=== PATIENT | male | born 1965 | race Caucasian/White ===

== ENCOUNTER 2023-03-28 13:16 | Observation (INO) | payer OTHER, SELFPAY ==
[2023-03-28] VITALS (22 sets, daily range): BP systolic 121–160; BP diastolic 88–122; PULSE 86–127; RESP 17–35; TEMP 36.4–36.9; O2SAT 90–97; BMI 49.9; BMI 48.9
--- NOTE | 2023-03-28 13:32 | ECG_ITS ---
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
--- NOTE | 2023-03-28 13:35 | ED.GENADUL1 ---
HPI - General Adult General Chief complaint: Chest Pain Stated complaint: CHEST PAIN Time Seen by Provider: 03/28/23 13:23 Source: patient and family Mode of arrival: walk-in Limitations: no limitations History of Present Illness HPI narrative: Patient is a pleasant 57-year-old male with no other major medical history who presents to the emergency department with his for the evaluation of shortness of breath, peripheral edema, mild right chest discomfort. Patient states for the last week he has noticed swelling in his lower extremities, today after getting out of the shower, his reported that he complained that his scrotum was swollen. He states he has been more winded over the last week with exertion. He has had minimal runny nose and nonproductive cough. He states he has occasional discomfort in the right anterior chest that he describes as mucus . He has no devora chest pain. He has never smoked. He states he occasionally has lower extremity edema as he works nights and is on his feet all night. He took a home COVID test that was negative. Related Data Home Medications Medication Instructions Recorded Confirmed No Known Home Medications 03/28/23 03/28/23 Allergies Allergy/AdvReac Type Severity Reaction Status Date / Time No Known Drug Allergies Allergy Verified 03/28/23 13:32 Review of Systems ROS Constitutional Denies: fever or chills Ears, nose, mouth, and throat Reports: nasal congestion; Denies: throat pain Cardiovascular Reports: chest pain Respiratory Reports: shortness of breath and cough Gastrointestinal Denies: nausea, vomiting or diarrhea Genitourinary Denies: painful urination Musculoskeletal Denies: back pain Integumentary/Breast Denies: rash Neurological Denies: headache Hematologic/Lymphatic Denies: easy bruising PFSH PFS Social History Smoking status: Never smoker Exam Narrative Exam Narrative: Gen.: Awake, alert, in no distress Head: Normocephalic, atraumatic ENT: Moist mucous membranes Respiratory: No respiratory distress, Diminished lung sounds Cardio: Regular rate and rhythm, Tachycardia Gastrointestinal: Abdomen is soft, nondistended and nontender to palpation Extremities: Moves extremities equally, 3+ pitting pedal edema bilaterally Psych: Normal mood and affect Neuro: No focal neuro deficit Skin: Warm, dry, intact Constitutional Vital Signs, click to edit/add: Last Vital Signs Temp 98.5 F 03/28/23 13:23 Pulse 108 H 03/28/23 14:31 Resp 20 03/28/23 14:31 BP 121/95 H 03/28/23 14:31 Pulse Ox 90 L 03/28/23 14:31 O2 Del Method Room Air 03/28/23 13:53 Course Vital Signs Vital signs: Vital Signs Temperature 98.5 F 03/28/23 13:23 Pulse Rate 126 H 03/28/23 13:23 Respiratory Rate 28 H 03/28/23 13:23 Blood Pressure 151/120 H 03/28/23 13:23 Pulse Oximetry 96 03/28/23 13:23 Oxygen Delivery Method Room Air 03/28/23 13:23 Temperature 98.5 F 03/28/23 13:23 Pulse Rate 108 H 03/28/23 14:31 Respiratory Rate 20 03/28/23 14:31 Blood Pressure 121/95 H 03/28/23 14:31 Pulse Oximetry 90 L 03/28/23 14:31 Oxygen Delivery Method Room Air 03/28/23 13:53 Medical Decision Making MDM Narrative Medical decision making narrative: Patient was placed on oxygen by nasal cannula as while he was in the ER, he was noted to have mild hypoxia while sleeping. He had no complaints of pain in the ER, no complaints of nausea. He was given labetalol for initial hypertension and tachycardia with PVCs. Blood pressure and heart rate improved with this medication. BNP and D-dimer are elevated. CT angio of the chest shows interstitial edema and pleural effusion. Patient treated with 60 mg of IV Lasix. We will admit for diuresis to hospitalist service. Patient is stable at time of admission. Medical Records Medical records reviewed: Yes I reviewed the patient's medical records Lab Data Lab results reviewed: Yes I reviewed the patient's lab results Labs: Lab Results 03/28/23 03/28/23 03/28/23 Range/Units 13:55 14:00 14:28 WBC 10.8 (4.0-11.0) 10^3/uL RBC 5.23 (4.70-6.10) 10^6/uL Hgb 15.2 (14.0-18.0) g/dL Hct 48.3 (42.0-54.0) % MCV 92.4 (80.0-94.0) fL MCH 29.1 (25.9-34.0) pg MCHC 31.5 (29.9-35.2) g/dL RDW 14.4 (11.0-15.0) % Plt Count 236 (150-450) 10^3/uL MPV 10.4 (9.5-13.5) fL Neut % (Auto) 77.7 H (43.0-75.0) % Lymph % (Auto) 11.8 L (20.5-60.0) % [place] % (Auto) 9.1 (1.7-12.0) % Eos % (Auto) 0.6 L (0.9-7.0) % Baso % (Auto) 0.5 (0.2-2.0) % Neut # (Auto) 8.4 H (1.4-6.5) 10^3/uL Lymph # (Auto) 1.3 (1.2-3.8) 10^3/uL [place] # (Auto) 1.0 H (0.3-0.8) 10^3/uL Eos # (Auto) 0.1 (0.0-0.7) 10^3/uL Baso # (Auto) 0.1 (0.0-0.1) 10^3/uL Abs Immat Gran (auto) 0.03 (0.00-0.03) 10^3/uL Imm/Tot Granulo (auto) 0.3 (0.0-0.5) % PT 11.0 (9.0-11.6) sec INR 1.04 APTT 26.4 (22.3-36.2) sec D-Dimer 0.92 H* (<=0.59) mg/L FEU VBG pH 7.408 (7.330-7.430) VBG pCO2 42.9 (40.0-52.0) mmHg Sodium 138 (136-145) mmol/L Potassium 3.8 (3.5-5.1) mmol/L Chloride 103 (98-107) mmol/L Carbon Dioxide 25.3 (21.0-32.0) mmol/L Anion Gap 13.5 BUN 19.0 H (7.0-18.0) mg/dL Creatinine 1.07 (0.70-1.30) mg/dL Est GFR ( Amer) >60 (>=60) Est GFR (Non-Af Amer) >60 (>=60) BUN/Creatinine Ratio 17.8 Glucose 138 H (74-106) mg/dL Calcium 8.9 (8.5-10.1) mg/dL Total Bilirubin 0.9 (0.2-1.0) mg/dL AST 37 (15-37) U/L ALT 64 H (16-63) U/L Alkaline Phosphatase 98 (46-116) U/L Troponin I High Sens 49.2 (4.0-76.1) pg/mL NT-Pro-B Natriuret Pep 3478.0 H* (<=900.0) pg/mL Total Protein 6.5 (6.4-8.2) g/dL Albumin 3.4 (3.4-5.0) g/dL Globulin 3.1 g/dL Albumin/Globulin Ratio 1.1 Procalcitonin <0.05 (0.00-0.50) ng/mL Adenovirus (PCR) Not detected (NOT DETECTE) C. pneumoniae DNA (PCR) Not detected (NOT DETECTE) Coronavirus Type OC43 Not detected (NOT DETECTE) Coronavirus Type HKU1 Not detected (NOT DETECTE) Coronavirus Type 229E Not detected (NOT DETECTE) Coronavirus Type NL63 Not detected (NOT DETECTE) Human Metapneumovir PCR Not detected (NOT DETECTE) M. pneumoniae (PCR) Not detected (NOT DETECTE) Parainfluenza PCR Not detected (NOT DETECTE) Parainfluenza 2 (PCR) Not detected (NOT DETECTE) Parainfluenza 3 (PCR) Not detected (NOT DETECTE) Parainfluenza 4 (PCR) Not detected (NOT DETECTE) RSV (RT-PCR) Not detected (NOT DETECTE) Entero/Rhino (PCR) Not detected (NOT DETECTE) SARS-CoV-2 (PCR) Not detected (NOT DETECTE) Bordetella pertussis (PCR) Not detected (NOT DETECTE) B parapertussis DNA PCR Not detected (NOT DETECTE) Influenza Type A (PCR) Not detected (NOT DETECTE) Influenza Type B (PCR) Not detected (NOT DETECTE) Imaging Data CT scan - chest: Radiologist's impression: ITS Impressions Chest CTA 03/28/23 15:13 IMPRESSION: No evidence for acute pulmonary embolism. Findings suggesting interstitial edema and small right effusion. Question CHF and/or fluid overload. Electronically authenticated by: MANE TABARES Date: 03/28/2023 16:26 ECG Data Attestation: I personally reviewed and interpreted this ECG as follows: (Sinus tachycardia at a rate of 106 with occasional PVCs, right bundle branch block with no acute ST elevation. EKG reviewed by attending physician) Discharge Plan Discharge Chief Complaint: Chest Pain Patient Disposition: Admitted as Observation Time of Disposition Decision: 16:53
[2023-03-28] MEDS: LABETALOL HCL 20 MG/4 ML SYRINGE IVP (13:47)
[2023-03-28 14:07] LABS: Adenovirus NOT DETECTED (NOT DETECTE); Bordetella parapertussis NOT DETECTED (NOT DETECTE); Coronavirus 229E NOT DETECTED (NOT DETECTE); Coronavirus HKU1 NOT DETECTED (NOT DETECTE); Coronavirus NL63 NOT DETECTED (NOT DETECTE); Coronavirus OC43 NOT DETECTED (NOT DETECTE); Human Metapneumovirus NOT DETECTED (NOT DETECTE); Human Rhinovirus/Enterovirus NOT DETECTED (NOT DETECTE); Influenza A NOT DETECTED (NOT DETECTE); Influenza B NOT DETECTED (NOT DETECTE); Mycoplasma pneumoniae NOT DETECTED (NOT DETECTE); Parainfluenza Virus 1 NOT DETECTED (NOT DETECTE); Parainfluenza Virus 2 NOT DETECTED (NOT DETECTE); Parainfluenza Virus 3 NOT DETECTED (NOT DETECTE); Parainfluenza Virus 4 NOT DETECTED (NOT DETECTE); Respiratory Syncytial Virus NOT DETECTED (NOT DETECTE); SARS-CoV-2 NOT DETECTED (NOT DETECTE)
[2023-03-28 14:10] LABS: Basophils Absolute Auto 0.1 10^3/uL (0.0-0.1); Basophils Percent Auto 0.5 % (0.2-2.0); Eosinophils Absolute Auto 0.1 10^3/uL (0.0-0.7); Eosinophils Percent Auto 0.6 % (0.9-7.0); Hematocrit 48.3 % (42.0-54.0); Hemoglobin 15.2 g/dL (14.0-18.0); Immature Granulocytes Abs Auto 0.03 10^3/uL (0.00-0.03); Immature Granulocytes Pct Auto 0.3 % (0.0-0.5); Lymphocytes Absolute Auto 1.3 10^3/uL (1.2-3.8); Lymphocytes Percent Auto 11.8 % (20.5-60.0); Mean Corpuscular HGB Conc 31.5 g/dL (29.9-35.2); Mean Corpuscular Hemoglobin 29.1 pg (25.9-34.0); Mean Corpuscular Volume 92.4 fL (80.0-94.0); Mean Platelet Volume 10.4 fL (9.5-13.5); Monocytes Percent Auto 9.1 % (1.7-12.0); Neutrophils Absolute Auto 8.4 10^3/uL (1.4-6.5); Neutrophils Percent Auto 77.7 % (43.0-75.0); Platelet Count 236 10^3/uL (150-450); Red Blood Count 5.23 10^6/uL (4.70-6.10); Red Cell Distribution Width 14.4 % (11.0-15.0); White Blood Count 10.8 10^3/uL (4.0-11.0)
[2023-03-28 14:30] LABS: Alanine Aminotransferase 64 U/L (16-63); Albumin Globulin Ratio 1.1; Albumin Level 3.4 g/dL (3.4-5.0); Alkaline Phosphatase 98 U/L (46-116); Anion Gap 13.5; Aspartate Amino Transferase 37 U/L (15-37); BUN Creatinine Ratio 17.8; Bilirubin Total 0.9 mg/dL (0.2-1.0); Calcium 8.9 mg/dL (8.5-10.1); Carbon Dioxide 25.3 mmol/L (21.0-32.0); Chloride 103 mmol/L (98-107); Estimated GFR (African America >60 (>=60); Estimated GFR (Non-African Ame >60 (>=60); Globulin 3.1 g/dL; Glucose 138 mg/dL (74-106); Potassium 3.8 mmol/L (3.5-5.1); Sodium 138 mmol/L (136-145); Total Protein 6.5 g/dL (6.4-8.2)
[2023-03-28 14:35] LABS: Troponin I High Sensitivity 49.2 pg/mL (4.0-76.1)
[2023-03-28 14:38] LABS: PCO2 VBG 42.9 mmHg (40.0-52.0); pH VBG 7.408 (7.330-7.430)
[2023-03-28 14:40] LABS: PROCALCITONIN <0.05 ng/mL (0.00-0.50)
[2023-03-28 15:01] LABS: INR 1.04; Partial Thromboplastin Time 26.4 sec (22.3-36.2)
[2023-03-28 15:13] LABS: D Dimer 0.92 mg/L FEU (<=0.59)
--- NOTE | 2023-03-28 15:13 | CT_ITS ---
[address] [address] Patient Name: FLAKO COLIN MRN: [id number] date: 1965 Sex: M Assigned Patient Location: ER Current Patient Location: Accession/Order Number: [id number] Exam Date: 03/28/2023 15:20 Report Date: 03/28/2023 16:26 At the request of: MARCE RONQUILLO Procedure: CT angio chest EXAM: CT angio chest TECHNIQUE: CT angiogram with contrast performed of the chest including multi planar reformatted images and maximum intensity projection images. Dose reduction techniques were achieved by using automated exposure control and/or adjustment of mA and/or kV according to patient size and/or use of iterative reconstruction technique. HISTORY: Shortness of breath, elevated d dimer COMPARISON: None. FINDINGS: Neck and Axilla: No lower neck or axillary lymphadenopathy. Mediastinum and [place]: No hilar or mediastinal lymphadenopathy. The esophagus is grossly unremarkable without dilatation or gross mass lesion. Heart and Major Vessels: The heart appears unremarkable for size without pericardial effusion. The aorta and central pulmonary arteries are unremarkable for size.No pulmonary arterial filling defect to suggest acute embolism. Lung [place]: Mild bilateral dependent atelectasis. Bilateral interstitial thickening suspicious for edema. Pleural Spaces: Small right-sided pleural effusion. Trace left-sided pleural fluid. Upper Abdomen: No acute abnormality identified. Chest Wall: No acute abnormality. CT/CT angio chest IMPRESSION: No evidence for acute pulmonary embolism. Findings suggesting interstitial edema and small right effusion. Question CHF and/or fluid overload. Electronically authenticated by: MANE TABARES Date: 03/28/2023 16:26
[2023-03-28] MEDS: FUROSEMIDE 40 MG/4 ML VIAL 60 MG IVP (17:20)
[2023-03-28 19:31] LABS: Troponin I High Sensitivity 49.1 pg/mL (4.0-76.1)
[2023-03-28] MEDS: ENOXAPARIN SODIUM 40 MG/0.4 ML SYRINGE SUBQ (20:33)
[2023-03-29] VITALS (18 sets, daily range): BP systolic 136–149; BP diastolic 77–88; PULSE 62–154; RESP 18–20; TEMP 36.4–36.6; O2SAT 90–96
[2023-03-29] MEDS: FUROSEMIDE 40 MG/4 ML VIAL IVP ×2 (05:01→17:33)
[2023-03-29 06:46] LABS: Alanine Aminotransferase 55 U/L (16-63); Albumin Globulin Ratio 1.1; Albumin Level 3.3 g/dL (3.4-5.0); Alkaline Phosphatase 85 U/L (46-116); Anion Gap 14.4; Aspartate Amino Transferase 31 U/L (15-37); BUN Creatinine Ratio 16.2; Bilirubin Total 1.2 mg/dL (0.2-1.0); Calcium 8.8 mg/dL (8.5-10.1); Carbon Dioxide 28.4 mmol/L (21.0-32.0); Chloride 105 mmol/L (98-107); Chol HDL Ratio 3.4; Cholesterol 124 mg/dL (<=200); Estimated GFR (African America >60 (>=60); Estimated GFR (Non-African Ame >60 (>=60); Globulin 3.1 g/dL; Glucose 105 mg/dL (74-106); HDL Cholesterol 36 mg/dL (40-60); Potassium 3.8 mmol/L (3.5-5.1); Sodium 144 mmol/L (136-145); Total Protein 6.4 g/dL (6.4-8.2); Triglycerides 65 mg/dL (<=150)
--- NOTE | 2023-03-29 06:55 | CA_ITS ---
Patient Name: FLAKO COLIN MR#: [id number] : 1965 Exam Date: 03/29/2023 Ordering Doctor: DR Chase Connors . ECHOCARDIOGRAM REPORT PROCEDURE: CA ECHO DOPPLER COMPLETE INDICATIONS: CHF, Chest pain COMPARISON: None. DESCRIPTION: COMPLETE ECHOCARDIOGRAM Real-time transthoracic echocardiography with 2D, M-mode, spectral and color flow Doppler performed. QUALITY: Technical quality was good. LEFT VENTRICLE: Severe dilatation. Mild concentric left ventricular hypertrophy. LV EF: Global left ventricular systolic function is moderate; visually estimated ejection fraction is 30 to 35%. Diffuse hypokinesis. DIASTOLIC: Not adequately assessed due to heart rhythm. ATRIAL SEPTUM: Inadequately seen. LEFT ATRIUM: Severe dilatation. RIGHT ATRIUM: Moderate dilatation. RIGHT VENTRICLE: Moderate dilatation. Decreased right ventricular systolic function. TRICUSPID VALVE: Normal mobility and thickness. Mild regurgitation. Moderate pulmonary hypertension. RVSP 52mmHg MITRAL VALVE: Normal mobility and thickness. No evidence of mitral valve stenosis. There is no mitral annular calcification. Moderate mitral regurgitation. AORTIC VALVE: Normal trileaflet appearance. No visible sclerosis. Normal leaflet mobility. No evidence of aortic valve stenosis. AORTIC ROOT: Normal diameter and appearance. PULMONIC VALVE: Normal thickness and mobility. No stenosis. No regurgitation. PERICARDIUM: Trivial pericardial effusion. IVC: Severe dilatation. No collapse. CONCLUSION: 1. Global left ventricular systolic function is moderately decreased; visually estimated ejection fraction is 30 to 35% 2. The left ventricle is dilated 3. Mildly increased left right ventricle is moderately dilated with reduced systolic function 4. Biatrial enlargement 5. Mild tricuspid regurgitation 6. Moderately elevated right ventricular systolic pressure; RVSP 52 mmHg 7. Moderate mitral regurgitation 8. Trivial pericardial effusion Adult Echocardiography Procedure Report Left Ventricle LVEDD (3.7 - 5.6 cm): 7.16 cm LVESD (2.2 - 4.0 cm): 6.37 cm LVIVS thickness (0.6 - 1.2 cm): 1.29 cm LVPW thickness (0.5 - 1.0 cm): 1.28 cm e': 0.11 m/s E - e': 8.78 LVOT Max Gradient: 2.25 mm[Hg], 2.34 mm[Hg], 1.76 mm[Hg] LVOT Area (cm2): 0.73 m/s Peak Velocity (LVOT): 0.75 m/s, 0.77 m/s, 0.66 m/s Mean Velocity (LVOT): 0.58 m/s LVOT Diameter 2.56 cm Left Ventricular Ejection Fraction: 37.61 % Left Atrium LA Volume Index (2D A2C): 62.58 ml/m2 Left Atrium Systolic Dimension: 5.30 cm Mitral Valve Mitral Valve E-Wave Peak Velocity: 0.93 m/s Right Ventricle RV Internal Diastolic Dimension: 4.57 cm Aorta AO Root Diam: 3.56 cm Ascending Ao Diam: 3.40 cm Aortic Valve AoV Area (Peak Krish): 3.00 cm2, 3.10 cm2, 2.89 cm2, 3.03 cm2 AoV Area (VTI): 3.27 cm2, 3.04 cm2, 3.27 cm2, 3.54 cm2 Peak Velocity(Antegrade Flow): 1.24 m/s, 1.36 m/s, 1.13 m/s Peak Gradient(Antegrade Flow): 6.20 mm[Hg], 7.41 mm[Hg], 5.09 mm[Hg] Mean Velocity(Antegrade Flow): 0.86 m/s, 0.95 m/s, 0.89 m/s Mean Gradient(Antegrade Flow): 3.43 mm[Hg], 4.19 mm[Hg], 3.36 mm[Hg] Velocity Time Integral: 20.15 cm, 21.26 cm, 16.04 cm Tricuspid Valve Peak Velocity (Regurgitant Flow): 2.30 m/s, 1.80 m/s, 3.04 m/s Pulmonic Valve Mean Gradient: 3.02 mm[Hg], 2.93 mm[Hg] Mean Velocity: 0.84 m/s, 0.84 m/s Peak Velocity: 1.05 m/s Peak Gradient: 4.71 mm[Hg], 4.12 mm[Hg] Right Atrium Right Atrium Systolic Pressure: 109.42 ml, 109.42 ml Dictated by: Erasto Rodriguez M.D. on 03/29/2023 at 12:00 Approved by: Erasto Rodriguez M.D. on 03/29/2023 at 12:04
[2023-03-29 07:10] LABS: Bilirubin Urine NEGATIVE (NEGATIVE); Blood Urine NEGATIVE (NEGATIVE); Clarity Urine CLEAR (CLEAR); Color Urine LT. YELLOW (YELLOW); Glucose Urine UA NEGATIVE (NEGATIVE); Ketones Urine NEGATIVE (NEGATIVE); Leukocyte Esterase Urine NEGATIVE (NEGATIVE); Nitrite Urine NEGATIVE (NEGATIVE); Protein Urine NEGATIVE (NEG/TRACE); Urobilinogen Urine 0.2 EU/dL (0.2-1.0); pH Urine 5.5 (5.0-9.0)
[2023-03-29 07:16] LABS: Urine Microscopic Indicated NO
--- NOTE | 2023-03-29 08:57 | ECG_ITS ---
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
--- NOTE | 2023-03-29 09:17 | PC.NURSE ---
0840 nurse noted pt HR to go up in to the 150's. Assessed pt denied having any SOB, dyspnea or chest pain. ICU called saying it looks like he went into afib. Updated , placing orders. Nurse had pt bear down and pt HR did go down to 110-120's. ICu called and said it looked like he went back to just a sinus tach.
[2023-03-29 10:04] LABS: Troponin I High Sensitivity 48.1 pg/mL (4.0-76.1)
[2023-03-29] MEDS: CARVEDILOL 3.125 MG TABLET PO ×2 (10:13→20:30)
[2023-03-29] MEDS: LISINOPRIL 20 MG TABLET PO (10:13)
--- NOTE | 2023-03-29 11:52 | CM.NOTE ---
Rounds made with Dr. Connors. Dr. Connors explained fluid overload and the need to stay an additional day (at least) to get off the fluid and control his blood pressure. Mr. Jewell would prefer to leave but he verbalizes understanding when Dr. Connors explains the importance of continuing treatment.
--- NOTE | 2023-03-29 12:01 | P.HP_ITS ---
H&P: HPI History of Present Illness Chief complaint: CHEST PAIN Narrative: 57 y/o male with no significant past medical history presents to ER with SOB and edema. Reports symptoms for 1 week but family reports several weeks and getting worse. C/o SOB with exertion and need frequent breaks. Not able to sleep l aying flat due to SOB and started sleeping in chair. Severe swelling in both feet and progressed up to legs and scrotum. Mild discomfort in chest. Patient has continued to work but just moves slower and needs frequent breaks due to fatigue and SOB. To ER and BP elevated. Labs showed elevated BNP and CT chest with fluid overload. Started IV lasix and admitted. Edema slightly better this am. Patient reports he feels okay other than mild SOB. Review of Systems ROS Constitutional Reports: fatigue; Denies: fever or chills Cardiovascular Reports: chest pain, edema, swelling of feet/ankles, shortness of breath with exertion and shortness of breath when lying down; Denies: palpitations or lightheadedness Respiratory Reports: shortness of breath and cough; Denies: wheezing Gastrointestinal Denies: abdominal pain, nausea, vomiting or diarrhea Genitourinary Denies: painful urination [facility] Medical History (Updated 03/29/23 @ 12:07 by Chase Connors MD) Tachycardia ?R00.0 - Tachycardia, unspecified (ICD-10) CHF (congestive heart failure) ?I50.9 - Heart failure, unspecified (ICD-10) Social History Smoking status: Never smoker Meds Home Medications and Allergies Home Medications Medication Instructions Recorded Confirmed Type No Known Home Medications 03/28/23 03/28/23 History Allergies Allergy/AdvReac Type Severity Reaction Status Date / Time No Known Drug Allergies Allergy Verified 03/28/23 13:32 Exam Constitutional Vital Signs, click to edit/add: Last Vital Signs Temp 97.5 F L 03/29/23 04:54 Pulse 117 H 03/29/23 08:58 Resp 18 03/29/23 04:54 BP 136/77 03/29/23 04:54 Pulse Ox 90 L 03/29/23 04:54 O2 Del Method Room Air 03/29/23 04:54 Documenting provider has reviewed patient's vital signs: yes Common normals: no apparent distress, oriented x3 and alert [facility] Common normals: normocephalic Eye Common normals: PERRL and EOMs intact bilaterally Respiratory Auscultation: crackles Cardio Common normals: regular rate, regular rhythm, no gallops, no murmurs and no rub GI Common normals: Normal to inspection, nondistended, normoactive bowel sounds present and non-tender Extremity General: edema (2+ bipedal pitting edema) Results Labs Labs: Short CBC 03/28/23 Range/Units 13:55 WBC 10.8 (4.0-11.0) 10^3/uL Hgb 15.2 (14.0-18.0) g/dL Hct 48.3 (42.0-54.0) % Plt Count 236 (150-450) 10^3/uL BMP 03/28/23 03/29/23 13:55 04:43 Sodium 138 144 Potassium 3.8 3.8 Chloride 103 105 Carbon Dioxide 25.3 28.4 BUN 19.0 H 17.0 Creatinine 1.07 1.05 Glucose 138 H 105 Calcium 8.9 8.8 Liver Function 03/28/23 03/29/23 Range/Units 13:55 04:43 Total Bilirubin 0.9 1.2 H (0.2-1.0) mg/dL AST 37 31 (15-37) U/L ALT 64 H 55 (16-63) U/L Alkaline Phosphatase 98 85 (46-116) U/L Albumin 3.4 3.3 L (3.4-5.0) g/dL Urine 03/29/23 Range/Units 06:39 Urine Color Lt. yellow (YELLOW) Urine Clarity Clear (CLEAR) Urine pH 5.5 (5.0-9.0) Ur Specific [place] 1.010 (1.005-1.025) Urine Protein Negative (NEG/TRACE) mg/dL Urine Glucose (UA) Negative (NEGATIVE) mg/dL ABG ABG results: 03/28/23 14:28 VBG pH 7.408 VBG pCO2 42.9 ECG Attestation: ?I have reviewed the pertinent ECG results. Assessment and Plan Assessment and Plan (1) Acute HFrEF (heart failure with reduced ejection fraction): (2) Sinus tachycardia: (3) Anxiety about health: (4) Benign essential hypertension: (5) Peripheral edema: (6) Morbid obesity: Plan Presented with new onset CHF and fluid overload. Echo not read but calculated EF 35%. Discussed case with cardiology who states patient needs heart cath. Discussed acuity of case and does he need transfer for cath vs outpatient. Cardiology stated either would be acceptable. CE negative and vitals stable. Developed sinus tachycardia but likely related to anxiety. Will add coreg, lisinopril, and aldactone. Continue IV lasix. Discussed with patient and nurse about disposition. He will discuss with family but thinks he may want to be discharged with outpatient cardiology follow up and heart cath.
[2023-03-29] MEDS: SPIRONOLACTONE 25 MG TABLET PO (12:31)
[2023-03-29] MEDS: ENOXAPARIN SODIUM 40 MG/0.4 ML SYRINGE SUBQ (20:30)
[2023-03-30] VITALS (15 sets, daily range): BP systolic 119–148; BP diastolic 74–85; PULSE 15–115; RESP 16–18; TEMP 36.6–36.8; O2SAT 92
[2023-03-30] MEDS: FUROSEMIDE 40 MG/4 ML VIAL IVP ×3 (04:54→21:15)
[2023-03-30 06:02] LABS: Alanine Aminotransferase 48 U/L (16-63); Albumin Level 3.1 g/dL (3.4-5.0); Alkaline Phosphatase 84 U/L (46-116); Anion Gap 12.7; Aspartate Amino Transferase 24 U/L (15-37); BUN Creatinine Ratio 16.1; Bilirubin Total 1.4 mg/dL (0.2-1.0); Carbon Dioxide 29.1 mmol/L (21.0-32.0); Chloride 107 mmol/L (98-107); Estimated GFR (African America >60 (>=60); Estimated GFR (Non-African Ame >60 (>=60); Globulin 3.2 g/dL; Glucose 101 mg/dL (74-106); Potassium 3.8 mmol/L (3.5-5.1); Sodium 145 mmol/L (136-145); Total Protein 6.3 g/dL (6.4-8.2)
[2023-03-30] MEDS: CARVEDILOL 3.125 MG TABLET PO (09:51)
[2023-03-30] MEDS: LISINOPRIL 20 MG TABLET PO (09:52)
[2023-03-30] MEDS: SPIRONOLACTONE 25 MG TABLET PO (09:52)
--- NOTE | 2023-03-30 11:38 | CM.NOTE ---
Rounds made with Dr. Connors, pt awaiting for bed at [facility] for transfer. Pt will need heart cath, cardiology will consult with pt today.
[2023-03-30] MEDS: POTASSIUM CHLORIDE 10 MEQ ER TABLET 20 MEQ PO (11:59)
--- NOTE | 2023-03-30 16:25 | P.CN_ITS ---
<Statement entered by DORA CENTENOJUSTIN - 04/06/23 16:41> This documentation has been reviewed and approved. Consult Note: HPI Data of Consult Patient: new to practice Consult date: 03/30/23 Requesting Physician: Chase Connors MD Primary Care Provider: VERONIKA PIERSON DO Consult Narrative Reason for consult: Acute systolic heart failure, newly reduced EF 30-35% Narrative: 57-year-old male with no other major medical history who presents to the emergency department with his for the evaluation of shortness of breath with exertion, + orthopnea, peripheral edema, mild right chest discomfort. Patient states for the last week he has noticed swelling in his lower extremities, today after getting out of the shower, his reported that he complained that his scrotum was swollen. He states he has been more winded over the last week with exertion. He has had minimal runny nose and nonproductive cough. He states he has occasional discomfort in the right anterior chest that he describes as mucus . Reports recent URI, sinus congestion- denied Covid states test was negative. Currently admits SOB with exertion, mild orthopnea, continued but improved leg swelling. Admits that he was having intermittent mid sternal to Rt lower chest discomfort, that occurred at rest and with exertion, and states Coughing up mucus relieved it. Echo completed yesterday showed newly reduced EF. No PMH or surgical history Pt is adopted- unknown [facility] Social never a smoker cc:: CC: Chase Connors MD Review of Systems ROS Constitutional Reports: change in weight; Denies: fever or chills Cardiovascular Reports: chest pain, edema, swelling of feet/ankles, shortness of breath with exertion and shortness of breath when lying down Respiratory Reports: shortness of breath and cough [facility] Medical History (Updated 03/30/23 @ 16:47 by ALISHA KHAN) Tachycardia ?R00.0 - Tachycardia, unspecified (ICD-10) CHF (congestive heart failure) ?I50.9 - Heart failure, unspecified (ICD-10) Social History Smoking status: Never smoker Meds Home Medications and Allergies Home Medications Medication Instructions Recorded Confirmed Type No Known Home Medications 03/28/23 03/28/23 History Allergies Allergy/AdvReac Type Severity Reaction Status Date / Time No Known Drug Allergies Allergy Verified 03/28/23 13:32 Exam Constitutional Vital Signs, click to edit/add: Last Vital Signs Temp 98 F 03/30/23 14:00 Pulse 15 L 03/30/23 14:00 Resp 18 03/30/23 14:00 BP 148/85 H 03/30/23 14:00 Pulse Ox 92 L 03/30/23 05:00 O2 Del Method Room Air 03/30/23 14:00 Common normals: no apparent distress, oriented x3 and alert; negative for average body habitus (obese) General appearance: cooperative, comfortable and well kempt Nutritional appearance: obese HENMI Common normals: normocephalic Respiratory Common normals: normal respiratory effort, no retractions and no use of accessory muscles Auscultation: diminished lung sounds (diminished b/l posterior bases) bilateral; no crackles, no rales, no rhonchi and no wheezes Cardio Common normals: no JVD (unable to assess r/t body habitus), regular rhythm, S1 normal heart sound, S2 normal heart sound and peripheral pulses 2+ throughout Rhythm: regular rhythm Peripheral pulses: radial pulses present, posterior tibial pulses present and dorsalis pedis pulses present Extremity Common normals: full ROM and normal capillary refill General: edema (BLE 3+ pitting) Neuro Common normals: oriented x3 and CN's II-XII intact bilaterally Psych Common normals: thought process normal, cooperative and affect normal Judgement: judgment good Results Labs Labs: [facility] 03/30/23 04:32 Sodium 145 Potassium 3.8 Chloride 107 Carbon Dioxide 29.1 BUN 15.0 Creatinine 0.93 Glucose 101 Calcium 9.0 Liver Function 03/30/23 Range/Units 04:32 Total Bilirubin 1.4 H (0.2-1.0) mg/dL AST 24 (15-37) U/L ALT 48 (16-63) U/L Alkaline Phosphatase 84 (46-116) U/L Albumin 3.1 L (3.4-5.0) g/dL ABG ABG results: 03/28/23 14:28 VBG pH 7.408 VBG pCO2 42.9 ECG ECG interpretation date: 03/29/23 Prior ECG tracings: available for review Interpretation: Interpretive Statements SINUS TACHYCARDIA WITH FREQUENT VENTRICULAR PREMATURE COMPLEXES RIGHT BUNDLE BRANCH BLOCK [120+ ms QRS DURATION, UPRIGHT V1, 40+ ms S IN I/aVL/V4/V5/V6] LEFT ANTERIOR FASCICULAR BLOCK [QRS AXIS <= -45, QR IN I, RS IN II] WARNING: DATA QUALITY MAY AFFECT INTERPRETATION INTERPRETATION BASED ON A DEFAULT AGE OF 40 YEARS Electronically Signed On 03-29-2023 22:28:02 EST by JUNIOR HERNANDEZ Imaging echocardiogram: Attestation: I have reviewed the pertinent imaging results. Radiologist's impression: 03/29/23 [place] [address] Cardiology Report Signed Patient: FLAKO COLIN MR#: [id number] : 1965 Acct:[id number] Age/Sex: 57 / M ADM Date: 03/28/23 Loc: MS 214-[address]: Chase Connors M.D. Ordering Physician: Chase Connors M.D. Date of Service: 03/29/23 Procedure(s): CA echo doppler complete Accession Number(s): [id number] cc: VERONIKA PIERSON D.O.; Chase Connors M.D.~ Patient Name: FLAKO COLIN MR#: [id number] : 1965 Exam Date: 03/29/2023 Ordering Doctor: DR Chase Connors . ECHOCARDIOGRAM REPORT PROCEDURE: CA ECHO DOPPLER COMPLETE INDICATIONS: CHF, Chest pain COMPARISON: None. DESCRIPTION: COMPLETE ECHOCARDIOGRAM Real-time transthoracic echocardiography with 2D, M-mode, spectral and color flow Doppler performed. QUALITY: Technical quality was good. LEFT VENTRICLE: Severe dilatation. Mild concentric left ventricular hypertrophy. LV EF: Global left ventricular systolic function is moderate; visually estimated ejection fraction is 30 to 35%. Diffuse hypokinesis. DIASTOLIC: Not adequately assessed due to heart rhythm. ATRIAL SEPTUM: Inadequately seen. LEFT ATRIUM: Severe dilatation. RIGHT ATRIUM: Moderate dilatation. RIGHT VENTRICLE: Moderate dilatation. Decreased right ventricular systolic function. TRICUSPID VALVE: Normal mobility and thickness. Mild regurgitation. Moderate pulmonary hypertension. RVSP 52mmHg MITRAL VALVE: Normal mobility and thickness. No evidence of mitral valve stenosis. There is no mitral annular calcification. Moderate mitral regurgitation. AORTIC VALVE: Normal trileaflet appearance. No visible sclerosis. Normal leaflet mobility. No evidence of aortic valve stenosis. AORTIC ROOT: Normal diameter and appearance. PULMONIC VALVE: Normal thickness and mobility. No stenosis. No regurgitation. PERICARDIUM: Trivial pericardial effusion. IVC: Severe dilatation. No collapse. CONCLUSION: 1. Global left ventricular systolic function is moderately decreased; visually estimated ejection fraction is 30 to 35% 2. The left ventricle is dilated 3. Mildly increased left right ventricle is moderately dilated with reduced systolic function 4. Biatrial enlargement 5. Mild tricuspid regurgitation 6. Moderately elevated right ventricular systolic pressure; RVSP 52 mmHg 7. Moderate mitral regurgitation 8. Trivial pericardial effusion CT scan - chest: Attestation: I have reviewed the pertinent imaging results. Radiologist's impression: Heart and Major Vessels: The heart appears unremarkable for size without pericardial effusion. The aorta and central pulmonary arteries are unremarkable for size.No pulmonary arterial filling defect to suggest acute embolism. Lung [place]: Mild bilateral dependent atelectasis. Bilateral interstitial thickening suspicious for edema. Pleural Spaces: Small right-sided pleural effusion. Trace left-sided pleural fluid. Upper Abdomen: No acute abnormality identified. Chest Wall: No acute abnormality. CT/CT angio chest IMPRESSION: No evidence for acute pulmonary embolism. Findings suggesting interstitial edema and small right effusion. Question CHF and/or fluid overload. Electronically authenticated by: MANE TABARES Date: 03/28/2023 16:26 Assessment and Plan Assessment and Plan (1) Acute HFrEF (heart failure with reduced ejection fraction): Assessment and Plan: Newly reduced LVSF- EF 30-35% [facility] III -GDMT optimization- continue Coreg- increase to 6.25 mg bid, lisinopril, lasix and aldactone- after cardiac cath may transition Lisnopril to entresto and add SGLT2i- Non are formulary at [facility] - Plan for transfer to [facility] for Cardiology consult, aggressive diuresis, monitoring of renal function and electrolytes, plan for cardiac cath after further optimization and more euvolemic - Increase lasix to 40 mg IV TID, Further optimization of GDMT at [facility], Accurate I&O, daily weights, fluid restriction 1500 ml/day and low sodium diet. -Provider had extended 45 min D/W pt and family regarding Acute systolic heart failure diagnosis, reduced EF, need for cardiac cath for ischemic evaluation, aggressive diuresis, possiblity of needing lifevest for prophylaxis. I&O does not appear accurate but noted as net negative- (-2475 mL) (2) Sinus tachycardia: Assessment and Plan: Continue beta robby- currently stable (3) Anxiety about health: (4) Peripheral edema: Assessment and Plan: continue diuresis (5) Morbid obesity: Assessment and Plan: recommend lifestyle modifiacations- heart healthy diet, regular exercise after DC- most likely will need Cardiac rehab (6) Benign hypertensive heart disease with heart failure: Assessment and Plan: CUrrently HTN stable and will adjust GDMT dependent upon B/P tolerance Continue all medications (7) BAKER (dyspnea on exertion): Assessment and Plan: BAKER is improving with diuresis per pt Plan as above Alisha [facility] CArdiology
[2023-03-30] MEDS: CARVEDILOL 6.25 MG TABLET PO (21:16)
[2023-03-30] MEDS: ENOXAPARIN SODIUM 40 MG/0.4 ML SYRINGE SUBQ (21:16)
--- NOTE | 2023-03-30 21:32 | P.PN_ITS ---
Progress Note: Subjective Subjective Interval history: Patient feels better this am and less edema. Mild SOB with exertion but improved. No chest pain or palpitations. No cough. Waiting for a bed at [facility] for transfer. Exam Constitutional Vital Signs, click to edit/add: Last Vital Signs Temp 97.9 F 03/30/23 21:24 Pulse 51 L 03/30/23 21:24 Resp 16 03/30/23 21:24 BP 119/74 03/30/23 21:24 Pulse Ox 92 L 03/30/23 21:24 O2 Del Method Room Air 03/30/23 21:24 Documenting provider has reviewed patient's vital signs: yes Common normals: no apparent distress, oriented x3 and alert HENMT Common normals: normocephalic Eye Common normals: PERRL and EOMs intact bilaterally Respiratory Common normals: normal respiratory effort and clear to auscultation bilaterally Cardio Common normals: regular rate, regular rhythm, no gallops, no murmurs and no rub GI Common normals: Normal to inspection, nondistended, normoactive bowel sounds present and non-tender Extremity General: edema (1+ bipedal pitting edema) Progress Note: Objective Labs Labs: BMP 03/30/23 04:32 Sodium 145 Potassium 3.8 Chloride 107 Carbon Dioxide 29.1 BUN 15.0 Creatinine 0.93 Glucose 101 Calcium 9.0 Liver Function 03/30/23 Range/Units 04:32 Total Bilirubin 1.4 H (0.2-1.0) mg/dL AST 24 (15-37) U/L ALT 48 (16-63) U/L Alkaline Phosphatase 84 (46-116) U/L Albumin 3.1 L (3.4-5.0) g/dL Progress Note: A&P Assessment and Plan (1) Acute HFrEF (heart failure with reduced ejection fraction): (2) Sinus tachycardia: (3) Anxiety about health: (4) Peripheral edema: (5) Morbid obesity: (6) Benign hypertensive heart disease with heart failure: (7) BAKER (dyspnea on exertion): Plan Patient diuresing well and weight down about 7 kg since admission. Continue IV lasix. Evaluated by cardiology and felt it would be in patient's best interest to be transferred for heart cath as opposed to going home and having outpatient cath. No bed available. Continue medication and will transfer to [facility] once bed available.
[2023-03-31] VITALS (16 sets, daily range): BP systolic 118–163; BP diastolic 70–91; PULSE 86–113; RESP 18; TEMP 36.3–36.8; O2SAT 92–93
[2023-03-31] MEDS: FUROSEMIDE 40 MG/4 ML VIAL IVP ×2 (05:17→13:56)
[2023-03-31 06:06] LABS: Alanine Aminotransferase 41 U/L (16-63); Albumin Globulin Ratio 0.9; Albumin Level 3.1 g/dL (3.4-5.0); Alkaline Phosphatase 84 U/L (46-116); Anion Gap 9.7; Aspartate Amino Transferase 21 U/L (15-37); Bilirubin Total 1.6 mg/dL (0.2-1.0); Carbon Dioxide 30.7 mmol/L (21.0-32.0); Chloride 106 mmol/L (98-107); Estimated GFR (African America >60 (>=60); Estimated GFR (Non-African Ame >60 (>=60); Globulin 3.3 g/dL; Glucose 90 mg/dL (74-106); Potassium 3.4 mmol/L (3.5-5.1); Sodium 143 mmol/L (136-145); Total Protein 6.4 g/dL (6.4-8.2)
--- NOTE | 2023-03-31 08:27 | PM.DS1 ---
DS: Providers Provider Date of admission: 03/28/23 18:09 Primary care physician: VERONIKA PIERSON DO Consults: 03/30/23 Consult to Cardiology Routine Reason for consultation: low EF DS: Diagnosis Discharge Diagnosis (1) Acute HFrEF (heart failure with reduced ejection fraction): (2) Sinus tachycardia: (3) Anxiety about health: (4) Peripheral edema: (5) Morbid obesity: (6) Benign hypertensive heart disease with heart failure: (7) BAKER (dyspnea on exertion): DS: Summary Time Spent with Patient Time attestation: Total time spent providing and/or coordinating discharge services: Exam Constitutional Vital Signs, click to edit/add: Last Vital Signs Temp 98.2 F 03/31/23 05:20 Pulse 97 H 03/31/23 07:56 Resp 18 03/31/23 05:20 BP 163/70 H 03/31/23 05:20 Pulse Ox 92 L 03/31/23 05:20 O2 Del Method Room Air 03/31/23 05:20 DS: Data Data Completed and Pending Labs on day of discharge: Labs from last 24 hours 03/31/23 05:03 Sodium 143 Potassium 3.4 L Chloride 106 Carbon Dioxide 30.7 Anion Gap 9.7 BUN 16.0 Creatinine 1.00 Est GFR ( Amer) >60 Est GFR (Non-Af Amer) >60 BUN/Creatinine Ratio 16.0 Glucose 90 Calcium 9.0 Total Bilirubin 1.6 H AST 21 ALT 41 Alkaline Phosphatase 84 Total Protein 6.4 Albumin 3.1 L Globulin 3.3 Albumin/Globulin Ratio 0.9 Preliminary micro results at discharge 03/28/23 14:00 - Preliminary Blood NO GROWTH AT 36-48 HOURS. FINAL TO FOLLOW. 03/28/23 13:55 Blood Culture Result 1 - Preliminary Blood NO GROWTH AT 36-48 HOURS. FINAL TO FOLLOW. Discharge Plan Discharge Condition: Good Discharge Medications: No Action No Known Home Medications Follow Up Appointments: Apr.05 @ 9:15am with Dr. 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
[2023-03-31] MEDS: SPIRONOLACTONE 25 MG TABLET PO (09:48)
[2023-03-31] MEDS: CARVEDILOL 6.25 MG TABLET PO (09:48)
[2023-03-31] MEDS: LISINOPRIL 20 MG TABLET PO (09:48)
[2023-03-31] MEDS: POTASSIUM CHLORIDE 10 MEQ ER TABLET 20 MEQ PO (09:48)
--- NOTE | 2023-03-31 17:59 | P.PN_ITS ---
Progress Note: Subjective Subjective Interval history: patient reports edema has improved on both lower extremities, no chest pain no shortness of breath. Waiting for a bed at [facility] for transfer. Exam Narrative Exam Narrative: General: Patient is alert, and oriented to person, place and time with normal affect, proper hygiene Skin: no visible rashes, or ulcers Head: atraumatic, acephalic Eyes: PERRLA, no nystagmus present, conjunctiva clear, no scleral icterus Heart: Normal rate and rhythm, no murmurs/rubs/gallops Lungs: no audible wheezes, crackles and normal breath sounds all lung juarez Musculoskeletal: +1 swelling bilateral lower extremities Neuro: CN II-X grossly intact Constitutional Vital Signs, click to edit/add: Last Vital Signs Temp 98.2 F 03/31/23 05:20 Pulse 99 H 03/31/23 17:57 Resp 18 03/31/23 13:59 BP 118/84 03/31/23 13:59 Pulse Ox 93 L 03/31/23 13:59 O2 Del Method Room Air 03/31/23 13:59 Progress Note: Objective Labs Labs: [facility] 03/31/23 05:03 Sodium 143 Potassium 3.4 L Chloride 106 Carbon Dioxide 30.7 BUN 16.0 Creatinine 1.00 Glucose 90 Calcium 9.0 Liver Function 03/31/23 Range/Units 05:03 Total Bilirubin 1.6 H (0.2-1.0) mg/dL AST 21 (15-37) U/L ALT 41 (16-63) U/L Alkaline Phosphatase 84 (46-116) U/L Albumin 3.1 L (3.4-5.0) g/dL Progress Note: A&P Assessment and Plan (1) Acute HFrEF (heart failure with reduced ejection fraction): Assessment and Plan: new onset with EF 30%, continue Coreg, spironolactone, Lasix, lisinopril, awaiting transfer for cardiac catheterization and higher level of care (2) Peripheral edema: Assessment and Plan: continue Lasix 40 mg 3 times a day (3) Morbid obesity: Assessment and Plan: encourage weight loss once discharged from the hospital, cardiac diet (4) Benign hypertensive heart disease with heart failure: Assessment and Plan: continue antihypertensives (5) BAKER (dyspnea on exertion): Assessment and Plan: symptoms have improved with diuresis Plan patient is a full code Continue Lovenox for deep vein thrombosis prophylaxis Patient as inpatient status in awaiting bed placement/transfer to [facility]
--- NOTE | 2023-04-01 09:25 | PM.DS1 ---
DS: Providers Provider Date of admission: 03/28/23 18:09 Primary care physician: VERONIKA PIERSON DO Admitting clinician: Chase Connors Consults: 03/30/23 Consult to Cardiology Routine Reason for consultation: low EF Discharging clinician: Radha Méndez DS: Diagnosis Discharge Diagnosis (1) Acute HFrEF (heart failure with reduced ejection fraction): (2) Peripheral edema: (3) Morbid obesity: (4) Benign hypertensive heart disease with heart failure: (5) BAKER (dyspnea on exertion): DS: Summary Hospital Course Hospital Course: please see progress note dated 03/31/23, patient transferred to [facility] Status at Discharge Functional status at discharge: independent ambulation Time Spent with Patient Time attestation: Total time spent providing and/or coordinating discharge services: Time spent: greater than 30 minutes Exam Narrative Exam Narrative: see progress note dated 03/31/23 Constitutional Vital Signs, click to edit/add: Last Vital Signs Temp 97.4 F L 03/31/23 19:24 Pulse 107 H 03/31/23 19:24 Resp 18 03/31/23 19:24 BP 129/91 03/31/23 19:24 Pulse Ox 93 L 03/31/23 19:24 O2 Del Method Room Air 03/31/23 19:24 DS: Data Data Completed and Pending Labs on day of discharge: Preliminary micro results at discharge 03/28/23 14:00 - Preliminary Blood NO GROWTH AT 36-48 HOURS. FINAL TO FOLLOW. 03/28/23 13:55 Blood Culture Result 1 - Preliminary Blood NO GROWTH AT 36-48 HOURS. FINAL TO FOLLOW. Discharge Plan Discharge Disposition: [facility] Acute [facility] Condition: Good Discharge Date/Time: 03/31/23 19:27 Discharge location: [facility]
== END 2023-03-31 19:27 | disposition short-term general hospital (02) ==
LOC: ER 18:06 → MS 18:10
PROVIDERS: Physician Assistant; Admitting Provider Family Medicine; Emergency Provider Emergency Medicine; PCP Family Medicine; Visit Provider Family Medicine
DX: I11.0 Hypertensive heart disease with heart failure (principal); I50.31 Acute diastolic (congestive) heart failure; E66.01 Morbid (severe) obesity due to excess calories; R60.9 Edema, unspecified; R06.09 Other forms of dyspnea; R00.0 Tachycardia, unspecified; F41.9 Anxiety disorder, unspecified; Z68.41 Body mass index [BMI] 40.0-44.9, adult; Z20.822 Contact with and (suspected) exposure to COVID-19
CPT/HCPCS: 0202U; 36415; 71275; 80053; 80061; 81003; 82800; 83880; 84145; 84484; 85025; 85378; 85610; 85730; 87040; 93005; 93306; 96372; 96374; 96375; 96376; 99285; G0378; J1290; J1650; J1940; Q9967

== ENCOUNTER 2023-04-10 07:56 | Outpatient (OUT) | payer OTHER, SELFPAY ==
--- OUTSIDE RECORDS SUMMARY | 2023-04-10 08:00 | XMS_ITS | CCD ---
Author Name Unknown Address [address] [place] [address] Organization [facility] Care Team Providers Care Automotive Service Director Name Role Phone EVETTE LEE Referring Unavailable BARBARAHINA Attending Unavailable MERZA, NOORALDIN Admitting Unavailable ZENKATRINA Nagel Referring Unavailable BARBARA, SARMED Referring Unavailable MERZA, NOORALDIN Referring Unavailable MERZA, NOORALDIN Referring Unavailable SHAIKH KELLEY Attending Unavailable Problems Problem Classification Problem Date Documented Da te Episodic/Chronic Congestive heart failure; nonhypertensive (2 sources) Heart failure, unspecified; Translations: [Heart failure, unspecified] Onset: 03-31-2023 Chronic Essential hypertension (2 sources) Essential (primary) hypertension; Translations: [Essential (primary) hypertension] Onset: 03-31-2023 Chronic Results Test Name Value Interpretation Reference Range Facility 36on 04-04-2023 36 Discharge date: 04/03/23 Call date: 04/04/23 Spoke with: patient and spouse HF Follow-up date: 04/06/23 Med reconciliation completed: yes Questions/Concerns: Home meds reviewed with pt. Per pt, he is not taking the OTC supplements listed on the AVS at this time, but he is taking all new medications as prescribed. Pt is monitoring daily weights, BP and HR as well as sodium and fluid intake. Pt and his spoke VERY highly of their hospital experience and the staff who cared for them. [facility] Documentationon 04-04-2023 Documentation [id number] Cory Colin 1965 M Date Provider Department Center 04/04/2023 CEE [facility] V[facility] LAB [facility] HeartVAS No family history on file Reason for Visit and Comments: HF inpatient satisfaction survey sent. [Other] [facility] Telephoneon 04-04-2023 Telephone [phone] Cory Colin 1965 M Date Provider Department Center 04/04/2023 [id number] [facility] VASC LAB OR HeartVAS No family history on file Reason for Visit and Comments: HF post discharge call [Other] Normal [facility] BASIC METABOLIC PANELon 03-07 Anion gap [Moles/Vol] 13 mmol/L Normal 7-20 [facility] Comment on above: Performed By: #### L [id number] ####[facility] ([facility] [place] [address] Calcium [Mass/Vol] 9.3 mg/dL Normal 8.6-10.3 [facility] Comment on above: Performed By: #### L [id number] ####[facility] ([facility])[address] [place] [address] Chloride [Moles/Vol] 102 mmol/L Normal 98-107 [facility] Comment on above: Performed By: #### L [id number] ####[facility] ([facility] [place] [address] CO2 [Moles/Vol] 30 mmol/L Normal 21-31 [facility] Comment on above: Performed By: #### L [id number] ####[facility] ([facility] [place] [address] Creatinine [Mass/Vol] 1.37 mg/dL High 0.70-1.30 [facility] Comment on above: Performed By: #### L [id number] ####[facility] ([facility])[address] [place] [address] GLOMERULAR FILTRATION RATE ML/MIN/1.73 SQ M.PREDICTED 60.9 mL/min/1.73m*2 Normal >60.0 [facility] Comment on above: Result Comment: The [facility]???s estimated glomerular filtration rate (eGFR) will no longer include consideration of race in its calculation. The National Kidney Foundation???s eGFR Task Force developed new recommendations for the estimation of the glomerular filtration rate in the [place] They recommend immediate implementation of the new equation refit without the race variable in all laboratories because the calculation does not include race. In addition to not including race in the calculation and reporting, it included diversity in its development, and has acceptable performance characteristics and potential consequences that do not disproportionately affect any one group of individuals. Performed By: #### L [id number] ####[facility] ([facility])[address] [place] [address] Glucose [Mass/Vol] 104 mg/dL High 70-100 [facility] Comment on above: Performed By: #### L [id number] ####[facility] ([facility])[address] [place] [address] Potassium [Moles/Vol] 4.5 mmol/L Normal 3.5-5.1 [facility] Comment on above: Performed By: #### L [id number] ####[facility] ([facility])[address] [place] [address] Sodium [Moles/Vol] 140 mmol/L Normal 136-145 [facility] Comment on above: Performed By: #### L [id number] ####[facility] ([facility])[address] [place] [address] Urea nitrogen [Mass/Vol] 28 mg/dL High 7-25 [facility] Comment on above: Performed By: #### L [id number] ####[facility] ([facility])[address] [place] [address] UREA NITROGEN/CREATININE (MASS RATIO) IN SER/PLAS 20.4 Normal [facility] Comment on above: Performed By: #### L [id number] ####[facility] ([facility])[address] [place] [address] DSon 04-03-2023 DS -- Attestation signed by Hina Gonzalez MD at 04/04/2023 2:53 PM I discussed the patient on the same date of service as the Non-Physician Provider. Hospital Medicine Discharge Summary Final Discharge Diagnosis: Decompensated heart failure (CMS/[facility]) Decompensated CHF /fluid overload Hypertension JAZZ Bilateral lower extremity edema Shortness of breath Admission Diagnosis: Decompensated heart failure (CMS/HCC) [I50.9] Hospital course: Cory Colin is an 57 y.o. male who came from [facility] with minimal to no medical history x 10 years as he states he has not seen a provider nor had any medical treatment in over 10 years and denies taking any prescription medications, [id number] medications or herbals at this time. Patient states he does not even take yfgn-yar-togykmi Tylenol or ibuprofen and stopped taking both of those years ago. Patient reports he has been experiencing shortness of breath and swelling for weeks to months with significant amount of edema progressing up bilateral lower extremities into groin and lower abdomen. Patient states upon arrival to [facility] he was over [address] [facility] he received treatment with IV Lasix, carvedilol, and Aldactone. Patient is now down to 305 pounds and still significantly edematous. Echo completed at [facility] shows EF of 30-35%. Patient diagnosed the hospital with decompensated CHF and has been transferred to [facility] for need of heart cath. Patient with likely chronic undiagnosed hypertension, obesity and obstructive sleep apnea prior to hospitalization. Decompensated CHF /fluid overload, resolved Patient was treated with IV lasix, he had Right heart cath completed which showed nearly normal pressures, he was transitioned to oral lasix on discharge Left heart cath negative for significant blockages, EF noted to be about 15%, cardiology started GDMT and will follow up with him in 1 week JAZZ, likely 2/2 diuretics and heart cath Creatinine mildly elevated, BMP ordered to be drawn Sunday, but in discharge to follow up with his PCP regarding results, he will see him tomorrow per patient Hypertension, controlled Bilateral lower extremity edema, improved Shortness of breath, resolved Dear Dr. Allie MD, Cory is advised to follow up with you within 1-2 weeks. Follow-up with: Cardiology Scheduled appointments: Future Appointments Date Time Provider Department Center 04/06/2023 10:15 AM Levi Reddy MD [facility] 04/11/2023 11:00 AM Gay Garcia NP [facility] Your medication list START taking these medications Instructions Last Dose Given Next Dose Due aspirin 81 mg EC tablet Start taking on: April 04, 2023 Take 1 tablet (81 mg) by mouth in the morning for 30 doses. Do not start before April 04, 2023. atorvastatin 80 mg tablet Commonly known as: Lipitor Take 1 tablet (80 mg) by mouth at bedtime. dapagliflozin propanediol 10 mg Commonly known as: Farxiga Start taking on: April 04, 2023 Take 1 tablet (10 mg) by mouth in the morning for 30 doses. Do not start before April 04, 2023. furosemide 40 mg tablet Commonly known as: Lasix Start taking on: April 04, 2023 Take 1 tablet (40 mg) by mouth in the morning for 30 doses. Do not start before April 04, 2023. metoprolol succinate XL 50 mg 24 hr tablet Commonly known as: Toprol-XL Start taking on: April 04, 2023 Take 1 tablet (50 mg) by mouth in the morning. Do not crush or chew. Do not start before April 04, 2023. sacubitril-valsartan 24-26 mg tablet Commonly known as: Entresto Take 1 tablet by mouth in the morning and at bedtime. spironolactone 25 mg tablet Commonly known as: Aldactone Start taking on: April 04, 2023 Take 1 tablet (25 mg) by mouth in the morning for 30 doses. Do not start before April 04, 2023. CONTINUE taking these medications Instructions Last Dose Given Next Dose Due APPLE CIDER VINEGAR ORAL GARLIC ORAL JUDI ROOT EXTRACT ORAL GINSENG ORAL Green Tea capsule Generic drug: green tea leaf extract Where to Get Your Medications These medications were sent to [facility] - [place], [place] - [address] [place] [address] [place] [address], [facility] [address] aspirin 81 mg EC tablet atorvastatin 80 mg tablet dapagliflozin propanediol 10 mg furosemide 40 mg tablet metoprolol succinate XL 50 mg 24 hr tablet sacubitril-valsartan 24-26 mg tablet spironolactone 25 mg tablet Cory has No Known Allergies. Disposition: Home or Self Care () Discharge Condition: Stable Code Status: Full Code Diagnostic Results Hematology: Results from last 7 days Lab Units 04/02/23 1042 04/01/23 0453 04/01/23 0058 W (more content not included)... Normal [facility] MAGNESIUMon 04-03-2023 Magnesium [Mass/Vol] 2.3 mg/dL Normal 1.9-2.7 [facility] Comment on above: Performed By: #### L [id number] #### [facility] ([facility]) [address] [place] [address] BASIC METABOLIC PANELon 03-06 Anion gap [Moles/Vol] 11 mmol/L Normal 7-20 [facility] Comment on above: Performed By: #### L [id number] ####[facility] ([facility])[address] [place] [address] Calcium [Mass/Vol] 9.3 mg/dL Normal 8.6-10.3 [facility] Comment on above: Performed By: #### L [id number] ####[facility] ([facility])[address] [place] [address] Chloride [Moles/Vol] 103 mmol/L Normal 98-107 [facility] Comment on above: Performed By: #### L [id number] ####[facility] ([facility])[address] [place] [address] CO2 [Moles/Vol] 31 mmol/L Normal 21-31 [facility] Comment on above: Performed By: #### L [id number] ####[facility] ([facility])[address] [place] [address] Creatinine [Mass/Vol] 0.95 mg/dL Normal 0.70-1.30 [facility] Comment on above: Performed By: #### L [id number] ####[facility] ([facility])[address] [place] [address] GLOMERULAR FILTRATION RATE ML/MIN/1.73 SQ M.PREDICTED 94.5 mL/min/1.73m*2 Normal >60.0 [facility] Comment on above: Result Comment: The [facility]???s estimated glomerular filtration rate (eGFR) will no longer include consideration of race in its calculation. The National Kidney Foundation???s eGFR Task Force developed new recommendations for the estimation of the glomerular filtration rate in the [place] They recommend immediate implementation of the new equation refit without the race variable in all laboratories because the calculation does not include race. In addition to not including race in the calculation and reporting, it included diversity in its development, and has acceptable performance characteristics and potential consequences that do not disproportionately affect any one group of individuals. Performed By: #### L [id number] ####[facility] ([facility])[address] [place] [address] Glucose [Mass/Vol] 100 mg/dL Normal 70-100 [facility] Comment on above: Performed By: #### L [id number] ####[facility] ([facility])[address] [place] [address] Potassium [Moles/Vol] 4.2 mmol/L Normal 3.5-5.1 [facility] Comment on above: Performed By: #### L [id number] ####[facility] ([facility])[address] [place] [address] Sodium [Moles/Vol] 141 mmol/L Normal 136-145 [facility] Comment on above: Performed By: #### L [id number] ####[facility] ([facility])[address] [place] [address] Urea nitrogen [Mass/Vol] 18 mg/dL Normal 7-25 [facility] Comment on above: Performed By: #### L [id number] ####[facility] ([facility])[address] [place] [address] UREA NITROGEN/CREATININE (MASS RATIO) IN SER/PLAS 18.9 Normal [facility] Comment on above: Performed By: #### L [id number] ####[facility] ([facility])[address] [place] [address] CBCon 04-02-2023 Erythrocyte distribution width (RBC) [Ratio] 15.1 % High 11.5-15.0 [facility] Comment on above: Performed By: #### L [id number] #### [facility] ([facility]) [address] [place] [address] ERYTHROCYTE MEAN CORPUSCULAR HEMOGLOBIN CONCENTRATION (G/DL) BY AUTOMATED 32.5 g/dL Normal 32.0-35.0 [facility] Comment on above: Performed By: #### L [id number] #### [facility] ([facility]) [address] [place] [address] Hematocrit (Bld) [Volume fraction] 54.7 % Normal 39.0-55.0 [facility] Comment on above: Performed By: #### L [id number] #### [facility] ([facility]) [address] [place] [address] Hemoglobin (Bld) [Mass/Vol] 17.8 g/dL High 13.0-17.0 [facility] Comment on above: Performed By: #### L [id number] #### [facility] ([facility]) [address] [place] [address] MCH (RBC) [Entitic mass] 29.3 pg Normal 27.0-33.0 [facility] Comment on above: Performed By: #### L [id number] #### [facility] ([facility] [address] [place] [address] MCV (RBC) [Entitic vol] 90.1 fL Normal 82.0-98.0 [facility] Comment on above: Performed By: #### L [id number] #### [facility] ([facility]) [address] [place] [address] PLATELETS (10*3/UL) IN BLOOD AUTOMATED COUNT 245 10*3/uL Normal 150-400 [facility] Comment on above: Performed By: #### L [id number] #### [facility] ([facility]) [address] [place] [address] RBC (Bld) [#/Vol] 6.07 10*6/uL High 4.20-5.70 [facility] Comment on above: Performed By: #### L [id number] #### [facility] ([facility]) [address] [place] [address] WBC (Bld) [#/Vol] 9.12 10*3/uL Normal 4.00-10.60 [facility] Comment on above: Performed By: #### L [id number] #### [facility] ([facility]) [address] [place] [address] CONSULTon 04-02-2023 CONSULT Clinical Nutrition Assessment: Name: Cory Colin Room: [address] [place] [address] Date: 1965 Date of Visit: 04/02/23 Admission Dx: Decompensated heart failure (CMS/[facility]) [I50.9] Reason for assessment: consult for HF diet ed Information obtained from: patient, family, and medical record PMHx: HTN Current Medications: aspirin, 81 mg, oral, Daily atorvastatin, 80 mg, oral, Nightly carvedilol, 3.125 mg, oral, BID with meals dapagliflozin propanediol, 10 mg, oral, Daily furosemide, 40 mg, intravenous, q12h heparin (porcine), 5,000 Units, subcutaneous, BID sacubitril-valsartan, 1 tablet, oral, BID spironolactone, 25 mg, oral, Daily Oxygen Therapy, Labs: 0 Lab Value Date/Time BUN 20 04/01/2023452 CREATININE 0.89 04/01/2023 0453 NA 140 04/01/2023 0453 K 3.5 04/01/2023 0453 PHOS 4.2 04/01/2023 0453 MG 2.0 04/01/2023 0453 HGBA1C 6.2 (H) 04/01/2023 0453 HGB 15.8 04/01/2023 0453 WBC 9.21 04/01/2023 0453 CHOL 148 04/01/2023 0058 HDL 30 04/01/2023 0058 I/O: Intake/Output Summary (Last 24 hours) at 04/02/2023 1046 Last data filed at 04/02/2023 0644 Gross per 24 hour Intake 2.5 ml Output 4025 ml Net -4022.5 ml Allergies: No Known Allergies Nutrition Problems: Swallowing Assessment: Pt denies swallowing difficulty Mouth: Pt denies chewing difficulty 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 Pt reported steady wt between 300-310 for past 7-8 years and noted that he had gained ~20 lb after turning 52 y.o. Wt Readings from Last 10 Encounters: 04/02/23 135 kg (297 lb 2.9 oz) IBW: 75.5 kg (166 lb) UBW: 136.4-140.9 kg (300-310 lb); reported by pt Nutrition Assessment: Visiting pt for initial assessment d/t consult for CHF diet ed. 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 Limited medical hx available per chart review as pt has not visited physician in 10+years d/t feeling that he didn't have a reason to but reported that he has visited a chiropractor with whom he has a good relationship with in that same time period. That same chiropractor is who pt obtains herbal supplements from as well (judi root, ginseng, garlic, and green tea pills that pt reported that he uses to treat inflammation). Reported usual intake/foods as follows: Lunch/dinner: pot roast, chicken with gravy, steak, fish + rice + steamed veggies with butter Snacks: nuts, poptarts, oatmeal Beverages: energy drinks (1-2/d that he keeps in work locker), ~1 L soda/day, orange juice, cranberry juice, water Pt reported that he enjoys cooking meals with his ; was very interested in learning how to better prepare meals with/for pt. He reported that he adds salt to meals while he is cooking but not at the table and uses other spices (peppers) to flavor foods. Dietary Orders (From admission, onward) Start Ordered 04/02/23 0001 Diet NPO Diet effective midnight Comments: Sips with medications Question: Reason for NPO: Answer: Operation/Procedure 04/01/23 0139 Meal Intakes: Pt NPO for cardiac cath at time of RD assessment; endorsed hunger and good po intake last night Nutrition Risk: Low Nutrition Needs: Needs based on: ideal body weight (75.5 kg) Calorie needs: 1353-9603 kcals/day based on Equation: 25-30 kcal/kg Protein needs: 76-91 g/day based on 1.0-1.2 g/kg Nutrition Diagnosis: Food and nutrition knowledge deficit Related to: lack of prior exposure to diet ed/misinformation As evidenced by: pt and pt's family statements Malnutrition Assessment: Hand Grasp/Motor Function/Sensation Assessment: Grasp, Dorsiflexion, Plantar flexion R Hand Grasp: Strong L Hand Grasp: Strong (Sr. Manager strength not assessed by RD) Patient at risk for malnutrition according to hospital criteria, but does not meet the clinical characteristics per the Academy of Nutrition and Dietetics, and the [place] Society of Enteral and Parenteral Nutrition to support the diagnosis of malnutrition. Nutrition Education: Diet literature: Heart Healthy Nutrition Therapy (explained CHF-sodium relationship, reading nutrition labels, saturated fat vs unsaturated fat; recommended adequate intake of fruits/vegetables at each meal and for snacks a (more content not included)... [facility]. The patient was examined and there are no changes to the H&P. 57-year-old man who is admitted due to newly discovered systolic heart failure will undergo cardiac catheterization to rule out ischemic etiology. I explained the procedure in detail along with risks and benefits. He understands and agrees to proceed. Normal [facility] MAGNESIUMon 04-02-2023 Magnesium [Mass/Vol] 2.3 mg/dL Normal 1.9-2.7 [facility] Comment on above: Performed By: #### L [id number] #### [facility] ([facility]) [address] [place] [address] 30on 04-01-2023 30 The patient is Moderately Stable - Low risk of patient condition declining or worsening The patient's goals for the shift include comfort The clinical goals for the shift include stable vital signs Problem: Heart Failure diagnosis knowledge deficit Goal: Patient will verbalize understanding of how heart failure affects the body Outcome: Progressing Goal: Patient will verbalize understanding of how other conditions affect the heart Outcome: Progressing Problem: Fluid retention/overload Goal: Patient will be able to identify signs and symptoms of fluid retention Outcome: Progressing Problem: Heart failure medication adherence Goal: Consistently take heart failure medication as prescribed Outcome: Progressing Problem: Heart failure maintenance Goal: Patient will not experience any symptoms of shortness of breath or body swelling over the next 3 months Outcome: Progressing Normal [facility] 30 Problem: Heart Failu re diagnosis knowledge deficit Goal: Patient will verbalize understanding of how heart failure affects the body Outcome: Progressing Goal: Patient will verbalize understanding of how other conditions affect the heart Outcome: Progressing Problem: Fluid retention/overload Goal: Patient will be able to identify signs and symptoms of fluid retention Outcome: Progressing Problem: Heart failure medication adherence Goal: Consistently take heart failure medication as prescribed Outcome: Progressing Problem: Heart failure maintenance Goal: Patient will not experience any symptoms of shortness of breath or body swelling over the next 3 months Outcome: Progressing The patient is Moderately Stable - Low risk of patient condition declining or worsening The patient's goals for the shift include Comfort The clinical goals for the shift include Stable vital signs Normal [facility] APTTon 04-01-2023 ACTIVATED PARTIAL THROMBOPLASTIN TIME IN PPP BY COAGULATION ASSAY 29.8 Seconds Normal 25.0-35.0 [facility] Comment on above: Result Comment: Clin ical significance of the APTT is questionable in the presence of heparin. Performed By: #### L [id number] ####[facility] ([facility])[address] [place] [address] B-TYPE NATRIURETIC PEPTIDEon 04-01-2023 Natriuretic peptide B (Bld) [Mass/Vol] 273 pg/mL High 0-100 [facility] Comment on above: Performed By: #### L [id number] #### [facility] ([facility]) [address] [place] [address] CBC WITH AUTO DIFFERENTIALon 04-01-2023 Basophils (Bld) [#/Vol] 0.05 10*3/uL Normal 0.00-0.20 [facility] Comment on above: Performed By: #### L [id number] #### [facility] ([facility]) [address] [place] [address] Basophils/100 WBC (Bld) 0.5 % Normal 0.0-1.0 [facility] Comment on above: Performed By: #### L [id number] #### [facility] ([facility]) [address] [place] [address] Eosinophils (Bld) [#/Vol] 0.19 10*3/uL Normal 0.00-0.50 [facility] Comment on above: Performed By: #### L [id number] #### [facility] ([facility]) [address] [place] [address] Eosinophils/100 WBC (Bld) 2.1 % Normal 0.0-6.0 [facility] Comment on above: Performed By: #### L [id number] #### [facility] ([facility]) [address] [place] [address] Erythrocyte distribution width (RBC) [Ratio] 14.5 % Normal 11.5-15.0 [facility] Comment on above: Performed By: #### L [id number] #### [facility] ([facility]) [address] [place] [address] ERYTHROCYTE MEAN CORPUSCULAR HEMOGLOBIN CONCENTRATION (G/DL) BY AUTOMATED 33.1 g/dL Normal 32.0-35.0 [facility] Comment on above: Performed By: #### L [id number] #### [facility] ([facility]) [address] [place] [address] Hematocrit (Bld) [Volume fraction] 47.8 % Normal 39.0-55.0 [facility] Comment on above: Performed By: #### L [id number] #### [facility] ([facility]) [address] [place] [address] Hemoglobin (Bld) [Mass/Vol] 15.8 g/dL Normal 13.0-17.0 [facility] Comment on above: Performed By: #### L [id number] #### [facility] ([facility]) [address] [place] [address] Immature granulocytes (Bld) [#/Vol] 0.03 10*3/uL Normal 0.00-0.20 [facility] Comment on above: Performed By: #### L [id number] #### [facility] ([facility]) [address] [address] Immature granulocytes/100 WBC (Bld) 0.3 % Normal 0.0-1.0 [facility] Comment on above: Performed By: #### L [id number] #### [facility] ([facility] [address] [address] Lymphocytes (Bld) [#/Vol] 1.69 10*3/uL Normal 1.20-4.00 [facility] Comment on above: Performed By: #### L [id number] #### [facility] ([facility]) [address] [place] [address] Lymphocytes/100 WBC (Bld) 18.3 % Low 20.0-45.0 [facility] Comment on above: Performed By: #### L [id number] #### [facility] ([facility]) [address] [place] [address] MCH (RBC) [Entitic mass] 29.6 pg Normal 27.0-33.0 [facility] Comment on above: Performed By: #### L [id number] #### [facility] ([facility]) [address] [address] MCV (RBC) [Entitic vol] 89.5 fL Normal 82.0-98.0 [facility] Comment on above: Performed By: #### L [id number] #### [facility] ([facility]) [address] [place] [address] Monocytes (Bld) [#/Vol] 1.05 10*3/uL High 0.10-1.00 [facility] Comment on above: Performed By: #### L [id number] #### [facility] ([facility]) [address] [place] [address] Monocytes/100 WBC (Bld) 11.4 % Normal 5.0-12.0 [facility] Comment on above: Performed By: #### L [id number] #### [facility] ([facility]) [address] [address] Neutrophils (Bld) [#/Vol] 6.20 10*3/uL Normal 1.60-7.60 [facility] Comment on above: Performed By: #### L [id number] #### [facility] ([facility]) [address] [place] [address] Neutrophils/100 WBC (Bld) 67.4 % Normal 40.0-72.0 [facility] Comment on above: Performed By: #### L [id number] #### [facility] ([facility]) [address] [place] [address] NRBC (PER 100 WBCS) BY AUTOMATED COUNT 0.0 % Normal 0 [facility] Comment on above: Performed By: #### L [id number] #### [facility] ([facility]) [address] [place] [address] PLATELETS (10*3/UL) IN BLOOD AUTOMATED COUNT 231 10*3/uL Normal 150-400 [facility] Comment on above: Performed By: #### L [id number] #### [facility] ([facility] [address] [place] [address] RBC (Bld) [#/Vol] 5.34 10*6/uL Normal 4.20-5.70 [facility] Comment on above: Performed By: #### L [id number] #### [facility] ([facility]) [address] [place] [address] WBC (Bld) [#/Vol] 9.21 10*3/uL Normal 4.00-10.60 [facility] Comment on above: Performed By: #### L [id number] #### [facility] ([facility]) [address] [place] [address] Basophils (Bld) [#/Vol] 0.05 10*3/uL Normal 0.00-0.20 [facility] Comment on above: Performed By: #### L [id number] #### [facility] ([facility]) [address] [place] [address] Basophils/100 WBC (Bld) 0.5 % Normal 0.0-1.0 [facility] Comment on above: Performed By: #### L [id number] #### [facility] ([facility]) [address] [place] [address] Eosinophils (Bld) [#/Vol] 0.17 10*3/uL Normal 0.00-0.50 [facility] Comment on above: Performed By: #### L [id number] #### [facility] ([facility]) [address] [place] [address] Eosinophils/100 WBC (Bld) 1.6 % Normal 0.0-6.0 [facility] Comment on above: Performed By: #### L [id number] #### [facility] ([facility]) [address] [place] [address] Erythrocyte distribution width (RBC) [Ratio] 14.5 % Normal 11.5-15.0 [facility] Comment on above: Performed By: #### L [id number] #### [facility] ([facility]) [address] [place] [address] ERYTHROCYTE MEAN CORPUSCULAR HEMOGLOBIN CONCENTRATION (G/DL) BY AUTOMATED 32.7 g/dL Normal 32.0-35.0 [facility] Comment on above: Performed By: #### L [id number] #### [facility] ([facility]) [address] [place] [address] Hematocrit (Bld) [Volume fraction] 51.3 % Normal 39.0-55.0 [facility] Comment on above: Performed By: #### L [id number] #### [facility] ([facility]) [address] [place] [address] Hemoglobin (Bld) [Mass/Vol] 16.8 g/dL Normal 13.0-17.0 [facility] Comment on above: Performed By: #### L [id number] #### [facility] ([facility]) [address] [place] [address] Immature granulocytes (Bld) [#/Vol] 0.04 10*3/uL Normal 0.00-0.20 [facility] Comment on above: Performed By: #### L [id number] #### [facility] ([facility]) [address] [place] [address] Immature granulocytes/100 WBC (Bld) 0.4 % Normal 0.0-1.0 [facility] Comment on above: Performed By: #### L [id number] #### [facility] ([facility]) [address] [place] [address] Lymphocytes (Bld) [#/Vol] 1.86 10*3/uL Normal 1.20-4.00 [facility] Comment on above: Performed By: #### L [id number] #### [facility] ([facility]) [address] [place] [address] Lymphocytes/100 WBC (Bld) 17.6 % Low 20.0-45.0 [facility] Comment on above: Performed By: #### L [id number] #### [facility] ([facility]) [address] [place] [address] MCH (RBC) [Entitic mass] 29.1 pg Normal 27.0-33.0 [facility] Comment on above: Performed By: #### L [id number] #### [facility] ([facility]) [address] [place] [address] MCV (RBC) [Entitic vol] 88.9 fL Normal 82.0-98.0 [facility] Comment on above: Performed By: #### L [id number] #### [facility] ([facility]) [address] [place] [address] Monocytes (Bld) [#/Vol] 1.18 10*3/uL High 0.10-1.00 [facility] Comment on above: Performed By: #### L [id number] #### [facility] ([facility]) [address] [place] [address] Monocytes/100 WBC (Bld) 11.2 % Normal 5.0-12.0 [facility] Comment on above: Performed By: #### L [id number] #### [facility] ([facility]) [address] [place] [address] Neutrophils (Bld) [#/Vol] 7.27 10*3/uL Normal 1.60-7.60 [facility] Comment on above: Performed By: #### L [id number] #### [facility] ([facility]) [address] [place] [address] Neutrophils/100 WBC (Bld) 68.7 % Normal 40.0-72.0 [facility] Comment on above: Performed By: #### L [id number] #### [facility] ([facility]) [address] [place] [address] NRBC (PER 100 WBCS) BY AUTOMATED COUNT 0.0 % Normal 0 [facility] Comment on above: Performed By: #### L [id number] #### [facility] ([facility]) [address] [place] [address] PLATELETS (10*3/UL) IN BLOOD AUTOMATED COUNT 266 10*3/uL Normal 150-400 [facility] Comment on above: Performed By: #### L [id number] #### [facility] ([facility]) [address] [place] [address] RBC (Bld) [#/Vol] 5.77 10*6/uL High 4.20-5.70 [facility] Comment on above: Performed By: #### L [id number] #### [facility] ([facility]) [address] [place] [address] WBC (Bld) [#/Vol] 10.57 10*3/uL Normal 4.00-10.60 [facility] Comment on above: Performed By: #### L [id number] #### [facility] ([facility]) [address] [place] [address] COMPREHENSIVE METABOLIC PANE Edilberto 04-01-2023 Albumin [Mass/Vol] 3.7 g/dL Normal 3.5-5.7 [facility] Comment on above: Performed By: #### L [id number] #### [facility] ([facility]) [address] [place] [address] ALP [Catalytic activity/Vol] 79 U/L Normal 34-104 [facility] Comment on above: Performed By: #### L [id number] #### [facility] ([facility]) [address] [place] [address] ALT [Catalytic activity/Vol] 26 U/L Normal 7-52 [facility] Comment on above: Performed By: #### L [id number] #### [facility] ([facility]) [address] [place] [address] Anion gap [Moles/Vol] 10 mmol/L Normal 7-20 [facility] Comment on above: Performed By: #### L [id number] #### [facility] ([facility]) [address] [place] [address] AST [Catalytic activity/Vol] 23 U/L Normal 13-39 [facility] Comment on above: Performed By: #### L [id number] #### [facility] ([facility]) [address] [place] [address] Bilirubin [Mass/Vol] 1.5 mg/dL High 0.3-1.0 [facility] Comment on above: Performed By: #### L [id number] #### [facility] ([facility]) [address] [place] [address] Calcium [Mass/Vol] 8.9 mg/dL Normal 8.6-10.3 [facility] Comment on above: Performed By: #### L [id number] #### [facility] ([facility]) [address] [place] [address] Chloride [Moles/Vol] 104 mmol/L Normal 98-107 [facility] Comment on above: Performed By: #### L [id number] #### [facility] ([facility]) [address] [place] [address] CO2 [Moles/Vol] 30 mmol/L Normal 21-31 [facility] Comment on above: Performed By: #### L [id number] #### [facility] ([facility]) [address] [place] [address] Creatinine [Mass/Vol] 0.89 mg/dL Normal 0.70-1.30 [facility] Comment on above: Performed By: #### L [id number] #### [facility] ([facility]) [address] [place] [address] GLOMERULAR FILTRATION RATE ML/MIN/1.73 SQ M.PREDICTED 101.2 mL/min/1.73m*2 Normal >60.0 [facility] Comment on above: Result Comment: The [facility]???s estimated glomerular filtration rate (eGFR) will no longer include consideration of race in its calculation. The National Kidney Foundation???s eGFR Task Force developed new recommendations for the estimation of the glomerular filtration rate in the [place] They recommend immediate implementation of the new equation refit without the race variable in all laboratories because the calculation does not include race. In addition to not including race in the calculation and reporting, it included diversity in its development, and has acceptable performance characteristics and potential consequences that do not disproportionately affect any one group of individuals. Performed By: #### L [id number] #### [facility] ([facility]) [address] [place] [address] Glucose [Mass/Vol] 92 mg/dL Normal 70-100 [facility] Comment on above: Performed By: #### L [id number] #### [facility] ([facility]) [address] [place] [address] Potassium [Moles/Vol] 3.5 mmol/L Normal 3.5-5.1 [facility] Comment on above: Performed By: #### L [id number] #### [facility] ([facility]) [address] [place] [address] Protein [Mass/Vol] 6.0 g/dL Normal 6.0-8.3 [facility] Comment on above: Performed By: #### L [id number] #### [facility] ([facility]) [address] [place] [address] Sodium [Moles/Vol] 140 mmol/L Normal 136-145 [facility] Comment on above: Performed By: #### L [id number] #### [facility] ([facility]) [address] [place] [address] Urea nitrogen [Mass/Vol] 20 mg/dL Normal 7-25 [facility] Comment on above: Performed By: #### L [id number] #### [facility] ([facility]) [address] [place] [address] UREA NITROGEN/CREATININE (MASS RATIO) IN SER/PLAS 22.5 Normal [facility] Comment on above: Performed By: #### L [id number] #### [facility] ([facility]) [address] [place] [address] Albumin [Mass/Vol] 4.3 g/dL Normal 3.5-5.7 [facility] Comment on above: Performed By: #### L [id number] #### [facility] ([facility]) [address] [place] [address] ALP [Catalytic activity/Vol] 84 U/L Normal 34-104 [facility] Comment on above: Performed By: #### L [id number] #### [facility] ([facility]) [address] [place] [address] ALT [Catalytic activity/Vol] 28 U/L Normal 7-52 [facility] Comment on above: Performed By: #### L [id number] #### [facility] ([facility]) [address] [place] [address] Anion gap [Moles/Vol] 10 mmol/L Normal 7-20 [facility] Comment on above: Performed By: #### L [id number] #### [facility] ([facility]) [address] [place] [address] AST [Catalytic activity/Vol] 24 U/L Normal 13-39 [facility] Comment on above: Performed By: #### L [id number] #### [facility] ([facility]) [address] [place] [address] Bilirubin [Mass/Vol] 1.6 mg/dL High 0.3-1.0 [facility] Comment on above: Performed By: #### L [id number] #### [facility] ([facility]) [address] [place] [address] Calcium [Mass/Vol] 9.4 mg/dL Normal 8.6-10.3 [facility] Comment on above: Performed By: #### L [id number] #### [facility] ([facility] [address] [place] [address] Chloride [Moles/Vol] 104 mmol/L Normal 98-107 [facility] Comment on above: Performed By: #### L [id number] #### [facility] ([facility]) [address] [place] [address] CO2 [Moles/Vol] 28 mmol/L Normal 21-31 [facility] Comment on above: Performed By: #### L [id number] #### [facility] ([facility]) [address] [place] [address] Creatinine [Mass/Vol] 1.01 mg/dL Normal 0.70-1.30 [facility] Comment on above: Performed By: #### L [id number] #### [facility] ([facility]) [address] [place] [address] GLOMERULAR FILTRATION RATE ML/MIN/1.73 SQ M.PREDICTED 87.8 mL/min/1.73m*2 Normal >60.0 [facility] Comment on above: Result Comment: The [facility]???s estimated glomerular filtration rate (eGFR) will no longer include consideration of race in its calculation. The National Kidney Foundation???s eGFR Task Force developed new recommendations for the estimation of the glomerular filtration rate in the [place] They recommend immediate implementation of the new equation refit without the race variable in all laboratories because the calculation does not include race. In addition to not including race in the calculation and reporting, it included diversity in its development, and has acceptable performance characteristics and potential consequences that do not disproportionately affect any one group of individuals. Performed By: #### L [id number] #### [facility] ([facility]) [address] [place] [address] Glucose [Mass/Vol] 108 mg/dL High 70-100 [facility] Comment on above: Performed By: #### L [id number] #### [facility] ([facility]) [address] [place] [address] Potassium [Moles/Vol] 3.8 mmol/L Normal 3.5-5.1 [facility] Comment on above: Performed By: #### L [id number] #### [facility] ([facility]) [address] [facility] [place] [address] Protein [Mass/Vol] 6.6 g/dL Normal 6.0-8.3 [facility] Comment on above: Performed By: #### L [id number] #### [facility] ([facility]) [address] [facility] [place] [address] Sodium [Moles/Vol] 138 mmol/L Normal 136-145 [facility] Comment on above: Performed By: #### L [id number] #### [facility] ([facility]) [address] [facility] [place] [address] Urea nitrogen [Mass/Vol] 20 mg/dL Normal 7-25 [facility] Comment on above: Performed By: #### L [id number] #### [facility] ([facility]) [address] [place] [address] UREA NITROGEN/CREATININE (MASS RATIO) IN SER/PLAS 19.8 Normal [facility] Comment on above: Performed By: #### L [id number] #### [facility] ([facility] [address] [place] [address] CONSULTon 04-01-2023 CONSULT -- Attestation signed by Levi Reddy MD at 04/01/2023 3:45 PM I personally saw and examined the patient on the same date of service as resident/fellow Ana Smith. I discussed the findings and therapeutic plan with the resident/fellow Ana Smith. I agree with the documentation, except for any edits/updates below. Teaching Physician's Revisions: 57-year-old man who is admitted due to newly discovered systolic heart failure. He responded to diuresis. This is stage C heart failure with NYHA class II-III. He needs cardiac catheterization to rule out ischemic etiology. I explained the procedure in detail along with risks and benefits. He understands and agrees to proceed. Meanwhile continue guideline directed medical therapy for heart failure with reduced ejection fraction. I will add Entresto. Cardiology Consult Note Reason for Consult: Decompensated HF HPI: Cory Colin is a 57 y.o. male patient who is presenting as a direct admission from [facility]/ER where he presented for SOB and swelling for weeks to months. Patient reports that he has been experiencing worsening shortness of breath episodes associated with bilateral leg swelling for weeks to months with significant amount of edema progressing up bilateral lower extremities into groin and lower abdomen. Patient states upon arrival to [facility] he was over [address] [facility] he received treatment with IV Lasix, carvedilol, and Aldactone. Patient is now down to 305 pounds and still significantly edematous. Echo completed at [facility] shows EF of 30-35%. Patient was admitted for the management of acute decompensated heart failure and has been transferred to [facility] for heart cath. To note, patient does not have a primary care physician, and he is not on any medications, mainly OTC meds. Patient was seen and examined today. Denies chest pain, exertional dyspnea, orthopnea/PND, lower extremity edema, palpitations, lightheadedness/dizzin ess, syncope. Cardiology ROS: GENERAL: Denies fever, chills, night sweats, weight loss. CARDIOVASCULAR: Refer to HPI RESPIRATORY: Denies SOB, coughing, wheezing GI: Denies abdominal pain, nausea/vomiting. PSYCH: Denies anxiety. Past Medical History He has no past medical history on file. Surgical History He has no past surgical history on file. Social History He reports that he has never smoked. He has never used smokeless tobacco. He reports current alcohol use of about 2.0 standard drinks of alcohol per week. He reports that he does not use drugs. Family History No family history on file. Allergies Patient has no known allergies. Medications Medications Prior to Admission Medication Sig Dispense Refill Last Dose APPLE CIDER VINEGAR ORAL Take 1 teaspoon by mouth in the morning. GARLIC ORAL Take 2 tablets by mouth in the morning. JUDI ROOT EXTRACT ORAL Take 1 tablet by mouth in the morning. GINSENG ORAL Take 2 tablets by mouth in the morning. green tea leaf extract (Green Tea) capsule Take 1 capsule by mouth in the morning. Last Recorded Vitals Patient Vitals for the past 24 hrs: BP Temp Temp src Pulse Resp SpO2 Height Weight 04/01/23 0948 -- -- -- -- -- 94 % -- -- 04/01/23 0736 119/87 36.2 ???C (97.2 ???F) -- 58 16 97 % -- -- 04/01/23 0615 -- -- -- -- -- 96 % -- (!) 141 kg (310 lb 3 oz) 04/01/23 0610 -- -- -- -- -- (!) 89 % -- -- 04/01/23 0418 125/70 36.3 ???C (97.3 ???F) -- 91 -- 97 % -- -- 03/31/232131 -- -- -- -- -- -- -- (!) 138 kg (305 lb) 03/31/232128 -- -- -- -- -- -- 1.778 m (5' 10 ) -- 03/31/23 2103 117/88 36.5 ???C (97.7 ???F) Oral 58 16 94 % -- -- Physical Examination: GENERAL: AOx3, in no acute distress. HEAD: Atraumatic, normocephalic. EYES: NERISSA, EOMI. NECK: No JVD present. CARDIAC: RRR. No murmur, rubs, or gallops. RESPIRATORY: CTAB, no increased effort of breathing. ABDOMEN: Soft, nontender, nondistended. EXTREMITIES: No lower extremity edema, peripheral pulses are 2+ bilaterally. NEURO: No focal deficits Relevant Lab Results Encounter Date: 03/31/23 ECG 12 lead Result Value Ventricular Rate 97 Atrial Rate 97 FL Interval 166 QRS DURATION 144 QT Interval 400 QTC CALCULATION(BAZETT) 508 P Rosebush 42 R-Rosebush -76 T Wave Rosebush 60 Impression Sinus rhythm with frequent and consecutive Premature ventricular complexes and Fusion complexes Left axis deviation Right bundle branch block Abnormal ECG When compared with ECG of 01-APR-2023 00:38, (unconfirmed) Fusion complexes are now Present Lab Results Component Value Date TROPONINI 0.03 04/01/2023 No echocardiogram results found for the past 12 months No nuclear medicine results found for the past 12 months Relevant Imaging Results Electr (more content not included)... Normal [facility] HEMOGLOBIN A1Con 04-01-2023 Glucose [Mass/Vol] 131 mg/dL Normal [facility] Comment on above: Performed By: #### L [id number] #### [facility] (BEAKER) [address] [place] [address] HbA1c (Bld) [Mass fraction] 6.2 % High 4.0-6.0 [facility] Comment on above: Performed By: #### L [id number] #### [facility] ([facility]) [address] [place] [address] HPon 04-01-2023 HP -- Attestation signed by Levi Reddy MD at 04/01/2023 3:45 PM I personally saw and examined the patient on the same date of service as resident/fellow Ana Smith. I discussed the findings and therapeutic plan with the resident/fellow Ana Smith. I agree with the documentation, except for any edits/updates below. Teaching Physician's Revisions: 57-year-old man who is admitted due to newly discovered systolic heart failure. He responded to diuresis. This is stage C heart failure with NYHA class II-III. He needs cardiac catheterization to rule out ischemic etiology. I explained the procedure in detail along with risks and benefits. He understands and agrees to proceed. Meanwhile continue guideline directed medical therapy for heart failure with reduced ejection fraction. I will add Entresto. Cardiology Consult Note Reason for Consult: Decompensated HF HPI: Cory Colin is a 57 y.o. male patient who is presenting as a direct admission from [facility]/ER where he presented for SOB and swelling for weeks to months. Patient reports that he has been experiencing worsening shortness of breath episodes associated with bilateral leg swelling for weeks to months with significant amount of edema progressing up bilateral lower extremities into groin and lower abdomen. Patient states upon arrival to [facility] he was over [address] [facility] he received treatment with IV Lasix, carvedilol, and Aldactone. Patient is now down to 305 pounds and still significantly edematous. Echo completed at [facility] shows EF of 30-35%. Patient was admitted for the management of acute decompensated heart failure and has been transferred to [facility] for heart cath. To note, patient does not have a primary care physician, and he is not on any medications, mainly OTC meds. Patient was seen and examined today. Denies chest pain, exertional dyspnea, orthopnea/PND, lower extremity edema, palpitations, lightheadedness/dizzin ess, syncope. Cardiology ROS: GENERAL: Denies fever, chills, night sweats, weight loss. CARDIOVASCULAR: Refer to HPI RESPIRATORY: Denies SOB, coughing, wheezing GI: Denies abdominal pain, nausea/vomiting. PSYCH: Denies anxiety. Past Medical History He has no past medical history on file. Surgical History He has no past surgical history on file. Social History He reports that he has never smoked. He has never used smokeless tobacco. He reports current alcohol use of about 2.0 standard drinks of alcohol per week. He reports that he does not use drugs. Family History No family history on file. Allergies Patient has no known allergies. Medications Medications Prior to Admission Medication Sig Dispense Refill Last Dose APPLE CIDER VINEGAR ORAL Take 1 teaspoon by mouth in the morning. GARLIC ORAL Take 2 tablets by mouth in the morning. JUDI ROOT EXTRACT ORAL Take 1 tablet by mouth in the morning. GINSENG ORAL Take 2 tablets by mouth in the morning. green tea leaf extract (Green Tea) capsule Take 1 capsule by mouth in the morning. Last Recorded Vitals Patient Vitals for the past 24 hrs: BP Temp Temp src Pulse Resp SpO2 Height Weight 04/01/23 0948 -- -- -- -- -- 94 % -- -- 04/01/23 0736 119/87 36.2 ???C (97.2 ???F) -- 58 16 97 % -- -- 04/01/23 0615 -- -- -- -- -- 96 % -- (!) 141 kg (310 lb 3 oz) 04/01/23 0610 -- -- -- -- -- (!) 89 % -- -- 04/01/23 0418 125/70 36.3 ???C (97.3 ???F) -- 91 -- 97 % -- -- 03/31/232 -- -- -- -- -- -- -- (!) 138 kg (305 lb) 03/31/239 -- -- -- -- -- -- 1.778 m (5' 10 ) -- 03/31/23 2103 117/88 36.5 ???C (97.7 ???F) Oral 58 16 94 % -- -- Physical Examination: GENERAL: AOx3, in no acute distress. HEAD: Atraumatic, normocephalic. EYES: NERISSA, EOMI. NECK: No JVD present. CARDIAC: RRR. No murmur, rubs, or gallops. RESPIRATORY: CTAB, no increased effort of breathing. ABDOMEN: Soft, nontender, nondistended. EXTREMITIES: No lower extremity edema, peripheral pulses are 2+ bilaterally. NEURO: No focal deficits Relevant Lab Results Encounter Date: 03/31/23 ECG 12 lead Result Value Ventricular Rate 97 Atrial Rate 97 FL Interval 166 QRS DURATION 144 QT Interval 400 QTC CALCULATION(BAZETT) 508 P Rosebush 42 R-Rosebush -76 T Wave Rosebush 60 Impression Sinus rhythm with frequent and consecutive Premature ventricular complexes and Fusion complexes Left axis deviation Right bundle branch block Abnormal ECG When compared with ECG of 01-APR-2023 00:38, (unconfirmed) Fusion complexes are now Present Lab Results Component Value Date TROPONINI 0.03 04/01/2023 No echocardiogram results found for the past 12 months No nuclear medicine results found for the past 12 months Relevant Imaging Results Electr (more content not included)... Normal [facility] LACTIC ACID WITH 4 HOUR REFL EXon 04-01-2023 LACTATE (MMOL/L) IN SER/PLAS 0.8 mmol/L Normal 0.5-2.2 [facility] Comment on above: Performed By: #### L [id number] ####[facility] ([facility] [place] [address] LIPID PANELon 04-01-2023 CHOL/HDL 4.9 mg/dL Normal [facility] Comment on above: Performed By: #### L [id number] #### [facility] ([facility]) [address] [place] [address] Cholesterol [Mass/Vol] 148 mg/dL Normal 120-200 [facility] Comment on above: Performed By: #### L [id number] #### [facility] ([facility]) [address] [place] [address] Magnesium [Mass/Vol] 102 mg/dL Normal 40-149 [facility] Comment on above: Result Comment: TRIG LYCERIDE REFERENCE RANGE: 20 YEARS AND OLDER CARDIOVASCULAR RISK LESS THAN 150 mg/dL LOW RISK 150 TO 199 mg/dL BORDERLINE RISK 200 mg/dL AND GREATER HIGH RISK Performed By: #### L [id number] #### [facility] ([facility]) [address] [place] [address] Magnesium [Mass/Vol] 98 mg/dL Normal 0-160 [facility] Comment on above: Performed By: #### L [id number] #### [facility] ([facility]) [address] [place] [address] Magnesium [Mass/Vol] 30 mg/dL Normal 23-92 [facility] Comment on above: Performed By: #### L [id number] #### [facility] ([facility]) [address] [place] [address] NON HDL CHOL. (LDL+VLDL) 118 Normal [facility] Comment on above: Performed By: #### L [id number] #### [facility] ([facility]) [address] [place] [address] TOTAL VLDL-C 20 mg/dL Normal 0-40 [facility] Comment on above: Performed By: #### L [id number] #### [facility] ([facility]) [address] [place] [address] MAGNESIUMon 04-01-2023 Magnesium [Mass/Vol] 2.0 mg/dL Normal 1.9-2.7 [facility] Comment on above: Performed By: #### L [id number] ####[facility] ([facility])[address] [place] [address] Magnesium [Mass/Vol] 2.1 mg/dL Normal 1.9-2.7 [facility] Comment on above: Performed By: #### L [id number] #### [facility] ([facility]) [address] [place] [address] PHOSPHORUSon 04-01-2023 Magnesium [Mass/Vol] 4.2 mg/dL Normal 2.5-5.0 [facility] Comment on above: Performed By: #### L [id number] ####[facility] ([facility])[address] [place] [address] Magnesium [Mass/Vol] 4.4 mg/dL Normal 2.5-5.0 [facility] Comment on above: Performed By: #### L [id number] ####[facility] ([facility])[address] [place] [address] PROTIME-INRon 04-01-2023 INR IN PPP BY COAGULATION ASSAY 1.04 Normal 0.90-1.10 [facility] Comment on above: Result Comment: ACCC P RECOMMENDED INR FOR WARFARIN THERAPY CONDITION INR PROPHYLAXIS OF VENOUS THROMBOSIS 2-3 (HIGH-RISK SURGERY) TREATMENT OF VENOUS THROMBOSIS 2-3 TREATMENT OF PULMONARY EMBOLISM 2-3 PREVENTION OF SYSTEMIC EMBOLISM: 2-3 ACUTE MYOCARDIAL INFARCTION TISSUE HEART VALVES VALVULAR HEART DISEASE ATRIAL FIBRILLATION RECURRENT SYSTEMIC EMBOLISM MECHANICAL HEART VALVE 2.5-3.5 FROM: ORAL ANTICOAGULANTS. MECHANISM OF ACTION, CLINICAL EFFECTIVENESS, AND OPTIMAL THERAPEUTIC RANGE. CHEST 1995;108:231S-246S. Performed By: #### L [id number] #### [facility] ([facility]) [address] [place] [address] PROTHROMBIN TIME (PT) IN PPP BY COAGULATION ASSAY 13.6 Seconds Normal 12.3-14.8 [facility] Comment on above: Performed By: #### L [id number] #### [facility] ([facility]) [address] [place] [address] T4, FREEon 04-01-2023 THYROXINE (T4) FREE (NG/DL) IN SER/PLAS 1.03 ng/dL Normal 0.71-1.85 [facility] Comment on above: Performed By: #### L [id number] #### [facility] ([facility]) [address] [place] [address] TROPONIN Ion 04-01-2023 Troponin I.cardiac [Mass/Vol] 0.03 ng/mL Normal 0.00-0.04 [facility] Comment on above: Performed By: #### L [id number] #### [facility] ([facility]) [address] [place] [address] Troponin I.cardiac [Mass/Vol] 0.04 ng/mL Normal 0.00-0.04 [facility] Comment on above: Performed By: #### L [id number] ####[facility] ([facility])[address] [place] [address] TSHon 01-28-2024 THYROTROPIN (MIU/L) IN SER/PLAS BY DETECTION LIMIT <= 0.05 MIU/L 4.86 mIU/L Normal 0.34-5.60 [facility] Comment on above: Performed By: #### L [id number] ####[facility] ([facility])[address] [place] [address] TSH3 REFLEX TO FT4on 024 THYROTROPIN (MIU/L) IN SER/PLAS BY DETECTION LIMIT <= 0.05 MIU/L 4.16 mIU/L Normal 0.34-5.60 [facility] Comment on above: Performed By: #### L [id number] #### [facility] ([facility]) [address] [place] [address] URINALYSISon 04-01-2023 BILIRUBIN, TOTAL PRESENCE IN URINE Negative Normal Negative [facility] Comment on above: Performed By: #### L [id number] ####[facility] ([facility])[address] [place] [address] Clarity (U) Clear Normal Clear [facility] Comment on above: Performed By: #### L [id number] ####[facility] ([facility])[address] [place] [address] Color (U) Yellow Normal Yellow [facility] Comment on above: Performed By: #### L [id number] ####[facility] ([facility])[address] [place] [address] Glucose (U) [Mass/Vol] Negative Normal Negative [facility] Comment on above: Performed By: #### L [id number] ####[facility] ([facility])[address] [place] [address] HEMOGLOBIN PRESENCE IN URINE Negative Normal Negative [facility] Comment on above: Performed By: #### L [id number] ####[facility] ([facility])[address] [place] [address] Ketones Ql (U) Negative Normal Negative [facility] Comment on above: Performed By: #### L [id number] ####[facility] ([facility])[address] [place] [address] LEUKOCYTE ESTERASE PRESENCE IN URINE BY TEST STRIP Trace Abnormal Negative [facility] Comment on above: Performed By: #### L [id number] ####[facility] ([facility])[address] [place] [address] NITRITE PRESENCE IN URINE Negative Normal Negative [facility] Comment on above: Performed By: #### L [id number] ####[facility] ([facility])[address] [place] [address] pH (U) 6.0 [pH] Normal 5.0-8.0 [facility] Comment on above: Performed By: #### L [id number] ####[facility] ([facility])[address] [place] [address] Protein (U) [Mass/Vol] Negative Normal Negative [facility] Comment on above: Performed By: #### L [id number] ####[facility] ([facility])[address] [place] [address] Specific gravity (U) [Rel density] 1.018 Normal 1.015-1.020 [facility] Comment on above: Performed By: #### L [id number] ####[facility] ([facility])[address] [place] [address] UROBILINOGEN (EU/DL) IN URINE 4.0 EU/dL Abnormal Negative [facility] Comment on above: Performed By: #### L [id number] ####[facility] ([facility])[address] [place] [address] URINALYSIS MICROSCOPICon CASTS IN URINE Normal [facility] Comment on above: Performed By: #### L [id number] #### [facility] ([facility]) [address] [place] [address] CRYSTALS IN URINE Normal [facility] Comment on above: Performed By: #### L [id number] #### [facility] ([facility]) [address] [place] [address] MUCUS (#/HPF) IN URINE SEDIMENT Occasional Normal None Seen, Occasional, Few [facility] Comment on above: Performed By: #### L [id number] #### [facility] ([facility]) [address] [place] [address] RBC (#/HPF) IN URINE SEDIMENT 0-2 Abnormal None Seen [facility] Comment on above: Performed By: #### L [id number] #### [facility] ([facility]) [address] [place] [address] SQUAMOUS EPITHELIAL CELLS (#/HPF) IN URINE SEDIMENT Occasional Normal None Seen, Occasional [facility] Comment on above: Performed By: #### L [id number] #### [facility] ([facility]) [address] [place] [address] WBC (LEUKOCYTE) (#/HPF) IN URINE SEDIMENT 3-5 Abnormal None Seen [facility] Comment on above: Performed By: #### L [id number] #### [facility] ([facility]) [address] [place] [address] Encounters Encounter Date Encounter Type Care Provider Facility Start: 04-05-2023 End: 04-05-2023 ambulatory SHAIKH ALLIE Not Available Start: 04-02-2023 Evaluation and manag ement of inpatient HINA FERGUSONUR [facility] Start: 04-01-2023 Evaluation and manag ement of inpatient ADOLPHANUM THAYERMOUNIKA [facility] Start: 04-01-2023 Evaluation and manag ement of inpatient KATRINADINA DODDRobe [facility] Start: 03-31-2023 End: 04-03-2023 Evaluation and management of inpatient EVETTE LEE [facility] Payers Date Payer Category Payer Private Health Insurance [id number] 1965 Unknown [id number] Clinical Notes 04-01-2023 to 04-03-2023 Note Date & Type Note Facility 04-03-2023 Note 04/03/23 1540 Admission Assessment Questions Verify insurance with patient Yes ([facility] [facility] [employer] through employer [employer] (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 Yes ( I was filling up with fluid ) Who is your current PCP? Hasn't seen MD in 37 years other than few ER visits & required yearly physicals for health insurance; Has New PCP Appointment scheduled on Apr 05 @ 9:15am with Dr. Kelley in [place] Can I schedule a follow up appointment for you at the time of discharge? Yes (go to [facility]) Do you understand why you are taking your current medications? No (Not Applicable; was not on any prescribes medicine prior to hospitalizations; was only taking Supplements) Are you taking your medications as prescribed? No (Not Applicable; was not on any prescribes medicine prior to hospitalizations; was only taking Supplements) Did patient provide teach back? No Would you like use our pharmacy iMeds to fill your new medications at the time of Discharge? Yes Does the patient have a director of casework assigned to them through their insurance? No Living Arrangement (Current/Prior to Hospitalization) Private residence;Home self care (lives with Edel & 29 year old Son in 1 story Home) Does the patient have history of HHC or SNF? No Assistive Device Cane;Crutches Patient's goal for discharge Home, no needs Was patient reminded that goal for discharge is 11am? Yes Does the patient have transportation at discharge? Yes () Type of Residence/Post Acute Needs Private residence Is PT/OT appropriate? No Is PT/OT ordered? No Is SW consult appropriate? No Is SW consult ordered? No Do you understand the benefits of MyChart? Yes Were you able to send link and activate MyChart? MyChart already active Screen completed. Medically ready for discharge today: Home, no needs. Follow-up with [facility] in [place]. will pick-up; Agreeable to iMeds. [facility] 04-03-2023 Note Attempted to meet wi th the patient. He is in with Malini BUSTAMANTE RN at this time. [facility] 04-03-2023 Note Spiritual Care Note Patient name: Cory Colin Age: 57 y.o. Room: [address] [place] [address]- 04/03/23 1429 Clinical Encounter Type Visited With Patient;Spouse (Spouse by phone) Type of Visit Advance Directives Last Visit Date 04/03/23 Patient Spiritual Care Encounters Spiritual Care Assessment Hopeful (Pt completed HCPOA naming as agent & son as alternate. Pt shared a bit of his personal hx.) Pastoral Intervention Advance directives;Emotional support;Spiritual support (Sealing Machine Operator assisted pt with completing HPCOA. Copies made, original & copies returned to pt, copy placed in pt chart.) Response Appreciative [facility] 04-03-2023 Note UTP Cardiovascular M edicine Subjective F/U: acute systolic heart failure Patient seen and examined at bedside. No acute events overnight. He states he feels well. Denies c/o CP, dyspnea, orthopnea, PND, LE edema, dizziness/LH, palpitations, syncope. Objective Patient Vitals for the past 24 hrs: BP Temp Temp src Pulse Resp SpO2 Weight 04/03/23 0830 108/77 36.4 ???C (97.5 ???F) Oral 93 17 96 % -- 04/03/23 0729 -- -- -- -- -- 95 % -- 04/03/23 0400 104/66 37 ???C (98.6 ???F) Oral 96 20 99 % -- 04/03/23 0335 -- -- -- -- -- -- 133 kg (292 lb 8.8 oz) 04/03/23 0003 82/55 -- -- 94 19 94 % -- 04/03/23 0000 89/52 36.8 ???C (98.3 ???F) Oral 91 23 92 % -- 04/02/23 2306 111/78 -- -- 98 22 92 % -- 04/02/23 2200 90/61 -- -- 103 20 93 % -- 04/02/23 2036 100/77 -- -- 99 19 92 % -- 04/02/23 1900 107/56 36.8 ???C (98.3 ???F) Oral 96 23 95 % -- 04/02/23 1630 (!) 133/92 36.5 ???C (97.7 ???F) Oral 104 18 95 % -- 04/02/23 1603 122/80 -- -- 100 16 95 % -- 04/02/23 1531 -- -- -- -- -- 90 % -- 04/02/23 1530 120/64 -- -- 90 16 90 % -- 04/02/23 1440 (!) 130/109 37.2 ???C (99 ???F) Oral 102 22 90 % -- Physical Exam Constitutional: Appearance: Normal appearance. He is normal weight. HENT: Head: Normocephalic and atraumatic. Right Ear: External ear normal. Left Ear: External ear normal. Eyes: Extraocular Movements: Extraocular movements intact. Pupils: Pupils are equal, round, and reactive to light. Neck: Vascular: No carotid bruit. Cardiovascular: Rate and Rhythm: Normal rate and regular rhythm. Pulses: Normal pulses. Heart sounds: Normal heart sounds. Comments: Right radial and right internal jugular cath sites soft, no hematoma, no ecchymosis; right internal jugular site tender with palpation Pulmonary: Effort: Pulmonary effort is normal. Breath sounds: Normal breath sounds. Abdominal: General: Bowel sounds are normal. Palpations: Abdomen is soft. Musculoskeletal: General: Normal range of motion. Cervical back: Neck supple. Right lower leg: No edema. Left lower leg: No edema. Skin: General: Skin is warm and dry. Neurological: General: No focal deficit present. Mental Status: He is alert and oriented to person, place, and time. Psychiatric: Mood and Affect: Mood normal. Behavior: Behavior normal. Thought Content: Thought content normal. Judgment: Judgment normal. Lab Results Component Value Date NA 140 04/03/2023 K 4.5 04/03/2023 CL 102 04/03/2023 ANIONGAP 13 04/03/2023 BUN 28 (H) 04/03/2023 CREATININE 1.37 (H) 04/03/2023 CALCIUM 9.3 04/03/2023 MG 2.3 04/03/2023 PHOS 4.2 04/01/2023 Lab Results Component Value Date BILITOT 1.5 (H) 04/01/2023 ALKPHOS 79 04/01/2023 AST 23 04/01/2023 ALT 26 04/01/2023 PROT 6.0 04/01/2023 ALBUMIN 3.7 04/01/2023 Lab Results Component Value Date WBC 9.12 04/02/2023 RBC 6.07 (H) 04/02/2023 HGB 17.8 (H) 04/02/2023 HCT 54.7 04/02/2023 MCV 90.1 04/02/2023 MCH 29.3 04/02/2023 MCHC 32.5 04/02/2023 RDW 15.1 (H) 04/02/2023 NEUTOPHILPCT 67.4 04/01/2023 LYMPHOPCT 18.3 (L) 04/01/2023 MONOPCT 11.4 04/01/2023 EOSPCT 2.1 04/01/2023 BASOPCT 0.5 04/01/2023 NEUTROABS 6.20 04/01/2023 LYMPHSABS 1.69 04/01/2023 MONOSABS 1.05 (H) 04/01/2023 EOSABS 0.19 04/01/2023 BASOSABS 0.05 04/01/2023 PLT 245 04/02/2023 NRBC 0.0 04/01/2023 Cardiac cath conclusion 04/02/2023 PROCEDURE PHYSICIAN: Stephon Morrell MD Clinical Presentation: 57 y.o. Male with history of morbid obesity admitted with acute CHF. Final Impression: 1) RHC is near normal. Wedge pressure is 18 mmhg. Cardiac output is preserved. 2) Coronary angiogram shows normal coronary arteries. Plan: 1) optimal med therapy for HFrEF. He has been started on 4 drug GDMT for HFrEF. 2) repeat echo in 1-3 months to assess for improvement 3) outpatient follow-up with [place] cardiology ECHO 04/02/2023 Left Ventricle: The left ventricle is severely enlarged. Global left ventricular systolic function is severely reduced. EF range is estimated at 15 % -20 %. Left ventricular wall thickness is increased. The changes are consistent with eccentric hypertrophy. Right Ventricle: The right ventricle is normal in size. Right ventricular systolic function appears reduced. Unable to assess right sided pressures due to lack of measurable tricuspid regurgitation. Left Atrium: The left atrium appears enlarged. Mitral Valve: Mild to moderate mitral regurgitation. Overall Conclusions: Due to suboptimal imaging, Lumason contrast was administered for better delineation of the left ventricular apex Assessment/Plan Principal Problem: Decompensated heart failure (CMS/HCC) Active Problems: Hypertension Bilateral lower extremity edema Dyspnea on exertion Obesity Knowledge deficit about therapeutic diet Anxiety about knowledge deficit #Acute systolic heart failure #BLE edema - resolved -NYHA I -LHC done yesterday, normal cors - NICM -GDMT: (more content not included)... [facility] 04-03-2023 Note Attempted to meet wi th the patient. He is currently in with pastoral care. Will attempt to try again later. [facility] 04-02-2023 Note Patient: Cory Herrera rt Procedure Information Date/Time: 04/02/23 1330 Procedures: Coronary angiography Right heart cath Location: [facility] ACCOUNTING SYSTEMS MANAGER [address] / [facility] (Cath) Providers: Stephon Morrell MD Clinical information reviewed: Tobacco Allergies Meds Med Hx Surg Hx Fam Hx Soc Hx Physical Exam Airway Mallampati: III Cardiovascular Rhythm: regular Rate: normal Dental Pulmonary - normal exam Abdominal - normal exam Anesthesia Plan ASA 3 other intravenous induction Anesthetic plan and risks discussed with patient. Use of blood products discussed with patient who consented to blood products. Plan discussed with attending. Additional Equipment Requests [facility] 04-02-2023 Note Hospital Medicine Daily Progress Note - 04/02/2023 5:47 PM; Room: [address] [place] [address] Admission: 03/31/2023 9:13 PM; Length of stay: 2 days THE HOSPITALIST TEAM PREFERS TO USE [employer] CHAT FOR COMMUNICATION 7AM-7PM. IF I DO NOT RESPOND WITHIN 15 MINUTES, PLEASE PAGE ME/CALL THROUGH THE LATHING SUPERVISOR. FROM 7PM-7AM, PLEASE PAGE [phone](COVR) Code Status: Full Code Barriers to Discharge: heart cath today Expected Discharge Date: tomorrow Discharge Destination: home Overview Patient is seen for evaluation and management of heart failure. Subjective Patient assessed at bedside, denies any chest pain or shortness of breath. No nausea, vomiting or abdominal pain Physical Exam Visit Vitals BP (!) 133/92 Pulse 104 Temp 36.5 ???C (97.7 ???F) (Oral) Resp 18 Intake/Output Summary (Last 24 hours) at 04/02/2023 1747 Last data filed at 04/02/2023 1603 Gross per 24 hour Intake 2.5 ml Output 3200 ml Net -3197.5 ml Physical Exam Vitals reviewed. Constitutional: General: He is awake. He is not in acute distress. Appearance: Normal appearance. He is not ill-appearing. Cardiovascular: Rate and Rhythm: Normal rate and regular rhythm. Heart sounds: Normal heart sounds. Pulmonary: Effort: Pulmonary effort is normal. No tachypnea, accessory muscle usage or respiratory distress. Breath sounds: Normal breath sounds. Abdominal: General: Bowel sounds are normal. There is no distension. Palpations: Abdomen is soft. Tenderness: There is no abdominal tenderness. Skin: General: Skin is warm and dry. Neurological: Mental Status: He is alert and oriented to person, place, and time. Mental status is at baseline. Psychiatric: Attention and Perception: Attention normal. Mood and Affect: Mood normal. Speech: Speech normal. Behavior: Behavior is cooperative. Estimated body mass index is 42.64 kg/m??? as calculated from the following: Height as of this encounter: 1.778 m (5' 10 ). Weight as of this encounter: 135 kg (297 lb 2.9 oz). Active Inpatient Problems Principal Problem: Decompensated heart failure (CMS/HCC) Active Problems: Hypertension Bilateral lower extremity edema Dyspnea on exertion Obesity Knowledge deficit about therapeutic diet Anxiety about knowledge deficit Assessment and Plan Decompensated CHF /fluid overload Hypertension Bilateral lower extremity edema Shortness of breath -Echocardiogram completed, ejection fraction 15-20% currently - Consult cardiology, L&R heart cath today R heart cath near normal, will switch lasix to oral starting tomorrow L heart cath without significant blockage, will start GDMT as tolerated Patient will need repeat echo in 3 months -Consult dietitian for cardiac diet education Daily bmp and cbc to evaluate kidney function, electrolytes, hgb and wbc Keep K >4 and mag > 2 Strict intake and output Standing weight daily Regular cardiac diet Nutrition Screen VTE Prophylaxis: Heparin subcutaneous Scheduled Meds aspirin, 81 mg, oral, Daily atorvastatin, 80 mg, oral, Nightly carvedilol, 3.125 mg, oral, BID with meals dapagliflozin propanediol, 10 mg, oral, Daily furosemide, 40 mg, intravenous, q12h heparin (porcine), 5,000 Units, subcutaneous, BID sacubitril-valsartan, 1 tablet, oral, BID spironolactone, 25 mg, oral, Daily Oxygen Therapy, Pertinent Investigations Hematology: Results from last 7 days Lab Units 04/02/23 1042 04/01/23 0453 04/01/23 0058 WBC AUTO 10*3/uL 9.12 9.21 10.57 HEMOGLOBIN g/dL 17.8* 15.8 16.8 HEMATOCRIT % 54.7 47.8 51.3 MCV fL 90.1 89.5 88.9 PLATELETS AUTO 10*3/uL 245 231 266 INR -- -- 1.04 Chemistry: Results from last 7 days Lab Units 04/02/23 1042 04/01/23 0453 04/01/23 0058 SODIUM mmol/L 141 140 138 POTASSIUM mmol/L 4.2 3.5 3.8 CHLORIDE mmol/L 103 104 104 CO2 mmol/L 31 30 28 BUN mg/dL 18 20 20 CREATININE mg/dL 0.95 0.89 1.01 GLUCOSE mg/dL 100 92 108* MAGNESIUM mg/dL 2.3 2.0 2.1 CALCIUM mg/dL 9.3 8.9 9.4 PHOSPHORUS mg/dL -- 4.2 4.4 Results from last 7 days Lab Units 04/01/23 0453 04/01/23 0058 AST U/L 23 24 ALT U/L 26 28 ALK PHOS U/L 79 84 BILIRUBIN TOTAL mg/dL 1.5* 1.6* Historical Values: (Includes values prior to this admission) Lab Results Component Value Date TSH 4.16 04/01/2023 FREET4 1.03 04/01/2023 HDL 30 04/01/2023 LDL 118 04/01/2023 No results found for: [id number] , IRON , TIBC , C3 , C4 , HARINDER , CANCA , ASO , PSA , CEA , CA125 , CA199 , AFP , CA153 Imaging Cardiac catheterization PROCEDURE PHYSICIAN: Stephon Morrell MD Clinical Presentation: 57 y.o. Male with history of morbid obesity admitted with acute CHF. Final Impression: 1) RHC is near normal. Wedge pressure is 18 mmhg. Cardiac output is preserved. 2) Coronary angiogram shows normal coronary arteries. Plan: 1) optimal med therapy for HFrEF. He has been started on 4 drug GDMT for HFrEF. 2) repeat echo in 1-3 months to assess (more content not included)... [facility] 04-02-2023 Note Pt admitted to [facility] for decompensated HF. Pt has echo scheduled; no previous echo on file. I will wait for current echo results to determine pt's eligibility to participate in cardiac rehab (CR) therapy with HF diagnosis and follow up with pt, if appropriate. KELLY Walton director of guidance in [employer] Outpatient Coordinator Cardiopulmonary Rehab [facility] 04-02-2023 Note Patient was transfer red to 5th floor, room 5148. Telemetry box was removed and script writer called [facility] to inform them that the patient had been transferred to said unit and taken off the monitor, #[id number]. [facility] 04-01-2023 Note Patients HR was sust aining in the 140's. Hospitalist called. Orders to give Lopressor IV once. Patient's Heart rate improved to the 130 s. Hospitalist called again. Patient has new orders to go to stepdown unit. Patient and notified. Sealing Machine Operator will give report to [facility] and transport patient to [facility]. Point of care will continue until then. [facility] 04-01-2023 Note Hospital Medicine Daily Progress Note - 04/01/2023 2:49 PM; Room: [address] [place] [address] Admission: 03/31/2023 9:13 PM; Length of stay: 1 days THE HOSPITALIST TEAM PREFERS TO USE [employer] CHAT FOR COMMUNICATION 7AM-7PM. IF I DO NOT RESPOND WITHIN 15 MINUTES, PLEASE PAGE ME/CALL THROUGH THE LATHING SUPERVISOR. FROM 7PM-7AM, PLEASE PAGE [phone](COVR) Code Status: Full Code Barriers to Discharge: heart cath tomorrow Expected Discharge Date: 2-3 days Discharge Destination: home Overview Patient is seen for evaluation and management of decompensated heart failure. Subjective Patient assessed at bedside, denies any chest pain, shortness of breath, nausea or vomiting. Currently wearing 2 L nc Spoke with patient's on the phone, answered all questions, talked about heart cath, EF, and plan of care. Physical Exam Visit Vitals BP 119/87 Pulse 58 Temp 36.2 ???C (97.2 ???F) Resp 16 Intake/Output Summary (Last 24 hours) at 04/01/2023 1449 Last data filed at 04/01/2023 1051 Gross per 24 hour Intake 360 ml Output 1250 ml Net -890 ml Physical Exam Vitals reviewed. Constitutional: General: He is awake. He is not in acute distress. Appearance: He is not ill-appearing. Cardiovascular: Rate and Rhythm: Regular rhythm. Pulses: Radial pulses are 2+ on the right side and 2+ on the left side. Heart sounds: Normal heart sounds. Pulmonary: Effort: Pulmonary effort is normal. No tachypnea or respiratory distress. Breath sounds: Normal breath sounds. Abdominal: General: Bowel sounds are normal. There is no distension. Palpations: Abdomen is soft. Tenderness: There is no abdominal tenderness. Musculoskeletal: Right lower le+ Edema present. Left lower le+ Edema present. Skin: General: Skin is warm and dry. Neurological: Mental Status: He is alert and oriented to person, place, and time. Mental status is at baseline. Psychiatric: Attention and Perception: Attention normal. Mood and Affect: Affect normal. Mood is anxious. Speech: Speech normal. Behavior: Behavior normal. Behavior is cooperative. Estimated body mass index is 44.51 kg/m??? as calculated from the following: Height as of this encounter: 1.778 m (5' 10 ). Weight as of this encounter: 141 kg (310 lb 3 oz). Active Inpatient Problems Principal Problem: Decompensated heart failure (CMS/HCC) Active Problems: Hypertension Bilateral lower extremity edema Dyspnea on exertion Obesity Knowledge deficit about therapeutic diet Anxiety about knowledge deficit Assessment and Plan Decompensated CHF /fluid overload Hypertension Bilateral lower extremity edema Shortness of breath -Echocardiogram completed at [facility], ejection fraction 30-35% Continue 40mg IV lasix BID - Consult cardiology, pending L&R heart cath, planned tentatively for tomorrow, GDMT; lipitor, coreg, farxiga, aldactone, asa -Consult dietitian for cardiac diet education Daily bmp and cbc to evaluate kidney function, electrolytes, hgb and wbc Keep K >4 and mag > 2 Strict intake and output Standing weight daily Cardiac diet, NPO at midnight Nutrition Screen VTE Prophylaxis: Heparin subcutaneous Scheduled Meds aspirin, 81 mg, oral, Daily atorvastatin, 80 mg, oral, Nightly carvedilol, 3.125 mg, oral, BID with meals dapagliflozin propanediol, 10 mg, oral, Daily furosemide, 40 mg, intravenous, q12h heparin (porcine), 5,000 Units, subcutaneous, BID spironolactone, 25 mg, oral, Daily Oxygen Therapy, Pertinent Investigations Hematology: Results from last 7 days Lab Units 04/01/23 0453 04/01/23 0058 WBC AUTO 10*3/uL 9.21 10.57 HEMOGLOBIN g/dL 15.8 16.8 HEMATOCRIT % 47.8 51.3 MCV fL 89.5 88.9 PLATELETS AUTO 10*3/uL 231 266 INR -- 1.04 Chemistry: Results from last 7 days Lab Units 04/01/23 0453 04/01/23 0058 SODIUM mmol/L 140 138 POTASSIUM mmol/L 3.5 3.8 CHLORIDE mmol/L 104 104 CO2 mmol/L 30 28 BUN mg/dL 20 20 CREATININE mg/dL 0.89 1.01 GLUCOSE mg/dL 92 108* MAGNESIUM mg/dL 2.0 2.1 CALCIUM mg/dL 8.9 9.4 PHOSPHORUS mg/dL 4.2 4.4 Results from last 7 days Lab Units 04/01/23 0453 04/01/23 0058 AST U/L 23 24 ALT U/L 26 28 ALK PHOS U/L 79 84 BILIRUBIN TOTAL mg/dL 1.5* 1.6* Historical Values: (Includes values prior to this admission) Lab Results Component Value Date TSH 4.16 04/01/2023 FREET4 1.03 04/01/2023 HDL 30 04/01/2023 LDL 118 04/01/2023 No results found for: [id number] , IRON , TIBC , C3 , C4 , HARINDER , CANCA , ASO , PSA , CEA , CA125 , CA199 , AFP , CA153 Imaging Electrocardiogram, 12-lead Sinus tachycardia with frequent Premature ventricular complexes Left axis deviation Right bundle branch block Abnormal ECG No previous ECGs available ECG 12 lead Sinus rhythm with frequent and consecutive Premature ventricular complexes and Fusion complexes Left axis deviation Right bundle branch block Abnormal ECG When co (more content not included)... [facility] 04-01-2023 Note Sealing Machine Operator received a ca ll from [facility] that patient had a 4 beat of VTACH. Pt. Was assessed, was asymptomatic, Dr. Tran was paged. Also results of 2nd EKG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
[2023-04-10 10:44] LABS: Anion Gap 12.4; BUN Creatinine Ratio 26.9; Calcium 9.4 mg/dL (8.5-10.1); Carbon Dioxide 30.1 mmol/L (21.0-32.0); Chloride 100 mmol/L (98-107); Estimated GFR (African America 47 (>=60); Estimated GFR (Non-African Ame 39 (>=60); Glucose 86 mg/dL (74-106); Potassium 4.5 mmol/L (3.5-5.1); Sodium 138 mmol/L (136-145)
== END 2023-04-10 07:57 | disposition home or self-care (01) ==
LOC: LAB 07:57
PROVIDERS: PCP Internal Medicine
DX: I11.0 Hypertensive heart disease with heart failure (principal); I50.9 Heart failure, unspecified
CPT/HCPCS: 36415; 80048

== ENCOUNTER 2023-04-17 06:48 | Outpatient (OUT) | payer OTHER, SELFPAY ==
--- OUTSIDE RECORDS SUMMARY | 2023-04-17 06:51 | XMS_ITS | CCD ---
Author Name Unknown Address [address] [place] [address] [address] [place] [address] Organization [facility] Care Team Providers Care Distance Learning Coordinator Name Role Phone SHAIKH KELLEY Attending Unavailable EVETTE LEE Referring Unavailable HINA GONZALEZ Attending Unavailable MERMOUNIKA NOANGEL Admitting Unavailable HINA GONZALEZ Referring Unavailable MERZA NOORALDIN Referring Unavailable MERZA NOORALDIN Referring Unavailable KATRINA HELMS Referring Unavailable YA GARCIA Attending Unavailable Shaikh Kelley MD Primary Care Provider [phone] Medications Current Medications Medication Drug Class(es) Dates Sig (Normalized) Sig (Original) aspirin 81 mg delayed release oral tablet (1 source) Platelet Aggregation Inhibitor, Nonsteroidal Anti-inflammatory Drug Start: 04-04-2023 End: 05-04-2023 take 1 tablet by mouth in the morning aspirin 81 MG EC tablet Take 81 mg by mouth in the morning. 0 04/04/2023 05/04/2023 Active atorvastatin 80 mg oral tablet (1 source) HMG-CoA Reductase Inhibitor Start: 04-03-2023 End: 05-03-2023 take 1 tablet by mouth at bedtime atorvastatin (Lipitor) 80 MG tablet Take 80 mg by mouth at bedtime 0 04/03/2023 05/03/2023 Active dapagliflozin 10 mg oral tablet (1 source) Sodium-Glucose Cotransporter 2 Inhibitor Start: 04-04-2023 End: 05-04-2023 take 10 mg by mouth in the morning dapagliflozin (Farxiga) 10 MG Take 10 mg by mouth in the morning. 0 04/04/2023 05/04/2023 Active furosemide 40 mg oral tablet (1 source) Loop Diuretic Start: 04-04-2023 End: 05-04-2023 take 1 tablet by mouth in the morning furosemide (Lasix) 40 MG tablet Take 40 mg by mouth in the morning. 0 04/04/2023 05/04/2023 Active 24 hr metoprolol succinate 50 mg extended release oral tablet (1 source) beta-Adrenergic Adarsh Start: 04-03-2023 take 1 tablet by mouth every twenty-four hours in the morning metoprolol succinate XL (Toprol-XL) 50 MG 24 hr tablet Take 50 mg by mouth in the morning. 0 04/03/2023 Active sacubitril 24 mg / valsartan 26 mg oral tablet (1 source) Angiotensin 2 Receptor Adarsh Start: 04-03-2023 End: 05-03-2023 take 1 tablet by mouth in the morning sacubitril-valsarta n (Entresto) 24-26 MG tablet Take 1 tablet by mouth in the morning and 1 tablet in the evening. 0 04/03/2023 05/03/2023 Active spironolactone 25 mg oral tablet (1 source) Aldosterone Antagonist Start: 04-04-2023 End: 05-04-2023 take 1 tablet by mouth in the morning spironolactone (Aldactone) 25 MG tablet Take 25 mg by mouth in the morning. 0 04/04/2023 05/04/2023 Active Problems Problem Classification Problem Date Documented Da te Episodic/Chronic Acute and unspecified renal failure (2 sources) Acute injury of kidney; Translations: [Acute kidney failure, unspecified] Onset: 04-11-2023 04-11-2023 Episodic Administrative/social admission (1 source) Patient encounter status; Translations: [Persons encountering health services in other specified circumstances] Onset: 04-05-2023 04-05-2023 Episodic Congestive heart failure; nonhypertensive (5 sources) Chronic systolic (congestive) heart failure; Translations: [Heart failure, unspecified] Onset: 03-31-2023 Chronic Essential hypertension (3 sources) Essential (primary) hypertension; Translations: [Hypertensive disorder] Onset: 03-31-2023 Chronic Other nutritional; endocrine; and metabolic disorders (1 source) Obesity; Translations: [Obesity, unspecified] Onset: 04-01-2023 04-05-2023 Chronic Alesha-; endo-; and myocarditis; cardiomyopathy (except that caused by tuberculosis or sexually transmitted disease) (1 source) Cardiomyopathy; Translations: [Other cardiomyopathies] Onset: 04-05-2023 04-05-2023 Chronic Results Test Name Value Interpretation Reference Range Facility 37on 04-11-2023 37 *Your kidney functio n is elevated. Please hold these medications until instructed to resume: -dapagliflozin (Farxiga) -sacubitril-valsartan (Entresto) -Spironolactone -Lasix *Have lab work done in 1 week, around 04/17/2023. [facility] 36on 04-04-2023 36 Discharge date: 04/03/23 Call [...] who cared for them. [facility] Documentationon 04-04-2023 Documentation [id number] Cory Jewell 1965 M Date Provider Department Center 04/04/2023 CEE [facility]A [facility] No family history on file Reason for Visit and Comments: HF inpatient satisfaction survey sent. [Other] [facility] Telephoneon 04-04-2023 Telephone [phone] Cory Jewell 1965 [facility] Provider Department Center 04/04/2023 [facility]EE [facility] No family history on file Reason for Visit and Comments: HF post discharge call [Other] [facility] BASIC METABOLIC PANELon 03-07 Anion gap [Moles/Vol] 13 mmol/L Normal 7-20 [facility] Comment on above: Performed By: #### L [id number] ####[facility] ([facility]AKER)[address] [place] [address] Calcium [Mass/Vol] 9.3 mg/dL Normal 8.6-10.3 [facility] Comment on above: Performed By: #### L [id number] ####[facility] ([facility] [place] [address] Chloride [Moles/Vol] 102 mmol/L Normal 98-107 [facility] Comment on above: Performed By: #### L [id number] ####[facility] ([facility])[address] [place] [address] CO2 [Moles/Vol] 30 mmol/L Normal 21-31 [facility] Comment on above: Performed By: #### L [id number] ####[facility] ([facility] [place] [address] Creatinine [Mass/Vol] 1.37 mg/dL High 0.70-1.30 [facility] Comment on above: Performed By: #### L [id number] ####[facility] ([facility] [place] [address] GLOMERULAR FILTRATION RATE ML/MIN/1.73 SQ M.PREDICTED 60.9 mL/min/1.73m*2 Normal >60.0 [facility] Comment on above: Result Comment: The [facility]???s estimated glomerular filtration rate (eGFR) will no [...] of individuals. Performed By: #### L [id number] ####[facility] ([facility] [place] [address] Glucose [Mass/Vol] 104 mg/dL High 70-100 [facility] Comment on above: Performed By: #### L [id number] ####[facility] ([facility] [place] [address] Potassium [Moles/Vol] 4.5 mmol/L Normal 3.5-5.1 [facility] Comment on above: Performed By: #### L [id number] ####[facility] ([facility])[address] [place] [address] Sodium [Moles/Vol] 140 mmol/L Normal 136-145 [facility] Comment on above: Performed By: #### L [id number] ####[facility] ([facility])[address] [place] [address] Urea nitrogen [Mass/Vol] 28 mg/dL High 7-25 [facility] Comment on above: Performed By: #### L [id number] ####[facility] ([facility])[address] [place] [address] UREA NITROGEN/CREATININE (MASS RATIO) IN SER/PLAS 20.4 Normal [facility] Comment on above: Performed By: #### L [id number] ####[facility] (BENEMO)[address] [place] [address] DSon 04-03-2023 DS -- Attestation signed by Hina Gonzalez MD at 04/04/2023 2:53 PM I discussed the patient on the same date of service as the Non-Physician Provider. Hospital Medicine Discharge Summary Final Discharge Diagnosis: Decompensated heart failure (CMS/HCC) Decompensated CHF /fluid overload Hypertension JAZZ Bilateral lower extremity edema Shortness of breath Admission Diagnosis: Decompensated heart failure (CMS/HCC) [I50.9] Hospital course: Cory Jewell is an 57 y.o. male who came from [facility] with minimal to no medical history x 10 years as he states he has not seen a provider nor had any medical treatment in over 10 years and denies taking any prescription medications, levg-ckb-opgvqiv medications or herbals at this time. Patient states he does not even take vikt-wzh-nlztsgo Tylenol or ibuprofen and stopped taking both of those years ago. Patient reports he has been experiencing shortness of breath and swelling for weeks to months with significant amount of edema progressing up bilateral lower extremities into groin and lower abdomen. Patient states upon arrival to [place] [facility] he was over 340 pounds. While at [facility] he received treatment with IV Lasix, carvedilol, and Aldactone. Patient is now down to 305 pounds and still significantly edematous. Echo completed at [facility] shows EF of 30-35%. Patient diagnosed the hospital with decompensated CHF and has been transferred to [facility] for need of heart cath. Patient with [...] 04/06/2023 10:15 AM Levi Reddy MD [facility] More 04/11/2023 11:00 AM Ya Garcia NP [facility] More Your medication list START taking these medications [...] Medications These medications were sent to [facility] [address] [place] [address] [address] [facility] [place] [address], [facility] [address] aspirin 81 mg EC tablet atorvastatin 80 [...] 0058 W (more content not included)... Normal [facility] MAGNESIUMon 04-03-2023 Magnesium [Mass/Vol] 2.3 mg/dL Normal 1.9-2.7 [facility] Comment on above: Performed By: #### L [id number] #### [facility] ([facility] [address] [place] [address] BASIC METABOLIC PANELon 03-06 Anion gap [Moles/Vol] 11 mmol/L Normal 7-20 [facility] Comment on above: Performed By: #### L [id number] ####[facility] ([facility] [place] [address] Calcium [Mass/Vol] 9.3 mg/dL Normal 8.6-10.3 [facility] Comment on above: Performed By: #### L [id number] ####[facility] ([facility] [place] [address] Chloride [Moles/Vol] 103 mmol/L Normal 98-107 [facility] Comment on above: Performed By: #### L [id number] ####[facility] ([facility] [place] [address] CO2 [Moles/Vol] 31 mmol/L Normal 21-31 [facility] Comment on above: Performed By: #### L [id number] ####[facility] ([facility])[address] [place] [address] Creatinine [Mass/Vol] 0.95 mg/dL Normal 0.70-1.30 [facility] Comment on above: Performed By: #### L [id number] ####[facility] ([facility] [place] [address] GLOMERULAR FILTRATION RATE ML/MIN/1.73 SQ M.PREDICTED 94.5 mL/min/1.73m*2 Normal >60.0 [facility] Comment on above: Result Comment: [facility]???s estimated glomerular filtration rate (eGFR) will no [...] of individuals. Performed By: #### L [id number] ####[facility] ([facility])[address] [facility] [address] Glucose [Mass/Vol] 100 mg/dL Normal 70-100 [facility] Comment on above: Performed By: #### L [id number] ####[facility] ([facility])[address] [facility] [address] Potassium [Moles/Vol] 4.2 mmol/L Normal 3.5-5.1 [facility] Comment on above: Performed By: #### L [id number] ####[facility] ([facility])[address] [place] [address] Sodium [Moles/Vol] 141 mmol/L Normal 136-145 [facility] Comment on above: Performed By: #### L [id number] ####[facility] ([facility])[address] [place] [address] Urea nitrogen [Mass/Vol] 18 mg/dL Normal 7-25 [facility] Comment on above: Performed By: #### L [id number] ####[facility] ([facility])[address] [place] [address] UREA NITROGEN/CREATININE (MASS RATIO) IN SER/PLAS 18.9 Normal [facility] Comment on above: Performed By: #### L [id number] ####[facility] ([facility])[address] [place] [address] CBCon 04-02-2023 Erythrocyte distribution width (RBC) [Ratio] 15.1 % High 11.5-15.0 [facility] Comment on above: Performed By: #### L [id number] #### [facility] ([facility]AKER) [address] [place] [address] ERYTHROCYTE MEAN CORPUSCULAR HEMOGLOBIN CONCENTRATION (G/DL) BY AUTOMATED 32.5 g/dL Normal 32.0-35.0 [facility] Comment on above: Performed By: #### L [id number] #### [facility] ([facility]) [address] [place] [address] Hematocrit (Bld) [Volume fraction] 54.7 % Normal 39.0-55.0 [facility] Comment on above: Performed By: #### L [id number] #### [facility] ([facility]) [address] [address] Hemoglobin (Bld) [Mass/Vol] 17.8 g/dL High 13.0-17.0 [facility] Comment on above: Performed By: #### L [id number] #### [facility] ([facility]) [address] [place] [address] MCH (RBC) [Entitic mass] 29.3 pg Normal 27.0-33.0 [facility] Comment on above: Performed By: #### L [id number] #### [facility] ([facility]) [address] [address] MCV (RBC) [Entitic vol] 90.1 fL Normal 82.0-98.0 [facility] Comment on above: Performed By: #### L [id number] #### [facility] ([facility]) [address] [address] PLATELETS (10*3/UL) IN BLOOD AUTOMATED COUNT 245 10*3/uL Normal 150-400 [facility] Comment on above: Performed By: #### L [id number] #### [facility] ([facility]) [address] [address] RBC (Bld) [#/Vol] 6.07 10*6/uL High 4.20-5.70 [facility] Comment on above: Performed By: #### L [id number] #### [facility] ([facility]) [address] [place] [address] WBC (Bld) [#/Vol] 9.12 10*3/uL Normal 4.00-10.60 [facility] Comment on above: Performed By: #### L [id number] #### [facility] (BRY) [address] [place] [address] CONSULTon 04-02-2023 CONSULT Clinical Nutrition Assessment: Name: Cory Jewell Room: [address] [place] [address] Date: 1965 Date of Visit: 04/02/23 Admission Dx: Decompensated heart failure (CMS/HCC) [I50.9] Reason for assessment: consult for HF [...] Labs: 0 Lab Value Date/Time BUN 20 04/01/2023 0453 CREATININE 0.89 04/01/2023 0453 NA 140 04/01/2023 [...] denies chewing difficulty 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 Limited medical hx available per chart review [...] ideal body weight (75.5 kg) Calorie needs: 6408-8486 kcals/day based on Equation: 25-30 kcal/kg Protein needs: 76-91 g/day based on 1.0-1.2 g/kg Nutrition Diagnosis: Food and nutrition knowledge deficit Related to: lack of prior exposure to diet ed/misinformation As evidenced by: pt and pt's family statements Malnutrition Assessment: Hand Grasp/Motor Function/Sensation Assessment: Grasp, Dorsiflexion, Plantar flexion R Hand Grasp: Strong L Hand Grasp: Strong (Feed Mixer Helper strength not assessed by RD) Patient at risk for malnutrition according to hospital criteria, but does not meet the clinical characteristics per the Academy of Nutrition and Dietetics, and the [place] Society of Enteral and Parenteral Nutrition to support the diagnosis of malnutrition. Nutrition Education: Diet literature: Heart Healthy Nutrition Therapy (explained CHF-sodium relationship, reading nutrition labels, saturated fat vs unsaturated fat; recommended adequate intake of fruits/vegetables at each meal and for snacks a (more content not included)... Normal [facility] HPon 04-02-2023 HP H&P reviewed. The patient was examined and there are no changes to the H&P. 57-year-old man who is admitted due to newly discovered systolic heart failure will undergo cardiac catheterization to rule out ischemic etiology. I explained the procedure in detail along with risks and benefits. He understands and agrees to proceed. Normal [facility] MAGNESIUMon 04-02-2023 Magnesium [Mass/Vol] 2.3 mg/dL Normal 1.9-2.7 [facility] Comment on above: Performed By: #### L [id number] #### [facility] ([facility]ER) [address] [place] [address] 30on 04-01-2023 30 The patient is Moderately [...] the next 3 months Outcome: Progressing Normal [facility] 30 Problem: Heart Failu re diagnosis knowledge [...] the shift include Stable vital signs Normal [facility] APTTon 04-01-2023 ACTIVATED PARTIAL THROMBOPLASTIN TIME IN PPP BY COAGULATION ASSAY 29.8 Seconds Normal 25.0-35.0 [facility] Comment on above: Result Comment: Clin ical significance of the APTT is questionable in the presence of heparin. Performed By: #### L [id number] ####[facility] ([facility])[address] [place] [address] B-TYPE NATRIURETIC PEPTIDEon 04-01-2023 Natriuretic peptide B (Bld) [Mass/Vol] 273 pg/mL High 0-100 [facility] Comment on above: Performed By: #### L [id number] #### [facility] ([facility]) [address] [place] [address] CBC WITH AUTO DIFFERENTIALon 04-01-2023 Basophils (Bld) [#/Vol] 0.05 10*3/uL Normal 0.00-0.20 [facility] Comment on above: Performed By: #### L [id number] #### [facility] (BEAKER) [address] [place] [address] Basophils/100 WBC (Bld) 0.5 % Normal 0.0-1.0 [facility] Comment on above: Performed By: #### L [id number] #### [facility] (BE[facility]ER) [address] [place] [address] Eosinophils (Bld) [#/Vol] 0.19 10*3/uL Normal 0.00-0.50 [facility] Comment on above: Performed By: #### L [id number] #### [facility] ([facility]) [address] [place] [address] Eosinophils/100 WBC (Bld) 2.1 % Normal 0.0-6.0 [facility] Comment on above: Performed By: #### L [id number] #### [facility] ([facility]) [address] [place] [address] Erythrocyte distribution width (RBC) [Ratio] 14.5 % Normal 11.5-15.0 [facility] Comment on above: Performed By: #### L [id number] #### [facility] ([facility]ER) [address] [place] [address] ERYTHROCYTE MEAN CORPUSCULAR HEMOGLOBIN CONCENTRATION (G/DL) BY AUTOMATED 33.1 g/dL Normal 32.0-35.0 [facility] Comment on above: Performed By: #### L [id number] #### [facility] ([facility]ER) [address] [place] [address] Hematocrit (Bld) [Volume fraction] 47.8 % Normal 39.0-55.0 [facility] Comment on above: Performed By: #### L [id number] #### [facility] (BE[facility]ER) [address] [place] [address] Hemoglobin (Bld) [Mass/Vol] 15.8 g/dL Normal 13.0-17.0 [facility] Comment on above: Performed By: #### L [id number] #### [facility] ([facility]) [address] [place] [address] Immature granulocytes (Bld) [#/Vol] 0.03 10*3/uL Normal 0.00-0.20 [facility] Comment on above: Performed By: #### L [id number] #### [facility] ([facility]) [address] [address] Immature granulocytes/100 WBC (Bld) 0.3 % Normal 0.0-1.0 [facility] Comment on above: Performed By: #### L [id number] #### [facility] ([facility]) [address] [address] Lymphocytes (Bld) [#/Vol] 1.69 10*3/uL Normal 1.20-4.00 [facility] Comment on above: Performed By: #### L [id number] #### [facility] ([facility]) [address] [place] [address] Lymphocytes/100 WBC (Bld) 18.3 % Low 20.0-45.0 [facility] Comment on above: Performed By: #### L [id number] #### [facility] ([facility]) [address] [place] [address] MCH (RBC) [Entitic mass] 29.6 pg Normal 27.0-33.0 [facility] Comment on above: Performed By: #### L [id number] #### [facility] ([facility]) [address] [place] [address] MCV (RBC) [Entitic vol] 89.5 fL Normal 82.0-98.0 [facility] Comment on above: Performed By: #### L [id number] #### [facility] (BEAKER) [address] [place] [address] Monocytes (Bld) [#/Vol] 1.05 10*3/uL High 0.10-1.00 [facility] Comment on above: Performed By: #### L [id number] #### [facility] ([facility]) [address] [place] [address] Monocytes/100 WBC (Bld) 11.4 % Normal 5.0-12.0 [facility] Comment on above: Performed By: #### L [id number] #### [facility] ([facility]) [address] [place] [address] Neutrophils (Bld) [#/Vol] 6.20 10*3/uL Normal 1.60-7.60 [facility] Comment on above: Performed By: #### L [id number] #### [facility] ([facility]) [address] [place] [address] Neutrophils/100 WBC (Bld) 67.4 % Normal 40.0-72.0 [facility] Comment on above: Performed By: #### L [id number] #### [facility] ([facility]) [address] [place] [address] NRBC (PER 100 WBCS) BY AUTOMATED COUNT 0.0 % Normal 0 [facility] Comment on above: Performed By: #### L [id number] #### [facility] ([facility]) [address] [place] [address] PLATELETS (10*3/UL) IN BLOOD AUTOMATED COUNT 231 10*3/uL Normal 150-400 [facility] Comment on above: Performed By: #### L [id number] #### [facility] ([facility]) [address] [place] [address] RBC (Bld) [#/Vol] 5.34 10*6/uL Normal 4.20-5.70 [facility] Comment on above: Performed By: #### L [id number] #### [facility] ([facility]) [address] [place] [address] WBC (Bld) [#/Vol] 9.21 10*3/uL Normal 4.00-10.60 [facility] Comment on above: Performed By: #### L [id number] #### [facility] (BEAKER) [address] [place] [address] Basophils (Bld) [#/Vol] 0.05 10*3/uL Normal 0.00-0.20 [facility] Comment on above: Performed By: #### L [id number] #### [facility] (BE[facility]ER) [address] [place] [address] Basophils/100 WBC (Bld) 0.5 % Normal 0.0-1.0 [facility] Comment on above: Performed By: #### L [id number] #### [facility] (BE[facility]ER) [address] [place] [address] Eosinophils (Bld) [#/Vol] 0.17 10*3/uL Normal 0.00-0.50 [facility] Comment on above: Performed By: #### L [id number] #### [facility] ([facility]) [address] [place] [address] Eosinophils/100 WBC (Bld) 1.6 % Normal 0.0-6.0 [facility] Comment on above: Performed By: #### L [id number] #### [facility] ([facility] [facility]) [address] [place] [address] Erythrocyte distribution width (RBC) [Ratio] 14.5 % Normal 11.5-15.0 [facility] Comment on above: Performed By: #### L [id number] #### [facility] ([facility]) [address] [address] ERYTHROCYTE MEAN CORPUSCULAR HEMOGLOBIN CONCENTRATION (G/DL) BY AUTOMATED 32.7 g/dL Normal 32.0-35.0 [facility] Comment on above: Performed By: #### L [id number] #### [facility] ([facility] [address] [place] [address] Hematocrit (Bld) [Volume fraction] 51.3 % Normal 39.0-55.0 [facility] Comment on above: Performed By: #### L [id number] #### [facility] ([facility]) [address] [place] [address] Hemoglobin (Bld) [Mass/Vol] 16.8 g/dL Normal 13.0-17.0 [facility] Comment on above: Performed By: #### L [id number] #### [facility] ([facility]) [address] [place] [address] Immature granulocytes (Bld) [#/Vol] 0.04 10*3/uL Normal 0.00-0.20 [facility] Comment on above: Performed By: #### L [id number] #### [facility] ([facility]) [address] [address] Immature granulocytes/100 WBC (Bld) 0.4 % Normal 0.0-1.0 [facility] Comment on above: Performed By: #### L [id number] #### [facility] ([facility]) [address] [place] [address] Lymphocytes (Bld) [#/Vol] 1.86 10*3/uL Normal 1.20-4.00 [facility] Comment on above: Performed By: #### L [id number] #### [facility] ([facility]) [address] [place] [address] Lymphocytes/100 WBC (Bld) 17.6 % Low 20.0-45.0 [facility] Comment on above: Performed By: #### L [id number] #### [facility] ([facility] [address] [place] [address] MCH (RBC) [Entitic mass] 29.1 pg Normal 27.0-33.0 [facility] Comment on above: Performed By: #### L [id number] #### [facility] ([facility]) [address] [place] [address] MCV (RBC) [Entitic vol] 88.9 fL Normal 82.0-98.0 [facility] Comment on above: Performed By: #### L [id number] #### [facility] [address] [place] [address] Monocytes (Bld) [#/Vol] 1.18 10*3/uL High 0.10-1.00 [facility] Comment on above: Performed By: #### L [id number] #### [facility] ([facility]) [address] [place] [address] Monocytes/100 WBC (Bld) 11.2 % Normal 5.0-12.0 [facility] Comment on above: Performed By: #### L [id number] #### [facility] ([facility]) [address] [place] [address] Neutrophils (Bld) [#/Vol] 7.27 10*3/uL Normal 1.60-7.60 [facility] Comment on above: Performed By: #### L [id number] #### [facility]) [address] [place] [address] Neutrophils/100 WBC (Bld) 68.7 % Normal 40.0-72.0 [facility] Comment on above: Performed By: #### L [id number] #### [facility] ([facility]) [address] [place] [address] NRBC (PER 100 WBCS) BY AUTOMATED COUNT 0.0 % Normal 0 [facility] Comment on above: Performed By: #### L [id number] #### [facility] ([facility]) [address] [place] [address] PLATELETS (10*3/UL) IN BLOOD AUTOMATED COUNT 266 10*3/uL Normal 150-400 [facility] Comment on above: Performed By: #### L [id number] #### [facility] ([facility]) [address] [place] [address] RBC (Bld) [#/Vol] 5.77 10*6/uL High 4.20-5.70 [facility] Comment on above: Performed By: #### L [id number] #### [facility] ([facility]) [address] [place] [address] WBC (Bld) [#/Vol] 10.57 10*3/uL Normal 4.00-10.60 [facility] Comment on above: Performed By: #### L [id number] #### [facility] ([facility]) [address] [place] [address] COMPREHENSIVE METABOLIC PANE Edilberto 04-01-2023 Albumin [Mass/Vol] 3.7 g/dL Normal 3.5-5.7 [facility] Comment on above: Performed By: #### L [id number] #### [facility] ([facility]) [address] [place] [address] ALP [Catalytic activity/Vol] 79 U/L Normal 34-104 [facility] Comment on above: Performed By: #### L [id number] #### [facility] ([facility]) [address] [place] [address] ALT [Catalytic activity/Vol] 26 U/L Normal 7-52 [facility] Comment on above: Performed By: #### L [id number] #### [facility] ([facility]) [address] [place] [address] Anion gap [Moles/Vol] 10 mmol/L Normal 7-20 [facility] Comment on above: Performed By: #### L [id number] #### [facility] ([facility]) [address] [place] [address] AST [Catalytic activity/Vol] 23 U/L Normal 13-39 [facility] Comment on above: Performed By: #### L [id number] #### [facility] ([facility]) [address] [place] [address] Bilirubin [Mass/Vol] 1.5 mg/dL High 0.3-1.0 [facility] Comment on above: Performed By: #### L [id number] #### [facility] ([facility]) [address] [place] [address] Calcium [Mass/Vol] 8.9 mg/dL Normal 8.6-10.3 [facility] Comment on above: Performed By: #### L [id number] #### [facility] ([facility]) [address] [place] [address] Chloride [Moles/Vol] 104 mmol/L Normal 98-107 [facility] Comment on above: Performed By: #### L [id number] #### [facility] ([facility]) [address] [place] [address] CO2 [Moles/Vol] 30 mmol/L Normal 21-31 [facility] Comment on above: Performed By: #### L [id number] #### [facility] ([facility]) [address] [place] [address] Creatinine [Mass/Vol] 0.89 mg/dL Normal 0.70-1.30 [facility] Comment on above: Performed By: #### L [id number] #### [facility] ([facility]) [address] [place] [address] GLOMERULAR FILTRATION RATE ML/MIN/1.73 SQ M.PREDICTED 101.2 mL/min/1.73m*2 Normal >60.0 [facility] Comment on above: Result Comment: [facility]???s estimated glomerular filtration rate (eGFR) will no [...] group of individuals. Performed By: #### L [id number] #### [facility] ([facility]) [address] [place] [address] Glucose [Mass/Vol] 92 mg/dL Normal 70-100 [facility] Comment on above: Performed By: #### L [id number] #### [facility] ([facility]) [address] [place] [address] Potassium [Moles/Vol] 3.5 mmol/L Normal 3.5-5.1 [facility] Comment on above: Performed By: #### L [id number] #### [facility] ([facility]) [address] [place] [address] Protein [Mass/Vol] 6.0 g/dL Normal 6.0-8.3 [facility] Comment on above: Performed By: #### L [id number] #### [facility] ([facility]) [address] [place] [address] Sodium [Moles/Vol] 140 mmol/L Normal 136-145 [facility] Comment on above: Performed By: #### L [id number] #### [facility] ([facility]) [address] [place] [address] Urea nitrogen [Mass/Vol] 20 mg/dL Normal 7-25 [facility] Comment on above: Performed By: #### L [id number] #### [facility] ([facility]) [address] [place] [address] UREA NITROGEN/CREATININE (MASS RATIO) IN SER/PLAS 22.5 Normal [facility] Comment on above: Performed By: #### L [id number] #### [facility] ([facility]) [address] [place] [address] Albumin [Mass/Vol] 4.3 g/dL Normal 3.5-5.7 [facility] Comment on above: Performed By: #### L [id number] #### [facility] ([facility]) [address] [place] [address] ALP [Catalytic activity/Vol] 84 U/L Normal 34-104 [facility] Comment on above: Performed By: #### L [id number] #### [facility] ([facility]) [address] [place] [address] ALT [Catalytic activity/Vol] 28 U/L Normal 7-52 [facility] Comment on above: Performed By: #### L [id number] #### [facility] ([facility]) [address] [place] [address] Anion gap [Moles/Vol] 10 mmol/L Normal 7-20 [facility] Comment on above: Performed By: #### L [id number] #### [facility] ([facility]) [address] [place] [address] AST [Catalytic activity/Vol] 24 U/L Normal 13-39 [facility] Comment on above: Performed By: #### L [id number] #### [facility] ([facility]) [address] [place] [address] Bilirubin [Mass/Vol] 1.6 mg/dL High 0.3-1.0 [facility] Comment on above: Performed By: #### L [id number] #### [facility] ([facility]) [address] [place] [address] Calcium [Mass/Vol] 9.4 mg/dL Normal 8.6-10.3 [facility] Comment on above: Performed By: #### L [id number] #### [facility] ([facility]) [address] [place] [address] Chloride [Moles/Vol] 104 mmol/L Normal 98-107 [facility] Comment on above: Performed By: #### L [id number] #### [facility] ([facility]) [address] [place] [address] CO2 [Moles/Vol] 28 mmol/L Normal 21-31 [facility] Comment on above: Performed By: #### L [id number] #### [facility] ([facility]) [address] [place] [address] Creatinine [Mass/Vol] 1.01 mg/dL Normal 0.70-1.30 [facility] Comment on above: Performed By: #### L [id number] #### [facility] ([facility]) [address] [place] [address] GLOMERULAR FILTRATION RATE ML/MIN/1.73 SQ M.PREDICTED 87.8 mL/min/1.73m*2 Normal >60.0 [facility] Comment on above: Result Comment: [facility]???s estimated glomerular filtration rate (eGFR) will no [...] group of individuals. Performed By: #### L [id number] #### [facility] ([facility]) [address] [place] [address] Glucose [Mass/Vol] 108 mg/dL High 70-100 [facility] Comment on above: Performed By: #### L [id number] #### [facility] ([facility]) [address] [place] [address] Potassium [Moles/Vol] 3.8 mmol/L Normal 3.5-5.1 [facility] Comment on above: Performed By: #### L [id number] #### [facility] ([facility]) [address] [place] [address] Protein [Mass/Vol] 6.6 g/dL Normal 6.0-8.3 [facility] Comment on above: Performed By: #### L [id number] #### [facility] ([facility]) [address] [place] [address] Sodium [Moles/Vol] 138 mmol/L Normal 136-145 [facility] Comment on above: Performed By: #### L [id number] #### [facility] ([facility]) [address] [place] [address] Urea nitrogen [Mass/Vol] 20 mg/dL Normal 7-25 [facility] Comment on above: Performed By: #### L [id number] #### [facility] ([facility]) [address] [place] [address] UREA NITROGEN/CREATININE (MASS RATIO) IN SER/PLAS 19.8 Normal [facility] Comment on above: Performed By: #### L [id number] #### [facility] ([facility]) [address] [place] [address] CONSULTon 04-01-2023 CONSULT -- Attestation signed by [...] Reason for Consult: Decompensated HF HPI: Cory Jewell is a 57 y.o. male patient who is presenting as a direct admission from [facility]/ER where he presented for SOB and swelling for weeks to months. Patient reports that he has been experiencing worsening shortness of breath episodes associated with bilateral leg swelling for weeks to months with significant amount of edema progressing up bilateral lower extremities into groin and lower abdomen. Patient states upon arrival to [place] [facility] he was over 340 pounds. While at [facility] he received treatment with IV Lasix, carvedilol, and Aldactone. Patient is now down to 305 pounds and still significantly edematous. Echo completed at [facility] shows EF of 30-35%. Patient was admitted for the management of acute decompensated heart failure and has been transferred to [facility] for heart cath. To note, patient does [...] 1.778 m (5' 10 ) -- 03/31/23 210 117/88 36.5 ???C (97.7 ???F) Oral 58 [...] Value Ventricular Rate 97 Atrial Rate 97 NV Interval 166 QRS DURATION 144 QT Interval 400 QTC CALCULATION(BAZETT) 508 P Groton 42 R-Groton -76 T Wave [place] 60 Impression Sinus rhythm with frequent and [...] Results Electr (more content not included)... Normal [facility] HEMOGLOBIN A1Con 04-01-2023 Glucose [Mass/Vol] 131 mg/dL Normal [facility] Comment on above: Performed By: #### L [id number] #### [facility] ([facility]) [address] [place] [address] HbA1c (Bld) [Mass fraction] 6.2 % High 4.0-6.0 [facility] Comment on above: Performed By: #### L [id number] #### [facility] [address] [place] [address] HPon 04-01-2023 HP -- Attestation signed by [...] Reason for Consult: Decompensated HF HPI: Cory Jewell is a 57 y.o. male patient who is presenting as a direct admission from [facility]/ER where he presented for SOB and swelling for weeks to months. Patient reports that he has been experiencing worsening shortness of breath episodes associated with bilateral leg swelling for weeks to months with significant amount of edema progressing up bilateral lower extremities into groin and lower abdomen. Patient states upon arrival to [place] [facility] he was over 340 pounds. While at [facility] he received treatment with IV Lasix, carvedilol, and Aldactone. Patient is now down to 305 pounds and still significantly edematous. Echo completed at [facility] shows EF of 30-35%. Patient was admitted for the management of acute decompensated heart failure and has been transferred to [facility] for heart cath. To note, patient does [...] Value Ventricular Rate 97 Atrial Rate 97 NV Interval 166 QRS DURATION 144 QT Interval 400 QTC CALCULATION(BAZETT) 508 P Groton 42 R-Groton -76 T Wave [place] 60 Impression Sinus rhythm with frequent and [...] Results Electr (more content not included)... Normal [facility] LACTIC ACID WITH 4 HOUR REFL EXon 04-01-2023 LACTATE (MMOL/L) IN SER/PLAS 0.8 mmol/L Normal 0.5-2.2 [facility] Comment on above: Performed By: #### L [id number] ####[facility] ([facility])[address] [place] [address] LIPID PANELon 04-01-2023 CHOL/HDL 4.9 mg/dL Normal [facility] Comment on above: Performed By: #### L [id number] ####[facility] ([facility])[address] [place] [address] Cholesterol [Mass/Vol] 148 mg/dL Normal 120-200 [facility] Comment on above: Performed By: #### L [id number] ####[facility] ([facility])[address] [place] [address] Magnesium [Mass/Vol] 102 mg/dL Normal 40-149 [facility] Comment on above: Result Comment: TRIG LYCERIDE REFERENCE RANGE: 20 YEARS AND OLDER CARDIOVASCULAR RISK LESS THAN 150 mg/dL LOW RISK 150 TO 199 mg/dL BORDERLINE RISK 200 mg/dL AND GREATER HIGH RISK Performed By: #### L [id number] ####[facility] ([facility])[address] [place] [address] Magnesium [Mass/Vol] 98 mg/dL Normal 0-160 [facility] Comment on above: Performed By: #### L [id number] ####[facility] ([facility] [place] [address] Magnesium [Mass/Vol] 30 mg/dL Normal 23-92 [facility] Comment on above: Performed By: #### L [id number] ####[facility] ([facility])[address] [place] [address] NON HDL CHOL. (LDL+VLDL) 118 Normal [facility] Comment on above: Performed By: #### L [id number] ####[facility] [place] [address] TOTAL VLDL-C 20 mg/dL Normal 0-40 [facility] Comment on above: Performed By: #### L [id number] ####[facility] ([facility])[address] [place] [address] MAGNESIUMon 04-01-2023 Magnesium [Mass/Vol] 2.0 mg/dL Normal 1.9-2.7 [facility] Comment on above: Performed By: #### L [id number] ####[facility])[address] [facility] [place] [address] Magnesium [Mass/Vol] 2.1 mg/dL Normal 1.9-2.7 [facility] Comment on above: Performed By: #### L [id number] #### [facility] ([facility]) [address] [place] [address] PHOSPHORUSon 04-01-2023 Magnesium [Mass/Vol] 4.2 mg/dL Normal 2.5-5.0 [facility] Comment on above: Performed By: #### L [id number] ####[facility] ([facility])[address] [place] [address] Magnesium [Mass/Vol] 4.4 mg/dL Normal 2.5-5.0 [facility] Comment on above: Performed By: #### L [id number] ####[facility] ([facility])[address] [place] [address] PROTIME-INRon 04-01-2023 INR IN PPP BY COAGULATION ASSAY 1.04 Normal 0.90-1.10 [facility] Comment on above: Result Comment: ACCC P [...] RANGE. CHEST 1995;[id number]. Performed By: #### L [id number] #### [facility] ([facility]) [address] [place] [address] PROTHROMBIN TIME (PT) IN PPP BY COAGULATION ASSAY 13.6 Seconds Normal 12.3-14.8 [facility] Comment on above: Performed By: #### L [id number] #### [facility] ([facility]) [address] [place] [address] T4, FREEon 04-01-2023 THYROXINE (T4) FREE (NG/DL) IN SER/PLAS 1.03 ng/dL Normal 0.71-1.85 [facility] Comment on above: Performed By: #### L [id number] #### [facility] ([facility]) [address] [place] [address] TROPONIN Ion 04-01-2023 Troponin I.cardiac [Mass/Vol] 0.03 ng/mL Normal 0.00-0.04 [facility] Comment on above: Performed By: #### L [id number] #### [facility] ([facility]) [address] [place] [address] Troponin I.cardiac [Mass/Vol] 0.04 ng/mL Normal 0.00-0.04 [facility] Comment on above: Performed By: #### L [id number] ####[facility] ([facility])[address] [place] [address] TSHon 04-01-2023 THYROTROPIN (MIU/L) IN SER/PLAS BY DETECTION LIMIT <= 0.05 MIU/L 4.86 mIU/L Normal 0.34-5.60 [facility] Comment on above: Performed By: #### L [id number] #### [facility] ([facility]) [address] [place] [address] TSH3 REFLEX TO FT4on 024 THYROTROPIN (MIU/L) IN SER/PLAS BY DETECTION LIMIT <= 0.05 MIU/L 4.16 mIU/L Normal 0.34-5.60 [facility] Comment on above: Performed By: #### L [id number] #### [facility] [address] [place] [address] URINALYSISon 04-01-2023 BILIRUBIN, TOTAL PRESENCE IN URINE Negative Normal Negative [facility] Comment on above: Performed By: #### L [id number] ####[facility] ([facility])[address] [place] [address] Clarity (U) Clear Normal Clear [facility] Comment on above: Performed By: #### L [id number] ####[facility] ([facility])[address] [place] [address] Color (U) Yellow Normal Yellow [facility] Comment on above: Performed By: #### L [id number] ####[facility] ([facility])[address] [place] [address] Glucose (U) [Mass/Vol] Negative Normal Negative [facility] Comment on above: Performed By: #### L [id number] ####[facility] ([facility])[address] [place] [address] HEMOGLOBIN PRESENCE IN URINE Negative Normal Negative [facility] Comment on above: Performed By: #### L [id number] ####[facility] ([facility])[address] [place] [address] Ketones Ql (U) Negative Normal Negative [facility] Comment on above: Performed By: #### L [id number] ####[facility] ([facility])[address] [place] [address] LEUKOCYTE ESTERASE PRESENCE IN URINE BY TEST STRIP Trace Abnormal Negative [facility] Comment on above: Performed By: #### L [id number] ####[facility] ([facility])[address] [place] [address] NITRITE PRESENCE IN URINE Negative Normal Negative [facility] Comment on above: Performed By: #### L [id number] ####[facility] ([facility])[address] [place] [address] pH (U) 6.0 [pH] Normal 5.0-8.0 [facility] Comment on above: Performed By: #### L [id number] ####[facility] ([facility])[address] [place] [address] Protein (U) [Mass/Vol] Negative Normal Negative [facility] Comment on above: Performed By: #### L [id number] ####[facility] ([facility])[address] [place] [address] Specific gravity (U) [Rel density] 1.018 Normal 1.015-1.020 [facility] Comment on above: Performed By: #### L [id number] ####[facility] ([facility])[address] [place] [address] UROBILINOGEN (EU/DL) IN URINE 4.0 EU/dL Abnormal Negative [facility] Comment on above: Performed By: #### L [id number] ####[facility] ([facility])[address] [place] [address] URINALYSIS MICROSCOPICon CASTS IN URINE Normal [facility] Comment on above: Performed By: #### L [id number] #### [facility] ([facility]) [address] [place] [address] CRYSTALS IN URINE Normal [facility] Comment on above: Performed By: #### L [id number] #### [facility] ([facility]) [address] [place] [address] MUCUS (#/HPF) IN URINE SEDIMENT Occasional Normal None Seen, Occasional, Few [facility] Comment on above: Performed By: #### L [id number] #### [facility] ([facility]) [address] [place] [address] RBC (#/HPF) IN URINE SEDIMENT 0-2 Abnormal None Seen [facility] Comment on above: Performed By: #### L [id number] #### [facility]) [address] [place], [place] [address] SQUAMOUS EPITHELIAL CELLS (#/HPF) IN URINE SEDIMENT Occasional Normal None Seen, Occasional [facility] Comment on above: Performed By: #### L [id number] #### [facility] ([facility]) [address] [place] [address] WBC (LEUKOCYTE) (#/HPF) IN URINE SEDIMENT 3-5 Abnormal None Seen [facility] Comment on above: Performed By: #### L [id number] #### [facility] ([facility]) [address] [place] [address] Encounters Encounter Date Encounter Type Care Provider Facility Start: 04-11-2023 End: 04-11-2023 ambulatory YA GARCIA [facility] Comment on above: JAZZ (acute kidney in jury) (CMS/FORMERLY [facility]) (Primary Dx) Start: 04-05-2023 End: 04-05-2023 ambulatory SHAIKH ALLIE Not Available Start: 04-02-2023 Evaluation and manag ement of inpatient HINA GONZALEZ [facility] Start: 04-01-2023 Evaluation and manag ement of inpatient CORINNA JEOVANYMOUNIKA [facility] Start: 04-01-2023 Evaluation and manag ement of inpatient KATRINA DODDRobe [facility] Start: 03-31-2023 End: 04-03-2023 Evaluation and management of inpatient EVETTE LEE [facility] Plan of Treatment Date Care Activity Detail Author Start: 05-07-2023 End: 05-07-2023 Patient encounter procedure 05/07/2023 6:00 PM EST Office Visit [facility] [address] [place] [id number] Shaikh Kelley MD [address] [place] [address] [facility] Start: 04-11-2023 End: 04-11-2024 Basic metabolic 1998 panel - Serum or Plasma Basic metabolic panel Lab Routine JAZZ (acute kidney injury) (CMS/HCC) Expected: 04/11/2023 (Approximate), Expires: 04/11/2024 [facility] Work Phone: Comment on above: Expected: 04/11/2023 (Approximate), Expires: 04/11/2024 Start: 11-03-2022 Influenza vaccination Influenz a Vaccine (#1) [facility] Start: 1965 Screening for malign ant neoplasm of colon [facility] Payers Date Payer Category Payer Unknown [employer] [id number] 2023-Present [phone] [address] [address] [place] [address] [id number] 2022 Unknown [id number] 1965 Unknown [id number] Social History Date Type Detail Facility Start: 04-05-2023 Tobacco smoking stat [facility] Never smoked tobacco [facility] History of tobacco use Passive smoker [facility] Start: 04-05-2023 Tobacco use and exposure Smokeless t obacco non-user [facility] Start: 04-05-2023 Alcohol intake Lifetime non-d cheryl (finding) [facility] Start: 04-05-2023 History of Social function [facility] Start: 04-05-2023 Tobacco use panel [facility] Start: 1965 Sex Assigned At Not on file [place] [facility] Clinical Notes 04-01-2023 to 04-11-2023 Shaikh Allie MD - 04/11/2023 9:13 AM ESTSfabian Kelley MD - 04/11/2023 9:11 AM EST Note Date & Type Note Facility 04-11-2023 Note Patient here for [facility] for CHF. He had orientation at cardiac rehab today and plans on starting next week. C/o tingling sensation on LLE, going up the leg. Wants to know if he has a potassium deficiency . Denies cramping. Had BMP yesterday and K was 4.5. He denies chest pain, SOB, palpitations, LE edema, and lightheadedness/syncope. Never been tested for JATINDER. Review of Systems Neurological: Tingling in LLE All other systems reviewed and are negative. [facility] 04-11-2023 History of Present illness Narrative Associated Problem(s): JAZZ (acute kidney injury) (CMS/HCC) Worsening renal function with Cr trending upward from normal baseline to 1.3 --> 1.8 Asked patient to stop Aldactone and Lasix for now. Recheck BMP in one week. Follow up after BMP. Problem List Items Addressed This Visit JAZZ (acute kidney injury) ([facility]) - Primary Worsening renal function with Cr trending upward from normal baseline to 1.3 --> 1.8 Asked patient to stop Aldactone and Lasix for now. Recheck BMP in one week. Follow up after BMP. 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 Yes ( I was filling up with fluid ) Who is your current PCP? Hasn't seen MD in 37 years other than few ER visits & required yearly physicals for health insurance; Has New PCP Appointment scheduled on Apr 05 @ 9:15am with Dr. Kelley in [place] Can I schedule a follow up appointment for you at the time of discharge? Yes (go to [facility]) Do you understand why [...] Discharge? Yes Does the patient have a rn field case manager assigned to them through their insurance? No [...] discharge today: Home, no needs. Follow-up with [facility] in [place]. will pick-up; Agreeable to iMeds. [facility] 04-03-2023 Note Attempted to meet wi th the patient. He is in with Malini BUSTAMANTE RN at this time. [facility] 04-03-2023 Note Spiritual Care Note Patient name: oCry Jewell Age: 57 y.o. Room: [address] [place] [address] 04/03/23 1429 Clinical Encounter Type Visited With Patient;Spouse (Spouse by phone) Type of Visit Advance Directives Last Visit Date 04/03/23 Patient Spiritual Care Encounters Spiritual Care Assessment Hopeful (Pt completed HCPOA naming as agent & son as alternate. Pt shared a bit of his personal hx.) Pastoral Intervention Advance directives;Emotional support;Spiritual support (Water Pollution Specialist assisted pt with completing HPCOA. Copies made, original & copies returned to pt, copy placed in pt chart.) Response Appreciative [facility] 04-03-2023 Note [facility] ed[facility] Subjective [...] assess for improvement 3) outpatient follow-up with [facility] ECHO 04/02/2023 Left Ventricle: The left [...] - NICM -GDMT: (more content not included)... [facility] 04-03-2023 Note Attempted to meet wi th the patient. He is currently in with pastoral care. Will attempt to try again later. [facility] 04-02-2023 Note Patient: Cory Herrera rt Procedure Information Date/Time: 04/02/23 1330 Procedures: Coronary angiography Right heart cath Location: [facility] DIRECTOR ASSET 2 BIPLANE / [facility] (Cath) Providers: Stephon Morrell MD [...] Plan discussed with attending. Additional Equipment Requests [facility] 04-02-2023 Note Hospital Medicine Daily Progress Note - 04/02/2023 5:47 PM; Room: [address] [place] [address] Admission: 03/31/2023 9:13 PM; Length of stay: 2 days THE HOSPITALIST TEAM PREFERS TO USE [employer] CHAT FOR COMMUNICATION 7AM-7PM. IF I DO NOT RESPOND WITHIN 15 MINUTES, PLEASE PAGE ME/CALL THROUGH THE GRAVITY MANAGER. FROM 7PM-7AM, PLEASE PAGE [phone](COVR) Code Status: Full Code Barriers to Discharge: [...] LDL 118 04/01/2023 No results found for: [id number] , IRON , TIBC , C3 , [...] months to assess (more content not included)... [facility] 04-02-2023 Note Pt admitted to [facility] for decompensated HF. Pt has echo scheduled; no previous echo on file. I will wait for current echo results to determine pt's eligibility to participate in cardiac rehab (CR) therapy with HF diagnosis and follow up with pt, if appropriate. JOSE WaltonN quality control coordinator Outpatient Coordinator Cardiopulmonary Rehab [facility] 04-02-2023 Note Patient was transfer red to 5th floor, room 5148. Telemetry box was removed and commercial loan underwriter called [facility] to inform them that the patient had been transferred to said unit and taken off the monitor, #105. [facility] 04-01-2023 Note Patients HR was sust aining in the 140's. Hospitalist called. Orders to give Lopressor IV once. Patient's Heart rate improved to the 130 s. Hospitalist called again. Patient has new orders to go to stepdown unit. Patient and notified. Water Pollution Specialist will give report to [place] cr and transport patient to [facility]. Point of care will continue until then. [facility] 04-01-2023 Note Hospital Medicine Daily Progress Note - 04/01/2023 2:49 PM; Room: [address] [place] [address] Admission: 03/31/2023 9:13 PM; Length of stay: 1 days THE HOSPITALIST TEAM PREFERS TO USE [employer] CHAT FOR COMMUNICATION 7AM-7PM. IF I DO NOT RESPOND WITHIN 15 MINUTES, PLEASE PAGE ME/CALL THROUGH THE GRAVITY MANAGER. FROM 7PM-7AM, PLEASE PAGE [phone](COVR) Code Status: Full Code Barriers to Discharge: [...] edema Shortness of breath -Echocardiogram completed at [facility], ejection fraction 30-35% Continue 40mg [...] LDL 118 04/01/2023 No results found for: [id number] , IRON , TIBC , C3 , [...] ECG When co (more content not included)... [facility] 04-01-2023 Note Water Pollution Specialist received a ca ll from [facility] that patient had a 4 beat of VTACH. Pt. Was assessed, was asymptomatic, Dr. Tran was paged. Also results of 2nd EKG was discussed along with patient's Magnesium and phosphorous. Patient also began to desat to 89%-90%. Water Pollution Specialist put patient on 2 liters nasal cannula. Patient is satting at 96% now. Will continue point of care. [facility] 04-01-2023 Note Water Pollution Specialist was taking monae mccarthy's vitals when patient started having 33 pvc's per 10 minutes sustaining per [facility]; Hospitalist was called, stat labs, EKG, chest xray were ordered. Patient is asymptomatic at this time. Will continue point of care. [facility] 04-01-2023 Note Hospital Medicine History and Physical 04/01/2023 12:08 AM THE HOSPITALIST TEAM PREFERS TO USE [employer] CHAT FOR COMMUNICATION 7AM-7PM. IF I DO NOT RESPOND WITHIN 15 MINUTES, PLEASE PAGE ME/CALL THROUGH THE GRAVITY MANAGER. FROM 7PM-7AM, PLEASE PAGE [phone](COVR) Chief Complaint Direct admission from [facility]/ER where he presented for SOB and swelling for weeks to months. History of Present Illness Cory Jewell is an 57 y.o. male who came from [facility] with minimal to no medical history x 10 years as he states he has not seen a provider nor had any medical treatment in over 10 years and denies taking any prescription medications, jurx-csf-gpatabg medications or herbals at this time. Patient states he does not even take lqnx-htw-chchzsp Tylenol or ibuprofen and stopped taking both of those years ago. Patient reports he has been experiencing shortness of breath and swelling for weeks to months with significant amount of edema progressing up bilateral lower extremities into groin and lower abdomen. Patient states upon arrival to [place] ER he was over 340 pounds. While at [facility] he received treatment with IV Lasix, carvedilol, and Aldactone. Patient is now down to 305 pounds and still significantly edematous. Echo completed at [facility] shows EF of 30-35%. Patient diagnosed the hospital with decompensated CHF and has been transferred to [facility] for need of heart cath. Patient with [...] P, BN P, T4, free, TSH, [employer] LEGAL DOCUMENT SPECIALIST. Patient exhibits mild shortness of breath with [...] Date Noted Decompen (more content not included)... [facility] Evaluation note Diagnosis JAZZ (acute kidney injury) (CMS/[facility]ER[facility])- Primary documented in this encounter [facility] Summary Purpose Family History No Family History Records FoundNo Family History Records Found Advance Directives No Advanced Directives Records FoundNo Advanced Directives Records Found Additional Source Comments (unrecognized sect ion and content) No Status Records FoundNo Status Records Found INFORMATION SOURCE (unrecogn ized section and content) DATE CREATED AUTHOR 04/06/2023 [facility] dical Specialists EPIC DATE CREATED AUTHOR AUTHOR'S ORGANIZ ATION 04/12/2023 [facility] Care Teams (unrecognized sec tion and content) Distance Learning Coordinator Relationship Specialty Start Date End Date Shaikh Kelley MD [address] [facility] [place] [address] PCP - General Internal Medicine 04/05/23 FOR RECORDS PERTAINING TO PATIENTS WHO ARE [...] BE BASED ON THE PRIMARY CLINICAL RECORDS. [employer] provides no warranty or guarantee of the accuracy or completeness of information in this document.
[2023-04-17 07:48] LABS: Anion Gap 13.3; Calcium 9.8 mg/dL (8.5-10.1); Chloride 103 mmol/L (98-107); Estimated GFR (African America >60 (>=60); Estimated GFR (Non-African Ame >60 (>=60); Glucose 98 mg/dL (74-106); Potassium 4.3 mmol/L (3.5-5.1); Sodium 140 mmol/L (136-145)
== END 2023-04-17 06:49 | disposition home or self-care (01) ==
PROVIDERS: PCP Internal Medicine; Visit Provider Nurse Practitioner Family
DX: I50.22 Chronic systolic (congestive) heart failure (principal)
CPT/HCPCS: 36415; 80048

== ENCOUNTER 2023-05-04 14:18 | Outpatient (OUT) | payer OTHER, SELFPAY ==
[2023-05-04 14:48] LABS: Anion Gap 10.4; BUN Creatinine Ratio 18.7; Carbon Dioxide 31.2 mmol/L (21.0-32.0); Chloride 105 mmol/L (98-107); Estimated GFR (African America >60 (>=60); Estimated GFR (Non-African Ame >60 (>=60); Glucose 99 mg/dL (74-106); Potassium 3.6 mmol/L (3.5-5.1); Sodium 143 mmol/L (136-145)
== END 2023-05-04 14:19 | disposition home or self-care (01) ==
LOC: LAB 14:18
PROVIDERS: PCP Internal Medicine; Visit Provider Nurse Practitioner Family
DX: I50.22 Chronic systolic (congestive) heart failure (principal)
CPT/HCPCS: 36415; 80048

== ENCOUNTER 2023-06-13 15:42 | Outpatient (OUT) | payer OTHER, SELFPAY ==
[2023-06-13 16:33] LABS: Anion Gap 11.9; Calcium 9.2 mg/dL (8.5-10.1); Carbon Dioxide 27.9 mmol/L (21.0-32.0); Chloride 108 mmol/L (98-107); Estimated GFR (African America >60 (>=60); Estimated GFR (Non-African Ame >60 (>=60); Glucose 99 mg/dL (74-106); Potassium 3.8 mmol/L (3.5-5.1); Sodium 144 mmol/L (136-145)
--- OUTSIDE RECORDS SUMMARY | 2023-06-13 18:22 | XMS_ITS | CCD ---
Author Organization [facility] Care Team Providers Care Train Driver Name Role Phone Shaikh Kelley MD Primary Care Provider [phone] SHAIKH KELLEY Attending Unavailable SHAIKH KELLEY Attending Unavailable CORINNA WALKER Referring Unavailable MERCORINNA RIBERA Referring Unavailable HINA GONZALEZ Referring Unavailable EVETTE LEE Referring Unavailable HINA GONZALEZ Attending Unavailable MERZA NOORALDIN Admitting Unavailable YA GARCIA Attending Unavailable YA GARCIA Attending Unavailable KATRINA HELMS Referring Unavailable Medications Current Medications Medication Drug Class(es) Dates Sig (Normalized) Sig (Original) aspirin 81 mg delayed release oral tablet (2 sources) Platelet Aggregation Inhibitor, Nonsteroidal Anti-inflammatory Drug Start: 04-04-2023 End: 05-04-2023 take 1 tablet by mouth in the morning aspirin 81 MG EC tablet Take 81 mg by mouth in the morning. 0 04/04/2023 05/04/2023 Active atorvastatin 80 mg oral tablet (2 sources) HMG-CoA Reductase Inhibitor Start: 04-03-2023 End: 05-03-2023 take 1 tablet by mouth at bedtime atorvastatin (Lipitor) 80 MG tablet Take 80 mg by mouth at bedtime 0 04/03/2023 05/03/2023 Active dapagliflozin 10 mg oral tablet (2 sources) Sodium-Glucose Cotransporter 2 Inhibitor Start: 04-04-2023 End: 05-04-2023 take 10 mg by mouth in the morning dapagliflozin (Farxiga) 10 MG Take 10 mg by mouth in the morning. 0 04/04/2023 05/04/2023 Active furosemide 40 mg oral tablet (2 sources) Loop Diuretic Start: 04-04-2023 End: 05-04-2023 take 1 tablet by mouth in the morning furosemide (Lasix) 40 MG tablet Take 40 mg by mouth in the morning. 0 04/04/2023 05/04/2023 Active 24 hr metoprolol succinate 50 mg extended release oral tablet (2 sources) beta-Adrenergic Adarsh Start: 04-03-2023 take 1 tablet by mouth every twenty-four hours in the morning metoprolol succinate XL (Toprol-XL) 50 MG 24 hr tablet Take 50 mg by mouth in the morning. 0 04/03/2023 Active sacubitril 24 mg / valsartan 26 mg oral tablet (2 sources) Angiotensin 2 Receptor Adarsh Start: 04-03-2023 End: 05-03-2023 take 1 tablet by mouth in the morning sacubitril-valsarta n (Entresto) 24-26 MG tablet Take 1 tablet by mouth in the morning and 1 tablet in the evening. 0 04/03/2023 05/03/2023 Active spironolactone 25 mg oral tablet (2 sources) Aldosterone Antagonist Start: 04-04-2023 End: 05-04-2023 take 1 tablet by mouth in the morning spironolactone (Aldactone) 25 MG tablet Take 25 mg by mouth in the morning. 0 04/04/2023 05/04/2023 Active Problems Problem Classification Problem Date Documented Da te Episodic/Chronic Acute and unspecified renal failure (3 sources) Acute injury of kidney; Translations: [Acute kidney failure, unspecified] Onset: 04-11-2023 04-11-2023 Episodic Administrative/social admission (2 sources) Patient encounter status; Translations: [Persons encountering health services in other specified circumstances] Onset: 04-05-2023 04-05-2023 Episodic Congestive heart failure; nonhypertensive (6 sources) Heart failure with reduced ejection fraction; Translations: [Unspecified systolic (congestive) heart failure] Onset: 03-31-2023 04-05-2023 Chronic Essential hypertension (4 sources) Hypertensive disorder; Translations: [Essential (primary) hypertension] Onset: 03-31-2023 04-05-2023 Chronic Other nutritional; endocrine; and metabolic disorders (2 sources) Obesity; Translations: [Obesity, unspecified] Onset: 04-01-2023 04-05-2023 Chronic Alesha-; endo-; and myocarditis; cardiomyopathy (except that caused by tuberculosis or sexually transmitted disease) (2 sources) Cardiomyopathy; Translations: [Other cardiomyopathies] Onset: 04-05-2023 04-05-2023 Chronic Results Test Name Value Interpretation Reference Range Facility Office Visiton 05-10-2023 Follow-up visit [id number] Cory Colin 1965 M Date Provider Department Center 05/10/2023 YA OLIVRE Clarence More Family History Adopted: Yes Level of Service:26097 [place] OFFICE/OUTPATIENT ESTABLISHED HIGH [facility] 40 MIN Reason for Visit and Comments: Congestive Heart Failure [127] Hypertension [716834] [facility] 36on 04-30-2023 36 Pt informed [facility] 36on 04-18-2023 36 Please let him know his labs yesterday showed his kidney function has returned to normal. Would like for him to resume Farxiga 10mg daily and Entresto 24/26mg BID. Continue lasix as needed for leg swelling, weight gain, shortness of breath. Continue to hold spironolactone. Would like for him to have a follow-up BMP in 2 weeks after resuming these medications. I sent refills and ordered the BMP. Thanks! [facility] Telephoneon 04-18-2023 Telephone [phone] Cory Colin 1965 Provider Department Center 04/18/2023 YA OLIVER El Welch. Family History Adopted: Yes [facility] ALL BASIC METABOLIC PANELon 04-17-2023 Anion gap [Moles/Vol] 13.3 mmol/L [facility] Calcium [Mass/Vol] 9.8 mg/dL 8.5 - 10. 1 mg/dL [facility] Chloride [Moles/Vol] 103 mmol/L 98 - 10 7 mmol/L [facility] CO2 [Moles/Vol] 28.0 mmol/L 21.0 - 32.0 mmol/L [facility] Creatinine [Mass/Vol] 1.15 mg/dL 0.70 - 1.30 mg/[facility] GFR/1.73 sq M.predicted CKD-EPI (S/P/Bld) [Vol rate/Area] >60 60 - PINF [facility] Glucose [Mass/Vol] 98 mg/dL 74 - 106 mg/dL NO [facility] Interpretation and review of laboratory results Abnormal [facility] Potassium [Moles/Vol] 4.3 mmol/L 3.5 - 5.1 mmol/L [facility] Sodium [Moles/Vol] 140 mmol/L 136 - 145 mmol/L [facility] TBH EGFR-NON AF KAZAKH >60 60 - PINF [facility] Urea nitrogen [Mass/Vol] 31.0 mg/dL High 7.0 - 18.0 mg/dL [facility] Urea nitrogen/Creatinine [Mass ratio] 27.0 mg/mg [facility] 37on 04-11-2023 37 *Your kidney functio n is elevated. Please hold these medications until instructed to resume: -dapagliflozin (Farxiga) -sacubitril-valsartan (Entresto) -Spironolactone -Lasix *Have lab work done in 1 week, around 04/17/2023. [facility] Office Visiton 04-11-2023 Follow-up visit [id number] Cory Colin 1965 Date Provider Department Center 04/11/2023 [id number] GARCIA CARD Clarence Hos Family History Adopted: Yes Level of Service:07742 MA OFFICE/OUTPATIENT ESTABLISHED MOD MDM 30 MIN Reason for Visit and Comments: Hospital Follow-up [832] Congestive Heart Failure [127] Hypertension [576929] [facility] 36on 04-04-2023 36 Discharge date: 04/03/23 Call [...] and the staff who cared for them. [facility] Documentationon 04-04-2023 Documentation [id number] Cory Colin 1965 Provider Department Center 04/04/2023 [id number], MANDY C VASC LAB [facility] Heart[facility] No family history on file Reason for Visit and Comments: HF inpatient satisfaction survey sent. [Other] Normal [facility] Telephoneon 04-04-2023 Telephone [phone] Cory Colin 1965 M Date Provider Department Center 04/04/2023 CEE SEQUEIRA HVC VASC LAB [facility] No family history on file Reason for Visit and Comments: HF post discharge call [Other] Normal [facility] BASIC METABOLIC PANELon 03-07 Anion gap [Moles/Vol] 13 mmol/L Normal 7-20 [facility] Comment on above: Performed By: #### L [id number] ####[facility] (AKER)[address] [place] [address] Calcium [Mass/Vol] 9.3 mg/dL Normal 8.6-10.3 [facility] Comment on above: Performed By: #### L [id number] ####[facility] (BEAKER)[address] [place] [address] Chloride [Moles/Vol] 102 mmol/L Normal 98-107 [facility] Comment on above: Performed By: #### L [id number] ####[facility] ([facility]AKER)[address] [place] [address] CO2 [Moles/Vol] 30 mmol/L Normal 21-31 [facility] Comment on above: Performed By: #### L [id number] ####[facility] ([facility]AKER)[address] [place] [address] Creatinine [Mass/Vol] 1.37 mg/dL High 0.70-1.30 [facility] Comment on above: Performed By: #### L [id number] ####[facility] (AKER)[address] [place] [address] GLOMERULAR FILTRATION RATE ML/MIN/1.73 SQ M.PREDICTED 60.9 mL/min/1.73m*2 Normal >60.0 [facility] Comment on above: Result Comment: The [facility]???s estimated glomerular filtration rate (eGFR) will [...] of individuals. Performed By: #### L [id number] ####[facility] ([facility])[address] [place] [address] Glucose [Mass/Vol] 104 mg/dL High 70-100 [facility] Comment on above: Performed By: #### L [id number] ####[facility] ([facility])[address] [place] [address] Potassium [Moles/Vol] 4.5 mmol/L Normal 3.5-5.1 [facility] Comment on above: Performed By: #### L [id number] ####[facility] ([facility])[address] [place] [address] Sodium [Moles/Vol] 140 mmol/L Normal 136-145 [facility] Comment on above: Performed By: #### L [id number] ####[facility] (BEAKER)[address] [place] [address] Urea nitrogen [Mass/Vol] 28 mg/dL High 7-25 [facility] Comment on above: Performed By: #### L [id number] ####[facility] (BEAKER)[address] [place] [address] UREA NITROGEN/CREATININE (MASS RATIO) IN SER/PLAS 20.4 Normal [facility] Comment on above: Performed By: #### L [id number] ####[facility] (BEAKER)[address] [place] [address] DSon 04-03-2023 DS -- Attestation signed by [...] an 57 y.o. male who came from [facility] with minimal to no medical history x 10 years as he states he has not seen a provider nor had any medical treatment in over 10 years and denies taking any prescription medications, etsz-hpn-lezazqi medications or herbals at this time. Patient states he does not even take orxu-cgq-cuoavui Tylenol or ibuprofen and stopped taking both of those years ago. Patient reports he has been experiencing shortness of breath and swelling for weeks to months with significant amount of edema progressing up bilateral lower extremities into groin and lower abdomen. Patient states upon arrival to [place] [facility] he was over 340 pounds. While at [facility] he received treatment with IV Lasix, carvedilol, and Aldactone. Patient is now down to 305 pounds and still significantly edematous. Echo completed at [facility] shows EF of 30-35%. Patient diagnosed the hospital with decompensated CHF and has been transferred to [facility] for need of heart cath. [...] 10:15 AM Levi Reddy MD [facility] 04/11/2023 11:00 AM Ya Garcia NP [facility] Your medication list START taking these medications [...] Medications These medications were sent to [facility] - [place], [place] - [address], [facility] [address] aspirin 81 mg EC tablet atorvastatin 80 [...] 0058 W (more content not included)... Normal [facility] MAGNESIUMon 04-03-2023 Magnesium [Mass/Vol] 2.3 mg/dL Normal 1.9-2.7 [facility] Comment on above: Performed By: #### L [id number] ####[facility] (BEAKER)[address] [place] [address] BASIC METABOLIC PANELon 03-06 Anion gap [Moles/Vol] 11 mmol/L Normal 7-20 [facility] Comment on above: Performed By: #### L [id number] ####[facility] ([facility])[address] [place] [address] Calcium [Mass/Vol] 9.3 mg/dL Normal 8.6-10.3 [facility] Comment on above: Performed By: #### L [id number] ####[facility] (BEAKER)[address] [place] [address] Chloride [Moles/Vol] 103 mmol/L Normal 98-107 [facility] Comment on above: Performed By: #### L [id number] ####[facility] (BEAKER)[address] [place] [address] CO2 [Moles/Vol] 31 mmol/L Normal 21-31 [facility] Comment on above: Performed By: #### L [id number] ####[facility] ([facility])[address] [place] [address] Creatinine [Mass/Vol] 0.95 mg/dL Normal 0.70-1.30 [facility] Comment on above: Performed By: #### L [id number] ####[facility] ([facility])[address] [place] [address] GLOMERULAR FILTRATION RATE ML/MIN/1.73 SQ M.PREDICTED 94.5 mL/min/1.73m*2 Normal >60.0 [facility] Comment on above: Result Comment: The [facility]???s estimated glomerular filtration rate (eGFR) will [...] of individuals. Performed By: #### L [id number] ####[facility] ([facility])[address] [place] [address] Glucose [Mass/Vol] 100 mg/dL Normal 70-100 [facility] Comment on above: Performed By: #### L [id number] ####[facility] ([facility])[address] [place] [address] Potassium [Moles/Vol] 4.2 mmol/L Normal 3.5-5.1 [facility] Comment on above: Performed By: #### L [id number] ####[facility] ([facility])[address] [place] [address] Sodium [Moles/Vol] 141 mmol/L Normal 136-145 [facility] Comment on above: Performed By: #### L [id number] ####[facility] ([facility])[address] [place] [address] Urea nitrogen [Mass/Vol] 18 mg/dL Normal 7-25 [facility] Comment on above: Performed By: #### L [id number] ####[facility] ([facility])[address] [place] [address] UREA NITROGEN/CREATININE (MASS RATIO) IN SER/PLAS 18.9 Normal [facility] Comment on above: Performed By: #### L [id number] ####[facility] ([facility])[address] [place] [address] CBCon 04-02-2023 Erythrocyte distribution width (RBC) [Ratio] 15.1 % High 11.5-15.0 [facility] Comment on above: Performed By: #### L [id number] ####[facility] ([facility])[address] [place] [address] ERYTHROCYTE MEAN CORPUSCULAR HEMOGLOBIN CONCENTRATION (G/DL) BY AUTOMATED 32.5 g/dL Normal 32.0-35.0 [facility] Comment on above: Performed By: #### L [id number] ####[facility] ([facility])[address] [place] [address] Hematocrit (Bld) [Volume fraction] 54.7 % Normal 39.0-55.0 [facility] Comment on above: Performed By: #### L [id number] ####[facility] (BEAKER)[address] [place] [address] Hemoglobin (Bld) [Mass/Vol] 17.8 g/dL High 13.0-17.0 [facility] Comment on above: Performed By: #### L [id number] ####[facility] (BEAKER)[address] [place] [address] MCH (RBC) [Entitic mass] 29.3 pg Normal 27.0-33.0 [facility] Comment on above: Performed By: #### L [id number] ####[facility] (BEAKER)[address] [place] [address] MCV (RBC) [Entitic vol] 90.1 fL Normal 82.0-98.0 [facility] Comment on above: Performed By: #### L [id number] ####[facility] ([facility])[address] [place] [address] PLATELETS (10*3/UL) IN BLOOD AUTOMATED COUNT 245 10*3/uL Normal 150-400 [facility] Comment on above: Performed By: #### L [id number] ####[facility] ([facility])[address] [facility] [address] RBC (Bld) [#/Vol] 6.07 10*6/uL High 4.20-5.70 [facility] Comment on above: Performed By: #### L [id number] ####[facility] ([facility])[address] [place] [address] WBC (Bld) [#/Vol] 9.12 10*3/uL Normal 4.00-10.60 [facility] Comment on above: Performed By: #### L [id number] ####[facility] ([facility])[address] [place] [address] CONSULTon 04-02-2023 CONSULT Clinical Nutrition Assessment: Name: Cory Colin Room: [address] [place] [address] Date: 1965 Date of Visit: 04/02/23 Admission Dx: Decompensated heart failure (CMS/[facility]) [I50.9] Reason for assessment: consult for [...] 0453 NA 140 04/01/2023 0453 K 3.5 04/01/2023452 PHOS 4.2 04/01/2023452 MG 2.0 04/01/2023452 HGBA1C 6.2 (H) 04/01/2023452 HGB 15.8 04/01/2023452 WBC 9.21 04/01/2023452 CHOL 148 04/01/202357 HDL 30 04/01/2023 0058 I/O: Intake/Output Summary (Last 24 hours) at 04/02/2023 1046 Last data filed at 04/02/2023 0644 Gross per 24 hour Intake 2.5 ml Output 4025 ml Net -4022.5 ml Allergies: No Known Allergies Nutrition Problems: Swallowing Assessment: Pt denies swallowing difficulty Mouth: Pt denies chewing difficulty 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 Limited medical hx available per chart review [...] ideal body weight (75.5 kg) Calorie needs: 5642-0202 kcals/day based on Equation: 25-30 kcal/kg Protein needs: 76-91 g/day based on 1.0-1.2 g/kg Nutrition Diagnosis: Food and nutrition knowledge deficit Related to: lack of prior exposure to diet ed/misinformation As evidenced by: pt and pt's family statements Malnutrition Assessment: Hand Grasp/Motor Function/Sensation Assessment: Grasp, Dorsiflexion, Plantar flexion R Hand Grasp: Strong L Hand Grasp: Strong (Size Changer strength not assessed by RD) Patient at risk for malnutrition according to hospital criteria, but does not meet the clinical characteristics per the Academy of Nutrition and Dietetics, and the [place] [employer] of Enteral and Parenteral Nutrition to support the diagnosis of malnutrition. Nutrition Education: Diet literature: Heart Healthy Nutrition Therapy (explained CHF-sodium relationship, reading nutrition labels, saturated fat vs unsaturated fat; recommended adequate intake of fruits/vegetables at each meal and for snacks a (more content not included)... Normal [facility] HPon 04-02-2023 HP H&P reviewed. The patient was examined and there are no changes to the H&P. 57-year-old man who is admitted due to newly discovered systolic heart failure will undergo cardiac catheterization to rule out ischemic etiology. I explained the procedure in detail along with risks and benefits. He understands and agrees to proceed. [facility] MAGNESIUMon 04-02-2023 Magnesium [Mass/Vol] 2.3 mg/dL Normal 1.9-2.7 [facility] Comment on above: Performed By: #### L [id number] #### [facility] (BEAKER) [address] [place] [address] 30on 04-01-2023 30 The patient is Moderately [...] the next 3 months Outcome: Progressing Normal [facility] 30 Problem: Heart Failu re diagnosis [...] for the shift include Stable vital signs [facility] APTTon 04-01-2023 ACTIVATED PARTIAL THROMBOPLASTIN TIME IN PPP BY COAGULATION ASSAY 29.8 Seconds Normal 25.0-35.0 [facility] Comment on above: Result Comment: Clin ical significance of the APTT is questionable in the presence of heparin. Performed By: #### L [id number] #### [facility] ([facility]) [address] [place] [address] B-TYPE NATRIURETIC PEPTIDEon 04-01-2023 Natriuretic peptide B (Bld) [Mass/Vol] 273 pg/mL High 0-100 [facility] Comment on above: Performed By: #### L [id number] #### [facility] ([facility]) [address] [place] [address] CBC WITH AUTO DIFFERENTIALon 04-01-2023 Basophils (Bld) [#/Vol] 0.05 10*3/uL Normal 0.00-0.20 [facility] Comment on above: Performed By: #### L [id number] #### [facility] ([facility]) [address] [place] [address] Basophils/100 WBC (Bld) 0.5 % Normal 0.0-1.0 [facility] Comment on above: Performed By: #### L [id number] #### [facility] ([facility]) [address] [place] [address] Eosinophils (Bld) [#/Vol] 0.19 10*3/uL Normal 0.00-0.50 [facility] Comment on above: Performed By: #### L [id number] #### [facility] ([facility]) [address] [place] [address] Eosinophils/100 WBC (Bld) 2.1 % Normal 0.0-6.0 [facility] Comment on above: Performed By: #### L [id number] #### [facility] ([facility]) [address] [place] [address] Erythrocyte distribution width (RBC) [Ratio] 14.5 % Normal 11.5-15.0 [facility] Comment on above: Performed By: #### L [id number] #### [facility] ([facility]) [address] [place] [address] ERYTHROCYTE MEAN CORPUSCULAR HEMOGLOBIN CONCENTRATION (G/DL) BY AUTOMATED 33.1 g/dL Normal 32.0-35.0 [facility] Comment on above: Performed By: #### L [id number] #### [facility] ([facility]) [address] [place] [address] Hematocrit (Bld) [Volume fraction] 47.8 % Normal 39.0-55.0 [facility] Comment on above: Performed By: #### L [id number] #### [facility] ([facility]) [address] [place] [address] Hemoglobin (Bld) [Mass/Vol] 15.8 g/dL Normal 13.0-17.0 [facility] Comment on above: Performed By: #### L [id number] #### [facility] ([facility]) [address] [place] [address] Immature granulocytes (Bld) [#/Vol] 0.03 10*3/uL Normal 0.00-0.20 [facility] Comment on above: Performed By: #### L [id number] #### [facility] ([facility]) [address] [place] [address] Immature granulocytes/100 WBC (Bld) 0.3 % Normal 0.0-1.0 [facility] Comment on above: Performed By: #### L [id number] #### [facility] (BEAKER) [address] [place] [address] Lymphocytes (Bld) [#/Vol] 1.69 10*3/uL Normal 1.20-4.00 [facility] Comment on above: Performed By: #### L [id number] #### [facility] (BEAKER) [address] [place] [address] Lymphocytes/100 WBC (Bld) 18.3 % Low 20.0-45.0 [facility] Comment on above: Performed By: #### L [id number] #### [facility] (BEAKER) [address] [place] [address] MCH (RBC) [Entitic mass] 29.6 pg Normal 27.0-33.0 [facility] Comment on above: Performed By: #### L [id number] #### [facility] (BEAKER) [address] [place] [address] MCV (RBC) [Entitic vol] 89.5 fL Normal 82.0-98.0 [facility] Comment on above: Performed By: #### L [id number] #### [facility] ([facility]) [address] [place] [address] Monocytes (Bld) [#/Vol] 1.05 10*3/uL High 0.10-1.00 [facility] Comment on above: Performed By: #### L [id number] #### [facility] [facility] [address] [place] [address] Monocytes/100 WBC (Bld) 11.4 % Normal 5.0-12.0 [facility] Comment on above: Performed By: #### L [id number] #### [facility] ([facility]) [address] [place] [address] Neutrophils (Bld) [#/Vol] 6.20 10*3/uL Normal 1.60-7.60 [facility] Comment on above: Performed By: #### L [id number] #### [facility] ([facility]) [address] [place] [address] Neutrophils/100 WBC (Bld) 67.4 % Normal 40.0-72.0 [facility] Comment on above: Performed By: #### L [id number] #### [facility] ([facility]) [address] [place] [address] NRBC (PER 100 WBCS) BY AUTOMATED COUNT 0.0 % Normal 0 [facility] Comment on above: Performed By: #### L [id number] #### [facility] ([facility]) [address] [place] [address] PLATELETS (10*3/UL) IN BLOOD AUTOMATED COUNT 231 10*3/uL Normal 150-400 [facility] Comment on above: Performed By: #### L [id number] #### [facility] ([facility]) [address] [place] [address] RBC (Bld) [#/Vol] 5.34 10*6/uL Normal 4.20-5.70 [facility] Comment on above: Performed By: #### L [id number] #### [facility] ([facility]) [address] [place] [address] WBC (Bld) [#/Vol] 9.21 10*3/uL Normal 4.00-10.60 [facility] Comment on above: Performed By: #### L [id number] #### [facility] ([facility]) [address] [place] [address] Basophils (Bld) [#/Vol] 0.05 10*3/uL Normal 0.00-0.20 [facility] Comment on above: Performed By: #### L [id number] #### [facility] ([facility]) [address] [place] [address] Basophils/100 WBC (Bld) 0.5 % Normal 0.0-1.0 [facility] Comment on above: Performed By: #### L [id number] #### [facility] ([facility]) [address] [place] [address] Eosinophils (Bld) [#/Vol] 0.17 10*3/uL Normal 0.00-0.50 [facility] Comment on above: Performed By: #### L [id number] #### [facility] ([facility]) [address] [place] [address] Eosinophils/100 WBC (Bld) 1.6 % Normal 0.0-6.0 [facility] Comment on above: Performed By: #### L [id number] #### [facility] ([facility]) [address] [place] [address] Erythrocyte distribution width (RBC) [Ratio] 14.5 % Normal 11.5-15.0 [facility] Comment on above: Performed By: #### L [id number] #### [facility] ([facility]) [address] [place] [address] ERYTHROCYTE MEAN CORPUSCULAR HEMOGLOBIN CONCENTRATION (G/DL) BY AUTOMATED 32.7 g/dL Normal 32.0-35.0 [facility] Comment on above: Performed By: #### L [id number] #### [facility] ([facility]) [address] [address] Hematocrit (Bld) [Volume fraction] 51.3 % Normal 39.0-55.0 [facility] Comment on above: Performed By: #### L [id number] #### [facility] ([facility]) [address] [address] Hemoglobin (Bld) [Mass/Vol] 16.8 g/dL Normal 13.0-17.0 [facility] Comment on above: Performed By: #### L [id number] #### [facility] ([facility]) [address] [address] Immature granulocytes (Bld) [#/Vol] 0.04 10*3/uL Normal 0.00-0.20 [facility] Comment on above: Performed By: #### L [id number] #### [facility] ([facility]) [address] [address] Immature granulocytes/100 WBC (Bld) 0.4 % Normal 0.0-1.0 [facility] Comment on above: Performed By: #### L [id number] #### [facility] ([facility]) [address] [place] [address] Lymphocytes (Bld) [#/Vol] 1.86 10*3/uL Normal 1.20-4.00 [facility] Comment on above: Performed By: #### L [id number] #### [facility] ([facility]) [address] [place] [address] Lymphocytes/100 WBC (Bld) 17.6 % Low 20.0-45.0 [facility] Comment on above: Performed By: #### L [id number] #### [facility] ([facility]) [address] [place] [address] MCH (RBC) [Entitic mass] 29.1 pg Normal 27.0-33.0 [facility] Comment on above: Performed By: #### L [id number] #### [facility] ([facility]) [address] [place] [address] MCV (RBC) [Entitic vol] 88.9 fL Normal 82.0-98.0 [facility] Comment on above: Performed By: #### L [id number] #### [facility] ([facility]) [address] [place] [address] Monocytes (Bld) [#/Vol] 1.18 10*3/uL High 0.10-1.00 [facility] Comment on above: Performed By: #### L [id number] #### [facility] ([facility]) [address] [place] [address] Monocytes/100 WBC (Bld) 11.2 % Normal 5.0-12.0 [facility] Comment on above: Performed By: #### L [id number] #### [facility] ([facility]) [address] [place] [address] Neutrophils (Bld) [#/Vol] 7.27 10*3/uL Normal 1.60-7.60 [facility] Comment on above: Performed By: #### L [id number] #### [facility] ([facility]) [address] [place] [address] Neutrophils/100 WBC (Bld) 68.7 % Normal 40.0-72.0 [facility] Comment on above: Performed By: #### L [id number] #### [facility] ([facility]) [address] [place] [address] NRBC (PER 100 WBCS) BY AUTOMATED COUNT 0.0 % Normal 0 [facility] Comment on above: Performed By: #### L [id number] #### [facility] ([facility]) [address] [place] [address] PLATELETS (10*3/UL) IN BLOOD AUTOMATED COUNT 266 10*3/uL Normal 150-400 [facility] Comment on above: Performed By: #### L [id number] #### [facility] ([facility]) [address] [place] [address] RBC (Bld) [#/Vol] 5.77 10*6/uL High 4.20-5.70 [facility] Comment on above: Performed By: #### L [id number] #### [facility] ([facility]) [address] [place] [address] WBC (Bld) [#/Vol] 10.57 10*3/uL Normal 4.00-10.60 [facility] Comment on above: Performed By: #### L [id number] #### [facility] ([facility]) [address] [place] [address] COMPREHENSIVE METABOLIC PANE Eidlberto 04-01-2023 Albumin [Mass/Vol] 3.7 g/dL Normal 3.5-5.7 [facility] Comment on above: Performed By: #### L [id number] ####[facility] ([facility])[address] [place] [address] ALP [Catalytic activity/Vol] 79 U/L Normal 34-104 [facility] Comment on above: Performed By: #### L [id number] ####[facility] ([facility])[address] [place] [address] ALT [Catalytic activity/Vol] 26 U/L Normal 7-52 [facility] Comment on above: Performed By: #### L [id number] ####[facility] ([facility])[address] [place] [address] Anion gap [Moles/Vol] 10 mmol/L Normal 7-20 [facility] Comment on above: Performed By: #### L [id number] ####[facility] ([facility])[address] [place] [address] AST [Catalytic activity/Vol] 23 U/L Normal 13-39 [facility] Comment on above: Performed By: #### L [id number] ####[facility] ([facility])[address] [place] [address] Bilirubin [Mass/Vol] 1.5 mg/dL High 0.3-1.0 [facility] Comment on above: Performed By: #### L [id number] ####[facility] ([facility])[address] [place] [address] Calcium [Mass/Vol] 8.9 mg/dL Normal 8.6-10.3 [facility] Comment on above: Performed By: #### L [id number] ####[facility] ([facility])[address] [place] [address] Chloride [Moles/Vol] 104 mmol/L Normal 98-107 [facility] Comment on above: Performed By: #### L [id number] ####[facility] ([facility])[address] [place] [address] CO2 [Moles/Vol] 30 mmol/L Normal 21-31 [facility] Comment on above: Performed By: #### L [id number] ####[facility] ([facility])[address] [place] [address] Creatinine [Mass/Vol] 0.89 mg/dL Normal 0.70-1.30 [facility] Comment on above: Performed By: #### L [id number] ####[facility] ([facility])[address] [place] [address] GLOMERULAR FILTRATION RATE ML/MIN/1.73 SQ M.PREDICTED 101.2 mL/min/1.73m*2 Normal >60.0 [facility] Comment on above: Result Comment: The [facility]???s estimated glomerular filtration rate (eGFR) will [...] group of individuals. Performed By: #### L [id number] ####[facility] ([facility])[address] [place] [address] Glucose [Mass/Vol] 92 mg/dL Normal 70-100 [facility] Comment on above: Performed By: #### L [id number] ####[facility] ([facility])[address] [place] [address] Potassium [Moles/Vol] 3.5 mmol/L Normal 3.5-5.1 [facility] Comment on above: Performed By: #### L [id number] ####[facility] ([facility])[address] [place] [address] Protein [Mass/Vol] 6.0 g/dL Normal 6.0-8.3 [facility] Comment on above: Performed By: #### L [id number] ####[facility] ([facility])[address] [place] [address] Sodium [Moles/Vol] 140 mmol/L Normal 136-145 [facility] Comment on above: Performed By: #### L [id number] ####[facility] ([facility])[address] [place] [address] Urea nitrogen [Mass/Vol] 20 mg/dL Normal 7-25 [facility] Comment on above: Performed By: #### L [id number] ####[facility] ([facility])[address] [place] [address] UREA NITROGEN/CREATININE (MASS RATIO) IN SER/PLAS 22.5 Normal [facility] Comment on above: Performed By: #### L [id number] ####[facility] ([facility])[address] [place] [address] Albumin [Mass/Vol] 4.3 g/dL Normal 3.5-5.7 [facility] Comment on above: Performed By: #### L [id number] ####[facility] ([facility])[address] [place] [address] ALP [Catalytic activity/Vol] 84 U/L Normal 34-104 [facility] Comment on above: Performed By: #### L [id number] ####[facility] ([facility])[address] [place] [address] ALT [Catalytic activity/Vol] 28 U/L Normal 7-52 [facility] Comment on above: Performed By: #### L [id number] ####[facility] ([facility])[address] [place] [address] Anion gap [Moles/Vol] 10 mmol/L Normal 7-20 [facility] Comment on above: Performed By: #### L [id number] ####[facility] ([facility])[address] [place] [address] AST [Catalytic activity/Vol] 24 U/L Normal 13-39 [facility] Comment on above: Performed By: #### L [id number] ####[facility] ([facility])[address] [place] [address] Bilirubin [Mass/Vol] 1.6 mg/dL High 0.3-1.0 [facility] Comment on above: Performed By: #### L [id number] ####[facility] ([facility])[address] [place] [address] Calcium [Mass/Vol] 9.4 mg/dL Normal 8.6-10.3 [facility] Comment on above: Performed By: #### L [id number] ####[facility] ([facility])[address] [place] [address] Chloride [Moles/Vol] 104 mmol/L Normal 98-107 [facility] Comment on above: Performed By: #### L [id number] ####[facility] ([facility])[address] [place] [address] CO2 [Moles/Vol] 28 mmol/L Normal 21-31 [facility] Comment on above: Performed By: #### L [id number] ####[facility] ([facility])[address] [place] [address] Creatinine [Mass/Vol] 1.01 mg/dL Normal 0.70-1.30 [facility] Comment on above: Performed By: #### L [id number] ####[facility] ([facility])[address] [place] [address] GLOMERULAR FILTRATION RATE ML/MIN/1.73 SQ M.PREDICTED 87.8 mL/min/1.73m*2 Normal >60.0 [facility] Comment on above: Result Comment: The [facility]???s estimated glomerular filtration rate (eGFR) will [...] group of individuals. Performed By: #### L [id number] ####[facility] ([facility])[address] [place] [address] Glucose [Mass/Vol] 108 mg/dL High 70-100 [facility] Comment on above: Performed By: #### L [id number] ####[facility] ([facility])[address] [place] [address] Potassium [Moles/Vol] 3.8 mmol/L Normal 3.5-5.1 [facility] Comment on above: Performed By: #### L [id number] ####[facility] ([facility])[address] [place] [address] Protein [Mass/Vol] 6.6 g/dL Normal 6.0-8.3 [facility] Comment on above: Performed By: #### L [id number] ####[facility] ([facility])[address] [place] [address] Sodium [Moles/Vol] 138 mmol/L Normal 136-145 [facility] Comment on above: Performed By: #### L [id number] ####[facility] ([facility])[address] [place] [address] Urea nitrogen [Mass/Vol] 20 mg/dL Normal 7-25 [facility] Comment on above: Performed By: #### L [id number] ####[facility] ([facility])[address] [place] [address] UREA NITROGEN/CREATININE (MASS RATIO) IN SER/PLAS 19.8 Normal [facility] Comment on above: Performed By: #### L [id number] ####[facility] ([facility])[address] [place] [address] CONSULTon 04-01-2023 CONSULT -- Attestation signed by [...] is presenting as a direct admission from [facility]/ER where he presented for SOB and swelling for weeks to months. Patient reports that he has been experiencing worsening shortness of breath episodes associated with bilateral leg swelling for weeks to months with significant amount of edema progressing up bilateral lower extremities into groin and lower abdomen. Patient states upon arrival to [facility] he was over 340 pounds. While at [facility] he received treatment with IV Lasix, carvedilol, and Aldactone. Patient is now down to 305 pounds and still significantly edematous. Echo completed at [facility] shows EF of 30-35%. Patient was admitted for the management of acute decompensated heart failure and has been transferred to [facility] for heart cath. To note, [...] Value Ventricular Rate 97 Atrial Rate 97 MA Interval 166 QRS DURATION 144 QT Interval 400 QTC CALCULATION(BAZETT) 508 P [place] 42 R-[place] -76 T Wave [place] 60 Impression Sinus rhythm with frequent and [...] Results Electr (more content not included)... Normal [facility] HEMOGLOBIN A1Con 04-01-2023 Glucose [Mass/Vol] 131 mg/dL Normal [facility] Comment on above: Performed By: #### L [id number] #### [facility] ([facility]) [address] [facility] [address] HbA1c (Bld) [Mass fraction] 6.2 % High 4.0-6.0 [facility] Comment on above: Performed By: #### L [id number] #### [facility] ([facility]) [address] [facility] [place] [address] HPon 04-01-2023 HP -- Attestation signed by [...] is presenting as a direct admission from [facility]/ER where he presented for SOB and swelling for weeks to months. Patient reports that he has been experiencing worsening shortness of breath episodes associated with bilateral leg swelling for weeks to months with significant amount of edema progressing up bilateral lower extremities into groin and lower abdomen. Patient states upon arrival to [facility] he was over 340 pounds. While at [facility] he received treatment with IV Lasix, carvedilol, and Aldactone. Patient is now down to 305 pounds and still significantly edematous. Echo completed at [facility] shows EF of 30-35%. Patient was admitted for the management of acute decompensated heart failure and has been transferred to [facility] for heart cath. To note, [...] Value Ventricular Rate 97 Atrial Rate 97 MA Interval 166 QRS DURATION 144 QT Interval 400 QTC CALCULATION(BAZETT) 508 P [place] 42 R-[place] -76 T Wave [place] 60 Impression Sinus rhythm with frequent and [...] Results Electr (more content not included)... Normal [facility] LACTIC ACID WITH 4 HOUR REFL EXon 04-01-2023 LACTATE (MMOL/L) IN SER/PLAS 0.8 mmol/L Normal 0.5-2.2 [facility] Comment on above: Performed By: #### L [id number] ####[facility] ([facility])[address] [place] [address] LIPID PANELon 04-01-2023 CHOL/HDL 4.9 mg/dL Normal [facility] Comment on above: Performed By: #### L [id number] ####[facility] ([facility])[address] [place] [address] Cholesterol [Mass/Vol] 148 mg/dL Normal 120-200 [facility] Comment on above: Performed By: #### L [id number] ####[facility] ([facility])[address] [place] [address] Magnesium [Mass/Vol] 102 mg/dL Normal 40-149 [facility] Comment on above: Result Comment: TRIG LYCERIDE REFERENCE RANGE: 20 YEARS AND OLDER CARDIOVASCULAR RISK LESS THAN 150 mg/dL LOW RISK 150 TO 199 mg/dL BORDERLINE RISK 200 mg/dL AND GREATER HIGH RISK Performed By: #### L [id number] ####[facility] ([facility])[address] [place] [address] Magnesium [Mass/Vol] 98 mg/dL Normal 0-160 [facility] Comment on above: Performed By: #### L [id number] ####[facility] ([facility])[address] [place] [address] Magnesium [Mass/Vol] 30 mg/dL Normal 23-92 [facility] Comment on above: Performed By: #### L [id number] ####[facility] ([facility])[address] [place] [address] NON HDL CHOL. (LDL+VLDL) 118 Normal [facility] Comment on above: Performed By: #### L [id number] ####[facility] ([facility])[address] [place] [address] TOTAL VLDL-C 20 mg/dL Normal 0-40 [facility] Comment on above: Performed By: #### L [id number] ####[facility] ([facility])[address] [place] [address] MAGNESIUMon 04-01-2023 Magnesium [Mass/Vol] 2.0 mg/dL Normal 1.9-2.7 [facility] Comment on above: Performed By: #### L [id number] #### [facility] ([facility]) [address] [place] [address] Magnesium [Mass/Vol] 2.1 mg/dL Normal 1.9-2.7 [facility] Comment on above: Performed By: #### L [id number] #### [facility] ([facility]) [address] [place] [address] PHOSPHORUSon 04-01-2023 Magnesium [Mass/Vol] 4.2 mg/dL Normal 2.5-5.0 [facility] Comment on above: Performed By: #### L [id number] ####[facility] ([facility])[address] [place] [address] Magnesium [Mass/Vol] 4.4 mg/dL Normal 2.5-5.0 [facility] Comment on above: Performed By: #### L [id number] #### [facility] ([facility]) [address] [place] [address] PROTIME-INRon 04-01-2023 INR IN PPP BY COAGULATION ASSAY 1.04 Normal 0.90-1.10 [facility] Comment on above: Result Comment: ACCC [...] RANGE. CHEST 1995;[id number]. Performed By: #### L [id number] #### [facility] ([facility]) [address] [place] [address] PROTHROMBIN TIME (PT) IN PPP BY COAGULATION ASSAY 13.6 Seconds Normal 12.3-14.8 [facility] Comment on above: Performed By: #### L [id number] #### [facility] ([facility]) [address] [place] [address] T4, FREEon 04-01-2023 THYROXINE (T4) FREE (NG/DL) IN SER/PLAS 1.03 ng/dL Normal 0.71-1.85 [facility] Comment on above: Performed By: #### L [id number] #### [facility] ([facility]) [address] [place] [address] TROPONIN Ion 04-01-2023 Troponin I.cardiac [Mass/Vol] 0.03 ng/mL Normal 0.00-0.04 [facility] Comment on above: Performed By: #### L [id number] #### [facility] ([facility]) [address] [place] [address] Troponin I.cardiac [Mass/Vol] 0.04 ng/mL Normal 0.00-0.04 [facility] Comment on above: Performed By: #### L [id number] #### [facility] ([facility]) [address] [place] [address] TSHon 04-01-2023 THYROTROPIN (MIU/L) IN SER/PLAS BY DETECTION LIMIT <= 0.05 MIU/L 4.86 mIU/L Normal 0.34-5.60 [facility] Comment on above: Performed By: #### L [id number] #### [facility] ([facility]) [address] [place] [address] TSH3 REFLEX TO FT4on 024 THYROTROPIN (MIU/L) IN SER/PLAS BY DETECTION LIMIT <= 0.05 MIU/L 4.16 mIU/L Normal 0.34-5.60 [facility] Comment on above: Performed By: #### L [id number] ####[facility] ([facility])[address] [place] [address] URINALYSISon 04-01-2023 BILIRUBIN, TOTAL PRESENCE IN URINE Negative Normal Negative [facility] Comment on above: Performed By: #### L [id number] #### [facility] ([facility]) [address] [place] [address] Clarity (U) Clear Normal Clear [facility] Comment on above: Performed By: #### L [id number] #### [facility] ([facility]) [address] [place] [address] Color (U) Yellow Normal Yellow [facility] Comment on above: Performed By: #### L [id number] #### [facility] ([facility]) [address] [place] [address] Glucose (U) [Mass/Vol] Negative Normal Negative [facility] Comment on above: Performed By: #### L [id number] #### [facility] ([facility]) [address] [place] [address] HEMOGLOBIN PRESENCE IN URINE Negative Normal Negative [facility] Comment on above: Performed By: #### L [id number] #### [facility] ([facility]) [address] [place] [address] Ketones Ql (U) Negative Normal Negative [facility] Comment on above: Performed By: #### L [id number] #### [facility] ([facility]) [address] [place] [address] LEUKOCYTE ESTERASE PRESENCE IN URINE BY TEST STRIP Trace Abnormal Negative [facility] Comment on above: Performed By: #### L [id number] #### [facility] ([facility]) [address] [place] [address] NITRITE PRESENCE IN URINE Negative Normal Negative [facility] Comment on above: Performed By: #### L [id number] #### [facility] ([facility]) [address] [place] [address] pH (U) 6.0 [pH] Normal 5.0-8.0 [facility] Comment on above: Performed By: #### L [id number] #### [facility] ([facility]) [address] [place] [address] Protein (U) [Mass/Vol] Negative Normal Negative [facility] Comment on above: Performed By: #### L [id number] #### [facility] ([facility]) [address] [place] [address] Specific gravity (U) [Rel density] 1.018 Normal 1.015-1.020 [facility] Comment on above: Performed By: #### L [id number] #### [facility] ([facility]) [address] [place] [address] UROBILINOGEN (EU/DL) IN URINE 4.0 EU/dL Abnormal Negative [facility] Comment on above: Performed By: #### L [id number] #### [facility] ([facility]) [address] [place] [address] URINALYSIS MICROSCOPICon CASTS IN URINE Normal [facility] Comment on above: Performed By: #### L [id number] #### [facility] ([facility]) [address] [place] [address] CRYSTALS IN URINE Normal [facility] Comment on above: Performed By: #### L [id number] #### [facility] ([facility]) [address] [place] [address] MUCUS (#/HPF) IN URINE SEDIMENT Occasional Normal None Seen, Occasional, Few [facility] Comment on above: Performed By: #### L [id number] #### [facility] ([facility]) [address] [place] [address] RBC (#/HPF) IN URINE SEDIMENT 0-2 Abnormal None Seen [facility] Comment on above: Performed By: #### L [id number] #### [facility] ([facility]) [address] [place] [address] SQUAMOUS EPITHELIAL CELLS (#/HPF) IN URINE SEDIMENT Occasional Normal None Seen, Occasional [facility] Comment on above: Performed By: #### L [id number] #### [facility] ([facility]) [address] [place] [address] WBC (LEUKOCYTE) (#/HPF) IN URINE SEDIMENT 3-5 Abnormal None Seen [facility] Comment on above: Performed By: #### L [id number] #### [facility] ([facility]) [address] [place] [address] Encounters Encounter Date Encounter Type Care Provider Facility Start: 05-10-2023 End: 05-10-2023 ambulatory YA [facility] Start: 05-07-2023 End: 05-07-2023 ambulatory SHAIKH ALLIE Not Available Start: 04-17-2023 Clinisync Result Encounter Generic External Data Provider [facility] External Department Unsolicited Start: 04-17-2023 Clinisync Result Encounter Generic External Data Provider [facility] External Department Unsolicited Start: 04-11-2023 End: 04-11-2023 Orders Only Shaikh Allie VASQUEZ Work Phone: [facility] Comment on above: JAZZ (acute kidney in jury) (CMS/HCC) (Primary Dx) Start: 04-05-2023 End: 04-05-2023 ambulatory SHAIKH ALLIE Not Available Start: 04-02-2023 Evaluation and management of inpatient HINA FERGUSONUR [facility] Start: 04-01-2023 Evaluation and management of inpatient CORINNA WALKER [facility] Start: 04-01-2023 Evaluation and management of inpatient KATRINA ANALIA [facility] Start: 03-31-2023 End: 04-03-2023 Evaluation and management of inpatient EVETTE LEE [facility] Procedures Date Procedure Procedure Detail Performing Clinician Start: 04-17-2023 ALL BASIC METABOLIC PANEL Generic External Data Provider Plan of Treatment Date Care Activity Detail Author Start: 05-07-2023 End: 05-07-2023 Patient encounter procedure 05/07/2023 6:00 PM EST Office Visit [facility] [address] [place] [address] Shaikh Kelley MD [address] [place] [id number] [facility] Start: 04-11-2023 End: 04-11-2024 Basic metabolic 1998 panel - Serum or Plasma Basic metabolic panel Lab Routine JAZZ (acute kidney injury) (CMS/HCC) Expected: 04/11/2023 (Approximate), Expires: 04/11/2024 [facility] Work Phone: Comment on above: Expected: 04/11/2023 (Approximate), Expires: 04/11/2024 Start: 11-03-2022 Influenza vaccination Influenz a Vaccine (#1) [facility] Start: 1965 Screening for malign ant neoplasm of colon [facility] Payers Date Payer Category Payer Unknown [employer] [id number] 2023-Present [phone] [address] [address] [place] [address] [id number] 2022 Unknown [id number] 1965 Unknown [id number] 1965 Unknown [id number] Social History Date Type Detail Facility Start: 04-05-2023 Tobacco smoking stat [facility] Never smoked tobacco [facility] History of tobacco use Passive smoker [facility] Start: 04-05-2023 Tobacco use and exposure Smokeless t obacco non-user [facility] Start: 04-05-2023 Alcohol intake Lifetime non-d cheryl (finding) [facility] Start: 04-05-2023 History of Social function [facility] Start: 04-05-2023 Tobacco use panel [facility] Start: 1965 Sex Assigned At Not on file N [facility] Clinical Notes 04-01-2023 to 05-10-2023 Shaikh Allie MD - 04/11/2023 9:13 AM ESTSfabian Kelley MD - 04/11/2023 9:11 AM EST Note Date & Type Note Facility 05-10-2023 Note Patient here for 1 m o follow up chronic systolic heart failure and hypertension. His event monitor was finished last week, but no final report yet. Entresto was stopped since last visit. Hasn't had to take lasix recently. Review of Systems Neurological: Tingling in LLE All other systems reviewed and are negative. [facility] 05-10-2023 Note Cardiovascular Medic [facility] SUBJECTIVE Chief Complaint Patient presents with Congestive Heart Failure Hypertension Cory Colin is a 57 y.o. male here for follow-up. His accompanied him today. HPI PMHx: systolic heart failure, NICM, HTN, PVCs Cardiac cath 04/02/2023: normal cors 05/10/2023 He has been feeling well. Has not needed to take the lasix. He had issues with diarrhea since being on Entresto. Diarrhea resolved when he stopped this. His weight is down to 270# - down 14# since we saw him last month. He completed his event monitor. He has started cardiac rehab. He also has been exercising at home. We discussed dietary modifications along with purpose of his medications. He denies c/o CP, dyspnea, orthopnea, PND, LE edema, dizziness/LH, palpitations, syncope. Patient Active Problem List Diagnosis Decompensated heart failure (CMS/HCC) Hypertension Bilateral lower extremity edema Dyspnea on exertion Obesity Knowledge deficit about therapeutic diet Anxiety about knowledge deficit Encounter to establish care with new doctor NICM (nonischemic cardiomyopathy) (CMS/HCC) Hyperlipidemia Past Medical History: Diagnosis Date CHF (congestive heart failure) (CMS/HCC) Family History Adopted: Yes Social History Tobacco Use Smoking status: Never Smokeless tobacco: Never Vaping Use Vaping Use: Never used Substance Use Topics Alcohol use: Yes Alcohol/week: 2.0 standard drinks of alcohol Types: 2 Shots of liquor per week Comment: 1-2 per week but some weeks none Drug use: Never No Known Allergies Review of Systems Constitutional: Negative for chills, decreased appetite, fever, malaise/fatigue and weight gain. Cardiovascular: Negative for chest pain, dyspnea on exertion, irregular heartbeat, leg swelling, near-syncope, orthopnea, palpitations, paroxysmal nocturnal dyspnea and syncope. Hematologic/Lymphatic: Negative for bleeding problem. Does not bruise/bleed easily. Genitourinary: Darker urine OBJECTIVE Visit Vitals BP 120/76 (BP Location: Left arm, Patient Position: Sitting) Pulse 74 Ht 1.778 m (5' 10 ) Wt 122 kg (270 lb) SpO2 94% BMI 38.74 kg/m??? Smoking Status Never BSA 2.45 m??? Medications: Current Outpatient Medications: aspirin 81 mg EC tablet, Take 1 tablet (81 mg) by mouth once daily as directed for 360 doses., Disp: 90 tablet, Rfl: 3 atorvastatin (Lipitor) 80 mg tablet, Take 1 tablet (80 mg) by mouth at bedtime., Disp: 90 tablet, Rfl: 3 dapagliflozin propanediol (Farxiga) 10 mg, Take 1 tablet (10 mg) by mouth in the morning for 365 doses., Disp: 90 tablet, Rfl: 3 furosemide (Lasix) 40 mg tablet, Take 1 tablet (40 mg) by mouth if needed each day (as needed for weight gain) for up to 360 doses., Disp: 90 tablet, Rfl: 3 metoprolol succinate XL (Toprol-XL) 50 mg 24 hr tablet, Take 1 tablet (50 mg) by mouth once daily as directed. Do not crush or chew., Disp: 90 tablet, Rfl: 3 empagliflozin (Jardiance) 10 mg, Take 1 tablet (10 mg) by mouth in the morning., Disp: 90 tablet, Rfl: 3 lisinopril 5 mg tablet, Take 1 tablet (5 mg) by mouth in the morning., Disp: 90 tablet, Rfl: 3 spironolactone (Aldactone) 25 mg tablet, Take 1 tablet (25 mg) by mouth in the morning for 30 doses. Do not start before April 04, 2023., Disp: 30 tablet, Rfl: 0 Physical Exam Constitutional: Appearance: Normal appearance. He [...] Content: Thought content normal. Judgment: Judgment normal. Labs: Admission on 03/31/2023, Discharged on 04/03/2023 Component Date Value Ref Range Status Sodium 04/01/2023 138 136 - 145 mmol/L Final Potassium 04/01/2023 3.8 3.5 - 5.1 mmol/L Final Chloride 04/01/2023 104 98 - 107 mmol/L Final CO2 04/01/2023 28 21 - 31 mmol/L Final Anion Gap 04/01/2023 10 7 - 20 mmol/L Final BUN 04/01/2023 20 7 - 25 mg/dL Final Creatinine 04/01/2023 1.01 0.70 - 1.30 mg/dL Final BUN/Creatinine Ratio 04/01/2023 19.8 Final Glucose 04/01/2023 108 (H) 70 - (more content not included)... [facility] 04-18-2023 Note [id number] Bibiana Colin 1965 M Date Provider Department Center 04/18/2023 166-YA GARCIA CARD [facility] Family History Adopted: Yes [facility] 04-11-2023 Note Patient here for [facility] for CHF. He had orientation at cardiac [...] All other systems reviewed and are negative. [facility] 04-11-2023 Note Cardiovascular Medic in[facility] [place] [facility] SUBJECTIVE Chief Complaint Patient presents with Hospital Follow-up Congestive Heart Failure Hypertension Cory Colin is a 57 y.o. male here for hospital follow-up. His accompanied him today. HPI He was recently admitted for acute systolic heart failure, found to be NICM given his normal cors. He has been feeling well overall. He has had some leg cramping. His urine has turned darker in color and he is voiding less often. He has been trying his best at maintaining a 2L daily fluid allowance. Weight has been trending down. Today was 281#, when he got home it was 287.8#. He had an event monitor placed last week after discharge. He denies c/o CP, dyspnea, orthopnea, PND, LE edema, dizziness/LH, palpitations, syncope. ---- Discharge Summary Final Discharge Diagnosis: Decompensated heart failure ([facility]) Decompensated CHF /fluid overload Hypertension JAZZ Bilateral lower extremity edema Shortness of breath Admission Diagnosis: Decompensated heart failure (CMS/HCC) [I50.9] Hospital course: Cory Colin is an 57 y.o. male who came from [facility] with minimal to no medical history x 10 years as he states he has not seen a provider nor had any medical treatment in over 10 years and denies taking any prescription medications, syyo-dhd-nftgdko medications or herbals at this time. Patient states he does not even take xfaj-rlr-lytnbfk Tylenol or ibuprofen and stopped taking both of those years ago. Patient reports he has been experiencing shortness of breath and swelling for weeks to months with significant amount of edema progressing up bilateral lower extremities into groin and lower abdomen. Patient states upon arrival to [place] [facility] he was over 340 pounds. While at [facility] he received treatment with IV Lasix, carvedilol, and Aldactone. Patient is now down to 305 pounds and still significantly edematous. Echo completed at [facility] shows EF of 30-35%. Patient diagnosed the hospital with decompensated CHF and has been transferred to [facility] for need of heart cath. [...] extremity edema, improved Shortness of breath, resolved Patient Active Problem List Diagnosis Decompensated heart failure ([facility]) Hypertension Bilateral lower extremity edema Dyspnea on exertion Obesity Knowledge deficit about therapeutic diet Anxiety about knowledge deficit Encounter to establish care with new doctor NICM (nonischemic cardiomyopathy) ([facility]) Past Medical History: Diagnosis Date CHF (congestive heart failure) ([facility]) Family History Adopted: Yes Social History Tobacco Use Smoking status: Never Smokeless tobacco: Never Vaping Use Vaping Use: Never used Substance Use Topics Alcohol use: Yes Alcohol/week: 2.0 standard drinks of alcohol Types: 2 Shots of liquor per week Comment: 1-2 per week but some weeks none Drug use: Never No Known Allergies Review of Systems Constitutional: Negative for chills, decreased appetite, fever, malaise/fatigue and weight gain. Cardiovascular: Negative for chest pain, dyspnea on exertion, irregular heartbeat, leg swelling, near-syncope, orthopnea, palpitations, paroxysmal nocturnal dyspnea and syncope. Hematologic/Lymphatic: Negative for bleeding problem. Does not bruise/bleed easily. Genitourinary: Darker urine, decreased frequency OBJECTIVE Visit Vitals BP 122/82 (BP Location: Right arm, Patient Position: Sitting) Pulse 66 Ht 1.778 m (5' 10 ) Wt 129 kg (284 lb) SpO2 98% BMI 40.75 kg/m??? Smoking Status Never BSA 2.52 m??? Medications: Current Outpatient Medications: dapagliflozin propanediol (Farxiga) 10 mg, Take 1 tablet (10 mg) by mouth in the morning for 30 doses. Do not start before April 04, 2023., Disp: 30 tablet, Rfl: 0 sacubitril-valsartan (Entresto) 24-26 mg tablet, Take 1 tablet by mouth in the morning and at bedtime., Disp: 60 tablet, Rfl: 0 spironolactone (Aldactone) 25 mg tablet, Take 1 tablet (25 mg) by mouth in the morning for 30 doses. Do not start before April 04, 2023., Disp: 30 tablet, Rfl: 0 aspirin 81 mg EC tablet, Take 1 tablet (81 mg) by mouth once daily as directed (more content not included)... [facility] 04-11-2023 History of Present illness Narrative Associated Problem(s): JAZZ (acute kidney injury) (CMS/[facility]) Worsening renal function with Cr trending upward from normal baseline to 1.3 --> 1.8 Asked patient to stop Aldactone and Lasix for now. Recheck BMP in one week. Follow up after BMP. Problem List Items Addressed This Visit JAZZ (acute kidney injury) (CMS/[facility]) - Primary Worsening renal function with Cr trending upward from normal baseline to 1.3 --> 1.8 Asked patient to stop Aldactone and Lasix for now. Recheck BMP in one week. Follow up after BMP. 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 Yes ( I was filling up with fluid ) Who is your current PCP? Hasn't seen MD in 37 years other than few ER visits & required yearly physicals for health insurance; Has New PCP Appointment scheduled on Apr 05 @ 9:15am with Dr. Kelley in [place], [place] Can I schedule a follow up appointment for you at the time of discharge? Yes (go to [facility]) Do you understand why [...] Discharge? Yes Does the patient have a family service caseworker assigned to them through their insurance? No [...] discharge today: Home, no needs. Follow-up with [facility] in [place]. will pick-up; Agreeable to iMeds. [facility] 04-03-2023 Note Attempted to meet wi th the patient. He is in with Malini BUSTAMANTE RN at this time. [facility] 04-03-2023 Note Spiritual Care Note Patient name: Cory Colin Age: 57 y.o. Room: 5148/5148-01 04/03/23 1421 Clinical Encounter Type Visited With Patient;Spouse (Spouse by phone) Type of Visit Advance Directives Last Visit Date 04/03/23 Patient Spiritual Care Encounters Spiritual Care Assessment Hopeful (Pt completed HCPOA naming as agent & son as alternate. Pt shared a bit of his personal hx.) Pastoral Intervention Advance directives;Emotional support;Spiritual support (Copy Director assisted pt with completing HPCOA. Copies made, original & copies returned to pt, copy placed in pt chart.) Response Appreciative [facility] 04-03-2023 Note UTP Cardiovascular M edicine [...] -- -- 90 16 90 % -- 01/29/24 1440 (!) 130/109 37.2 ???C (99 ???F) [...] assess for improvement 3) outpatient follow-up with [facility] ECHO 04/02/2023 Left Ventricle: The left [...] - NICM -GDMT: (more content not included)... [facility] 04-03-2023 Note Attempted to meet wi th the patient. He is currently in with pastoral care. Will attempt to try again later. [facility] 04-02-2023 Note Patient: Cory Herrera rt Procedure Information Date/Time: 04/02/23 1330 Procedures: Coronary angiography Right heart cath Location: [facility] MACHINE SET UP TECHNICIAN 2 BIPLANE / [facility] (Cath) Providers: Stephon Morrell [...] Plan discussed with attending. Additional Equipment Requests [facility] 04-02-2023 Note Hospital Medicine Daily Progress Note - 04/02/2023 5:47 PM; Room: [address] [place] [address] Admission: 03/31/2023 9:13 PM; Length of stay: 2 days THE HOSPITALIST TEAM PREFERS TO USE [employer] CHAT FOR COMMUNICATION 7AM-7PM. IF I DO NOT RESPOND WITHIN 15 MINUTES, PLEASE PAGE ME/CALL THROUGH THE AUTOMOBILE CLUB TRAVEL COUNSELOR. FROM 7PM-7AM, PLEASE PAGE [phone](COVR) Code Status: Full Code Barriers to Discharge: [...] LDL 118 04/01/2023 No results found for: [id number] , IRON , TIBC , C3 , [...] months to assess (more content not included)... [facility] 04-02-2023 Note Pt admitted to [facility] for decompensated HF. Pt has echo scheduled; no previous echo on file. I will wait for current echo results to determine pt's eligibility to participate in cardiac rehab (CR) therapy with HF diagnosis and follow up with pt, if appropriate. JOSE WaltonN heating element builder Outpatient Coordinator Cardiopulmonary Rehab [facility] 04-02-2023 Note Patient was transfer red to 5th floor, room 5148. Telemetry box was removed and ghost writer called [facility] to inform them that the patient had been transferred to said unit and taken off the monitor, #105. [facility] 04-01-2023 Note Patients HR was sust aining in the 140's. Hospitalist called. Orders to give Lopressor IV once. Patient's Heart rate improved to the 130 s. Hospitalist called again. Patient has new orders to go to stepdown unit. Patient and notified. Copy Director will give report to nurseHelena and transport patient to 5148. Point of care will continue until then. [facility] 04-01-2023 Note Hospital Medicine Daily Progress Note - 04/01/2023 2:49 PM; Room: [address] [place] [address] Admission: 03/31/2023 9:13 PM; Length of stay: 1 days THE HOSPITALIST TEAM PREFERS TO USE [employer] CHAT FOR COMMUNICATION 7AM-7PM. IF I DO NOT RESPOND WITHIN 15 MINUTES, PLEASE PAGE ME/CALL THROUGH THE AUTOMOBILE CLUB TRAVEL COUNSELOR. FROM 7PM-7AM, PLEASE PAGE [phone](COVR) Code Status: Full Code Barriers to Discharge: [...] edema Shortness of breath -Echocardiogram completed at [facility], ejection fraction 30-35% Continue 40mg IV lasix [...] LDL 118 04/01/2023 No results found for: [id number] , IRON , TIBC , C3 , [...] ECG When co (more content not included)... [facility] 04-01-2023 Note Copy Director received a ca ll from [facility] that patient had a 4 beat of VTACH. Pt. Was assessed, was asymptomatic, Dr. Walker was paged. Also results of 2nd EKG was discussed along with patient's Magnesium and phosphorous. Patient also began to desat to 89%-90%. Copy Director put patient on 2 liters nasal cannula. Patient is satting at 96% now. Will continue point of care. [facility] 04-01-2023 Note Copy Director was taking monae mccarthy's vitals when patient started having 33 pvc's per 10 minutes sustaining per [facility]; Hospitalist was called, stat labs, EKG, chest xray were ordered. Patient is asymptomatic at this time. Will continue point of care. [facility] 04-01-2023 Note Hospital Medicine History and Physical 04/01/2023 12:08 AM THE HOSPITALIST TEAM PREFERS TO USE [employer] CHAT FOR COMMUNICATION 7AM-7PM. IF I DO NOT RESPOND WITHIN 15 MINUTES, PLEASE PAGE ME/CALL THROUGH THE AUTOMOBILE CLUB TRAVEL COUNSELOR. FROM 7PM-7AM, PLEASE PAGE [phone](COVR) Chief Complaint Direct admission from [facility]/ER where he presented for SOB and swelling for weeks to months. History of Present Illness Cory Colin is an 57 y.o. male who came from [facility] with minimal to no medical history x 10 years as he states he has not seen a provider nor had any medical treatment in over 10 years and denies taking any prescription medications, hwkm-eds-pssnrzb medications or herbals at this time. Patient states he does not even take hhdz-cce-gtkmzil Tylenol or ibuprofen and stopped taking both of those years ago. Patient reports he has been experiencing shortness of breath and swelling for weeks to months with significant amount of edema progressing up bilateral lower extremities into groin and lower abdomen. Patient states upon arrival to [place] ER he was over 340 pounds. While at [facility] he received treatment with IV Lasix, carvedilol, and Aldactone. Patient is now down to 305 pounds and still significantly edematous. Echo completed at [facility] shows EF of 30-35%. Patient diagnosed the hospital with decompensated CHF and has been transferred to [facility] for need of heart cath. [...] P, BN P, T4, free, TSH, UA SECURITIES TELLER. Patient exhibits mild shortness of breath with [...] Date Noted Decompen (more content not included)... [facility] Evaluation note Diagnosis JAZZ (acute kidney injury) (CMS/[facility])- Primary documented in this encounter [facility] Summary Purpose Family History No Family History Records FoundNo Family History Records Found Advance Directives No Advanced Directives Records FoundNo Advanced Directives Records Found Additional Source Comments Care Teams (unrecognized sec tion and content) Train Driver Relationship Specialty Start Date End Date Shaikh Kelley MD [address] [place] [id number] PCP - General Internal Medicine 04/05/23 Train Driver Relationship Specialty Start Date End Date Shaikh Kelley MD [address] [place] [address] PCP - General Internal Medicine 04/05/23 (unrecognized sect ion and content) No Status Records FoundNo Status Records Found INFORMATION SOURCE (unrecogn ized section and content) DATE CREATED AUTHOR 05/08/2023 [facility] [facility] EPIC DATE CREATED AUTHOR 'S ORGANIZ ATION 05/11/2023 [facility] FOR RECORDS PERTAINING TO PATIENTS WHO ARE [...] BE BASED ON THE PRIMARY CLINICAL RECORDS. [facility] [employer] [facility]. provides no warranty or guarantee of the accuracy or completeness of information in this document.
== END 2023-06-13 15:43 | disposition home or self-care (01) ==
LOC: LAB 15:44
PROVIDERS: PCP Internal Medicine; Visit Provider Nurse Practitioner Family
DX: I50.22 Chronic systolic (congestive) heart failure (principal)
CPT/HCPCS: 36415; 80048

== ENCOUNTER 2023-07-13 07:06 | Outpatient (OUT) | payer OTHER, SELFPAY ==
--- OUTSIDE RECORDS SUMMARY | 2023-07-13 07:09 | XMS_ITS | CCD ---
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 Role Phone Shaikh Kelley MD Primary Care Provider [phone] SHAIKH KELLEY Attending Unavailable SHAIKH KELLEY Attending Unavailable EVETTE LEE Referring Unavailable BARBARAHINA Attending Unavailable MERZA, NOORALDIN Admitting Unavailable DORA FLOOD Attending Unavailable YA GARCIA Attending Unavailable KATRINA HELMS Referring Unavailable MERZA, NOORALDIN Referring Unavailable MERZA, NOORALDIN Referring Unavailable BARBARALOUISMED Referring Unavailable YA GARCIA Attending Unavailable Allergies Allergy Classification Reported Allergen(s) Allergy Type Date of Onset Reaction(s) Facility (1 source) empagliflozin; Translations: [EMPAGLIFLOZIN] Drug Allergy 06-29-2023 [facility] Repository (1 source) sacubitril / valsartan; Translations: [SACUBITRIL-VALS BUSTER] Drug Allergy 06-29-2023 [facility] Repository Medications Current Medications Medication Drug Class(es) Dates [...] the morning. 0 04/04/2023 05/04/2023 Active Problems Active Problems Problem Classification Problem Date Documented Date Episodic/Chronic Acute and unspecified renal failure (3 [...] caused by tuberculosis or sexually transmitted disease) (4 sources) Cardiomyopathy; Translations: [Other cardiomyopathies] Onset: 04-05-2023 04-05-2023 Chronic Unclassified (1 source) Supraventricular tachycardia, unspecified; Translations: [Supraventricular tachycardia, unspecified] Onset: 06-29-2023 Past or Other Problems Problem Classification Problem Date Documented Date Episodic/Chronic Unclassified (1 source) Supraventricular tachycardia, unspecified; Translations: [Supraventricular tachycardia, unspecified] Onset: 06-29-2023 Results Test Name Value Interpretation Reference Range Facility Office Visiton 06-29-2023 Follow-up visit [id number] Cory Colin 1965 M Date Provider Department Center 06/29/2023 DORA ANTHONY LAKSHMI [place] [facility] Family History Adopted: Yes Level of Service:71916 [place] OFFICE/OUTPATIENT ESTABLISHED HIGH MDM 40 MIN Reason for Visit and Comments: Follow-up [568283] - [address] [facility] Office Visiton 05-10-2023 Follow-up visit [id number] Cory Colin 1965 M [facility] Provider Department Center 05/10/2023 YA OLIVER LAKSHMI [place] [facility] Family History Adopted: Yes Level of Service:39924 [place] OFFICE/OUTPATIENT ESTABLISHED HIGH MDM 40 MIN Reason for Visit and Comments: Congestive Heart Failure [127] Hypertension [574236] Normal [facility] 04-30-2023 36 Pt informed [facility] 04-18-2023 36 Please let him know his [...] sent refills and ordered the BMP. Thanks! [facility] Telephoneon 04-18-2023 Telephone [id number] Cory Colin 1965 M Date Provider Department Center 04/18/2023 [facility] GARCIA MC CARD [facility]. Family History Adopted: Yes [facility] ALL BASIC METABOLIC PANELon 04-17-2023 Anion gap [Moles/Vol] 13.3 mmol/L [facility] Calcium [Mass/Vol] 9.8 mg/dL 8.5 - 10. 1 mg/dL [facility] Chloride [Moles/Vol] 103 mmol/L 98 - 10 7 mmol/L [facility] CO2 [Moles/Vol] 28.0 mmol/L 21.0 - 32.0 mmol/L [facility] Creatinine [Mass/Vol] 1.15 mg/dL 0.70 - 1.30 mg/dL [facility] GFR/1.73 sq M.predicted CKD-EPI (S/P/Bld) [Vol rate/Area] >60 60 - PINF [facility] Glucose [Mass/Vol] 98 mg/dL 74 - 106 mg/dL NO [facility] Interpretation and review of laboratory results Abnormal [facility] Potassium [Moles/Vol] 4.3 mmol/L 3.5 - 5.1 mmol/L [facility] Sodium [Moles/Vol] 140 mmol/L 136 - 145 mmol/L [facility] TBH EGFR-NON AF NEPALESE >60 60 - PINF [facility] Urea nitrogen [Mass/Vol] 31.0 mg/dL High 7.0 - 18.0 mg/dL [facility] Urea nitrogen/Creatinine [Mass ratio] 27.0 mg/mg [facility] 37on 04-11-2023 37 *Your kidney functio n is elevated. Please hold these medications until instructed to resume: -dapagliflozin (Farxiga) -sacubitril-valsartan (Entresto) -Spironolactone -Lasix *Have lab work done in 1 week, around 04/17/2023. [facility] Office Visiton 04-11-2023 Follow-up visit [id number] Cory Colin 1965 M Date Provider Department Center 04/11/2023 YA OLIVER Clarence Derik Family History Adopted: Yes Level of Service:95357 [place] OFFICE/OUTPATIENT ESTABLISHED MOD MDM 30 MIN Reason for Visit and Comments: Hospital Follow-up [832] Congestive Heart Failure [127] Hypertension [159645] [facility] 36on 04-04-2023 36 Discharge date: 04/03/23 [...] and the staff who cared for them. [facility] Documentationon 04-04-2023 Documentation [id number] Cory Colin 1965 M Date Provider Department Center 04/04/2023 CEE SEQUEIRA [facility] No family history on file Reason for Visit and Comments: HF inpatient satisfaction survey sent. [Other] [facility] Telephoneon 04-04-2023 Telephone [phone] Cory Colin 1965 M Date Provider Department Center 04/04/2023 CEE [facility]IR[facility] [place] [facility] No family history on file Reason for Visit and Comments: HF post discharge call [Other] [facility] BASIC METABOLIC PANELon 03-07 Anion gap [Moles/Vol] 13 mmol/L Normal 7-20 [facility] Comment on above: Performed By: #### L [id number] ####[facility] ([facility])[address] [place] [address] Calcium [Mass/Vol] 9.3 mg/dL Normal 8.6-10.3 [facility] Comment on above: Performed By: #### L [id number] ####[facility] ([facility] [place] [address] Chloride [Moles/Vol] 102 mmol/L Normal 98-107 [facility] Comment on above: Performed By: #### L [id number] ####[facility] ([facility] [place] [address] CO2 [Moles/Vol] 30 mmol/L Normal 21-31 [facility] Comment on above: Performed By: #### L [id number] ####[facility] ([facility] [place] [address] Creatinine [Mass/Vol] 1.37 mg/dL High 0.70-1.30 [facility] Comment on above: Performed By: #### L [id number] ####[facility] ([facility])[address] [place] [address] GLOMERULAR FILTRATION RATE ML/MIN/1.73 SQ M.PREDICTED 60.9 mL/min/1.73m*2 Normal >60.0 [facility] Comment on above: Result Comment: The [facility]???s estimated glomerular filtration rate (eGFR) will no [...] of individuals. Performed By: #### L [id number] ####[facility] ([facility])[address] [place] [address] Glucose [Mass/Vol] 104 mg/dL High 70-100 [facility] Comment on above: Performed By: #### L [id number] ####[facility] ([facility] [place] [address] Potassium [Moles/Vol] 4.5 mmol/L Normal 3.5-5.1 [facility] Comment on above: Performed By: #### L [id number] ####[facility] (BRY)[address] [place] [address] Sodium [Moles/Vol] 140 mmol/L Normal 136-145 [facility] Comment on above: Performed By: #### L [id number] ####[facility] (BRY)[address] [place] [address] Urea nitrogen [Mass/Vol] 28 mg/dL High 7-25 [facility] Comment on above: Performed By: #### L [id number] ####[facility] ([employer])[address] [place] [address] UREA NITROGEN/CREATININE (MASS RATIO) IN SER/PLAS 20.4 Normal [facility] Comment on above: Performed By: #### L [id number] ####[facility] (BRY)[address] [place] [address] DSon 04-03-2023 DS -- Attestation signed by Hina Jimenez MD at 04/04/2023 2:53 PM I discussed the patient on the same date of service as the Non-Physician Provider. Hospital Medicine Discharge Summary Final Discharge Diagnosis: Decompensated heart failure (CMS/HCC) Decompensated CHF /fluid overload Hypertension JAZZ Bilateral lower extremity edema Shortness of breath Admission Diagnosis: Decompensated heart failure (CMS/HCC) [I50.9] Hospital course: Cory Colin is an 57 y.o. male who came from [facility] with minimal to no medical history x 10 years as he states he has not seen a provider nor had any medical treatment in over 10 years and denies taking any prescription medications, edxs-vfl-xhsayyp medications or herbals at this time. Patient states he does not even take ixmf-wdw-irpltrr Tylenol or ibuprofen and stopped taking both of those years ago. Patient reports he has been experiencing shortness of breath and swelling for weeks to months with significant amount of edema progressing up bilateral lower extremities into groin and lower abdomen. Patient states upon arrival to [facility] he was over 340 pounds. While at [facility] he received treatment with IV Lasix, carvedilol, and Aldactone. Patient is now down to 305 pounds and still significantly edematous. Echo completed at [facility] shows EF of 30-35%. Patient diagnosed the hospital with decompensated CHF and has been transferred to [facility] for need of heart cath. Patient [...] Time Provider Department Center 04/06/2023 10:15 AM Dora Flood MD [facility] 04/11/2023 11:00 AM Ya Garcia NP [facility] Your medication list START taking these [...] medications were sent to [facility] [address] [place] [address] [address] [facility] [place] [address], [facility] [address] aspirin 81 mg EC tablet atorvastatin 80 [...] 0058 W (more content not included)... Normal [facility] MAGNESIUMon 04-03-2023 Magnesium [Mass/Vol] 2.3 mg/dL Normal 1.9-2.7 [facility] Comment on above: Performed By: #### L [id number] ####[facility] ([facility])[address] [place] [address] BASIC METABOLIC PANELon 03-06 Anion gap [Moles/Vol] 11 mmol/L Normal 7-20 [facility] Comment on above: Performed By: #### L [id number] ####[facility] ([facility])[address] [place] [address] Calcium [Mass/Vol] 9.3 mg/dL Normal 8.6-10.3 [facility] Comment on above: Performed By: #### L [id number] ####[facility] ([facility])[address] [place] [address] Chloride [Moles/Vol] 103 mmol/L Normal 98-107 [facility] Comment on above: Performed By: #### L [id number] ####[facility] ([facility])[address] [place] [address] CO2 [Moles/Vol] 31 mmol/L Normal 21-31 [facility] Comment on above: Performed By: #### L [id number] ####[facility] ([facility])[address] [place] [address] Creatinine [Mass/Vol] 0.95 mg/dL Normal 0.70-1.30 [facility] Comment on above: Performed By: #### L [id number] ####[facility] ([facility])[address] [place] [address] GLOMERULAR FILTRATION RATE ML/MIN/1.73 SQ M.PREDICTED 94.5 mL/min/1.73m*2 Normal >60.0 [facility] Comment on above: Result Comment: [facility]???s estimated glomerular filtration rate (eGFR) will no [...] of individuals. Performed By: #### L [id number] ####[facility] ([facility])[address] [place] [address] Glucose [Mass/Vol] 100 mg/dL Normal 70-100 [facility] Comment on above: Performed By: #### L [id number] ####[facility] ([facility])[address] [place] [address] Potassium [Moles/Vol] 4.2 mmol/L Normal 3.5-5.1 [facility] Comment on above: Performed By: #### L [id number] ####[facility] ([facility])[address] [place] [address] Sodium [Moles/Vol] 141 mmol/L Normal 136-145 [facility] Comment on above: Performed By: #### L [id number] ####[facility] ([facility])[address] [place] [address] Urea nitrogen [Mass/Vol] 18 mg/dL Normal 7-25 [facility] Comment on above: Performed By: #### L [id number] ####[facility] ([facility])[address] [place] [address] UREA NITROGEN/CREATININE (MASS RATIO) IN SER/PLAS 18.9 Normal [facility] Comment on above: Performed By: #### L [id number] ####[facility] ([facility])[address] [place] [address] CBCon 04-02-2023 Erythrocyte distribution width (RBC) [Ratio] 15.1 % High 11.5-15.0 [facility] Comment on above: Performed By: #### L [id number] ####[facility] ([facility])[address] [place] [address] ERYTHROCYTE MEAN CORPUSCULAR HEMOGLOBIN CONCENTRATION (G/DL) BY AUTOMATED 32.5 g/dL Normal 32.0-35.0 [facility] Comment on above: Performed By: #### L [id number] ####[facility] ([facility])[address] [place] [address] Hematocrit (Bld) [Volume fraction] 54.7 % Normal 39.0-55.0 [facility] Comment on above: Performed By: #### L [id number] ####[facility] ([facility])[address] [place] [address] Hemoglobin (Bld) [Mass/Vol] 17.8 g/dL High 13.0-17.0 [facility] Comment on above: Performed By: #### L [id number] ####[facility] ([facility])[address] [place] [address] MCH (RBC) [Entitic mass] 29.3 pg Normal 27.0-33.0 [facility] Comment on above: Performed By: #### L [id number] ####[facility] ([facility])[address] [place] [address] MCV (RBC) [Entitic vol] 90.1 fL Normal 82.0-98.0 [facility] Comment on above: Performed By: #### L [id number] ####[facility] ([facility])[address] [place] [address] PLATELETS (10*3/UL) IN BLOOD AUTOMATED COUNT 245 10*3/uL Normal 150-400 [facility] Comment on above: Performed By: #### L [id number] ####[facility] ([facility])[address] [place] [address] RBC (Bld) [#/Vol] 6.07 10*6/uL High 4.20-5.70 [facility] Comment on above: Performed By: #### L [id number] ####[facility] ([facility])[address] [place] [address] WBC (Bld) [#/Vol] 9.12 10*3/uL Normal 4.00-10.60 [facility] Comment on above: Performed By: #### L [id number] ####[facility] ([facility])[address] [place] [address] CONSULTon 04-02-2023 CONSULT Clinical Nutrition Assessment: Name: Cory Colin Room: [address] [place] [address] Date: 1965 Date of Visit: 04/02/23 Admission [...] 0 Lab Value Date/Time BUN 20 04/01/2023 045 CREATININE 0.89 04/01/2023 0453 NA 140 04/01/2023 [...] denies chewing difficulty 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 Limited medical hx available per chart review [...] ideal body weight (75.5 kg) Calorie needs: 5535-8604 kcals/day based on Equation: 25-30 kcal/kg Protein needs: 76-91 g/day based on 1.0-1.2 g/kg Nutrition Diagnosis: Food and nutrition knowledge deficit Related to: lack of prior exposure to HH diet ed/misinformation As evidenced by: pt and pt's family statements Malnutrition Assessment: Hand Grasp/Motor Function/Sensation Assessment: Grasp, Dorsiflexion, Plantar flexion R Hand Grasp: Strong L Hand Grasp: Strong (Lactation Specialist strength not assessed by RD) Patient at risk for malnutrition according to hospital criteria, but does not meet the clinical characteristics per the Academy of Nutrition and Dietetics, and the [place] Society of Enteral and Parenteral Nutrition to support the diagnosis of malnutrition. Nutrition Education: Diet literature: Heart Healthy Nutrition Therapy (explained CHF-sodium relationship, reading nutrition labels, saturated fat vs unsaturated fat; recommended adequate intake of fruits/vegetables at each meal and for snacks a (more content not included)... Normal [facility] HPon 04-02-2023 HP H&P reviewed. The patient was examined and there are no changes to the H&P. 57-year-old man who is admitted due to newly discovered systolic heart failure will undergo cardiac catheterization to rule out ischemic etiology. I explained the procedure in detail along with risks and benefits. He understands and agrees to proceed. Normal [facility] MAGNESIUMon 04-02-2023 Magnesium [Mass/Vol] 2.3 mg/dL Normal 1.9-2.7 [facility] Comment on above: Performed By: #### L [id number] ####[facility] ([facility])[address] [address] 30on 04-01-2023 30 The patient is Moderately [...] the next 3 months Outcome: Progressing Normal [facility] 30 Problem: Heart Failu re diagnosis knowledge [...] the shift include Stable vital signs Normal [facility] APTTon 04-01-2023 ACTIVATED PARTIAL THROMBOPLASTIN TIME IN PPP BY COAGULATION ASSAY 29.8 Seconds Normal 25.0-35.0 [facility] Comment on above: Result Comment: Clin ical significance of the APTT is questionable in the presence of heparin. Performed By: #### L [id number] #### [facility] ([facility]) [address] [place] [address] B-TYPE NATRIURETIC PEPTIDEon 04-01-2023 Natriuretic peptide B (Bld) [Mass/Vol] 273 pg/mL High 0-100 [facility] Comment on above: Performed By: #### L [id number] #### [facility] ([facility]) [address] [place] [address] CBC WITH AUTO DIFFERENTIALon 04-01-2023 Basophils (Bld) [#/Vol] 0.05 10*3/uL Normal 0.00-0.20 [facility] Comment on above: Performed By: #### L [id number] #### [facility] ([facility]) [address] [place] [address] Basophils/100 WBC (Bld) 0.5 % Normal 0.0-1.0 [facility] Comment on above: Performed By: #### L [id number] #### [facility] ([facility] [address] [place] [address] Eosinophils (Bld) [#/Vol] 0.19 10*3/uL Normal 0.00-0.50 [facility] Comment on above: Performed By: #### L [id number] #### [facility] ([facility]) [address] [place] [address] Eosinophils/100 WBC (Bld) 2.1 % Normal 0.0-6.0 [facility] Comment on above: Performed By: #### L [id number] #### [facility] ([facility]) [address] [place] [address] Erythrocyte distribution width (RBC) [Ratio] 14.5 % Normal 11.5-15.0 [facility] Comment on above: Performed By: #### L [id number] #### [facility] ([facility]) [address] [place] [address] ERYTHROCYTE MEAN CORPUSCULAR HEMOGLOBIN CONCENTRATION (G/DL) BY AUTOMATED 33.1 g/dL Normal 32.0-35.0 [facility] Comment on above: Performed By: #### L [id number] #### [facility] ([facility]) [address] [place] [address] Hematocrit (Bld) [Volume fraction] 47.8 % Normal 39.0-55.0 [facility] Comment on above: Performed By: #### L [id number] #### [facility] ([facility]) [address] [place] [address] Hemoglobin (Bld) [Mass/Vol] 15.8 g/dL Normal 13.0-17.0 [facility] Comment on above: Performed By: #### L [id number] #### [facility] ([facility]) [address] [place] [address] Immature granulocytes (Bld) [#/Vol] 0.03 10*3/uL Normal 0.00-0.20 [facility] Comment on above: Performed By: #### L [id number] #### [facility] ([facility]) [address] [place] [address] Immature granulocytes/100 WBC (Bld) 0.3 % Normal 0.0-1.0 [facility] Comment on above: Performed By: #### L [id number] #### [facility] ([facility]) [address] [place] [address] Lymphocytes (Bld) [#/Vol] 1.69 10*3/uL Normal 1.20-4.00 [facility] Comment on above: Performed By: #### L [id number] #### [facility] ([facility]) [address] [place] [address] Lymphocytes/100 WBC (Bld) 18.3 % Low 20.0-45.0 [facility] Comment on above: Performed By: #### L [id number] #### [facility] ([facility]) [address] [place] [address] MCH (RBC) [Entitic mass] 29.6 pg Normal 27.0-33.0 [facility] Comment on above: Performed By: #### L [id number] #### [facility] ([facility] [address] [place] [address] MCV (RBC) [Entitic vol] 89.5 fL Normal 82.0-98.0 [facility] Comment on above: Performed By: #### L [id number] #### [facility] ([facility] [address] [facility] [address] Monocytes (Bld) [#/Vol] 1.05 10*3/uL High 0.10-1.00 [facility] Comment on above: Performed By: #### L [id number] #### [facility] ([facility]) [address] [place] [address] Monocytes/100 WBC (Bld) 11.4 % Normal 5.0-12.0 [facility] Comment on above: Performed By: #### L [id number] #### [facility] ([facility]) [address] [place] [address] Neutrophils (Bld) [#/Vol] 6.20 10*3/uL Normal 1.60-7.60 [facility] Comment on above: Performed By: #### L [id number] #### [facility] ([facility]) [address] [place] [address] Neutrophils/100 WBC (Bld) 67.4 % Normal 40.0-72.0 [facility] Comment on above: Performed By: #### L [id number] #### [facility] ([facility]) [address] [place] [address] NRBC (PER 100 WBCS) BY AUTOMATED COUNT 0.0 % Normal 0 [facility] Comment on above: Performed By: #### L [id number] #### [facility] ([facility]) [address] [place] [address] PLATELETS (10*3/UL) IN BLOOD AUTOMATED COUNT 231 10*3/uL Normal 150-400 [facility] Comment on above: Performed By: #### L [id number] #### [facility] ([facility]) [address] [place] [address] RBC (Bld) [#/Vol] 5.34 10*6/uL Normal 4.20-5.70 [facility] Comment on above: Performed By: #### L [id number] #### [facility] ([facility]) [address] [place] [address] WBC (Bld) [#/Vol] 9.21 10*3/uL Normal 4.00-10.60 [facility] Comment on above: Performed By: #### L [id number] #### [facility] ([facility]) [address] [place] [address] Basophils (Bld) [#/Vol] 0.05 10*3/uL Normal 0.00-0.20 [facility] Comment on above: Performed By: #### L [id number] #### [facility] ([facility]) [address] [place] [address] Basophils/100 WBC (Bld) 0.5 % Normal 0.0-1.0 [facility] Comment on above: Performed By: #### L [id number] #### [facility] LAB (BEAKER) [address] [place] [address] Eosinophils (Bld) [#/Vol] 0.17 10*3/uL Normal 0.00-0.50 [facility] Comment on above: Performed By: #### L [id number] #### [facility] (BEAKER) [address] [place] [address] Eosinophils/100 WBC (Bld) 1.6 % Normal 0.0-6.0 [facility] Comment on above: Performed By: #### L [id number] #### [facility] (BEAKER) [address] [place] [address] Erythrocyte distribution width (RBC) [Ratio] 14.5 % Normal 11.5-15.0 [facility] Comment on above: Performed By: #### L [id number] #### [facility] (BEAKER) [address] [place] [address] ERYTHROCYTE MEAN CORPUSCULAR HEMOGLOBIN CONCENTRATION (G/DL) BY AUTOMATED 32.7 g/dL Normal 32.0-35.0 [facility] Comment on above: Performed By: #### L [id number] #### [facility] (BEAKER) [address] [place] [address] Hematocrit (Bld) [Volume fraction] 51.3 % Normal 39.0-55.0 [facility] Comment on above: Performed By: #### L [id number] #### [facility] (BEAKER) [address] [place] [address] Hemoglobin (Bld) [Mass/Vol] 16.8 g/dL Normal 13.0-17.0 [facility] Comment on above: Performed By: #### L [id number] #### [facility] (BEAKER) [address] [place] [address] Immature granulocytes (Bld) [#/Vol] 0.04 10*3/uL Normal 0.00-0.20 [facility] Comment on above: Performed By: #### L [id number] #### [facility] (BEAKER) [address] [place] [address] Immature granulocytes/100 WBC (Bld) 0.4 % Normal 0.0-1.0 [facility] Comment on above: Performed By: #### L [id number] #### [facility] (BEAKER) [address] [place] [address] Lymphocytes (Bld) [#/Vol] 1.86 10*3/uL Normal 1.20-4.00 [facility] Comment on above: Performed By: #### L [id number] #### [facility] (BEAKER) [address] [place] [address] Lymphocytes/100 WBC (Bld) 17.6 % Low 20.0-45.0 [facility] Comment on above: Performed By: #### L [id number] #### [facility] (BEAKER) [address] [facility] [place] [address] MCH (RBC) [Entitic mass] 29.1 pg Normal 27.0-33.0 [facility] Comment on above: Performed By: #### L [id number] #### [facility] (BEAKER) [address] [place] [address] MCV (RBC) [Entitic vol] 88.9 fL Normal 82.0-98.0 [facility] Comment on above: Performed By: #### L [id number] #### [facility] (BEAKER) [address] [facility] [place] [address] Monocytes (Bld) [#/Vol] 1.18 10*3/uL High 0.10-1.00 [facility] Comment on above: Performed By: #### L [id number] #### [facility] [address] [place] [address] Monocytes/100 WBC (Bld) 11.2 % Normal 5.0-12.0 [facility] Comment on above: Performed By: #### L [id number] #### [facility] ([facility]) [address] [place] [address] Neutrophils (Bld) [#/Vol] 7.27 10*3/uL Normal 1.60-7.60 [facility] Comment on above: Performed By: #### L [id number] #### [facility] ([facility]) [address] [place] [address] Neutrophils/100 WBC (Bld) 68.7 % Normal 40.0-72.0 [facility] Comment on above: Performed By: #### L [id number] #### [facility] ([facility]) [address] [place] [address] NRBC (PER 100 WBCS) BY AUTOMATED COUNT 0.0 % Normal 0 [facility] Comment on above: Performed By: #### L [id number] #### [facility] ([facility]) [address] [place] [address] PLATELETS (10*3/UL) IN BLOOD AUTOMATED COUNT 266 10*3/uL Normal 150-400 [facility] Comment on above: Performed By: #### L [id number] #### [facility] ([facility]) [address] [place] [address] RBC (Bld) [#/Vol] 5.77 10*6/uL High 4.20-5.70 [facility] Comment on above: Performed By: #### L [id number] #### [facility] ([facility] [address] [place] [address] WBC (Bld) [#/Vol] 10.57 10*3/uL Normal 4.00-10.60 [facility] Comment on above: Performed By: #### L [id number] #### [facility] ([facility]) [address] [place] [address] COMPREHENSIVE METABOLIC PANE Edilberto 04-01-2023 Albumin [Mass/Vol] 3.7 g/dL Normal 3.5-5.7 [facility] Comment on above: Performed By: #### L [id number] ####[facility] ([facility])[address] [place] [address] ALP [Catalytic activity/Vol] 79 U/L Normal 34-104 [facility] Comment on above: Performed By: #### L [id number] ####[facility] ([facility])[address] [place] [address] ALT [Catalytic activity/Vol] 26 U/L Normal 7-52 [facility] Comment on above: Performed By: #### L [id number] ####[facility] ([facility])[address] [place] [address] Anion gap [Moles/Vol] 10 mmol/L Normal 7-20 [facility] Comment on above: Performed By: #### L [id number] ####[facility] ([facility])[address] [place] [address] AST [Catalytic activity/Vol] 23 U/L Normal 13-39 [facility] Comment on above: Performed By: #### L [id number] ####[facility] ([facility])[address] [place] [address] Bilirubin [Mass/Vol] 1.5 mg/dL High 0.3-1.0 [facility] Comment on above: Performed By: #### L [id number] ####[facility] ([facility])[address] [place] [address] Calcium [Mass/Vol] 8.9 mg/dL Normal 8.6-10.3 [facility] Comment on above: Performed By: #### L [id number] ####[facility] ([facility])[address] [place] [address] Chloride [Moles/Vol] 104 mmol/L Normal 98-107 [facility] Comment on above: Performed By: #### L [id number] ####[facility] ([facility])[address] [place] [address] CO2 [Moles/Vol] 30 mmol/L Normal 21-31 [facility] Comment on above: Performed By: #### L [id number] ####[facility] ([facility] [place] [address] Creatinine [Mass/Vol] 0.89 mg/dL Normal 0.70-1.30 [facility] Comment on above: Performed By: #### L [id number] ####[facility] ([facility])[address] [place] [address] GLOMERULAR FILTRATION RATE ML/MIN/1.73 SQ M.PREDICTED 101.2 mL/min/1.73m*2 Normal >60.0 [facility] Comment on above: Result Comment: The [facility]???s estimated glomerular filtration rate (eGFR) will no [...] of individuals. Performed By: #### L [id number] ####[facility] ([facility] [place] [address] Glucose [Mass/Vol] 92 mg/dL Normal 70-100 [facility] Comment on above: Performed By: #### L [id number] ####[facility] ([facility] [place] [address] Potassium [Moles/Vol] 3.5 mmol/L Normal 3.5-5.1 [facility] Comment on above: Performed By: #### L [id number] ####[facility] ([facility] [place] [address] Protein [Mass/Vol] 6.0 g/dL Normal 6.0-8.3 [facility] Comment on above: Performed By: #### L [id number] ####[facility] ([facility] [place] [address] Sodium [Moles/Vol] 140 mmol/L Normal 136-145 [facility] Comment on above: Performed By: #### L [id number] ####[facility] ([facility])[address] [place] [address] Urea nitrogen [Mass/Vol] 20 mg/dL Normal 7-25 [facility] Comment on above: Performed By: #### L [id number] ####[facility] ([facility])[address] [place] [address] UREA NITROGEN/CREATININE (MASS RATIO) IN SER/PLAS 22.5 Normal [facility] Comment on above: Performed By: #### L [id number] ####[facility] ([facility])[address] [place] [address] Albumin [Mass/Vol] 4.3 g/dL Normal 3.5-5.7 [facility] Comment on above: Performed By: #### L [id number] #### [facility] ([facility] [address] [place] [address] ALP [Catalytic activity/Vol] 84 U/L Normal 34-104 [facility] Comment on above: Performed By: #### L [id number] #### [facility] ([facility] [address] [place] [address] ALT [Catalytic activity/Vol] 28 U/L Normal 7-52 [facility] Comment on above: Performed By: #### L [id number] #### [facility] ([facility] [address] [place] [address] Anion gap [Moles/Vol] 10 mmol/L Normal 7-20 [facility] Comment on above: Performed By: #### L [id number] #### [facility] (BEAKER) [address] [place] [address] AST [Catalytic activity/Vol] 24 U/L Normal 13-39 [facility] Comment on above: Performed By: #### L [id number] #### [facility] (BEAKER) [address] [place] [address] Bilirubin [Mass/Vol] 1.6 mg/dL High 0.3-1.0 [facility] Comment on above: Performed By: #### L [id number] #### [facility] (BEAKER) [address] [place] [address] Calcium [Mass/Vol] 9.4 mg/dL Normal 8.6-10.3 [facility] Comment on above: Performed By: #### L [id number] #### [facility] ([facility] [address] [place] [address] Chloride [Moles/Vol] 104 mmol/L Normal 98-107 [facility] Comment on above: Performed By: #### L [id number] #### [facility] (BEAKER) [address] [place] [address] CO2 [Moles/Vol] 28 mmol/L Normal 21-31 [facility] Comment on above: Performed By: #### L [id number] #### [facility] ([facility] [address] [place] [address] Creatinine [Mass/Vol] 1.01 mg/dL Normal 0.70-1.30 [facility] Comment on above: Performed By: #### L [id number] #### [facility] (BEAKER) [address] [place] [address] GLOMERULAR FILTRATION RATE ML/MIN/1.73 SQ M.PREDICTED 87.8 mL/min/1.73m*2 Normal >60.0 [facility] Comment on above: Result Comment: The [facility]???s estimated glomerular filtration rate (eGFR) will no [...] of individuals. Performed By: #### L [id number] #### [facility] ([facility]) [address] [place] [address] Glucose [Mass/Vol] 108 mg/dL High 70-100 [facility] Comment on above: Performed By: #### L [id number] #### [facility] ([facility]) [address] [place] [address] Potassium [Moles/Vol] 3.8 mmol/L Normal 3.5-5.1 [facility] Comment on above: Performed By: #### L [id number] #### [facility] ([facility]) [address] [place] [address] Protein [Mass/Vol] 6.6 g/dL Normal 6.0-8.3 [facility] Comment on above: Performed By: #### L [id number] #### [facility] ([facility]) [address] [place] [address] Sodium [Moles/Vol] 138 mmol/L Normal 136-145 [facility] Comment on above: Performed By: #### L [id number] #### [facility] ([facility]) [address] [place] [address] Urea nitrogen [Mass/Vol] 20 mg/dL Normal 7-25 [facility] Comment on above: Performed By: #### L [id number] #### [facility] ([facility]) [address] [place] [address] UREA NITROGEN/CREATININE (MASS RATIO) IN SER/PLAS 19.8 Normal [facility] Comment on above: Performed By: #### L [id number] #### [facility] (BEAKER) [address] [place] [address] CONSULTon 04-01-2023 CONSULT -- Attestation signed by Dora Flood MD at 04/01/2023 3:45 PM I personally [...] is presenting as a direct admission from [facility]/ER where he presented for SOB and swelling for weeks to months. Patient reports that he has been experiencing worsening shortness of breath episodes associated with bilateral leg swelling for weeks to months with significant amount of edema progressing up bilateral lower extremities into groin and lower abdomen. Patient states upon arrival to [facility] he was over 340 pounds. While at [facility] he received treatment with IV Lasix, carvedilol, and Aldactone. Patient is now down to 305 pounds and still significantly edematous. Echo completed at [facility] shows EF of 30-35%. Patient was admitted for the management of acute decompensated heart failure and has been transferred to [facility] for heart cath. To note, patient [...] -- 1.778 m (5' 10 ) -- 03/31/232102 117/88 36.5 ???C (97.7 ???F) Oral 58 [...] Value Ventricular Rate 97 Atrial Rate 97 MI Interval 166 QRS DURATION 144 QT Interval 400 QTC CALCULATION(BAZETT) 508 P [place] 42 R-[place] -76 T Wave [place] 60 Impression Sinus rhythm with frequent and [...] Results Electr (more content not included)... Normal [facility] HEMOGLOBIN A1Con 04-01-2023 Glucose [Mass/Vol] 131 mg/dL Normal [facility] Comment on above: Performed By: #### L [id number] #### [facility] (BEAKER) [address] [place] [address] HbA1c (Bld) [Mass fraction] 6.2 % High 4.0-6.0 [facility] Comment on above: Performed By: #### L [id number] #### [facility] (BEAKER) [address] [place] [address] HPon 04-01-2023 HP -- Attestation signed by Dora Flood MD at 04/01/2023 3:45 PM I personally [...] is presenting as a direct admission from [facility] where he presented for SOB and swelling for weeks to months. Patient reports that he has been experiencing worsening shortness of breath episodes associated with bilateral leg swelling for weeks to months with significant amount of edema progressing up bilateral lower extremities into groin and lower abdomen. Patient states upon arrival to [facility] he was over 340 pounds. While at [facility] he received treatment with IV Lasix, carvedilol, and Aldactone. Patient is now down to 305 pounds and still significantly edematous. Echo completed at [facility] shows EF of 30-35%. Patient was admitted for the management of acute decompensated heart failure and has been transferred to [facility] for heart cath. To note, patient [...] -- 1.778 m (5' 10 ) -- 03/31/232102 117/88 36.5 ???C (97.7 ???F) Oral 58 [...] Value Ventricular Rate 97 Atrial Rate 97 MI Interval 166 QRS DURATION 144 QT Interval 400 QTC CALCULATION(BAZETT) 508 P [place] 42 R-[place] -76 T Wave [place] 60 Impression Sinus rhythm with frequent and [...] Results Electr (more content not included)... Normal [facility] LACTIC ACID WITH 4 HOUR REFL EXon 04-01-2023 LACTATE (MMOL/L) IN SER/PLAS 0.8 mmol/L Normal 0.5-2.2 [facility] Comment on above: Performed By: #### L [id number] #### [facility] (BEAKER) [address] [place] [address] LIPID PANELon 04-01-2023 CHOL/HDL 4.9 mg/dL Normal [facility] Comment on above: Performed By: #### L [id number] ####[facility] (BEAKER)[address] [place] [address] Cholesterol [Mass/Vol] 148 mg/dL Normal 120-200 [facility] Comment on above: Performed By: #### L [id number] ####[facility] (BEAKER)[address] [place] [address] Magnesium [Mass/Vol] 102 mg/dL Normal 40-149 [facility] Comment on above: Result Comment: TRIG LYCERIDE REFERENCE RANGE: 20 YEARS AND OLDER CARDIOVASCULAR RISK LESS THAN 150 mg/dL LOW RISK 150 TO 199 mg/dL BORDERLINE RISK 200 mg/dL AND GREATER HIGH RISK Performed By: #### L [id number] ####[facility] ([facility] [place] [address] Magnesium [Mass/Vol] 98 mg/dL Normal 0-160 [facility] Comment on above: Performed By: #### L [id number] ####[facility] ([facility])[address] [place] [address] Magnesium [Mass/Vol] 30 mg/dL Normal 23-92 [facility] Comment on above: Performed By: #### L [id number] ####[facility] ([facility])[address] [place] [address] NON HDL CHOL. (LDL+VLDL) 118 Normal [facility] Comment on above: Performed By: #### L [id number] ####[facility] ([facility])[address] [place] [address] TOTAL VLDL-C 20 mg/dL Normal 0-40 [facility] Comment on above: Performed By: #### L [id number] ####[facility] ([facility] [place] [address] MAGNESIUMon 04-01-2023 Magnesium [Mass/Vol] 2.0 mg/dL Normal 1.9-2.7 [facility] Comment on above: Performed By: #### L [id number] #### [facility] ([facility]) [address] [place] [address] Magnesium [Mass/Vol] 2.1 mg/dL Normal 1.9-2.7 [facility] Comment on above: Performed By: #### L [id number] #### [facility] ([facility]) [address] [place] [address] PHOSPHORUSon 04-01-2023 Magnesium [Mass/Vol] 4.2 mg/dL Normal 2.5-5.0 [facility] Comment on above: Performed By: #### L [id number] ####[facility] ([facility])[address] [place] [address] Magnesium [Mass/Vol] 4.4 mg/dL Normal 2.5-5.0 [facility] Comment on above: Performed By: #### L [id number] #### [facility] ([facility]) [address] [place] [address] PROTIME-INRon 04-01-2023 INR IN PPP BY COAGULATION ASSAY 1.04 Normal 0.90-1.10 [facility] Comment on above: Result Comment: ACCC P [...] 1995;[id number]. Performed By: #### L [id number] #### [facility] ([facility]) [address] [place] [address] PROTHROMBIN TIME (PT) IN PPP BY COAGULATION ASSAY 13.6 Seconds Normal 12.3-14.8 [facility] Comment on above: Performed By: #### L [id number] #### [facility] ([facility]) [address] [place] [address] T4, FREEon 04-01-2023 THYROXINE (T4) FREE (NG/DL) IN SER/PLAS 1.03 ng/dL Normal 0.71-1.85 [facility] Comment on above: Performed By: #### L [id number] #### [facility] ([facility]) [address] [place] [address] TROPONIN Ion 04-01-2023 Troponin I.cardiac [Mass/Vol] 0.03 ng/mL Normal 0.00-0.04 [facility] Comment on above: Performed By: #### L [id number] ####[facility] ([facility])[address] [place] [address] Troponin I.cardiac [Mass/Vol] 0.04 ng/mL Normal 0.00-0.04 [facility] Comment on above: Performed By: #### L [id number] #### [facility] ([facility]) [address] [place] [address] TSHon 04-01-2023 THYROTROPIN (MIU/L) IN SER/PLAS BY DETECTION LIMIT <= 0.05 MIU/L 4.86 mIU/L Normal 0.34-5.60 [facility] Comment on above: Performed By: #### L [id number] #### [facility] ([facility]) [address] [place] [address] TSH3 REFLEX TO FT4on 024 THYROTROPIN (MIU/L) IN SER/PLAS BY DETECTION LIMIT <= 0.05 MIU/L 4.16 mIU/L Normal 0.34-5.60 [facility] Comment on above: Performed By: #### L [id number] ####[facility] ([facility])[address] [place] [address] URINALYSISon 04-01-2023 BILIRUBIN, TOTAL PRESENCE IN URINE Negative Normal Negative [facility] Comment on above: Performed By: #### L [id number] #### [facility] ([facility]) [address] [place] [address] Clarity (U) Clear Normal Clear [facility] Comment on above: Performed By: #### L [id number] #### [facility] ([facility]) [address] [place] [address] Color (U) Yellow Normal Yellow [facility] Comment on above: Performed By: #### L [id number] #### [facility] ([facility]) [address] [place] [address] Glucose (U) [Mass/Vol] Negative Normal Negative [facility] Comment on above: Performed By: #### L [id number] #### [facility] ([facility]) [address] [place] [address] HEMOGLOBIN PRESENCE IN URINE Negative Normal Negative [facility] Comment on above: Performed By: #### L [id number] #### [facility] ([facility]) [address] [place] [address] Ketones Ql (U) Negative Normal Negative [facility] Comment on above: Performed By: #### L [id number] #### [facility] ([facility]) [address] [place] [address] LEUKOCYTE ESTERASE PRESENCE IN URINE BY TEST STRIP Trace Abnormal Negative [facility] Comment on above: Performed By: #### L [id number] #### [facility] ([facility]) [address] [place] [address] NITRITE PRESENCE IN URINE Negative Normal Negative [facility] Comment on above: Performed By: #### L [id number] #### [facility] ([facility]) [address] [place] [address] pH (U) 6.0 [pH] Normal 5.0-8.0 [facility] Comment on above: Performed By: #### L [id number] #### [facility] ([facility]) [address] [place] [address] Protein (U) [Mass/Vol] Negative Normal Negative [facility] Comment on above: Performed By: #### L [id number] #### [facility] (BEAKER) [address] [place] [address] Specific gravity (U) [Rel density] 1.018 Normal 1.015-1.020 [facility] Comment on above: Performed By: #### L [id number] #### [facility] (BEAKER) [address] [place] [address] UROBILINOGEN (EU/DL) IN URINE 4.0 EU/dL Abnormal Negative [facility] Comment on above: Performed By: #### L [id number] #### [facility] (BEAKER) [address] [place] [address] URINALYSIS MICROSCOPICon CASTS IN URINE Normal [facility] Comment on above: Performed By: #### L [id number] #### [facility] (BEAKER) [address] [place] [address] CRYSTALS IN URINE Normal [facility] Comment on above: Performed By: #### L [id number] #### [facility] (BEAKER) [address] [place] [address] MUCUS (#/HPF) IN URINE SEDIMENT Occasional Normal None Seen, Occasional, Few [facility] Comment on above: Performed By: #### L [id number] #### [facility] (BEAKER) [address] [place] [address] RBC (#/HPF) IN URINE SEDIMENT 0-2 Abnormal None Seen [facility] Comment on above: Performed By: #### L [id number] #### [facility] ([facility]) [address] [place] [address] SQUAMOUS EPITHELIAL CELLS (#/HPF) IN URINE SEDIMENT Occasional Normal None Seen, Occasional [facility] Comment on above: Performed By: #### L [id number] #### [facility] ([facility]) [address] [place] [address] WBC (LEUKOCYTE) (#/HPF) IN URINE SEDIMENT 3-5 Abnormal None Seen [facility] Comment on above: Performed By: #### L [id number] #### [facility] ([facility]) [address] [place] [address] Encounters Encounter Date Encounter Type Care Provider Facility Start: 06-29-2023 End: 06-29-2023 ambulatory DORA MONROYYESSI [facility] Start: 05-10-2023 End: 05-10-2023 [facility]: 05-07-[facility]23 End: 05-07-2023 ambulatory SHAIKH ALLIE Not Available Start: 04-17-2023 Clinisync Result Encounter Generic External Data Provider [facility] External Department Unsolicited Start: 04-17-2023 Clinisync Result Encounter Generic External Data Provider [facility] External Department Unsolicited Start: 04-11-2023 End: 04-11-2023 Orders Only Shaikh Allie VASQUEZ Work Phone: [facility] Comment on above: JAZZ (acute kidney in jury) (CMS/HCC) (Primary Dx) Start: 04-05-2023 End: 04-05-2023 ambulatory SHAIKH ALLIE Not Available Start: 04-02-2023 Evaluation and management of inpatient HINA JIMENEZ [facility] Start: 04-01-2023 Evaluation and management of inpatient CORINNA WALKER [facility] Start: 04-01-2023 Evaluation and management of inpatient KATRINA HELMS [facility] Start: 03-31-2023 End: 04-03-2023 Evaluation and management of inpatient EVETTE RICHEYTIOAdrian [facility] Procedures Date Procedure Procedure Detail Performing Clinician Start: 04-17-2023 ALL BASIC METABOLIC PANEL Generic External Data Provider Plan of Treatment Date Care Activity Detail Author Start: 05-07-2023 End: 05-07-2023 Patient encounter procedure 05/07/2023 6:00 PM EST Office Visit [facility] [address] [place] [address] Shaikh Kelley MD [address] [place] [id number] [facility] Start: 04-11-2023 End: 04-11-2024 Basic metabolic 1998 panel - Serum or Plasma Basic metabolic panel Lab Routine JAZZ (acute kidney injury) (CMS/HCC) Expected: 04/11/2023 (Approximate), Expires: 04/11/2024 [facility] Work Phone: Comment on above: Expected: 04/11/2023 (Approximate), Expires: 04/11/2024 Start: 11-03-2022 Influenza vaccination Influenz a Vaccine (#1) [facility] Healthcare Start: 1965 Screening for malign ant neoplasm of colon [facility] Payers Date Payer Category Payer Unknown [employer] [id number] 2023-Present [phone] [address] [address] [place] [address] [id number] 2022 Unknown [id number] 1965 Unknown [id number] 1965 Unknown [id number] Social History Date Type Detail Facility Start: 04-05-2023 Tobacco smoking stat [facility] Never smoked tobacco [facility] History of tobacco use Passive smoker [facility] Start: 04-05-2023 Tobacco use and exposure Smokeless t obacco non-user [facility] Start: 04-05-2023 Alcohol intake Lifetime non-d cheryl (finding) [facility] Start: 04-05-2023 History of Social function [facility] Start: 04-05-2023 Tobacco use panel [facility] Start: 1965 Sex Assigned At Not on file [facility] Clinical Notes 04-01-2023 to 06-29-2023 Shaikh Allie MD - 04/11/2023 9:13 AM ESTSfabian Kelley MD - 04/11/2023 9:11 AM EST Note Date & Type Note Facility 04-26-2024 Note [place] [facility] Subjective Cory Colin is a 58 y.o. year old male patient being seen for Follow-up (6 week) Patient Active Problem List Diagnosis Decompensated heart failure (CMS/HCC) Hypertension Bilateral lower extremity edema Dyspnea on exertion Obesity Knowledge deficit about therapeutic diet Anxiety about knowledge deficit Encounter to establish care with new doctor NICM (nonischemic cardiomyopathy) (CMS/HCC) Hyperlipidemia Family History Adopted: Yes Social History Tobacco Use Smoking status: Never Smokeless tobacco: Never Vaping Use Vaping Use: Never used Substance Use Topics Alcohol use: Yes Alcohol/week: 2.0 standard drinks of alcohol Types: 2 Shots of liquor per week Comment: 1-2 per week but some weeks none Drug use: Never HPI Currently seen in follow-up. This is the first time I am meeting him. He is a 58-year-old man who back in March 2023 was admitted to the hospital with acute systolic heart failure. Cardiac catheterization showed normal coronary angiogram. He was diagnosed with nonischemic cardiomyopathy. He was started on therapy. He also had an event monitor that showed rare less than 1% PVCs. His ejection fraction by echocardiogram was down to 15 to 20%. He did not have any significant valvular dysfunction. Following that he had acute renal dysfunction when he was on Farxiga, Entresto and spironolactone. His medical therapy was modified and Entresto and spironolactone were held. Farxiga was changed to Jardiance due to insurance issues and he had to stop it due to diarrhea. He is currently on aspirin 81 mg daily, atorvastatin 40 mg daily, lisinopril 5 mg daily, metoprolol succinate 50 mg once daily. He currently reports that he has been feeling much better. He has no shortness of breath on exertion, NYHA class I. He has no chest pain and no lower extremity edema. He has enrolled in cardiac rehab and is going once a week. He feels that the cardiac rehab is not providing him with enough level of exercise. He used to have heavy exertion and he weight lifts and bench presses 200 pounds in the past. On further questioning he reports that the symptoms may have started around January 2023. He is adopted so family history is not known. Review of Systems Cardiovascular: Negative for chest pain, claudication, cyanosis, dyspnea on exertion, irregular heartbeat, leg swelling, near-syncope, orthopnea, palpitations, paroxysmal nocturnal dyspnea and syncope. Objective Visit Vitals BP 128/78 (BP Location: Left arm, Patient Position: Sitting, BP Cuff Size: Large adult) Pulse 69 Resp 16 Ht 1.778 m (5' 10 ) Wt 120 kg (264 lb 6.4 oz) SpO2 96% BMI 37.94 kg/m??? Smoking Status Never BSA 2.43 m??? Physical Exam Constitutional: Appearance: He is well-developed. He is obese. He is not ill-appearing. HENT: Head: Normocephalic and atraumatic. Nose: Nose normal. Eyes: General: No scleral icterus. Pupils: Pupils are equal, round, and reactive to light. Neck: Thyroid: No thyromegaly. Vascular: No JVD. Cardiovascular: Rate and Rhythm: Normal rate and regular rhythm. Pulses: Radial pulses are 2+ on the right side and 2+ on the left side. Heart sounds: Normal heart sounds. No murmur heard. No friction rub. No gallop. Pulmonary: Effort: Pulmonary effort is normal. No respiratory distress. Breath sounds: Normal breath sounds. No wheezing or rales. Chest: Chest wall: No tenderness. Abdominal: General: Bowel sounds are normal. There is no distension. Palpations: Abdomen is soft. Tenderness: There is no abdominal tenderness. Musculoskeletal: General: No swelling. Cervical back: Neck supple. Skin: General: Skin is warm and dry. Neurological: General: No focal deficit present. Mental Status: He is alert and oriented to person, place, and time. Psychiatric: Mood and Affect: Mood normal. Behavior: Behavior is cooperative. Judgment: Judgment normal. Allergies Allergies Allergen Reactions Entresto [Sacubitril-Valsartan] Diarrhea Jardiance [Empagliflozin] Diarrhea, Headache and Dizziness Medications Current Outpatient Medications: aspirin 81 mg EC tablet, Take 1 tablet (81 mg) by mouth once daily as directed for 360 doses., Disp: 90 tablet, Rfl: 3 atorvastatin (Lipitor) 80 mg tablet, Take 1 tablet (80 mg) by mouth at bedtime. (Patient taking differently: Take 80 mg by mouth at bedtime. 1/2 pill), Disp: 90 tablet, Rfl: 3 furosemide (Lasix) [...] or chew., Disp: 90 tablet, Rfl: 3 lisinopril 10 mg tablet, Take 1 tablet (10 mg) by mouth in the morning., Disp: 90 tablet, Rfl: 3 spironolactone (Aldactone) (more content not included)... [facility] 05-10-2023 Note Cardiovascular Medic ine [place] [facility] SUBJECTIVE Chief Complaint Patient presents with [...] Active Problem List Diagnosis Decompensated heart failure ([facility]) Hypertension Bilateral lower extremity edema Dyspnea on exertion Obesity Knowledge deficit about therapeutic diet Anxiety about knowledge deficit Encounter to establish care with new doctor NICM (nonischemic cardiomyopathy) ([facility]) Hyperlipidemia Past Medical History: Diagnosis Date CHF (congestive heart failure) ([facility]) Family History Adopted: Yes Social History Tobacco [...] (H) 70 - (more content not included)... [facility] 05-10-2023 Note Patient here for 1 m o follow up chronic systolic heart failure and hypertension. His event monitor was finished last week, but no final report yet. Entresto was stopped since last visit. Hasn't had to take lasix recently. Review of Systems Neurological: Tingling in LLE All other systems reviewed and are negative. [facility] 04-18-2023 Note [id number] Bibiana Colin 1965 M Date Provider Department Center 04/18/2023 Gracie-YA GARCIA CARD [facility] Family History Adopted: Yes [facility] 04-11-2023 Note Patient here for [facility] for CHF. He had orientation at cardiac [...] All other systems reviewed and are negative. [facility] 04-11-2023 Note Cardiovascular Medic ine [facility] SUBJECTIVE Chief Complaint Patient presents with Hospital [...] Summary Final Discharge Diagnosis: Decompensated heart failure ([facility]) Decompensated CHF /fluid overload Hypertension JAZZ Bilateral lower extremity edema Shortness of breath Admission Diagnosis: Decompensated heart failure (CMS/[facility]) [I50.9] Hospital course: Cory Colin is an 57 y.o. male who came from [facility] with minimal to no medical history x 10 years as he states he has not seen a provider nor had any medical treatment in over 10 years and denies taking any prescription medications, uauw-trv-tqssvrz medications or herbals at this time. Patient states he does not even take shgi-azv-caopucc Tylenol or ibuprofen and stopped taking both of those years ago. Patient reports he has been experiencing shortness of breath and swelling for weeks to months with significant amount of edema progressing up bilateral lower extremities into groin and lower abdomen. Patient states upon arrival to [place] ER he was over 340 pounds. While at [facility] he received treatment with IV Lasix, carvedilol, and Aldactone. Patient is now down to 305 pounds and still significantly edematous. Echo completed at [facility] shows EF of 30-35%. Patient diagnosed the hospital with decompensated CHF and has been transferred to [facility] for need of heart cath. Patient [...] Active Problem List Diagnosis Decompensated heart failure ([facility]) Hypertension Bilateral lower extremity edema Dyspnea on exertion Obesity Knowledge deficit about therapeutic diet Anxiety about knowledge deficit Encounter to establish care with new doctor NICM (nonischemic cardiomyopathy) ([facility]) Past Medical History: Diagnosis Date CHF (congestive heart failure) ([facility]) Family History Adopted: Yes Social History Tobacco [...] daily as directed (more content not included)... [facility] 04-11-2023 History of Present illness Narrative Associated Problem(s): JAZZ (acute kidney injury) (CMS/HCC) Worsening renal function with Cr trending upward from normal baseline to 1.3 --> 1.8 Asked patient to stop Aldactone and Lasix for now. Recheck BMP in one week. Follow up after BMP. Problem List Items Addressed This Visit JAZZ (acute kidney injury) (CMS/HCC) - Primary Worsening renal function with Cr trending upward from normal baseline to 1.3 --> 1.8 Asked patient to stop Aldactone and Lasix for now. Recheck BMP in one week. Follow up after BMP. 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 Yes ( I was filling up with fluid ) Who is your current PCP? Hasn't seen MD in 37 years other than few ER visits & required yearly physicals for health insurance; Has New PCP Appointment scheduled on Apr 05 @ 9:15am with Dr. Kelley in [place] Can I schedule a follow up appointment for you at the time of discharge? Yes (go to [facility]) Do you understand why [...] Discharge? Yes Does the patient have a case management social worker assigned to them through their insurance? No [...] discharge today: Home, no needs. Follow-up with [place] [facility] in [place]. will pick-up; Agreeable to iMeds. [facility] 04-03-2023 Note Attempted to meet wi th the patient. He is in with Malini BUSTAMANTE RN at this time. [facility] 04-03-2023 Note Spiritual Care Note Patient name: Cory Colin Age: 57 y.o. Room: 5148/5148-01 04/03/23 5908 Clinical Encounter Type Visited With Patient;Spouse (Spouse by phone) Type of Visit Advance Directives Last Visit Date 04/03/23 Patient Spiritual Care Encounters Spiritual Care Assessment Hopeful (Pt completed HCPOA naming as agent & son as alternate. Pt shared a bit of his personal hx.) Pastoral Intervention Advance directives;Emotional support;Spiritual support (Retread Mold Operator assisted pt with completing HPCOA. Copies made, original & copies returned to pt, copy placed in pt chart.) Response Appreciative [facility] 04-03-2023 Note [facility] Cardiovascular M edicine Subjective [...] assess for improvement 3) outpatient follow-up with [place] [facility] ECHO 04/02/2023 Left Ventricle: The left [...] - NICM -GDMT: (more content not included)... [facility] 04-03-2023 Note Attempted to meet wi th the patient. He is currently in with pastoral care. Will attempt to try again later. [facility] 04-02-2023 Note Patient: Cory Herrera rt Procedure Information Date/Time: 04/02/23 1330 Procedures: Coronary angiography Right heart cath Location: [facility] ELECTRIC TRUCK DRIVER 2 [address] / [facility] (Cath) Providers: Stephon Morrell MD [...] Plan discussed with attending. Additional Equipment Requests [facility] 04-02-2023 Note Attestation signed by Araceli Schneider MD at 06/22/2023 3:02 PM I personally saw and examined the patient on the same date of service as the fellow. I discussed the findings and therapeutic plan with the fellow. Plan of care was discussed with patient, and patient is agreeable with plan. I agree with the documentation, except for any edits/updates below. Teaching Physician's Revisions: none Araceli Schneider MD [place] [facility] Progress Note Subjective Subjective: No acute events overnight. Patient was seen and examined today. He reports mild shortness of breath. Patient is aware of the plan for today. Objective Objective: Patient Vitals for the past 24 hrs: BP Temp Temp src Pulse Resp SpO2 Weight 04/02/23 1255 99/63 36.4 ???C (97.5 ???F) Temporal 104 12 96 % -- 04/02/23 0959 -- -- -- -- -- 95 % -- 04/02/23 0800 112/57 36.2 ???C (97.2 ???F) Temporal 91 17 94 % -- 04/02/23 0400 102/70 36.1 ???C (97 ???F) Temporal 89 14 93 % -- 04/02/23 0357 -- -- -- -- -- -- 135 kg (297 lb 2.9 oz) 04/02/23 0055 108/79 36.3 ???C (97.3 ???F) Oral 97 18 95 % -- 04/01/23 2300 -- -- -- (!) 130 18 -- -- 04/01/23 2226 111/77 -- -- (!) 133 -- 97 % -- 04/01/23 2159 115/82 -- -- (!) 140 -- (!) 89 % -- 04/01/23 2132 122/90 -- -- (!) 147 -- 95 % -- 04/01/23 1848 110/73 36.8 ???C (98.2 ???F) -- 108 16 96 % -- 04/01/23 1700 120/78 36.6 ???C (97.9 ???F) -- 105 17 95 % -- Physical Examination: GENERAL: AOx3, in no [...] Value Ventricular Rate 97 Atrial Rate 97 MI Interval 166 QRS DURATION 144 QT Interval 400 QTC CALCULATION(BAZETT) 508 P Houston 42 R-Houston -76 T Wave Houston 60 Impression Sinus rhythm with frequent and consecutive Premature ventricular complexes and Fusion complexes Left axis deviation Right bundle branch block Abnormal ECG When compared with ECG of 01-APR-2023 00:38, Fusion complexes are now Present Confirmed by Dora Flood ([id number]) on 04/01/2023 9:43:42 PM Lab Results Component Value Date TROPONINI 0.03 04/01/2023 Transthoracic echo (TTE) complete Result Date: 04/02/2023 1 1 [facility] Heart Station [address] [place] [address] [phone] (fax) Echocardiogram-[facility] Name: CORY COLIN Study Date: 04/02/2023 11:46 AM B/P: 112 mmHg/57 mmHg HR: 100 bpm Date of : 1965 Location: [facility] Height: 70 in. Age: 57 year(s) Patient Room: [facility] Weight: 297 lb. Gender: Male Patient Status: InPt BSA: 2.47 m2 Indication: Congestive Heart Failure, Atrial Fibrillation Examination: Echocardiogram (Complete), Lumason Contrast Image Quality: Fair Patient Consent: Procedure explained to patient Exam Details Contrast: I.V. dose of Lumason Conclusions Left Ventricle: The left ventricle is severely [...] better delineation of the left ventricular apex Measurements Left Ventricle Label Value Normal Value LVOTd 2.9 cm (19cm - 21cm) LVOT VTI 9.58 cm (18cm - 22cm) LVOT PGmax 2 mmHg LVDd, 2D 7.06 cm (4.2cm - 5.9cm) LVDs, 2D 5.74 cm (2.1cm - 4cm) IVSd, 2D 0.88 cm (0.6cm - 1.1cm) LVPWd, 2D 1.06 cm (0.6cm - 1cm) LVEF, BP 13 % (55% - 65%) LV Mass, 2D ASE 314.35 g LV Mass Index, 2D ASE 127.3 g/m?? (50g/m?? - 102.4g/m??) RWT, MM 0.3 (0 - 0.42) LVSVI, 2D 30 ml/m2 LVOT PGmean 1 mmHg LVSV_LVOT 63 ml Right Ventricle Label Value Normal Value RVDd, 2D 3.39 cm (1.9cm - 3.8cm) TAPSE 1.9 cm Left Atrium Label Value Normal Value LA Volume, BP 71 ml (18ml - 58ml) LAESV index, BP 28.7 ml/m?? Right Atrium Label Value Normal Value RA Area 15.4 cm?? Aortic Valve Label Value Normal Value AV DVI 0.59 AV VTI 17.9 cm Aorta Label Value Normal Value AoRoot, 2D 3.7 cm (1.4cm - 3.8cm) Great Vessels Label Value Normal Value IVC 1.8 cm (1.2cm - 2.3cm) Valvular Assessmen (more content not included)... [facility] 04-02-2023 Note Hospital Medicine Daily Progress Note - 04/02/2023 5:47 PM; Room: [address] [place] [address] Admission: 03/31/2023 9:13 PM; Length of stay: 2 days THE HOSPITALIST TEAM PREFERS TO USE [employer]Pads CHAT FOR COMMUNICATION 7AM-7PM. IF I DO NOT RESPOND WITHIN 15 MINUTES, PLEASE PAGE ME/CALL THROUGH THE DIGITAL CAMPAIGN SPECIALIST. FROM 7PM-7AM, PLEASE PAGE [phone](COVR) Code Status: Full Code Barriers to Discharge: [...] LDL 118 04/01/2023 No results found for: [id number] , IRON , TIBC , C3 , [...] months to assess (more content not included)... [facility] 04-02-2023 Note Pt admitted [facility] for decompensated HF. Pt has echo scheduled; no previous echo on file. I will wait for current echo results to determine pt's eligibility to participate in cardiac rehab (CR) therapy with HF diagnosis and follow up with pt, if appropriate. JOSE WaltonN live in companion Outpatient Coordinator Cardiopulmonary Rehab [facility] 04-02-2023 Note Patient was transfer red to 5th floor, room 5148. Telemetry box was removed and underwriter mortgage loan called [facility] to inform them that the patient had been transferred to said unit and taken off the monitor, #105. [facility] 04-01-2023 Note Patients HR was sust aining in the 140's. Hospitalist called. Orders to give Lopressor IV once. Patient's Heart rate improved to the 130 s. Hospitalist called again. Patient has new orders to go to stepdown unit. Patient and notified. Retread Mold Operator will give report to [place] cr and transport patient to [facility]. Point of care will continue until then. [facility] 04-01-2023 Note Hospital Medicine Daily Progress Note - 04/01/2023 2:49 PM; Room: [address] [place] [address] Admission: 03/31/2023 9:13 PM; Length of stay: 1 days THE HOSPITALIST TEAM PREFERS TO USE [employer] CHAT FOR COMMUNICATION 7AM-7PM. IF I DO NOT RESPOND WITHIN 15 MINUTES, PLEASE PAGE ME/CALL THROUGH THE DIGITAL CAMPAIGN SPECIALIST. FROM 7PM-7AM, PLEASE PAGE [phone](COVR) Code Status: Full Code Barriers to Discharge: [...] edema Shortness of breath -Echocardiogram completed at [facility], ejection fraction 30-35% Continue 40mg IV [...] LDL 118 04/01/2023 No results found for: [id number] , IRON , TIBC , C3 , [...] ECG When co (more content not included)... [facility] 04-01-2023 Note Retread Mold Operator received a ca ll from [facility] that patient had a 4 beat of VTACH. Pt. Was assessed, was asymptomatic, Dr. Walker was paged. Also results of 2nd EKG was discussed along with patient's Magnesium and phosphorous. Patient also began to desat to 89%-90%. Retread Mold Operator put patient on 2 liters nasal cannula. Patient is satting at 96% now. Will continue point of care. [facility] 04-01-2023 Note Retread Mold Operator was taking monae mccarthy's vitals when patient started having 33 pvc's per 10 minutes sustaining per [facility]; Hospitalist was called, stat labs, EKG, chest xray were ordered. Patient is asymptomatic at this time. Will continue point of care. [facility] 04-01-2023 Note Hospital Medicine History and Physical 04/01/2023 12:08 AM THE HOSPITALIST TEAM PREFERS TO USE [employer] CHAT FOR COMMUNICATION 7AM-7PM. IF I DO NOT RESPOND WITHIN 15 MINUTES, PLEASE PAGE ME/CALL THROUGH THE DIGITAL CAMPAIGN SPECIALIST. FROM 7PM-7AM, PLEASE PAGE [phone](COVR) Chief Complaint Direct admission from [facility]/ER where he presented for SOB and swelling for weeks to months. History of Present Illness Cory Colin is an 57 y.o. male who came from [facility] with minimal to no medical history x 10 years as he states he has not seen a provider nor had any medical treatment in over 10 years and denies taking any prescription medications, dicd-fdn-ltnksov medications or herbals at this time. Patient states he does not even take icsn-gmb-tqxgdfm Tylenol or ibuprofen and stopped taking both of those years ago. Patient reports he has been experiencing shortness of breath and swelling for weeks to months with significant amount of edema progressing up bilateral lower extremities into groin and lower abdomen. Patient states upon arrival to [place] ER he was over 340 pounds. While at [facility] he received treatment with IV Lasix, carvedilol, and Aldactone. Patient is now down to 305 pounds and still significantly edematous. Echo completed at [facility] shows EF of 30-35%. Patient diagnosed the hospital with decompensated CHF and has been transferred to [facility] for need of heart cath. 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 Patient exhibits mild shortness of breath with [...] Date Noted Decompen (more content not included)... [facility] Evaluation note Diagnosis JAZZ (acute kidney injury) ([facility])- Primary documented in this encounter [facility] Summary Purpose Family History No Family History Records FoundNo Family History Records Found Advance Directives No Advanced Directives Records FoundNo Advanced Directives Records Found Additional Source Comments Care Teams (unrecognized sec tion and content) Loading Shovel Oiler Relationship Specialty Start Date End Date Shaikh Kelley MD [address] [place] [address] PCP - General Internal Medicine 04/05/23 Loading Shovel Oiler Relationship Specialty Start Date End Date Shaikh Kelley MD [address] [place] [id number] PCP - General Internal Medicine 04/05/23 (unrecognized sect ion and content) No Status Records FoundNo Status Records Found INFORMATION SOURCE (unrecogn ized section and content) DATE CREATED AUTHOR 05/08/2023 [facility] Special[facility] DATE CREATED AUTHOR FISH WEST 07/02/2023 [facility] [place] FOR RECORDS PERTAINING TO PATIENTS WHO ARE [...] BE BASED ON THE PRIMARY CLINICAL RECORDS. [facility]. provides no warranty or guarantee of the accuracy or completeness of information in this document.
[2023-07-13 09:55] LABS: Anion Gap 15.4; BUN Creatinine Ratio 25.6; Calcium 9.6 mg/dL (8.5-10.1); Carbon Dioxide 27.2 mmol/L (21.0-32.0); Chloride 102 mmol/L (98-107); Estimated GFR (African America 34 (>=60); Estimated GFR (Non-African Ame 28 (>=60); Glucose 100 mg/dL (74-106); Potassium 4.6 mmol/L (3.5-5.1); Sodium 140 mmol/L (136-145)
== END 2023-07-13 07:07 | disposition home or self-care (01) ==
LOC: LAB 07:07
PROVIDERS: PCP Internal Medicine; Visit Provider Internal Medicine Interventional Cardiology
DX: I50.22 Chronic systolic (congestive) heart failure (principal)
CPT/HCPCS: 36415; 80048

== ENCOUNTER 2023-07-20 09:02 | Outpatient (OUT) | payer OTHER, SELFPAY ==
--- OUTSIDE RECORDS SUMMARY | 2023-07-20 09:24 | XMS_ITS | CCD ---
Author Organization [facility] Care Team Providers Care Interactive Multimedia Designer Name Role Phone Shaikh Kelley MD Primary Care Provider SHAIKH KELLEY Attending Unavailable SHAIKH KELLEY Attending Unavailable EVETTE LEE Referring Unavailable MERZA, NOORALDIN Admitting Unavailable HINA GONZALEZ Attending Unavailable YA GARCIA Attending Unavailable DORA FLOOD Attending Unavailable KATRINA HELMS Referring Unavailable MERZA, NOORALDIN Referring Unavailable MERZA, NOORALDIN Referring Unavailable HINA GONZALEZ Referring Unavailable YA GARCIA Attending Unavailable Allergies Allergy Classification Reported Allergen(s) Allergy Type Date of Onset Reaction(s) Facility (1 source) empagliflozin; Translations: [EMPAGLIFLOZIN] Drug Allergy 06-29-2023 [facility] Repository (1 source) sacubitril / valsartan; Translations: [SACUBITRIL-VALS BUSTER] Drug Allergy 06-29-2023 [facility] Repository Medications Current Medications Medication Drug Class(es) [...] Name Value Interpretation Reference Range Facility 36on 07-16-2023 36 Regarding lab result s on 07/13/2023: MD Giselle Ward MA He has JAZZ. I called him and I asked him to stop spironolactone. He is not taking furosemide. He will continue the rest of the medications. I want him to get a BMP in 1 week. BMP order faxed to [facility]. Normal [facility] Office Visiton 06-29-2023 Follow-up visit [id number] Cory Colin 1965 M Date Provider Department Center 06/29/2023 DORA ANTHONY LAKSHMI More Family History Adopted: Yes Level of Service:38449 [place] OFFICE/OUTPATIENT ESTABLISHED HIGH MDM 40 MIN Reason for Visit and Comments: Follow-up [100856] - 6 week Normal [facility] Office Visiton 05-10-2023 Follow-up visit [id number] Cory Colin 1965 M Date Provider Department Center 05/10/2023 YA OLIVER LAKSHMI More Family History Adopted: Yes Level of Service:48129 [place] OFFICE/OUTPATIENT ESTABLISHED HIGH MDM 40 MIN Reason for Visit and Comments: Congestive Heart Failure [127] Hypertension [274837] [facility] 36on 04-30-2023 36 Pt informed [facility] 36on 04-18-2023 36 Please let him know [...] sent refills and ordered the BMP. Thanks! [facility] Telephoneon 04-18-2023 Telephone [phone] Cory Colin 1965 Date Provider Department Center 04/18/2023 YA OLIVER [facility] Family History Adopted: Yes [facility] ALL BASIC METABOLIC PANELon 04-17-2023 Anion gap [Moles/Vol] 13.3 mmol/L [facility] Calcium [Mass/Vol] 9.8 mg/dL 8.5 - 10. 1 mg/dL [facility] Chloride [Moles/Vol] 103 mmol/L 98 - 10 7 mmol/L [facility] CO2 [Moles/Vol] 28.0 mmol/L 21.0 - 32.0 mmol/L [facility] Creatinine [Mass/Vol] 1.15 mg/dL 0.70 - 1.30 mg/dL [facility] GFR/1.73 sq M.predicted CKD-EPI (S/P/Bld) [Vol rate/Area] >60 60 - PINF [facility] Glucose [Mass/Vol] 98 mg/dL 74 - 106 mg/dL NO [facility] Interpretation and review of laboratory results Abnormal [facility] Potassium [Moles/Vol] 4.3 mmol/L 3.5 - 5.1 [facility]L [facility] Sodium [Moles/Vol] 140 mmol/L 136 - 145 mmol/L [facility] TBH EGFR-NON AF IRAQI >60 60 - PINF [facility] Urea nitrogen [Mass/Vol] 31.0 mg/dL High 7.0 - 18.0 mg/dL [facility] Urea nitrogen/Creatinine [Mass ratio] 27.0 mg/mg [facility] 37on 04-11-2023 37 *Your kidney functio n is elevated. Please hold these medications until instructed to resume: -dapagliflozin (Farxiga) -sacubitril-valsartan (Entresto) -Spironolactone -Lasix *Have lab work done in 1 week, around 04/17/2023. [facility] Office Visiton 04-11-2023 Follow-up visit [id number] Cory Colin F 1965 M Date Provider Department Center 04/11/2023 Gracie-YA GARCIA CARD [facility] Family History Adopted: Yes Level of Service:56730 [place] OFFICE/OUTPATIENT ESTABLISHED MOD MDM 30 MIN Reason for Visit and Comments: Hospital Follow-up [832] Congestive Heart Failure [127] Hypertension [566567] [facility] 36on 04-04-2023 36 Discharge date: 04/03/23 Call [...] and the staff who cared for them. [facility] Documentationon 04-04-2023 Documentation [id number] Croy Colin 1965 Provider Department Center 04/04/2023 CEE SEQUEIRA [facility] No family history on file Reason for Visit and Comments: HF inpatient satisfaction survey sent. [Other] [facility] Telephoneon 04-04-2023 Telephone [phone] Cory Colin 1965 Date Provider Department Center 04/04/2023 CEE SEQUEIRA [facility] No family history on file Reason for Visit and Comments: HF post discharge call [Other] [facility] BASIC METABOLIC PANELon 03-07 Anion gap [Moles/Vol] 13 mmol/L Normal 7-20 [facility] Comment on above: Performed By: #### L [id number] #### [facility] ([facility]) [address] [place] [address] Calcium [Mass/Vol] 9.3 mg/dL Normal 8.6-10.3 [facility] Comment on above: Performed By: #### L [id number] #### [facility] ([facility] [address] [place] [address] Chloride [Moles/Vol] 102 mmol/L Normal 98-107 [facility] Comment on above: Performed By: #### L [id number] #### [facility] ([facility]) [address] [place] [address] CO2 [Moles/Vol] 30 mmol/L Normal 21-31 [facility] Comment on above: Performed By: #### L [id number] #### [facility] ([facility] [address] [place] [address] Creatinine [Mass/Vol] 1.37 mg/dL High 0.70-1.30 [facility] Comment on above: Performed By: #### L [id number] #### [facility] ([facility] [address] [place] [address] GLOMERULAR FILTRATION RATE ML/MIN/1.73 SQ M.PREDICTED 60.9 mL/min/1.73m*2 Normal >60.0 [facility] Comment on above: Result Comment: The [facility]???s estimated glomerular filtration rate (eGFR) will [...] of individuals. Performed By: #### L [id number] #### [facility] ([facility] [address] [place] [address] Glucose [Mass/Vol] 104 mg/dL High 70-100 [facility] Comment on above: Performed By: #### L [id number] #### [facility] ([facility]) [address] [place] [address] Potassium [Moles/Vol] 4.5 mmol/L Normal 3.5-5.1 [facility] Comment on above: Performed By: #### L [id number] #### [facility] ([facility]) [address] [place] [address] Sodium [Moles/Vol] 140 mmol/L Normal 136-145 [facility] Comment on above: Performed By: #### L [id number] #### [facility] ([facility]) [address] [place] [address] Urea nitrogen [Mass/Vol] 28 mg/dL High 7-25 [facility] Comment on above: Performed By: #### L [id number] #### [facility] ([facility]) [address] [place] [address] UREA NITROGEN/CREATININE (MASS RATIO) IN SER/PLAS 20.4 Normal [facility] Comment on above: Performed By: #### L [id number] #### [facility] ([facility]) [address] [place] [address] DSon 04-03-2023 DS -- Attestation signed by [...] an 57 y.o. male who came from [facility] with minimal to no medical history x 10 years as he states he has not seen a provider nor had any medical treatment in over 10 years and denies taking any prescription medications, [id number]-ubhuhum medications or herbals at this time. Patient states he does not even take brxm-eqy-fmblfzg Tylenol or ibuprofen and stopped taking both of those years ago. Patient reports he has been experiencing shortness of breath and swelling for weeks to months with significant amount of edema progressing up bilateral lower extremities into groin and lower abdomen. Patient states upon arrival to [facility] he was over 340 pounds. While at [facility] he received treatment with IV Lasix, carvedilol, and Aldactone. Patient is now down to 305 pounds and still significantly edematous. Echo completed at [facility] shows EF of 30-35%. Patient diagnosed the hospital with decompensated CHF and has been transferred to [facility] for need of heart cath. Patient [...] Center 04/06/2023 10:15 AM Dora Flood MD LAKSHMI More 04/11/2023 11:00 AM Ya [...] Medications These medications were sent to [facility] - [place], [place] - [address], [facility] [address] aspirin 81 mg EC tablet atorvastatin 80 [...] 0058 W (more content not included)... Normal [facility] MAGNESIUMon 04-03-2023 Magnesium [Mass/Vol] 2.3 mg/dL Normal 1.9-2.7 [facility] Comment on above: Performed By: #### L [id number] #### [facility] ([facility]) [address] [place] [address] BASIC METABOLIC PANELon 03-06 Anion gap [Moles/Vol] 11 mmol/L Normal 7-20 [facility] Comment on above: Performed By: #### L [id number] #### [facility] ([facility]) [address] [place] [address] Calcium [Mass/Vol] 9.3 mg/dL Normal 8.6-10.3 [facility] Comment on above: Performed By: #### L [id number] #### [facility] ([facility]) [address] [place] [address] Chloride [Moles/Vol] 103 mmol/L Normal 98-107 [facility] Comment on above: Performed By: #### L [id number] #### [facility] ([facility] [address] [place] [address] CO2 [Moles/Vol] 31 mmol/L Normal 21-31 [facility] Comment on above: Performed By: #### L [id number] #### [facility] ([facility] [address] [place] [address] Creatinine [Mass/Vol] 0.95 mg/dL Normal 0.70-1.30 [facility] Comment on above: Performed By: #### L [id number] #### [facility] ([facility]) [address] [place] [address] GLOMERULAR FILTRATION RATE ML/MIN/1.73 SQ M.PREDICTED 94.5 mL/min/1.73m*2 Normal >60.0 [facility] Comment on above: Result Comment: [facility]???s estimated glomerular filtration rate (eGFR) will [...] of individuals. Performed By: #### L [id number] #### [facility] ([facility]) [address] [place] [address] Glucose [Mass/Vol] 100 mg/dL Normal 70-100 [facility] Comment on above: Performed By: #### L [id number] #### [facility] ([facility]) [address] [place] [address] Potassium [Moles/Vol] 4.2 mmol/L Normal 3.5-5.1 [facility] Comment on above: Performed By: #### L [id number] #### [facility] ([facility]) [address] [place] [address] Sodium [Moles/Vol] 141 mmol/L Normal 136-145 [facility] Comment on above: Performed By: #### L [id number] #### [facility] ([facility]) [address] [place] [address] Urea nitrogen [Mass/Vol] 18 mg/dL Normal 7-25 [facility] Comment on above: Performed By: #### L [id number] #### [facility] ([facility]) [address] [place] [address] UREA NITROGEN/CREATININE (MASS RATIO) IN SER/PLAS 18.9 Normal [facility] Comment on above: Performed By: #### L [id number] #### [facility] ([facility]) [address] [place] [address] CBCon 04-02-2023 Erythrocyte distribution width (RBC) [Ratio] 15.1 % High 11.5-15.0 [facility] Comment on above: Performed By: #### L [id number] #### [facility] ([facility]) [address] [place] [address] ERYTHROCYTE MEAN CORPUSCULAR HEMOGLOBIN CONCENTRATION (G/DL) BY AUTOMATED 32.5 g/dL Normal 32.0-35.0 [facility] Comment on above: Performed By: #### L [id number] #### [facility] ([facility]) [address] [address] Hematocrit (Bld) [Volume fraction] 54.7 % Normal 39.0-55.0 [facility] Comment on above: Performed By: #### L [id number] #### [facility] ([facility]) [address] [place] [address] Hemoglobin (Bld) [Mass/Vol] 17.8 g/dL High 13.0-17.0 [facility] Comment on above: Performed By: #### L [id number] #### [facility] ([facility]) [address] [place] [address] MCH (RBC) [Entitic mass] 29.3 pg Normal 27.0-33.0 [facility] Comment on above: Performed By: #### L [id number] #### [facility] ([facility]) [address] [place] [address] MCV (RBC) [Entitic vol] 90.1 fL Normal 82.0-98.0 [facility] Comment on above: Performed By: #### L [id number] #### [facility] ([facility]) [address] [place] [address] PLATELETS (10*3/UL) IN BLOOD AUTOMATED COUNT 245 10*3/uL Normal 150-400 [facility] Comment on above: Performed By: #### L [id number] #### [facility] ([facility]) [address] [place] [address] RBC (Bld) [#/Vol] 6.07 10*6/uL High 4.20-5.70 [facility] Comment on above: Performed By: #### L [id number] #### [facility] ([facility]) [address] [place] [address] WBC (Bld) [#/Vol] 9.12 10*3/uL Normal 4.00-10.60 [facility] Comment on above: Performed By: #### L [id number] #### [facility] ([facility]) [address] [place] [address] CONSULTon 04-02-2023 CONSULT Clinical Nutrition Assessment: Name: Cory Colin Room: [address] [place] [address] Date: 1965 Date of Visit: 04/02/23 Admission [...] Value Date/Time BUN 20 04/01/2023452 CREATININE 0.89 04/01/20233 NA 140 04/01/20233 K 3.5 04/01/2023452 PHOS 4.2 04/01/20233 MG 2.0 04/01/2023452 HGBA1C 6.2 (H) 04/01/2023452 HGB 15.8 04/01/2023452 WBC 9.21 04/01/20233 CHOL 148 04/01/202357 HDL 30 04/01/202357 I/O: Intake/Output Summary (Last 24 hours) at 04/02/2023 1046 Last data filed at 04/02/2023 0644 Gross per 24 hour Intake 2.5 ml Output 4025 ml Net -4022.5 ml Allergies: No Known Allergies Nutrition Problems: Swallowing Assessment: Pt denies swallowing difficulty Mouth: Pt denies chewing difficulty Abdominal Assessment: 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 Limited medical hx available per chart review [...] ideal body weight (75.5 kg) Calorie needs: 2688-5143 kcals/day based on Equation: 25-30 kcal/kg Protein needs: 76-91 g/day based on 1.0-1.2 g/kg Nutrition Diagnosis: Food and nutrition knowledge deficit Related to: lack of prior exposure to diet ed/misinformation As evidenced by: pt and pt's family statements Malnutrition Assessment: Hand Grasp/Motor Function/Sensation Assessment: Grasp, Dorsiflexion, Plantar flexion R Hand Grasp: Strong L Hand Grasp: Strong (Camera Person strength not assessed by RD) Patient at risk for malnutrition according to hospital criteria, but does not meet the clinical characteristics per the Academy of Nutrition and Dietetics, and the [place] Society of Enteral and Parenteral Nutrition to support the diagnosis of malnutrition. Nutrition Education: Diet literature: Heart Healthy Nutrition Therapy (explained CHF-sodium relationship, reading nutrition labels, saturated fat vs unsaturated fat; recommended adequate intake of fruits/vegetables at each meal and for snacks a (more content not included)... [facility] 04-02-2023 H&P reviewed. The patient was examined and there are no changes to the H&P. 57-year-old man who is admitted due to newly discovered systolic heart failure will undergo cardiac catheterization to rule out ischemic etiology. I explained the procedure in detail along with risks and benefits. He understands and agrees to proceed. [facility] MAGNESIUMon 04-02-2023 Magnesium [Mass/Vol] 2.3 mg/dL Normal 1.9-2.7 [facility] Comment on above: Performed By: #### L [id number] #### [facility] ([facility]AKER) [address] [place] [address] 30on 04-01-2023 30 The patient is Moderately [...] the next 3 months Outcome: Progressing Normal [facility] 30 Problem: Heart Failu re diagnosis [...] the shift include Stable vital signs Normal [facility] APTTon 04-01-2023 ACTIVATED PARTIAL THROMBOPLASTIN TIME IN PPP BY COAGULATION ASSAY 29.8 Seconds Normal 25.0-35.0 [facility] Comment on above: Result Comment: Clin ical significance of the APTT is questionable in the presence of heparin. Performed By: #### L [id number] ####[facility] (BEAKER)[address] [place] [address] B-TYPE NATRIURETIC PEPTIDEon 04-01-2023 Natriuretic peptide B (Bld) [Mass/Vol] 273 pg/mL High 0-100 [facility] Comment on above: Performed By: #### L [id number] #### [facility] ([facility] [address] [place] [address] CBC WITH AUTO DIFFERENTIALon 04-01-2023 Basophils (Bld) [#/Vol] 0.05 10*3/uL Normal 0.00-0.20 [facility] Comment on above: Performed By: #### L [id number] ####[facility] ([facility])[address] [place] [address] Basophils/100 WBC (Bld) 0.5 % Normal 0.0-1.0 [facility] Comment on above: Performed By: #### L [id number] ####[facility] ([facility])[address] [place] [address] Eosinophils (Bld) [#/Vol] 0.19 10*3/uL Normal 0.00-0.50 [facility] Comment on above: Performed By: #### L [id number] ####[facility] ([facility])[address] [place] [address] Eosinophils/100 WBC (Bld) 2.1 % Normal 0.0-6.0 [facility] Comment on above: Performed By: #### L [id number] ####[facility] ([facility])[address] [place] [address] Erythrocyte distribution width (RBC) [Ratio] 14.5 % Normal 11.5-15.0 [facility] Comment on above: Performed By: #### L [id number] ####[facility] ([facility])[address] [place] [address] ERYTHROCYTE MEAN CORPUSCULAR HEMOGLOBIN CONCENTRATION (G/DL) BY AUTOMATED 33.1 g/dL Normal 32.0-35.0 [facility] Comment on above: Performed By: #### L [id number] ####[facility] ([facility] [place] [address] Hematocrit (Bld) [Volume fraction] 47.8 % Normal 39.0-55.0 [facility] Comment on above: Performed By: #### L [id number] ####[facility] (BEAKER)[address] [place] [address] Hemoglobin (Bld) [Mass/Vol] 15.8 g/dL Normal 13.0-17.0 [facility] Comment on above: Performed By: #### L [id number] ####[facility] ([facility]ER)[address] [place] [address] Immature granulocytes (Bld) [#/Vol] 0.03 10*3/uL Normal 0.00-0.20 [facility] Comment on above: Performed By: #### L [id number] ####[facility] ([facility]AKER)[address] [place] [address] Immature granulocytes/100 WBC (Bld) 0.3 % Normal 0.0-1.0 [facility] Comment on above: Performed By: #### L [id number] ####[facility] (BEAKER)[address] [place] [address] Lymphocytes (Bld) [#/Vol] 1.69 10*3/uL Normal 1.20-4.00 [facility] Comment on above: Performed By: #### L [id number] ####[facility] ([facility])[address] [place] [address] Lymphocytes/100 WBC (Bld) 18.3 % Low 20.0-45.0 [facility] Comment on above: Performed By: #### L [id number] ####[facility] ([facility])[address] [place] [address] MCH (RBC) [Entitic mass] 29.6 pg Normal 27.0-33.0 [facility] Comment on above: Performed By: #### L [id number] ####[facility] ([facility]ER)[address] [place] [address] MCV (RBC) [Entitic vol] 89.5 fL Normal 82.0-98.0 [facility] Comment on above: Performed By: #### L [id number] ####[facility] ([facility] [place] [address] Monocytes (Bld) [#/Vol] 1.05 10*3/uL High 0.10-1.00 [facility] Comment on above: Performed By: #### L [id number] ####[facility] ([facility])[address] [place] [address] Monocytes/100 WBC (Bld) 11.4 % Normal 5.0-12.0 [facility] Comment on above: Performed By: #### L [id number] ####[facility] ([facility])[address] [place] [address] Neutrophils (Bld) [#/Vol] 6.20 10*3/uL Normal 1.60-7.60 [facility] Comment on above: Performed By: #### L [id number] ####[facility] ([facility])[address] [place] [address] Neutrophils/100 WBC (Bld) 67.4 % Normal 40.0-72.0 [facility] Comment on above: Performed By: #### L [id number] ####[facility] ([facility] [place] [address] NRBC (PER 100 WBCS) BY AUTOMATED COUNT 0.0 % Normal 0 [facility] Comment on above: Performed By: #### L [id number] ####[facility] ([facility] [place] [address] PLATELETS (10*3/UL) IN BLOOD AUTOMATED COUNT 231 10*3/uL Normal 150-400 [facility] Comment on above: Performed By: #### L [id number] ####[facility] ([facility] [place] [address] RBC (Bld) [#/Vol] 5.34 10*6/uL Normal 4.20-5.70 [facility] Comment on above: Performed By: #### L [id number] ####[facility] (BEAKER)[address] [place] [address] WBC (Bld) [#/Vol] 9.21 10*3/uL Normal 4.00-10.60 [facility] Comment on above: Performed By: #### L [id number] ####[facility] (BEAKER)[address] [place] [address] Basophils (Bld) [#/Vol] 0.05 10*3/uL Normal 0.00-0.20 [facility] Comment on above: Performed By: #### L [id number] #### [facility] (BEAKER) [address] [place] [address] Basophils/100 WBC (Bld) 0.5 % Normal 0.0-1.0 [facility] Comment on above: Performed By: #### L [id number] #### [facility] (BEAKER) [address] [place] [address] Eosinophils (Bld) [#/Vol] 0.17 10*3/uL Normal 0.00-0.50 [facility] Comment on above: Performed By: #### L [id number] #### [facility] ([facility] [address] [place] [address] Eosinophils/100 WBC (Bld) 1.6 % Normal 0.0-6.0 [facility] Comment on above: Performed By: #### L [id number] #### [facility] (BEAKER) [address] [place] [address] Erythrocyte distribution width (RBC) [Ratio] 14.5 % Normal 11.5-15.0 [facility] Comment on above: Performed By: #### L [id number] #### [facility] ([facility] [address] [place] [address] ERYTHROCYTE MEAN CORPUSCULAR HEMOGLOBIN CONCENTRATION (G/DL) BY AUTOMATED 32.7 g/dL Normal 32.0-35.0 [facility] Comment on above: Performed By: #### L [id number] #### [facility] (BEAKER) [address] [place] [address] Hematocrit (Bld) [Volume fraction] 51.3 % Normal 39.0-55.0 [facility] Comment on above: Performed By: #### L [id number] #### [facility] (BEAKER) [address] [place] [address] Hemoglobin (Bld) [Mass/Vol] 16.8 g/dL Normal 13.0-17.0 [facility] Comment on above: Performed By: #### L [id number] #### [facility] (BEAKER) [address] [address] Immature granulocytes (Bld) [#/Vol] 0.04 10*3/uL Normal 0.00-0.20 [facility] Comment on above: Performed By: #### L [id number] #### [facility] (BEAKER) [address] [place] [address] Immature granulocytes/100 WBC (Bld) 0.4 % Normal 0.0-1.0 [facility] Comment on above: Performed By: #### L [id number] #### [facility] (BEAKER) [address] [place] [address] Lymphocytes (Bld) [#/Vol] 1.86 10*3/uL Normal 1.20-4.00 [facility] Comment on above: Performed By: #### L [id number] #### [facility] (BEAKER) [address] [place] [address] Lymphocytes/100 WBC (Bld) 17.6 % Low 20.0-45.0 [facility] Comment on above: Performed By: #### L [id number] #### [facility] (BEAKER) [address] [place] [address] MCH (RBC) [Entitic mass] 29.1 pg Normal 27.0-33.0 [facility] Comment on above: Performed By: #### L [id number] #### [facility] (BEAKER) [address] [place] [address] MCV (RBC) [Entitic vol] 88.9 fL Normal 82.0-98.0 [facility] Comment on above: Performed By: #### L [id number] #### [facility] ([facility]) [address] [place] [address] Monocytes (Bld) [#/Vol] 1.18 10*3/uL High 0.10-1.00 [facility] Comment on above: Performed By: #### L [id number] #### [facility] ([facility]) [address] [place] [address] Monocytes/100 WBC (Bld) 11.2 % Normal 5.0-12.0 [facility] Comment on above: Performed By: #### L [id number] #### [facility] ([facility]) [address] [place] [address] Neutrophils (Bld) [#/Vol] 7.27 10*3/uL Normal 1.60-7.60 [facility] Comment on above: Performed By: #### L [id number] #### [facility] ([facility]) [address] [place] [address] Neutrophils/100 WBC (Bld) 68.7 % Normal 40.0-72.0 [facility] Comment on above: Performed By: #### L [id number] #### [facility] ([facility]) [address] [place] [address] NRBC (PER 100 WBCS) BY AUTOMATED COUNT 0.0 % Normal 0 [facility] Comment on above: Performed By: #### L [id number] #### [facility] ([facility]) [address] [place] [address] PLATELETS (10*3/UL) IN BLOOD AUTOMATED COUNT 266 10*3/uL Normal 150-400 [facility] Comment on above: Performed By: #### L [id number] #### [facility] ([facility] [address] [place] [address] RBC (Bld) [#/Vol] 5.77 10*6/uL High 4.20-5.70 [facility] Comment on above: Performed By: #### L [id number] #### [facility] ([facility]) [address] [place] [address] WBC (Bld) [#/Vol] 10.57 10*3/uL Normal 4.00-10.60 [facility] Comment on above: Performed By: #### L [id number] #### [facility] ([facility]) [address] [place] [address] COMPREHENSIVE METABOLIC PANE Edilberto 04-01-2023 Albumin [Mass/Vol] 3.7 g/dL Normal 3.5-5.7 [facility] Comment on above: Performed By: #### L [id number] #### [facility] ([facility]) [address] [place] [address] ALP [Catalytic activity/Vol] 79 U/L Normal 34-104 [facility] Comment on above: Performed By: #### L [id number] #### [facility] ([facility]) [address] [place] [address] ALT [Catalytic activity/Vol] 26 U/L Normal 7-52 [facility] Comment on above: Performed By: #### L [id number] #### [facility] ([facility]) [address] [place] [address] Anion gap [Moles/Vol] 10 mmol/L Normal 7-20 [facility] Comment on above: Performed By: #### L [id number] #### [facility] ([facility]) [address] [place] [address] AST [Catalytic activity/Vol] 23 U/L Normal 13-39 [facility] Comment on above: Performed By: #### L [id number] #### [facility] ([facility]) [address] [place] [address] Bilirubin [Mass/Vol] 1.5 mg/dL High 0.3-1.0 [facility] Comment on above: Performed By: #### L [id number] #### [facility] ([facility] [address] [place] [address] Calcium [Mass/Vol] 8.9 mg/dL Normal 8.6-10.3 [facility] Comment on above: Performed By: #### L [id number] #### [facility] ([facility]) [address] [place] [address] Chloride [Moles/Vol] 104 mmol/L Normal 98-107 [facility] Comment on above: Performed By: #### L [id number] #### [facility] ([facility]) [address] [place] [address] CO2 [Moles/Vol] 30 mmol/L Normal 21-31 [facility] Comment on above: Performed By: #### L [id number] #### [facility] ([facility]) [address] [place] [address] Creatinine [Mass/Vol] 0.89 mg/dL Normal 0.70-1.30 [facility] Comment on above: Performed By: #### L [id number] #### [facility] ([facility]) [address] [place] [address] GLOMERULAR FILTRATION RATE ML/MIN/1.73 SQ M.PREDICTED 101.2 mL/min/1.73m*2 Normal >60.0 [facility] Comment on above: Result Comment: [facility]???s estimated glomerular filtration rate (eGFR) will [...] individuals. Performed By: #### L [id number] #### [facility] ([facility]) [address] [place] [address] Glucose [Mass/Vol] 92 mg/dL Normal 70-100 [facility] Comment on above: Performed By: #### L [id number] #### [facility] ([facility]) [address] [place] [address] Potassium [Moles/Vol] 3.5 mmol/L Normal 3.5-5.1 [facility] Comment on above: Performed By: #### L [id number] #### [facility] ([facility]) [address] [place] [address] Protein [Mass/Vol] 6.0 g/dL Normal 6.0-8.3 [facility] Comment on above: Performed By: #### L [id number] #### [facility] ([facility]) [address] [place] [address] Sodium [Moles/Vol] 140 mmol/L Normal 136-145 [facility] Comment on above: Performed By: #### L [id number] #### [facility] ([facility]) [address] [place] [address] Urea nitrogen [Mass/Vol] 20 mg/dL Normal 7-25 [facility] Comment on above: Performed By: #### L [id number] #### [facility] ([facility]) [address] [place] [address] UREA NITROGEN/CREATININE (MASS RATIO) IN SER/PLAS 22.5 Normal [facility] Comment on above: Performed By: #### L [id number] #### [facility] ([facility]) [address] [place] [address] Albumin [Mass/Vol] 4.3 g/dL Normal 3.5-5.7 [facility] Comment on above: Performed By: #### L [id number] ####[facility] ([facility])[address] [place] [address] ALP [Catalytic activity/Vol] 84 U/L Normal 34-104 [facility] Comment on above: Performed By: #### L [id number] ####[facility] ([facility])[address] [place] [address] ALT [Catalytic activity/Vol] 28 U/L Normal 7-52 [facility] Comment on above: Performed By: #### L [id number] ####[facility] ([facility] [place] [address] Anion gap [Moles/Vol] 10 mmol/L Normal 7-20 [facility] Comment on above: Performed By: #### L [id number] ####[facility] ([facility])[address] [place] [address] AST [Catalytic activity/Vol] 24 U/L Normal 13-39 [facility] Comment on above: Performed By: #### L [id number] ####[facility] ([facility])[address] [place] [address] Bilirubin [Mass/Vol] 1.6 mg/dL High 0.3-1.0 [facility] Comment on above: Performed By: #### L [id number] ####[facility] ([facility])[address] [place] [address] Calcium [Mass/Vol] 9.4 mg/dL Normal 8.6-10.3 [facility] Comment on above: Performed By: #### L [id number] ####[facility] ([facility])[address] [place] [address] Chloride [Moles/Vol] 104 mmol/L Normal 98-107 [facility] Comment on above: Performed By: #### L [id number] ####[facility] ([facility] [place] [address] CO2 [Moles/Vol] 28 mmol/L Normal 21-31 [facility] Comment on above: Performed By: #### L [id number] ####[facility] ([facility] [place] [address] Creatinine [Mass/Vol] 1.01 mg/dL Normal 0.70-1.30 [facility] Comment on above: Performed By: #### L [id number] ####[facility] ([facility] [place] [address] GLOMERULAR FILTRATION RATE ML/MIN/1.73 SQ M.PREDICTED 87.8 mL/min/1.73m*2 Normal >60.0 [facility] Comment on above: Result Comment: [facility]???s estimated glomerular filtration rate (eGFR) will [...] of individuals. Performed By: #### L [id number] ####[facility] ([facility])[address] [place] [address] Glucose [Mass/Vol] 108 mg/dL High 70-100 [facility] Comment on above: Performed By: #### L [id number] ####[facility] ([facility])[address] [place] [address] Potassium [Moles/Vol] 3.8 mmol/L Normal 3.5-5.1 [facility] Comment on above: Performed By: #### L [id number] ####[facility] ([facility])[address] [place] [address] Protein [Mass/Vol] 6.6 g/dL Normal 6.0-8.3 [facility] Comment on above: Performed By: #### L [id number] ####[facility] ([facility] [place] [address] Sodium [Moles/Vol] 138 mmol/L Normal 136-145 [facility] Comment on above: Performed By: #### L [id number] ####[facility] (BEAKER)[address] [place] [address] Urea nitrogen [Mass/Vol] 20 mg/dL Normal 7-25 [facility] Comment on above: Performed By: #### L [id number] ####[facility] (BEAKER)[address] [facility] [place] [address] UREA NITROGEN/CREATININE (MASS RATIO) IN SER/PLAS 19.8 Normal [facility] Comment on above: Performed By: #### L [id number] ####[facility] (BRY)[address] [address] CONSULTon 04-01-2023 CONSULT -- Attestation signed by [...] is presenting as a direct admission from [facility]/ER where he presented for SOB and swelling for weeks to months. Patient reports that he has been experiencing worsening shortness of breath episodes associated with bilateral leg swelling for weeks to months with significant amount of edema progressing up bilateral lower extremities into groin and lower abdomen. Patient states upon arrival to [facility] he was over 340 pounds. While at [facility] he received treatment with IV Lasix, carvedilol, and Aldactone. Patient is now down to 305 pounds and still significantly edematous. Echo completed at [facility] shows EF of 30-35%. Patient was admitted for the management of acute decompensated heart failure and has been transferred to [facility] for heart cath. To note, patient [...] Value Ventricular Rate 97 Atrial Rate 97 KS Interval 166 QRS DURATION 144 QT Interval 400 QTC CALCULATION(BAZETT) 508 P [place] 42 R-Appleton -76 T Wave [place] 60 Impression Sinus rhythm with frequent and [...] Results Electr (more content not included)... Normal [facility] HEMOGLOBIN A1Con 04-01-2023 Glucose [Mass/Vol] 131 mg/dL Normal [facility] Comment on above: Performed By: #### L [id number] #### [facility] (BEAKER) [address] [place] [address] HbA1c (Bld) [Mass fraction] 6.2 % High 4.0-6.0 [facility] Comment on above: Performed By: #### L [id number] #### [facility] VINCE MONTALVO) [place] [address] HPon 04-01-2023 HP -- Attestation signed by [...] is presenting as a direct admission from [facility]/ER where he presented for SOB and swelling for weeks to months. Patient reports that he has been experiencing worsening shortness of breath episodes associated with bilateral leg swelling for weeks to months with significant amount of edema progressing up bilateral lower extremities into groin and lower abdomen. Patient states upon arrival to [facility] he was over 340 pounds. While at [facility] he received treatment with IV Lasix, carvedilol, and Aldactone. Patient is now down to 305 pounds and still significantly edematous. Echo completed at [facility] shows EF of 30-35%. Patient was admitted for the management of acute decompensated heart failure and has been transferred to [facility] for heart cath. To note, patient [...] Value Ventricular Rate 97 Atrial Rate 97 KS Interval 166 QRS DURATION 144 QT Interval 400 QTC CALCULATION(BAZETT) 508 P [place] 42 R-[place]leton -76 T Wave [place] 60 Impression Sinus rhythm with frequent and [...] Results Electr (more content not included)... Normal [facility] LACTIC ACID WITH 4 HOUR REFL EXon 04-01-2023 LACTATE (MMOL/L) IN SER/PLAS 0.8 mmol/L Normal 0.5-2.2 [facility] Comment on above: Performed By: #### L [id number] #### [facility] (BEAKER) [address] [place] [address] LIPID PANELon 04-01-2023 CHOL/HDL 4.9 mg/dL Normal [facility] Comment on above: Performed By: #### L [id number] #### [facility] ([facility]) [address] [place] [address] Cholesterol [Mass/Vol] 148 mg/dL Normal 120-200 [facility] Comment on above: Performed By: #### L [id number] #### [facility] ([facility]) [address] [place] [address] Magnesium [Mass/Vol] 102 mg/dL Normal 40-149 [facility] Comment on above: Result Comment: TRIG LYCERIDE REFERENCE RANGE: 20 YEARS AND OLDER CARDIOVASCULAR RISK LESS THAN 150 mg/dL LOW RISK 150 TO 199 mg/dL BORDERLINE RISK 200 mg/dL AND GREATER HIGH RISK Performed By: #### L [id number] #### [facility] ([facility]) [address] [place] [address] Magnesium [Mass/Vol] 98 mg/dL Normal 0-160 [facility] Comment on above: Performed By: #### L [id number] #### [facility] ([facility]) [address] [place] [address] Magnesium [Mass/Vol] 30 mg/dL Normal 23-92 [facility] Comment on above: Performed By: #### L [id number] #### [facility] ([facility]) [address] [place] [address] NON HDL CHOL. (LDL+VLDL) 118 Normal [facility] Comment on above: Performed By: #### L [id number] #### [facility] ([facility]) [address] [place] [address] TOTAL VLDL-C 20 mg/dL Normal 0-40 [facility] Comment on above: Performed By: #### L [id number] #### [facility] ([facility]) [address] [place] [address] MAGNESIUMon 04-01-2023 Magnesium [Mass/Vol] 2.0 mg/dL Normal 1.9-2.7 [facility] Comment on above: Performed By: #### L [id number] #### [facility] (BEAKER) [address] [place] [address] Magnesium [Mass/Vol] 2.1 mg/dL Normal 1.9-2.7 [facility] Comment on above: Performed By: #### L [id number] #### [facility] ([facility]) [address] [place] [address] PHOSPHORUSon 04-01-2023 Magnesium [Mass/Vol] 4.2 mg/dL Normal 2.5-5.0 [facility] Comment on above: Performed By: #### L [id number] #### [facility] ([facility]) [address] [place] [address] Magnesium [Mass/Vol] 4.4 mg/dL Normal 2.5-5.0 [facility] Comment on above: Performed By: #### L [id number] ####[facility] ([facility])[address] [facility] [place] [address] PROTIME-INRon 04-01-2023 INR IN PPP BY COAGULATION ASSAY 1.04 Normal 0.90-1.10 [facility] Comment on above: Result Comment: ACCC [...] CHEST 1995;[id number]. Performed By: #### L [id number] ####[facility] ([facility])[address] [place] [address] PROTHROMBIN TIME (PT) IN PPP BY COAGULATION ASSAY 13.6 Seconds Normal 12.3-14.8 [facility] Comment on above: Performed By: #### L [id number] ####[facility] ([facility])[address] [place] [address] T4, FREEon 04-01-2023 THYROXINE (T4) FREE (NG/DL) IN SER/PLAS 1.03 ng/dL Normal 0.71-1.85 [facility] Comment on above: Performed By: #### L [id number] ####[facility] ([facility])[address] [place] [address] TROPONIN Ion 04-01-2023 Troponin I.cardiac [Mass/Vol] 0.03 ng/mL Normal 0.00-0.04 [facility] Comment on above: Performed By: #### L [id number] #### [facility] ([facility]) [address] [place] [address] Troponin I.cardiac [Mass/Vol] 0.04 ng/mL Normal 0.00-0.04 [facility] Comment on above: Performed By: #### L [id number] ####[facility] ([facility])[address] [place] [address] TSHon 04-01-2023 THYROTROPIN (MIU/L) IN SER/PLAS BY DETECTION LIMIT <= 0.05 MIU/L 4.86 mIU/L Normal 0.34-5.60 [facility] Comment on above: Performed By: #### L [id number] ####[facility] ([facility])[address] [place] [address] TSH3 REFLEX TO FT4on 024 THYROTROPIN (MIU/L) IN SER/PLAS BY DETECTION LIMIT <= 0.05 MIU/L 4.16 mIU/L Normal 0.34-5.60 [facility] Comment on above: Performed By: #### L [id number] #### [facility] [address] [place] [address] URINALYSISon 04-01-2023 BILIRUBIN, TOTAL PRESENCE IN URINE Negative Normal Negative [facility] Comment on above: Performed By: #### L [id number] ####[facility] ([facility])[address] [place] [address] Clarity (U) Clear Normal Clear [facility] Comment on above: Performed By: #### L [id number] ####[facility] ([facility])[address] [place] [address] Color (U) Yellow Normal Yellow [facility] Comment on above: Performed By: #### L [id number] ####[facility] ([facility])[address] [place] [address] Glucose (U) [Mass/Vol] Negative Normal Negative [facility] Comment on above: Performed By: #### L [id number] ####[facility] ([facility])[address] [place] [address] HEMOGLOBIN PRESENCE IN URINE Negative Normal Negative [facility] Comment on above: Performed By: #### L [id number] ####[facility] ([facility])[address] [place] [address] Ketones Ql (U) Negative Normal Negative [facility] Comment on above: Performed By: #### L [id number] ####[facility] ([facility])[address] [place] [address] LEUKOCYTE ESTERASE PRESENCE IN URINE BY TEST STRIP Trace Abnormal Negative [facility] Comment on above: Performed By: #### L [id number] ####[facility] ([facility])[address] [place] [address] NITRITE PRESENCE IN URINE Negative Normal Negative [facility] Comment on above: Performed By: #### L [id number] ####[facility] ([facility])[address] [place] [address] pH (U) 6.0 [pH] Normal 5.0-8.0 [facility] Comment on above: Performed By: #### L [id number] ####[facility] (BEAKER)[address] [place] [address] Protein (U) [Mass/Vol] Negative Normal Negative [facility] Comment on above: Performed By: #### L [id number] ####[facility] (BEAKER)[address] [place] [address] Specific gravity (U) [Rel density] 1.018 Normal 1.015-1.020 [facility] Comment on above: Performed By: #### L [id number] ####[facility] (BEAKER)[address] [place] [address] UROBILINOGEN (EU/DL) IN URINE 4.0 EU/dL Abnormal Negative [facility] Comment on above: Performed By: #### L [id number] ####[facility] (BEAKER)[address] [place] [address] URINALYSIS MICROSCOPICon CASTS IN URINE Normal [facility] Comment on above: Performed By: #### L [id number] ####[facility] (BEAKER)[address] [place] [address] CRYSTALS IN URINE Normal [facility] Comment on above: Performed By: #### L [id number] ####[facility] (BEAKER)[address] [place] [address] MUCUS (#/HPF) IN URINE SEDIMENT Occasional Normal None Seen, Occasional, Few [facility] Comment on above: Performed By: #### L [id number] ####[facility] (BEAKER)[address] [place] [address] RBC (#/HPF) IN URINE SEDIMENT 0-2 Abnormal None Seen [facility] Comment on above: Performed By: #### L [id number] ####[facility] (BEAKER)[address] [place] [address] SQUAMOUS EPITHELIAL CELLS (#/HPF) IN URINE SEDIMENT Occasional Normal None Seen, Occasional [facility] Comment on above: Performed By: #### L [id number] ####[facility] (BEAKER)[address] [place] [address] WBC (LEUKOCYTE) (#/HPF) IN URINE SEDIMENT 3-5 Abnormal None Seen [facility] Comment on above: Performed By: #### L [id number] ####[facility] (BEAKER)[address] [place] [address] Encounters Encounter Date Encounter Type Care Provider Facility Start: 06-29-2023 End: 06-29-[facility] Start: 05-10-2023 End: 05-10-2023 ambulatory YA [facility] Start: 05-07-2023 End: 05-07-2023 ambulatory SHAIKH [...] Evaluation and management of inpatient HINA FERGUSONUR [facility] Start: 04-01-2023 Evaluation and management of inpatient NOANGEL WALKER [facility] Start: 04-01-2023 Evaluation and management of inpatient KATRINA DODDRobe [facility] Start: 03-31-2023 End: 04-03-2023 Evaluation and management of inpatient EVETTE LEE [facility] Procedures Date Procedure Procedure Detail Performing Clinician Start: 04-17-2023 ALL BASIC METABOLIC PANEL Generic External Data Provider Plan of Treatment Date Care Activity Detail Author Start: 05-07-2023 End: 05-07-2023 Patient encounter procedure 05/07/2023 6:00 PM EST Office Visit [facility] [address] [place] [address] Shaikh Kelley MD [address] [place] [id number] [facility] Start: 04-11-2023 End: 04-11-2024 Basic metabolic 1998 panel - Serum or Plasma Basic metabolic panel Lab Routine JAZZ (acute kidney injury) (CMS/HCC) Expected: 04/11/2023 (Approximate), Expires: 04/11/2024 [facility] Work Phone: Comment on above: Expected: 04/11/2023 (Approximate), Expires: 04/11/2024 Start: 11-03-2022 Influenza vaccination Influenz a Vaccine (#1) [facility] Start: 1965 Screening for malign ant neoplasm of colon [facility] Payers Date Payer Category Payer Unknown [employer] [id number] 2023-Present [phone] [address] [address] [place] [address] [id number] 2022 Unknown [id number] 1965 Unknown [id number] 1965 Unknown [id number] Social History Date Type Detail Facility Start: 04-05-2023 Tobacco smoking stat [facility] Never smoked tobacco [facility] History of tobacco use Passive smoker [facility] Start: 04-05-2023 Tobacco use and exposure Smokeless t obacco non-user [facility] Start: 04-05-2023 Alcohol intake Lifetime non-d cheryl (finding) [facility] Start: 04-05-2023 History of Social function [facility] Start: 04-05-2023 Tobacco use panel [facility] Start: 1965 Sex Assigned At Not on file [facility] Clinical Notes 04-01-2023 to 06-29-2023 Shaikh Allie MD - 04/11/2023 9:13 AM Monica Kelley MD - 04/11/2023 9:11 AM EST Note Date & Type Note Facility 06-29-2023 Note [place] [facility] - [facility] Subjective Cory Colin is a 58 [...] 3 spironolactone (Aldactone) (more content not included)... [facility] 05-10-2023 Note Patient here for 1 m o follow up chronic systolic heart failure and hypertension. His event monitor was finished last week, but no final report yet. Entresto was stopped since last visit. Hasn't had to take lasix recently. Review of Systems Neurological: Tingling in LLE All other systems reviewed and are negative. [facility] 05-10-2023 Note Cardiovascular Medic [facility] SUBJECTIVE Chief Complaint Patient presents [...] care with new doctor NICM (nonischemic cardiomyopathy) ([facility]) Hyperlipidemia Past Medical History: Diagnosis Date CHF (congestive heart failure) ([facility]) Family History Adopted: Yes Social History [...] (H) 72 - (more content not included)... [facility] 04-18-2023 Note [id number] Bibiana Colin 1965 M Date Provider Department Center 04/18/2023 YA [facility] Family History Adopted: Yes [facility] 04-11-2023 Note Patient here for [facility] for CHF. He had orientation at [...] All other systems reviewed and are negative. [facility] 04-11-2023 Note Cardiovascular Medic in[facility] SUBJECTIVE Chief Complaint Patient presents with [...] an 57 y.o. male who came from [facility] with minimal to no medical history x 10 years as he states he has not seen a provider nor had any medical treatment in over 10 years and denies taking any prescription medications, hzab-olr-gdvgmqj medications or herbals at this time. Patient states he does not even take kdvl-bdr-mldjako Tylenol or ibuprofen and stopped taking both of those years ago. Patient reports he has been experiencing shortness of breath and swelling for weeks to months with significant amount of edema progressing up bilateral lower extremities into groin and lower abdomen. Patient states upon arrival to [facility] he was over 340 pounds. While at [facility] he received treatment with IV Lasix, carvedilol, and Aldactone. Patient is now down to 305 pounds and still significantly edematous. Echo completed at [facility] shows EF of 30-35%. Patient diagnosed the hospital with decompensated CHF and has been transferred to [facility] for need of heart cath. Patient [...] Active Problem List Diagnosis Decompensated heart failure ([facility]/HCC) Hypertension Bilateral lower extremity edema Dyspnea on exertion Obesity Knowledge deficit about therapeutic diet Anxiety about knowledge deficit Encounter to establish care with new doctor NICM (nonischemic cardiomyopathy) ([facility]) Past Medical History: Diagnosis Date CHF (congestive heart failure) ([facility]) Family History Adopted: Yes Social History [...] daily as directed (more content not included)... [facility] 04-11-2023 History of Present illness Narrative [...] up after BMP. 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 Yes ( I was filling up with fluid ) Who is your current PCP? Hasn't seen MD in 37 years other than few ER visits & required yearly physicals for health insurance; Has New PCP Appointment scheduled on Apr 05 @ 9:15am with Dr. Kelley in [place], [place] Can I schedule a follow up appointment for you at the time of discharge? Yes (go to [facility]) Do you understand why [...] Discharge? Yes Does the patient have a manager of financial reporting assigned to them through their insurance? No [...] discharge today: Home, no needs. Follow-up with [facility] in [place] will pick-up; Agreeable to iMeds. [facility] 04-03-2023 Note Attempted to meet wi th the patient. He is in with Malini BUSTAMANTE RN at this time. [facility] 04-03-2023 Note Spiritual Care Note Patient name: Cory Colin Age: 57 y.o. Room: [address] [place] [address]- 04/03/23 1429 Clinical Encounter Type Visited With Patient;Spouse (Spouse by phone) Type of Visit Advance Directives Last Visit Date 04/03/23 Patient Spiritual Care Encounters Spiritual Care Assessment Hopeful (Pt completed HCPOA naming as agent & son as alternate. Pt shared a bit of his personal hx.) Pastoral Intervention Advance directives;Emotional support;Spiritual support ([employer] Dean assisted pt with completing HPCOA. Copies made, original & copies returned to pt, copy placed in pt chart.) Response Appreciative [facility] 04-03-2023 Note UTP Cardiovascular M edicine [...] assess for improvement 3) outpatient follow-up with [facility] ECHO 04/02/2023 Left Ventricle: The left [...] - NICM -GDMT: (more content not included)... [facility] 04-03-2023 Note Attempted to meet wi th the patient. He is currently in with pastoral care. Will attempt to try again later. [facility] 04-02-2023 Note Patient: Cory Herrera rt Procedure Information Date/Time: 04/02/23 1330 Procedures: Coronary angiography Right heart cath Location: [facility] ASSISTANT CENTER DIRECTOR 2 BIPL[address] / [facility] (Cath) Providers: Stephon Morrell [...] Plan discussed with attending. Additional Equipment Requests [facility] 04-02-2023 Note Attestation signed by Araceli [place] [...] Teaching Physician's Revisions: none Araceli [facility] MD [facility] Cardiology Progress Note Subjective Subjective: No [...] Value Ventricular Rate 97 Atrial Rate 97 KS Interval 166 QRS DURATION 144 QT Interval 400 QTC CALCULATION(BAZETT) 508 P App[place] 42 R-Appleton -76 T Wave [place]leton 60 Impression Sinus rhythm with frequent and consecutive Premature ventricular complexes and Fusion complexes Left axis deviation Right bundle branch block Abnormal ECG When compared with ECG of 01-APR-2023 00:38, Fusion complexes are now Present Confirmed by Dora Flood ([id number]) on 04/01/2023 9:43:42 PM Lab Results Component Value Date TROPONINI 0.03 04/01/2023 Transthoracic echo (TTE) complete Result Date: 04/02/2023 1 1 [facility] Heart Station [address] [place] [address] [phone] (fax) Echocardiogram-[facility] Name: CORY COLIN Study Date: 04/02/2023 11:46 AM B/P: 112 mmHg/57 mmHg HR: 100 bpm Date of : 1965 Location: [facility] Height: 70 in. Age: 57 year(s) Patient Room: [facility] Weight: 297 lb. Gender: Male Patient Status: [...] 2.3cm) Valvular Assessmen (more content not included)... [facility] 04-02-2023 Note Hospital Medicine Daily Progress Note - 04/02/2023 5:47 PM; Room: 5148/5148-01 Admission: 03/31/2023 9:13 PM; Length of stay: 2 days THE HOSPITALIST TEAM PREFERS TO USE [email or web address] CHAT FOR COMMUNICATION 7AM-7PM. IF I DO NOT RESPOND WITHIN 15 MINUTES, PLEASE PAGE ME/CALL THROUGH THE HEADLINE WRITER. FROM 7PM-7AM, PLEASE PAGE [phone](COVR) Code Status: Full Code Barriers to Discharge: [...] 7 days Lab Units 04/02/23 1042 04/01/23 04504/01/23 0058 SODIUM mmol/L 141 140 138 POTASSIUM mmol/L 4.2 3.5 3.8 CHLORIDE mmol/L 103 104 104 CO2 mmol/L 31 30 28 BUN mg/dL 18 20 20 CREATININE mg/dL 0.95 0.89 1.01 GLUCOSE mg/dL 100 92 108* MAGNESIUM mg/dL 2.3 2.0 2.1 CALCIUM mg/dL 9.3 8.9 9.4 PHOSPHORUS mg/dL -- 4.2 4.4 Results from last 7 days Lab Units 04/01/2345204/01/23 0058 AST U/L 23 24 ALT U/L 26 28 ALK PHOS U/L 79 84 BILIRUBIN TOTAL mg/dL 1.5* 1.6* Historical Values: (Includes values prior to this admission) Lab Results Component Value Date TSH 4.16 04/01/2023 FREET4 1.03 04/01/2023 HDL 30 04/01/2023 LDL 118 04/01/2023 No results found for: [id number] , IRON , TIBC , C3 , [...] months to assess (more content not included)... [facility] 04-02-[address] [facility] for decompensated HF. Pt has echo scheduled; no previous echo on file. I will wait for current echo results to determine pt's eligibility to participate in cardiac rehab (CR) therapy with HF diagnosis and follow up with pt, if appropriate. JOSE WaltonN remote inpatient coder Outpatient Coordinator Cardiopulmonary Rehab [facility] 04-02-2023 Note Patient was transfer red to 5th floor, room 5148. Telemetry box was removed and global technical writer called [facility] to inform them that the patient had been transferred to said unit and taken off the monitor, #105. [facility] 04-01-2023 Note Patients HR was sust aining in the 140's. Hospitalist called. Orders to give Lopressor IV once. Patient's Heart rate improved to the 130 s. Hospitalist called again. Patient has new orders to go to stepdown unit. Patient and notified. [employer] Dean will give report to [place] cr and transport patient to 514. Point of care will continue until then. [facility] 04-01-2023 Note Hospital Medicine Daily Progress Note - 04/01/2023 2:49 PM; Room: [address] [place] [address] Admission: 03/31/2023 9:13 PM; Length of stay: 1 days THE HOSPITALIST TEAM PREFERS TO USE [email or web address] CHAT FOR COMMUNICATION 7AM-7PM. IF I DO NOT RESPOND WITHIN 15 MINUTES, PLEASE PAGE ME/CALL THROUGH THE HEADLINE WRITER. FROM 7PM-7AM, PLEASE PAGE [phone](COVR) Code Status: Full Code Barriers to Discharge: [...] edema Shortness of breath -Echocardiogram completed at [facility], ejection fraction 30-35% Continue 40mg IV [...] LDL 118 04/01/2023 No results found for: [id number] , IRON , TIBC , C3 , [...] ECG When co (more content not included)... [facility] 04-01-2023 Note [employer] Dean received a ca ll from [facility] that patient had a 4 beat of VTACH. Pt. Was assessed, was asymptomatic, Dr. Walker was paged. Also results of 2nd EKG was discussed along with patient's Magnesium and phosphorous. Patient also began to desat to 89%-90%. [employer] Dean put patient on 2 liters nasal cannula. Patient is satting at 96% now. Will continue point of care. [facility] 04-01-2023 Note [employer] Dean was taking monae mccarthy's vitals when patient started having 33 pvc's per 10 minutes sustaining per [facility]; Hospitalist was called, stat labs, EKG, chest xray were ordered. Patient is asymptomatic at this time. Will continue point of care. [facility] 04-01-2023 Note Hospital Medicine History and Physical 04/01/2023 12:08 AM THE HOSPITALIST TEAM PREFERS TO USE [email or web address] CHAT FOR COMMUNICATION 7AM-7PM. IF I DO NOT RESPOND WITHIN 15 MINUTES, PLEASE PAGE ME/CALL THROUGH THE HEADLINE WRITER. FROM 7PM-7AM, PLEASE PAGE [phone](COVR) Chief Complaint Direct admission from [facility]/ER where he presented for SOB and swelling for weeks to months. History of Present Illness Cory Colin is an 57 y.o. male who came from [facility] with minimal to no medical history x 10 years as he states he has not seen a provider nor had any medical treatment in over 10 years and denies taking any prescription medications, vnjw-vfa-flcsbhi medications or herbals at this time. Patient states he does not even take xxpt-uii-uowtvag Tylenol or ibuprofen and stopped taking both of those years ago. Patient reports he has been experiencing shortness of breath and swelling for weeks to months with significant amount of edema progressing up bilateral lower extremities into groin and lower abdomen. Patient states upon arrival to [facility] he was over 340 pounds. While at [facility] he received treatment with IV Lasix, carvedilol, and Aldactone. Patient is now down to 305 pounds and still significantly edematous. Echo completed at [facility] shows EF of 30-35%. Patient diagnosed the hospital with decompensated CHF and has been transferred to [facility] for need of heart cath. Patient [...] P, BN P, T4, free, TSH, UA MECHANICAL TECH. Patient exhibits mild shortness of breath with [...] Date Noted Decompen (more content not included)... [facility] Evaluation note Diagnosis JAZZ (acute kidney injury) (CMS/[facility])- Primary documented in this encounter [facility] Summary Purpose Family History No Family History Records FoundNo Family History Records Found Advance Directives No Advanced Directives Records FoundNo Advanced Directives Records Found Additional Source Comments Care Teams (unrecognized sec tion and content) Interactive [employer] Design[employer] Relationship Specialty Start Date End Date Shaikh Kelley MD [address] [place] [phone] PCP - General Internal Medicine 04/05/23 Interactive Multimedia Designer Relationship Specialty Start Date End Date Shaikh Kelley MD [address] [place] [address] PCP - General Internal Medicine 04/05/23 (unrecognized sect ion and content) No Status Records FoundNo Status Records Found INFORMATION SOURCE (unrecogn ized section and content) DATE CREATED AUTHOR 05/08/2023 [facility] DATE CREATED AUTHOR AUTHOR'S ORGANIZ ATION 07/17/2023 [facility] FOR RECORDS PERTAINING TO PATIENTS WHO ARE [...] BE BASED ON THE PRIMARY CLINICAL RECORDS. [facility] [employer] provides no warranty or guarantee of the accuracy or completeness of information in this document.
[2023-07-20 10:46] LABS: Anion Gap 13.6; BUN Creatinine Ratio 27.8; Calcium 9.4 mg/dL (8.5-10.1); Carbon Dioxide 27.9 mmol/L (21.0-32.0); Chloride 104 mmol/L (98-107); Estimated GFR (African America 39 (>=60); Estimated GFR (Non-African Ame 32 (>=60); Glucose 115 mg/dL (74-106); Potassium 4.5 mmol/L (3.5-5.1); Sodium 141 mmol/L (136-145)
== END 2023-07-20 09:03 | disposition home or self-care (01) ==
LOC: LAB 09:03
PROVIDERS: PCP Internal Medicine; Visit Provider Internal Medicine Interventional Cardiology
DX: I11.0 Hypertensive heart disease with heart failure (principal)
CPT/HCPCS: 36415; 80048

== ENCOUNTER 2023-07-31 09:09 | Outpatient (OUT) | payer OTHER, SELFPAY ==
[2023-07-31 10:34] LABS: BUN Creatinine Ratio 22.1; Calcium 8.8 mg/dL (8.5-10.1); Carbon Dioxide 25.7 mmol/L (21.0-32.0); Chloride 106 mmol/L (98-107); Estimated GFR (African America >60 (>=60); Estimated GFR (Non-African Ame 50 (>=60); Glucose 111 mg/dL (74-106); Potassium 3.7 mmol/L (3.5-5.1); Sodium 141 mmol/L (136-145)
== END 2023-07-31 09:10 | disposition home or self-care (01) ==
LOC: LAB 09:11
PROVIDERS: PCP Internal Medicine; Visit Provider Internal Medicine Interventional Cardiology
DX: I11.0 Hypertensive heart disease with heart failure (principal)
CPT/HCPCS: 36415; 80048

== ENCOUNTER 2023-08-16 07:11 | Outpatient (OUT) | payer OTHER, SELFPAY ==
--- OUTSIDE RECORDS SUMMARY | 2023-08-16 07:15 | XMS_ITS | CCD ---
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 Name Role Phone Shaikh Kelley MD Primary Care Provider SHAIKH KELELY Attending Unavailable SHAIKH KELLEY Attending Unavailable MERZA, NOORALDIN Referring Unavailable BARBARAHINA WALLIS Referring Unavailable ZENKATRINA Nagel Referring Unavailable MERZA, NOORALDIN Referring Unavailable YA GARCIA Attending Unavailable YA GARCIA Attending Unavailable DORA FLOOD Attending Unavailable EVETTE LEE Referring Unavailable BARBARAHINA Attending Unavailable MERZA, NOORALDIN Admitting Unavailable DORA FLOOD Attending Unavailable Allergies Allergy Classification Reported Allergen(s) Allergy Type Date of Onset Reaction(s) Facility (1 source) empagliflozin; Translations: [EMPAGLIFLOZIN] Drug Allergy 06-29-2023 [facility] Repository (1 source) sacubitril / valsartan; Translations: [SACUBITRIL-VALS BUSTER] Drug Allergy 06-29-2023 [facility] Repository Medications Current Medications Medication Drug [...] Translations: [Unspecified systolic (congestive) heart failure] Onset: 04-01-2023 04-05-2023 Chronic Essential hypertension (4 sources) Hypertensive disorder; Translations: [Essential (primary) hypertension] Onset: 04-01-2023 04-05-2023 Chronic Other nutritional; endocrine; and metabolic [...] Value Interpretation Reference Range Facility Office Visiton 08-01-2023 Follow-up visit [id number] Cory Colin 1965 M Date Provider Department Center 08/01/2023 DORA ANTHONY [facility] Family History Adopted: Yes Level of Service:00905 ID OFFICE/OUTPATIENT ESTABLISHED MOD MDM 30 MIN [facility] 36on 07-23-2023 36 Regarding lab result s from 07/20/2023: MD Giselle Ward MA please have him stop spironolactone and have him get a follow up BMP prior to next visit. LM on patient's VM asking him to return my call. BMP order faxed to [facility]. [facility] 36on 07-16-2023 36 Regarding lab result s on 07/13/2023: MD Giselle Ward MA He has JAZZ. I called him and I asked him to stop spironolactone. He is not taking furosemide. He will continue the rest of the medications. I want him to get a BMP in 1 week. BMP order faxed to [facility]. [facility] Office Visiton 06-29-2023 Follow-up visit [id number] Cory Colin 1965 M [facility] Provider Department Center 06/29/2023 DORA ANTHONY LAKSHMI [facility] Family History Adopted: Yes Level of Service:76237 ID OFFICE/OUTPATIENT ESTABLISHED HIGH MDM 40 MIN Reason for Visit and Comments: Follow-up [365099] - 6 week [facility] Office Visiton 05-10-2023 Follow-up visit [id number] Cory Colin 1965 [facility] Provider Department Center 05/10/2023 YA OLIVER LAKSHMI [facility] Family History Adopted: Yes Level of Service:84099 ID OFFICE/OUTPATIENT ESTABLISHED HIGH MDM 40 MIN Reason for Visit and Comments: Congestive Heart Failure [127] Hypertension [144657] [facility] 36on 04-30-2023 36 Pt informed [facility] 36on 04-18-2023 36 Please let him [...] sent refills and ordered the BMP. Thanks! [facility] Telephoneon 04-18-2023 Telephone [id number] Cory Colin 1965 [facility] Provider Department Center 04/18/2023 YA OLIVER LAKSHMI [facility] Family History Adopted: Yes [facility] ALL BASIC METABOLIC PANELon 04-17-2023 Anion gap [Moles/Vol] 13.3 mmol/L [facility] Calcium [Mass/Vol] 9.8 mg/dL 8.5 - 10. 1 mg/dL [facility] Chloride [Moles/Vol] 103 mmol/L 98 - 10 7 mmol/L [facility] CO2 [Moles/Vol] 28.0 mmol/L 21.0 - 32.0 mmol/L [facility] Creatinine [Mass/Vol] 1.15 mg/dL 0.70 - 1.30 mg/dL [facility] GFR/1.73 sq M.predicted CKD-EPI (S/P/Bld) [Vol rate/Area] >60 60 - PINF [facility] Glucose [Mass/Vol] 98 mg/dL 74 - 106 mg/dL NO [facility] Interpretation and review of laboratory results Abnormal [facility] Potassium [Moles/Vol] 4.3 mmol/L 3.5 - 5.1 mmol/L [facility] Sodium [Moles/Vol] 140 mmol/L 136 - 145 mmol/L [facility] TBH EGFR-NON AF CENTRAL AFRICAN >60 60 - PINF [facility] Urea nitrogen [Mass/Vol] 31.0 mg/dL High 7.0 - 18.0 mg/dL [facility] Urea nitrogen/Creatinine [Mass ratio] 27.0 mg/mg [facility] 37on 04-11-2023 37 *Your kidney functio n is elevated. Please hold these medications until instructed to resume: -dapagliflozin (Farxiga) -sacubitril-valsartan (Entresto) -Spironolactone -Lasix *Have lab work done in 1 week, around 04/17/2023. [facility] Office Visiton 04-11-2023 Follow-up visit [id number] Cory Colin 1965 M Date Provider Department Center 04/11/2023 166-YA [facility] Family History Adopted: Yes Level of Service:00866 ID OFFICE/OUTPATIENT ESTABLISHED MOD MDM 30 MIN Reason for Visit and Comments: Hospital Follow-up [832] Congestive Heart Failure [127] Hypertension [221719] [facility] 36on 04-04-2023 36 Discharge date: 04/03/23 [...] and the staff who cared for them. Normal [facility] Documentationon 04-04-2023 Documentation [id number] Cory Colin 1965 M Date Provider Department Center 04/04/2023 CEE SEQUEIRA [facility] HeartVAS No family history on file Reason for Visit and Comments: HF inpatient satisfaction survey sent. [Other] Normal [facility] Telephoneon 04-04-2023 Telephone [id number] Cory Colin 1965 M Date Provider Department Center 04/04/2023 [id number], MANDY [facility] HeartVAS No family history on file Reason for Visit and Comments: HF post discharge call [Other] [facility] BASIC METABOLIC PANELon 03-07 Anion gap [Moles/Vol] 13 mmol/L Normal 7-20 [facility] Comment on above: Performed By: #### L [id number] ####[facility] (BEAKER)[address] [place] [address] Calcium [Mass/Vol] 9.3 mg/dL Normal 8.6-10.3 [facility] Comment on above: Performed By: #### L [id number] ####[facility] ([facility]ER)[address] [place] [address] Chloride [Moles/Vol] 102 mmol/L Normal 98-107 [facility] Comment on above: Performed By: #### L [id number] ####[facility] (BEAKER)[address] [place] [address] CO2 [Moles/Vol] 30 mmol/L Normal 21-31 [facility] Comment on above: Performed By: #### L [id number] ####[facility] (BEAKER)[address] [place] [address] Creatinine [Mass/Vol] 1.37 mg/dL High 0.70-1.30 [facility] Comment on above: Performed By: #### L [id number] ####[facility] ([facility]AKER)[address] [place] [address] GLOMERULAR FILTRATION RATE ML/MIN/1.73 SQ M.PREDICTED 60.9 mL/min/1.73m*2 Normal >60.0 [facility] Comment on above: Result Comment: The [facility]???s estimated glomerular filtration rate (eGFR) will [...] of individuals. Performed By: #### L [id number] ####[facility] ([facility])[address] [place] [address] Glucose [Mass/Vol] 104 mg/dL High 70-100 [facility] Comment on above: Performed By: #### L [id number] ####[facility] ([facility])[address] [place] [address] Potassium [Moles/Vol] 4.5 mmol/L Normal 3.5-5.1 [facility] Comment on above: Performed By: #### L [id number] ####[facility] ([facility])[address] [place] [address] Sodium [Moles/Vol] 140 mmol/L Normal 136-145 [facility] Comment on above: Performed By: #### L [id number] ####[facility] [place] [address] Urea nitrogen [Mass/Vol] 28 mg/dL High 7-25 [facility] Comment on above: Performed By: #### L [id number] ####[facility] ([facility])[address] [place] [address] UREA NITROGEN/CREATININE (MASS RATIO) IN SER/PLAS 20.4 Normal [facility] Comment on above: Performed By: #### L [id number] ####[facility] KATIA)[address] [place] [address] DSon 04-03-2023 DS -- Attestation signed by [...] an 57 y.o. male who came from [facility] with minimal to no medical history x 10 years as he states he has not seen a provider nor had any medical treatment in over 10 years and denies taking any prescription medications, wbgy-aob-tltdlhf medications or herbals at this time. Patient states he does not even take cumm-hgc-fwdacpo Tylenol or ibuprofen and stopped taking both of those years ago. Patient reports he has been experiencing shortness of breath and swelling for weeks to months with significant amount of edema progressing up bilateral lower extremities into groin and lower abdomen. Patient states upon arrival to [place] [facility] he was over 340 pounds. While at [facility] he received treatment with IV Lasix, carvedilol, and Aldactone. Patient is now down to 305 pounds and still significantly edematous. Echo completed at [facility] shows EF of 30-35%. Patient diagnosed [...] 04/06/2023 10:15 AM Dora Flood MD LAKSHMI [facility] 04/11/2023 11:00 AM Ya aGrcia NP [facility] Your medication list START taking these medications [...] Medications These medications were sent to [facility] [address] [place] [address] [facility] [place] [address], [facility] [address] aspirin 81 mg EC tablet atorvastatin 80 [...] 0058 W (more content not included)... Normal [facility] MAGNESIUMon 04-03-2023 Magnesium [Mass/Vol] 2.3 mg/dL Normal 1.9-2.7 [facility] Comment on above: Performed By: #### L [id number] ####[facility] (BEAKER)[address] [place] [address] BASIC METABOLIC PANELon 03-06 Anion gap [Moles/Vol] 11 mmol/L Normal 7-20 [facility] Comment on above: Performed By: #### L [id number] ####[facility] (BEAKER)[address] [place] [address] Calcium [Mass/Vol] 9.3 mg/dL Normal 8.6-10.3 [facility] Comment on above: Performed By: #### L [id number] ####[facility] (BEAKER)[address] [place] [address] Chloride [Moles/Vol] 103 mmol/L Normal 98-107 [facility] Comment on above: Performed By: #### L [id number] ####[facility] (BEAKER)[address] [place] [address] CO2 [Moles/Vol] 31 mmol/L Normal 21-31 [facility] Comment on above: Performed By: #### L [id number] ####[facility] (BEAKER)[address] [place] [address] Creatinine [Mass/Vol] 0.95 mg/dL Normal 0.70-1.30 [facility] Comment on above: Performed By: #### L [id number] ####[facility] (BEAKER)[address] [place] [address] GLOMERULAR FILTRATION RATE ML/MIN/1.73 SQ M.PREDICTED 94.5 mL/min/1.73m*2 Normal >60.0 [facility] Comment on above: Result Comment: The [facility]???s estimated glomerular filtration rate (eGFR) will [...] of individuals. Performed By: #### L [id number] ####[facility] (BEAKER)[address] [place] [address] Glucose [Mass/Vol] 100 mg/dL Normal 70-100 [facility] Comment on above: Performed By: #### L [id number] ####[facility] (BEAKER)[address] [place] [address] Potassium [Moles/Vol] 4.2 mmol/L Normal 3.5-5.1 [facility] Comment on above: Performed By: #### L [id number] ####[facility] (BEAKER)[address] [place] [address] Sodium [Moles/Vol] 141 mmol/L Normal 136-145 [facility] Comment on above: Performed By: #### L [id number] ####[facility] [place] [address] Urea nitrogen [Mass/Vol] 18 mg/dL Normal 7-25 [facility] Comment on above: Performed By: #### L [id number] ####[facility] [place] [address] UREA NITROGEN/CREATININE (MASS RATIO) IN SER/PLAS 18.9 Normal [facility] Comment on above: Performed By: #### L [id number] ####[facility] [address] CBCon 04-02-2023 Erythrocyte distribution width (RBC) [Ratio] 15.1 % High 11.5-15.0 [facility] Comment on above: Performed By: #### L [id number] ####[facility] [address] ERYTHROCYTE MEAN CORPUSCULAR HEMOGLOBIN CONCENTRATION (G/DL) BY AUTOMATED 32.5 g/dL Normal 32.0-35.0 [facility] Comment on above: Performed By: #### L [id number] ####[facility] [place] [address] Hematocrit (Bld) [Volume fraction] 54.7 % Normal 39.0-55.0 [facility] Comment on above: Performed By: #### L [id number] ####[facility] [address] Hemoglobin (Bld) [Mass/Vol] 17.8 g/dL High 13.0-17.0 [facility] Comment on above: Performed By: #### L [id number] ####[facility] (BEAKER)[address] [place] [address] MCH (RBC) [Entitic mass] 29.3 pg Normal 27.0-33.0 [facility] Comment on above: Performed By: #### L [id number] ####[facility] [place] [address] MCV (RBC) [Entitic vol] 90.1 fL Normal 82.0-98.0 [facility] Comment on above: Performed By: #### L [id number] ####[facility] ([facility])[address] [place] [address] PLATELETS (10*3/UL) IN BLOOD AUTOMATED COUNT 245 10*3/uL Normal 150-400 [facility] Comment on above: Performed By: #### L [id number] ####[facility] ([facility])[address] [place] [address] RBC (Bld) [#/Vol] 6.07 10*6/uL High 4.20-5.70 [facility] Comment on above: Performed By: #### L [id number] ####[facility] ([facility])[address] [place] [address] WBC (Bld) [#/Vol] 9.12 10*3/uL Normal 4.00-10.60 [facility] Comment on above: Performed By: #### L [id number] ####[facility] ([facility])[address] [place] [address] CONSULTon 04-02-2023 CONSULT Clinical Nutrition Assessment: Name: Cory Colin Room: [address] [place] [address] Date: 1965 Date of Visit: 04/02/23 Admission Dx: Decompensated heart failure (CMS/[facility]) [I50.9] Reason for assessment: consult for HF [...] Value Date/Time BUN 20 04/01/2023452 CREATININE 0.89 04/01/2023452 NA 140 04/01/2023452 K 3.5 04/01/2023452 PHOS 4.2 04/01/2023452 MG [...] denies chewing difficulty 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 Limited medical hx available per chart review [...] ideal body weight (75.5 kg) Calorie needs: 7514-8730 kcals/day based on Equation: 25-30 kcal/kg Protein needs: 76-91 g/day based on 1.0-1.2 g/kg Nutrition Diagnosis: Food and nutrition knowledge deficit Related to: lack of prior exposure to diet ed/misinformation As evidenced by: pt and pt's family statements Malnutrition Assessment: Hand Grasp/Motor Function/Sensation Assessment: Grasp, Dorsiflexion, Plantar flexion R Hand Grasp: Strong L Hand Grasp: Strong (Architect Marine strength not assessed by RD) Patient at risk for malnutrition according to hospital criteria, but does not meet the clinical characteristics per the Academy of Nutrition and Dietetics, and the [place] Society of Enteral and Parenteral Nutrition to support the diagnosis of malnutrition. Nutrition Education: Diet literature: Heart Healthy Nutrition Therapy (explained CHF-sodium relationship, reading nutrition labels, saturated fat vs unsaturated fat; recommended adequate intake of fruits/vegetables at each meal and for snacks a (more content not included)... Normal [facility] HPon 04-02-2023 HP H&P reviewed. The patient was examined and there are no changes to the H&P. 57-year-old man who is admitted due to newly discovered systolic heart failure will undergo cardiac catheterization to rule out ischemic etiology. I explained the procedure in detail along with risks and benefits. He understands and agrees to proceed. [facility] MAGNESIUMon 04-02-2023 Magnesium [Mass/Vol] 2.3 mg/dL Normal 1.9-2.7 [facility] Comment on above: Performed By: #### L [id number] #### [facility] ([facility]AKER) [address] [place] [address] 30on 04-01-2023 30 The patient is Moderately [...] the next 3 months Outcome: Progressing Normal [facility] 30 Problem: Heart Failu re diagnosis [...] the shift include Stable vital signs Normal [facility] APTTon 04-01-2023 ACTIVATED PARTIAL THROMBOPLASTIN TIME IN PPP BY COAGULATION ASSAY 29.8 Seconds Normal 25.0-35.0 [facility] Comment on above: Result Comment: Clin ical significance of the APTT is questionable in the presence of heparin. Performed By: #### L [id number] ####[facility] ([facility])[address] [place] [address] B-TYPE NATRIURETIC PEPTIDEon 04-01-2023 Natriuretic peptide B (Bld) [Mass/Vol] 273 pg/mL High 0-100 [facility] Comment on above: Performed By: #### L [id number] #### [facility] ([facility]) [address] [place] [address] CBC WITH AUTO DIFFERENTIALon 04-01-2023 Basophils (Bld) [#/Vol] 0.05 10*3/uL Normal 0.00-0.20 [facility] Comment on above: Performed By: #### L [id number] #### [facility] ([facility]) [address] [place] [address] Basophils/100 WBC (Bld) 0.5 % Normal 0.0-1.0 [facility] Comment on above: Performed By: #### L [id number] #### [facility] ([facility]) [address] [place] [address] Eosinophils (Bld) [#/Vol] 0.19 10*3/uL Normal 0.00-0.50 [facility] Comment on above: Performed By: #### L [id number] #### [facility] ([facility]) [address] [place] [address] Eosinophils/100 WBC (Bld) 2.1 % Normal 0.0-6.0 [facility] Comment on above: Performed By: #### L [id number] #### [facility] (BEAKER) [address] [place] [address] Erythrocyte distribution width (RBC) [Ratio] 14.5 % Normal 11.5-15.0 [facility] Comment on above: Performed By: #### L [id number] #### [facility] [address] [place] [address] ERYTHROCYTE MEAN CORPUSCULAR HEMOGLOBIN CONCENTRATION (G/DL) BY AUTOMATED 33.1 g/dL Normal 32.0-35.0 [facility] Comment on above: Performed By: #### L [id number] #### [facility] ([facility]) [address] [place] [address] Hematocrit (Bld) [Volume fraction] 47.8 % Normal 39.0-55.0 [facility] Comment on above: Performed By: #### L [id number] #### [facility] ([facility]) [address] [place] [address] Hemoglobin (Bld) [Mass/Vol] 15.8 g/dL Normal 13.0-17.0 [facility] Comment on above: Performed By: #### L [id number] #### [facility] ([facility]) [address] [place] [address] Immature granulocytes (Bld) [#/Vol] 0.03 10*3/uL Normal 0.00-0.20 [facility] Comment on above: Performed By: #### L [id number] #### [facility] (BEAKER) [address] [place] [address] Immature granulocytes/100 WBC (Bld) 0.3 % Normal 0.0-1.0 [facility] Comment on above: Performed By: #### L [id number] #### [facility] (BEAKER) [address] [place] [address] Lymphocytes (Bld) [#/Vol] 1.69 10*3/uL Normal 1.20-4.00 [facility] Comment on above: Performed By: #### L [id number] #### [facility] ([facility]ER) [address] [place] [address] Lymphocytes/100 WBC (Bld) 18.3 % Low 20.0-45.0 [facility] Comment on above: Performed By: #### L [id number] #### [facility] [address] [place] [address] MCH (RBC) [Entitic mass] 29.6 pg Normal 27.0-33.0 [facility] Comment on above: Performed By: #### L [id number] #### [facility] [address] [place] [address] MCV (RBC) [Entitic vol] 89.5 fL Normal 82.0-98.0 [facility] Comment on above: Performed By: #### L [id number] #### [facility] ([facility]) [address] [place] [address] Monocytes (Bld) [#/Vol] 1.05 10*3/uL High 0.10-1.00 [facility] Comment on above: Performed By: #### L [id number] #### [facility] ([facility]) [address] [place] [address] Monocytes/100 WBC (Bld) 11.4 % Normal 5.0-12.0 [facility] Comment on above: Performed By: #### L [id number] #### [facility] [address] [place] [address] Neutrophils (Bld) [#/Vol] 6.20 10*3/uL Normal 1.60-7.60 [facility] Comment on above: Performed By: #### L [id number] #### [facility] [address] [place] [address] Neutrophils/100 WBC (Bld) 67.4 % Normal 40.0-72.0 [facility] Comment on above: Performed By: #### L [id number] #### [facility] (BEAKER) [address] [place] [address] NRBC (PER 100 WBCS) BY AUTOMATED COUNT 0.0 % Normal 0 [facility] Comment on above: Performed By: #### L [id number] #### [facility] [address] [place] [address] PLATELETS (10*3/UL) IN BLOOD AUTOMATED COUNT 231 10*3/uL Normal 150-400 [facility] Comment on above: Performed By: #### L [id number] #### [facility] ([facility]) [address] [place] [address] RBC (Bld) [#/Vol] 5.34 10*6/uL Normal 4.20-5.70 [facility] Comment on above: Performed By: #### L [id number] #### [facility] ([facility]) [address] [place] [address] WBC (Bld) [#/Vol] 9.21 10*3/uL Normal 4.00-10.60 [facility] Comment on above: Performed By: #### L [id number] #### [facility] ([facility]) [address] [place] [address] Basophils (Bld) [#/Vol] 0.05 10*3/uL Normal 0.00-0.20 [facility] Comment on above: Performed By: #### L [id number] #### [facility] [address] [place] [address] Basophils/100 WBC (Bld) 0.5 % Normal 0.0-1.0 [facility] Comment on above: Performed By: #### L [id number] #### [facility] [address] [place] [address] Eosinophils (Bld) [#/Vol] 0.17 10*3/uL Normal 0.00-0.50 [facility] Comment on above: Performed By: #### L [id number] #### [facility] ([facility]ER) [address] [place] [address] Eosinophils/100 WBC (Bld) 1.6 % Normal 0.0-6.0 [facility] Comment on above: Performed By: #### L [id number] #### [facility] ([facility]) [address] [place] [address] Erythrocyte distribution width (RBC) [Ratio] 14.5 % Normal 11.5-15.0 [facility] Comment on above: Performed By: #### L [id number] #### [facility] ([facility] [address] [place] [address] ERYTHROCYTE MEAN CORPUSCULAR HEMOGLOBIN CONCENTRATION (G/DL) BY AUTOMATED 32.7 g/dL Normal 32.0-35.0 [facility] Comment on above: Performed By: #### L [id number] #### [facility] ([facility] [place] [address] [place] [address] Hematocrit (Bld) [Volume fraction] 51.3 % Normal 39.0-55.0 [facility] Comment on above: Performed By: #### L [id number] #### [facility] ([facility] [place]) [address] [place] [address] Hemoglobin (Bld) [Mass/Vol] 16.8 g/dL Normal 13.0-17.0 [facility] Comment on above: Performed By: #### L [id number] #### [facility] ([facility] [place] [address] [place] [address] Immature granulocytes (Bld) [#/Vol] 0.04 10*3/uL Normal 0.00-0.20 [facility] Comment on above: Performed By: #### L [id number] #### [facility] ([facility] [place]) [address] [address] Immature granulocytes/100 WBC (Bld) 0.4 % Normal 0.0-1.0 [facility] Comment on above: Performed By: #### L [id number] #### [facility] [address] [place] [address] Lymphocytes (Bld) [#/Vol] 1.86 10*3/uL Normal 1.20-4.00 [facility] Comment on above: Performed By: #### L [id number] #### [facility] ([facility]) [address] [place] [address] Lymphocytes/100 WBC (Bld) 17.6 % Low 20.0-45.0 [facility] Comment on above: Performed By: #### L [id number] #### [facility] [address] [place] [address] MCH (RBC) [Entitic mass] 29.1 pg Normal 27.0-33.0 [facility] Comment on above: Performed By: #### L [id number] #### [facility] ([facility] [address] [place] [address] MCV (RBC) [Entitic vol] 88.9 fL Normal 82.0-98.0 [facility] Comment on above: Performed By: #### L [id number] #### [facility] [address] [place] [address] Monocytes (Bld) [#/Vol] 1.18 10*3/uL High 0.10-1.00 [facility] Comment on above: Performed By: #### L [id number] #### [facility] [address] [place] [address] Monocytes/100 WBC (Bld) 11.2 % Normal 5.0-12.0 [facility] Comment on above: Performed By: #### L [id number] #### [facility] ([facility]) [address] [place] [address] Neutrophils (Bld) [#/Vol] 7.27 10*3/uL Normal 1.60-7.60 [facility] Comment on above: Performed By: #### L [id number] #### [facility] ([facility]) [address] [place] [address] Neutrophils/100 WBC (Bld) 68.7 % Normal 40.0-72.0 [facility] Comment on above: Performed By: #### L [id number] #### [facility] ([facility]) [address] [place] [address] NRBC (PER 100 WBCS) BY AUTOMATED COUNT 0.0 % Normal 0 [facility] Comment on above: Performed By: #### L [id number] #### [facility] ([facility]) [address] [place] [address] PLATELETS (10*3/UL) IN BLOOD AUTOMATED COUNT 266 10*3/uL Normal 150-400 [facility] Comment on above: Performed By: #### L [id number] #### [facility] ([facility]) [address] [place] [address] RBC (Bld) [#/Vol] 5.77 10*6/uL High 4.20-5.70 [facility] Comment on above: Performed By: #### L [id number] #### [facility] ([facility]) [address] [place] [address] WBC (Bld) [#/Vol] 10.57 10*3/uL Normal 4.00-10.60 [facility] Comment on above: Performed By: #### L [id number] #### [facility] ([facility]) [address] [place] [address] COMPREHENSIVE METABOLIC PANE Edilberto 04-01-2023 Albumin [Mass/Vol] 3.7 g/dL Normal 3.5-5.7 [facility] Comment on above: Performed By: #### L [id number] ####[facility] ([facility] [place])[address] [place] [address] ALP [Catalytic activity/Vol] 79 U/L Normal 34-104 [facility] Comment on above: Performed By: #### L [id number] ####[facility] ([facility])[address] [place] [address] ALT [Catalytic activity/Vol] 26 U/L Normal 7-52 [facility] Comment on above: Performed By: #### L [id number] ####[facility] ([facility])[address] [place] [address] Anion gap [Moles/Vol] 10 mmol/L Normal 7-20 [facility] Comment on above: Performed By: #### L [id number] ####[facility] [place] [address] AST [Catalytic activity/Vol] 23 U/L Normal 13-39 [facility] Comment on above: Performed By: #### L [id number] ####[facility] ([facility] [place])[address] [place] [address] Bilirubin [Mass/Vol] 1.5 mg/dL High 0.3-1.0 [facility] Comment on above: Performed By: #### L [id number] ####[facility] ([facility] [place] [place] [address] Calcium [Mass/Vol] 8.9 mg/dL Normal 8.6-10.3 [facility] Comment on above: Performed By: #### L [id number] ####[facility] ([facility] [place])[address] [place] [address] Chloride [Moles/Vol] 104 mmol/L Normal 98-107 [facility] Comment on above: Performed By: #### L [id number] ####[facility] [place] [address] CO2 [Moles/Vol] 30 mmol/L Normal 21-31 [facility] Comment on above: Performed By: #### L [id number] ####[facility] [place] [address] Creatinine [Mass/Vol] 0.89 mg/dL Normal 0.70-1.30 [facility] Comment on above: Performed By: #### L [id number] ####[facility] [place] [address] GLOMERULAR FILTRATION RATE ML/MIN/1.73 SQ M.PREDICTED 101.2 mL/min/1.73m*2 Normal >60.0 [facility] Comment on above: Result Comment: The [facility]???s estimated glomerular filtration rate (eGFR) will [...] of individuals. Performed By: #### L [id number] ####[facility] ([facility])[address] [place] [address] Glucose [Mass/Vol] 92 mg/dL Normal 70-100 [facility] Comment on above: Performed By: #### L [id number] ####[facility] ([facility])[address] [place] [address] Potassium [Moles/Vol] 3.5 mmol/L Normal 3.5-5.1 [facility] Comment on above: Performed By: #### L [id number] ####[facility] ([facility])[address] [place] [address] Protein [Mass/Vol] 6.0 g/dL Normal 6.0-8.3 [facility] Comment on above: Performed By: #### L [id number] ####[facility] ([facility])[address] [place] [address] Sodium [Moles/Vol] 140 mmol/L Normal 136-145 [facility] Comment on above: Performed By: #### L [id number] ####[facility] ([facility])[address] [place] [address] Urea nitrogen [Mass/Vol] 20 mg/dL Normal 7-25 [facility] Comment on above: Performed By: #### L [id number] ####[facility] ([facility])[address] [place] [address] UREA NITROGEN/CREATININE (MASS RATIO) IN SER/PLAS 22.5 Normal [facility] Comment on above: Performed By: #### L [id number] ####[facility] [place] [address] Albumin [Mass/Vol] 4.3 g/dL Normal 3.5-5.7 [facility] Comment on above: Performed By: #### L [id number] #### [facility] [address] [place] [address] ALP [Catalytic activity/Vol] 84 U/L Normal 34-104 [facility] Comment on above: Performed By: #### L [id number] #### [facility] ([facility]) [address] [place] [address] ALT [Catalytic activity/Vol] 28 U/L Normal 7-52 [facility] Comment on above: Performed By: #### L [id number] #### [facility] ([facility]) [address] [place] [address] Anion gap [Moles/Vol] 10 mmol/L Normal 7-20 [facility] Comment on above: Performed By: #### L [id number] #### [facility] ([facility]) [address] [place] [address] AST [Catalytic activity/Vol] 24 U/L Normal 13-39 [facility] Comment on above: Performed By: #### L [id number] #### [facility] [address] [place] [address] Bilirubin [Mass/Vol] 1.6 mg/dL High 0.3-1.0 [facility] Comment on above: Performed By: #### L [id number] #### [facility] [address] [place] [address] Calcium [Mass/Vol] 9.4 mg/dL Normal 8.6-10.3 [facility] Comment on above: Performed By: #### L [id number] #### [facility] ([facility]) [address] [place] [address] Chloride [Moles/Vol] 104 mmol/L Normal 98-107 [facility] Comment on above: Performed By: #### L [id number] #### [facility] ([facility] [address] [address] CO2 [Moles/Vol] 28 mmol/L Normal 21-31 [facility] Comment on above: Performed By: #### L [id number] #### [facility] ([facility]) [address] [place] [address] Creatinine [Mass/Vol] 1.01 mg/dL Normal 0.70-1.30 [facility] Comment on above: Performed By: #### L [id number] #### [facility] ([facility] [address] [place] [address] GLOMERULAR FILTRATION RATE ML/MIN/1.73 SQ M.PREDICTED 87.8 mL/min/1.73m*2 Normal >60.0 [facility] Comment on above: Result Comment: The [facility]???s estimated glomerular filtration rate (eGFR) will [...] individuals. Performed By: #### L [id number] #### [facility] ([facility]) [address] [place] [address] Glucose [Mass/Vol] 108 mg/dL High 70-100 [facility] Comment on above: Performed By: #### L [id number] #### [facility] ([facility]) [address] [address] Potassium [Moles/Vol] 3.8 mmol/L Normal 3.5-5.1 [facility] Comment on above: Performed By: #### L [id number] #### [facility] ([facility]) [address] [place] [address] Protein [Mass/Vol] 6.6 g/dL Normal 6.0-8.3 [facility] Comment on above: Performed By: #### L [id number] #### [facility] ([facility]) [address] [place] [address] Sodium [Moles/Vol] 138 mmol/L Normal 136-145 [facility] Comment on above: Performed By: #### L [id number] #### [facility] ([facility]) [address] [place] [address] Urea nitrogen [Mass/Vol] 20 mg/dL Normal 7-25 [facility] Comment on above: Performed By: #### L [id number] #### [facility] ([facility]) [address] [place] [address] UREA NITROGEN/CREATININE (MASS RATIO) IN SER/PLAS 19.8 Normal [facility] Comment on above: Performed By: #### L [id number] #### [facility] ([facility]) [address] [place] [address] CONSULTon 04-01-2023 CONSULT -- Attestation signed by [...] is presenting as a direct admission from [facility]/ER where he presented for SOB and swelling for weeks to months. Patient reports that he has been experiencing worsening shortness of breath episodes associated with bilateral leg swelling for weeks to months with significant amount of edema progressing up bilateral lower extremities into groin and lower abdomen. Patient states upon arrival to [place] [facility] he was over 340 pounds. While at [facility] he received treatment with IV Lasix, carvedilol, and Aldactone. Patient is now down to 305 pounds and still significantly edematous. Echo completed at [facility] shows EF of 30-35%. Patient was [...] -- 91 -- 97 % -- -- 03/31/23 2132 -- -- -- -- -- -- -- (!) 138 kg (305 lb) 03/31/239 -- -- -- -- -- -- 1.778 m (5' 10 ) -- 03/31/23 2103 117/88 36.5 ???C (97.7 ???F) Oral 58 16 94 % -- -- Physical Examination: GENERAL: AOx3, in no acute distress. HEAD: Atraumatic, normocephalic. EYES: ENRISSA, EOMI. NECK: No JVD present. CARDIAC: RRR. No murmur, rubs, or gallops. RESPIRATORY: CTAB, no increased effort of breathing. ABDOMEN: Soft, nontender, nondistended. EXTREMITIES: No lower extremity edema, peripheral pulses are 2+ bilaterally. NEURO: No focal deficits Relevant Lab Results Encounter Date: 03/31/23 ECG 12 lead Result Value Ventricular Rate 97 Atrial Rate 97 ID Interval 166 QRS DURATION 144 QT Interval 400 QTC CALCULATION(BAZETT) 508 P [place] 42 R-[place] -76 T Wave [place] 60 Impression Sinus rhythm with frequent and [...] Results Electr (more content not included)... Normal [facility] HEMOGLOBIN A1Con 04-01-2023 Glucose [Mass/Vol] 131 mg/dL Normal [facility] Comment on above: Performed By: #### L [id number] #### [facility] ([facility]) [address] [place] [address] HbA1c (Bld) [Mass fraction] 6.2 % High 4.0-6.0 [facility] Comment on above: Performed By: #### L [id number] #### [facility] ([facility]) [address] [place] [address] HPon 04-01-2023 HP -- Attestation signed by [...] is presenting as a direct admission from [facility]/ER where he presented for SOB and swelling for weeks to months. Patient reports that he has been experiencing worsening shortness of breath episodes associated with bilateral leg swelling for weeks to months with significant amount of edema progressing up bilateral lower extremities into groin and lower abdomen. [facility] over [facility]. While at [facility] he received treatment with IV Lasix, carvedilol, and Aldactone. Patient is now down to 305 pounds and still significantly edematous. Echo completed at [facility] shows EF of 30-35%. Patient was [...] Value Ventricular Rate 97 Atrial Rate 97 ID Interval 166 QRS DURATION 144 QT Interval 400 QTC CALCULATION(BAZETT) 508 P [place] 42 R-[place] -76 T Wave [place] 60 Impression Sinus rhythm with frequent and [...] Results Electr (more content not included)... Normal [facility] LACTIC ACID WITH 4 HOUR REFL EXon 04-01-2023 LACTATE (MMOL/L) IN SER/PLAS 0.8 mmol/L Normal 0.5-2.2 [facility] Comment on above: Performed By: #### L [id number] ####[facility] ([facility])[address] [place] [address] LIPID PANELon 04-01-2023 CHOL/HDL 4.9 mg/dL Normal [facility] Comment on above: Performed By: #### L [id number] ####[facility] ([facility])[address] [place] [address] Cholesterol [Mass/Vol] 148 mg/dL Normal 120-200 [facility] Comment on above: Performed By: #### L [id number] ####[facility] ([facility])[address] [place] [address] Magnesium [Mass/Vol] 102 mg/dL Normal 40-149 [facility] Comment on above: Result Comment: TRIG LYCERIDE REFERENCE RANGE: 20 YEARS AND OLDER CARDIOVASCULAR RISK LESS THAN 150 mg/dL LOW RISK 150 TO 199 mg/dL BORDERLINE RISK 200 mg/dL AND GREATER HIGH RISK Performed By: #### L [id number] ####[facility] ([facility])[address] [place] [address] Magnesium [Mass/Vol] 98 mg/dL Normal 0-160 [facility] Comment on above: Performed By: #### L [id number] ####[facility] ([facility])[address] [place] [address] Magnesium [Mass/Vol] 30 mg/dL Normal 23-92 [facility] Comment on above: Performed By: #### L [id number] ####[facility] ([facility])[address] [place] [address] NON HDL CHOL. (LDL+VLDL) 118 Normal [facility] Comment on above: Performed By: #### L [id number] ####[facility] ([facility] [place])[address] [place] [address] TOTAL VLDL-C 20 mg/dL Normal 0-40 [facility] Comment on above: Performed By: #### L [id number] ####[facility] ([facility])[address] [place] [address] MAGNESIUMon 04-01-2023 Magnesium [Mass/Vol] 2.0 mg/dL Normal 1.9-2.7 [facility] Comment on above: Performed By: #### L [id number] #### [facility] ([facility]) [address] [place] [address] Magnesium [Mass/Vol] 2.1 mg/dL Normal 1.9-2.7 [facility] Comment on above: Performed By: #### L [id number] #### [facility] ([facility]) [address] [place] [address] PHOSPHORUSon 04-01-2023 Magnesium [Mass/Vol] 4.2 mg/dL Normal 2.5-5.0 [facility] Comment on above: Performed By: #### L [id number] ####[facility] ([facility] [place])[address] [place] [address] Magnesium [Mass/Vol] 4.4 mg/dL Normal 2.5-5.0 [facility] Comment on above: Performed By: #### L [id number] #### [facility] ([facility]) [address] [place] [address] PROTIME-INRon 04-01-2023 INR IN PPP BY COAGULATION ASSAY 1.04 Normal 0.90-1.10 [facility] Comment on above: Result Comment: ACCC [...] 1995;[id number]. Performed By: #### L [id number] #### [facility] ([facility] [place] [address] [place] [address] PROTHROMBIN TIME (PT) IN PPP BY COAGULATION ASSAY 13.6 Seconds Normal 12.3-14.8 [facility] Comment on above: Performed By: #### L [id number] #### [facility] ([facility] [place]) [address] [place] [address] T4, FREEon 04-01-2023 THYROXINE (T4) FREE (NG/DL) IN SER/PLAS 1.03 ng/dL Normal 0.71-1.85 [facility] Comment on above: Performed By: #### L [id number] #### [facility] [place] [address] [place] [address] TROPONIN Ion 04-01-2023 Troponin I.cardiac [Mass/Vol] 0.03 ng/mL Normal 0.00-0.04 [facility] Comment on above: Performed By: #### L [id number] #### [facility] ([facility] [place]) [address] [place] [address] Troponin I.cardiac [Mass/Vol] 0.04 ng/mL Normal 0.00-0.04 [facility] Comment on above: Performed By: #### L [id number] #### [facility] ([facility] [place]) [address] [place] [address] TSHon 04-01-2023 THYROTROPIN (MIU/L) IN SER/PLAS BY DETECTION LIMIT <= 0.05 MIU/L 4.86 mIU/L Normal 0.34-5.60 [facility] Comment on above: Performed By: #### L [id number] #### [facility] ([facility] [place]) [address] [place] [address] TSH3 REFLEX TO FT4on 024 THYROTROPIN (MIU/L) IN SER/PLAS BY DETECTION LIMIT <= 0.05 MIU/L 4.16 mIU/L Normal 0.34-5.60 [facility] Comment on above: Performed By: #### L [id number] ####[facility] ([facility])[address] [place] [address] URINALYSISon 04-01-2023 BILIRUBIN, TOTAL PRESENCE IN URINE Negative Normal Negative [facility] Comment on above: Performed By: #### L [id number] #### [facility] ([facility]) [address] [place] [address] Clarity (U) Clear Normal Clear [facility] Comment on above: Performed By: #### L [id number] #### [facility] ([facility] [address] [place] [address] Color (U) Yellow Normal Yellow [facility] Comment on above: Performed By: #### L [id number] #### [facility] ([facility]) [address] [place] [address] Glucose (U) [Mass/Vol] Negative Normal Negative [facility] Comment on above: Performed By: #### L [id number] #### [facility] ([facility] [place]) [address] [place] [address] HEMOGLOBIN PRESENCE IN URINE Negative Normal Negative [facility] Comment on above: Performed By: #### L [id number] #### [facility] ([facility] [place]) [address] [place] [address] Ketones Ql (U) Negative Normal Negative [facility] Comment on above: Performed By: #### L [id number] #### [facility] ([facility]) [address] [place] [address] LEUKOCYTE ESTERASE PRESENCE IN URINE BY TEST STRIP Trace Abnormal Negative [facility] Comment on above: Performed By: #### L [id number] #### [facility] ([facility] [address] [place] [address] NITRITE PRESENCE IN URINE Negative Normal Negative [facility] Comment on above: Performed By: #### L [id number] #### [facility] ([facility]) [address] [place] [address] pH (U) 6.0 [pH] Normal 5.0-8.0 [facility] Comment on above: Performed By: #### L [id number] #### [facility] ([facility]) [address] [place] [address] Protein (U) [Mass/Vol] Negative Normal Negative [facility] Comment on above: Performed By: #### L [id number] #### [facility] ([facility]) [address] [place] [address] Specific gravity (U) [Rel density] 1.018 Normal 1.015-1.020 [facility] Comment on above: Performed By: #### L [id number] #### [facility] ([facility]) [address] [place] [address] UROBILINOGEN (EU/DL) IN URINE 4.0 EU/dL Abnormal Negative [facility] Comment on above: Performed By: #### L [id number] #### [facility] ([facility] [address] [place] [address] URINALYSIS MICROSCOPICon CASTS IN URINE Normal [facility] Comment on above: Performed By: #### L [id number] #### [facility] ([facility]) [address] [place] [address] CRYSTALS IN URINE Normal [facility] Comment on above: Performed By: #### L [id number] #### [facility] ([facility]) [address] [place] [address] MUCUS (#/HPF) IN URINE SEDIMENT Occasional Normal None Seen, Occasional, Few [facility] Comment on above: Performed By: #### L [id number] #### [facility] ([facility]) [address] [place] [address] RBC (#/HPF) IN URINE SEDIMENT 0-2 Abnormal None Seen [facility] Comment on above: Performed By: #### L [id number] #### [facility] ([facility]) [address] [place] [address] SQUAMOUS EPITHELIAL CELLS (#/HPF) IN URINE SEDIMENT Occasional Normal None Seen, Occasional [facility] Comment on above: Performed By: #### L [id number] #### [facility] ([facility]) [address] [place] [address] WBC (LEUKOCYTE) (#/HPF) IN URINE SEDIMENT 3-5 Abnormal None Seen [facility] Comment on above: Performed By: #### L [id number] #### [facility] ([facility]) [address] [place] [address] Encounters Encounter Date Encounter Type Care Provider Facility Start: 08-01-2023 End: 08-01-2023 ambulatory [facility] Start: 06-29-2023 End: 06-29-2023 ambulatory [facility] Start: 05-10-2023 End: 05-10-2023 ambulatory [facility] Start: 05-07-2023 End: 05-07-2023 ambulatory SHAIKH [...] Evaluation and management of inpatient HINA JIMENEZ [facility] Start: 04-01-2023 Evaluation and management of inpatient CORINNA WALKER [facility] Start: 04-01-2023 Evaluation and management of inpatient KATRINA HELMS [facility] Start: 03-31-2023 End: 04-03-2023 Evaluation and management of inpatient EVETTE LEE [facility] Procedures Date Procedure Procedure Detail Performing Clinician Start: 04-17-2023 ALL BASIC METABOLIC PANEL Generic External Data Provider Plan of Treatment Date Care Activity Detail Author Start: 05-07-2023 End: 05-07-2023 Patient encounter procedure 05/07/2023 6:00 PM EST Office Visit [facility] [address] [place] [address] Shaikh Kelley MD [address] [place] [id number] [facility] Start: 04-11-2023 End: 04-11-2024 Basic metabolic 1998 panel - Serum or Plasma Basic metabolic panel Lab Routine JAZZ (acute kidney injury) (CMS/[facility]) Expected: 04/11/2023 (Approximate), Expires: 04/11/2024 [facility] Work Phone: Comment on above: Expected: 04/11/2023 (Approximate), Expires: 04/11/2024 Start: 11-03-2022 Influenza vaccination Influenz a Vaccine (#1) [facility] Start: 1965 Screening for malign ant neoplasm of colon [facility] Healthcare Payers Date Payer Category Payer Unknown [employer] [id number] 2023-Present [phone] [address] [address] [place] [address] [id number] 2022 Unknown [id number] 1965 Unknown [id number] 1965 Unknown [id number] Social History Date Type Detail Facility Start: [facility]05[facility]23 [facility] History of tobacco use Passive smoker [facility] Start: 04-05-2023 Tobacco use and exposure Smokeless t obacco non-user [facility] Start: 04-05-2023 Alcohol intake Lifetime non-d cheryl (finding) [facility] Start: 04-05-2023 History of Social function [facility] Start: 04-05-2023 Tobacco use panel [facility] Start: 1965 Sex Assigned At Not on file [facility] Clinical Notes 04-01-2023 to 08-01-2023 Shaikh Allie MD - 04/11/2023 9:13 AM ESTSfaiban Kelley MD - 04/11/2023 9:11 AM EST Note Date & Type Note Facility 08-01-2023 Note [facility] Subjective Cory Colin is a 58 y.o. year old male patient being seen for 1 mo follow up chronic systolic heart failure, NICM, SVT, and hypertension. Lisinopril was increased to 10mg and he was re-started on spironolactone at last apt in June 2023. Spironolactone was again stopped after blood work on 07/13/2023. Had repeat BMP on 07/19 and again yesterday. He denies chest pain, SOB, LE edema, and palpitations. C/o intermittent lightheadedness upon standing. Says he's sluggish since last medication change. Goes to cardiac rehab once a week. Patient Active Problem List Diagnosis Decompensated heart [...] some weeks none Drug use: Never HPI Cory seen in follow-up. He is a 58-year-old man who back [...] did not have any significant valvular dysfunction. On further questioning he reports that the symptoms may have started around January 2023. Following that he had acute renal dysfunction when he was on Farxiga, Entresto and spironolactone. His medical therapy was modified and Entresto and spironolactone were held. Farxiga was changed to Jardiance due to insurance issues and he had to stop it due to diarrhea. He is adopted so family history is not known. At visit of 06/29/2023 I challenged him again with spironolactone 12.5 mg once daily. I increased lisinopril to 10 mg once daily. Follow-up BMP showed worsening renal function and I stopped spironolactone. His most recent BMP on 07/31/2023 showed renal function significantly improved. He is currently on aspirin 81 mg daily, atorvastatin 40 mg daily, lisinopril 10 mg daily, metoprolol succinate 50 mg once daily. He currently reports that he has been feeling much better. He has no shortness of breath on exertion, NYHA class I. He has no chest pain and no lower extremity edema. He is going to cardiac rehab regularly and doing well. Review of Systems Constitutional: Positive for malaise/fatigue (intermittent). Neurological: Positive for light-headedness. Objective Visit Vitals BP 119/72 (BP Location: Right arm, Patient Position: Standing) Pulse 68 Ht 1.778 m (5' 10 ) Wt 111 kg (244 lb) SpO2 96% BMI 35.01 kg/m??? Smoking Status Never BSA 2.34 m??? Physical Exam Constitutional: Appearance: He is [...] 1/2 pill), Disp: 90 tablet, Rfl: 3 lisinopril 10 mg tablet, Take 1 tablet (10 mg) by mouth in the mornin (more content not included)... [facility] 06-29-2023 Note [facility] Subjective Cory Colin is a 58 [...] 3 spironolactone (Aldactone) (more content not included)... [facility] 05-10-2023 Note Cardiovascular Medic in[facility] [place] [facility] SUBJECTIVE Chief Complaint Patient presents with [...] (H) 70 - (more content not included)... [facility] 05-10-2023 Note Patient here for 1 m o follow up chronic systolic heart failure and hypertension. His event monitor was finished last week, but no final report yet. Entresto was stopped since last visit. Hasn't had to take lasix recently. Review of Systems Neurological: Tingling in LLE All other systems reviewed and are negative. [facility] 04-18-2023 Note [id number] Bibiana Colin robert Brittany 1965 M Date Provider Department Center 04/18/2023 Gracie-YA GARCIA [facility] Family History Adopted: Yes [facility] 04-11-2023 Note Cardiovascular Medic [facility] SUBJECTIVE Chief Complaint Patient presents with [...] Summary Final Discharge Diagnosis: Decompensated heart failure ([facility]) Decompensated CHF /fluid overload Hypertension JAZZ Bilateral lower extremity edema Shortness of breath Admission Diagnosis: Decompensated heart failure (CMS/[facility]) [I50.9] Hospital course: Cory Colin is an 57 y.o. male who came from [facility] with minimal to no medical history x 10 years as he states he has not seen a provider nor had any medical treatment in over 10 years and denies taking any prescription medications, djyg-eaf-bjuiemg medications or herbals at this time. Patient states he does not even take bdyy-ndb-nkqcnsv Tylenol or ibuprofen and stopped taking both of those years ago. Patient reports he has been experiencing shortness of breath and swelling for weeks to months with significant amount of edema progressing up bilateral lower extremities into groin and lower abdomen. Patient states upon arrival to [place] ER he was over 340 pounds. While at [facility] he received treatment with IV Lasix, carvedilol, and Aldactone. Patient is now down to 305 pounds and still significantly edematous. Echo completed at [facility] shows EF of 30-35%. Patient diagnosed [...] Active Problem List Diagnosis Decompensated heart failure ([facility]) Hypertension Bilateral lower extremity edema Dyspnea on exertion Obesity Knowledge deficit about therapeutic diet Anxiety about knowledge deficit Encounter to establish care with new doctor NICM (nonischemic cardiomyopathy) ([facility]) Past Medical History: Diagnosis Date CHF (congestive heart failure) ([facility]) Family History Adopted: Yes Social History Tobacco [...] daily as directed (more content not included)... [facility] 04-11-2023 Note Patient here for [facility] for CHF. He had orientation at cardiac [...] All other systems reviewed and are negative. [facility] 04-11-2023 History of Present illness Narrative Associated Problem(s): JAZZ (acute kidney injury) (CMS/[facility]) Worsening renal function with Cr trending upward from normal baseline to 1.3 --> 1.8 Asked patient to stop Aldactone and Lasix for now. Recheck BMP in one week. Follow up after BMP. Problem List Items Addressed This Visit JZAZ (acute kidney injury) (CMS/[facility]) - Primary Worsening renal function with Cr trending upward from normal baseline to 1.3 --> 1.8 Asked patient to stop Aldactone and Lasix for now. Recheck BMP in one week. Follow up after BMP. 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 Yes ( I was filling up with fluid ) Who is your current PCP? Hasn't seen MD in 37 years other than few ER visits & required yearly physicals for health insurance; Has New PCP Appointment scheduled on Apr 05 @ 9:15am with Dr. Kelley in [place], [place] Can I schedule a follow up appointment for you at the time of discharge? Yes (go to [facility]) Do you understand why [...] Discharge? Yes Does the patient have a field case manager assigned to them through [...] discharge today: Home, no needs. Follow-up with [facility] [place]. will pick-up; Agreeable to iMeds. [facility] 04-03-2023 Note Attempted to meet wi th the patient. He is in with Malini BUSTAMANTE RN at this time. [facility] 04-03-2023 Note Spiritual Care Note Patient name: Cory Colin Age: 57 y.o. Room: [address] [place] [address] 04/03/23 1429 Clinical Encounter Type Visited With Patient;Spouse (Spouse by phone) Type of Visit Advance Directives Last Visit Date 04/03/23 Patient Spiritual Care Encounters Spiritual Care Assessment Hopeful (Pt completed HCPOA naming as agent & son as alternate. Pt shared a bit of his personal hx.) Pastoral Intervention Advance directives;Emotional support;Spiritual support (Shoe Maker assisted pt with completing HPCOA. Copies made, original & copies returned to pt, copy placed in pt chart.) Response Appreciative [facility] 04-03-2023 Note [facility]TP Cardiovascular M edicine [...] assess for improvement 3) outpatient follow-up with [facility] ECHO 04/02/2023 Left Ventricle: The left [...] - NICM -GDMT: (more content not included)... [facility] 04-03-2023 Note Attempted to meet wi th the patient. He is currently in with pastoral care. Will attempt to try again later. [facility] 04-02-2023 Note Patient: Cory Herrera rt Procedure Information Date/Time: 04/02/23 1330 Procedures: Coronary angiography Right heart cath Location: [facility] GROUND WORKER 2 BIPLANE / [facility] HVC VASCULAR LAB (Cath) Providers: Stephon Morrell MD [...] Plan discussed with attending. Additional Equipment Requests [facility] 04-02-2023 Note Attestation signed by Araceli [...] Teaching Physician's Revisions: none Araceli Schneider MD [facility] Progress Note Subjective Subjective: No [...] Value Ventricular Rate 97 Atrial Rate 97 ID Interval 166 QRS DURATION 144 QT Interval 400 QTC CALCULATION(BAZETT) 508 P [place] 42 R-[place] -76 T Wave [place] 60 Impression Sinus rhythm with frequent and consecutive Premature ventricular complexes and Fusion complexes Left axis deviation Right bundle branch block Abnormal ECG When compared with ECG of 01-APR-2023 00:38, Fusion complexes are now Present Confirmed by Dora Flood ([id number]) on 04/01/2023 9:43:42 PM Lab Results Component Value Date TROPONINI 0.03 04/01/2023 Transthoracic echo (TTE) complete Result Date: 04/02/2023 1 1 [facility] Heart Station [address] [place] [address] [phone] (fax) Echocardiogram-[facility] Name: CORY COLIN Study Date: 04/02/2023 11:46 AM B/P: 112 mmHg/57 mmHg HR: 100 bpm Date of : 1965 Location: [facility] Height: 70 in. Age: 57 year(s) Patient Room: [facility] Weight: 297 lb. Gender: Male Patient Status: [...] 2.3cm) Valvular Assessmen (more content not included)... [facility] 04-02-2023 Note Hospital Medicine Daily Progress Note - 04/02/2023 5:47 PM; Room: [address] [place] [address] Admission: 03/31/2023 9:13 PM; Length of stay: 2 days THE HOSPITALIST TEAM PREFERS TO USE [employer] CHAT FOR COMMUNICATION 7AM-7PM. IF I DO NOT RESPOND WITHIN 15 MINUTES, PLEASE PAGE ME/CALL THROUGH THE DIRECTOR ORGANIZATIONAL. FROM 7PM-7AM, PLEASE PAGE [phone](COVR) Code Status: Full Code Barriers to Discharge: [...] LDL 118 04/01/2023 No results found for: [id number] , IRON , TIBC , C3 , [...] months to assess (more content not included)... [facility] 04-02-2023 Note Pt admitted to [facility] for decompensated HF. Pt has echo scheduled; no previous echo on file. I will wait for current echo results to determine pt's eligibility to participate in cardiac rehab (CR) therapy with HF diagnosis and follow up with pt, if appropriate. JOSE WaltonN instructional design specialist Outpatient Coordinator Cardiopulmonary Rehab [facility] 04-02-2023 Note Patient was transfer red to 5th floor, room 5148. Telemetry box was removed and group underwriter called [facility] to inform them that the patient had been transferred to said unit and taken off the monitor, #105. [facility] 04-01-2023 Note Patients HR was sust aining in the 140's. Hospitalist called. Orders to give Lopressor IV once. Patient's Heart rate improved to the 130 s. Hospitalist called again. Patient has new orders to go to stepdown unit. Patient and notified. Shoe Maker will give report to nurseHelena and transport patient to 5148. Point of care will continue until then. [facility] 04-01-2023 Note Hospital Medicine Daily Progress Note - 04/01/2023 2:49 PM; Room: [facility] Admission: 03/31/2023 9:13 PM; Length of stay: 1 days THE HOSPITALIST TEAM PREFERS TO USE [employer] CHAT FOR COMMUNICATION 7AM-7PM. IF I DO NOT RESPOND WITHIN 15 MINUTES, PLEASE PAGE ME/CALL THROUGH THE DIRECTOR ORGANIZATIONAL. FROM 7PM-7AM, PLEASE PAGE [phone](COVR) Code Status: Full Code Barriers to Discharge: [...] edema Shortness of breath -Echocardiogram completed at [facility], ejection fraction 30-35% Continue 40mg IV [...] LDL 118 04/01/2023 No results found for: [id number] , IRON , TIBC , C3 , [...] ECG When co (more content not included)... [facility] 04-01-2023 Note Shoe Maker received a ca ll from [facility] that patient had a 4 beat of VTACH. Pt. Was assessed, was asymptomatic, Dr. Walker was paged. Also results of 2nd EKG was discussed along with patient's Magnesium and phosphorous. Patient also began to desat to 89%-90%. Shoe Maker put patient on 2 liters nasal cannula. Patient is satting at 96% now. Will continue point of care. [facility] 04-01-2023 Note Shoe Maker was taking monae mccarthy's vitals when patient started having 33 pvc's per 10 minutes sustaining per [facility]; Hospitalist was called, stat labs, EKG, chest xray were ordered. Patient is asymptomatic at this time. Will continue point of care. [facility] 04-01-2023 Note Hospital Medicine History and Physical 04/01/2023 12:08 AM THE HOSPITALIST TEAM PREFERS TO USE [employer] CHAT FOR COMMUNICATION 7AM-7PM. IF I DO NOT RESPOND WITHIN 15 MINUTES, PLEASE PAGE ME/CALL THROUGH THE DIRECTOR ORGANIZATIONAL. FROM 7PM-7AM, PLEASE PAGE [phone](COVR) Chief Complaint Direct admission from [facility]/ER where he presented for SOB and swelling for weeks to months. History of Present Illness Cory Colin is an 57 y.o. male who came from [facility] with minimal to no medical history x 10 years as he states he has not seen a provider nor had any medical treatment in over 10 years and denies taking any prescription medications, gxuv-qob-pcrpiwq medications or herbals at this time. Patient states he does not even take obip-wim-exqzktt Tylenol or ibuprofen and stopped taking both of those years ago. Patient reports he has been experiencing shortness of breath and swelling for weeks to months with significant amount of edema progressing up bilateral lower extremities into groin and lower abdomen. Patient states upon arrival to [place] ER he was over 340 pounds. While at [facility] he received treatment with IV Lasix, carvedilol, and Aldactone. Patient is now down to 305 pounds and still significantly edematous. Echo completed at [facility] shows EF of 30-35%. 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 Patient exhibits mild shortness of breath with [...] 2 seconds. Comments: Discoloration to anterior left aceevdo over patient reported site of historical second [...] Date Noted Decompen (more content not included)... [facility] Evaluation note Diagnosis JAZZ (acute kidney injury) ([facility])- Primary documented in this encounter [facility] Summary Purpose Family History No Family History Records FoundNo Family History Records Found Advance Directives No Advanced Directives Records FoundNo Advanced Directives Records Found Additional Source Comments Care Teams (unrecognized sec tion and content) Concrete Vibrator Operator Relationship Specialty Start Date End Date Shaikh Kelley MD [address] [place] [phone] PCP - General Internal Medicine 04/05/23 Concrete Vibrator Operator Relationship Specialty Start Date End Date Shaikh Kelley MD [address] [place] [phone] PCP - General Internal Medicine 04/05/23 (unrecognized sect ion and content) No Status Records FoundNo Status Records Found INFORMATION SOURCE (unrecogn ized section and content) DATE CREATED AUTHOR 05/08/2023 [facility] DATE CREATED AUTHOR AUTHOR'S ORGANIZ ATION 08/02/2023 [facility] FOR RECORDS PERTAINING TO PATIENTS WHO [...] BE BASED ON THE PRIMARY CLINICAL RECORDS. [facility]. provides no warranty or guarantee of the accuracy or completeness of information in this document.
[2023-08-16 08:07] LABS: Alanine Aminotransferase 38 U/L (16-63); Albumin Globulin Ratio 1.1; Albumin Level 3.6 g/dL (3.4-5.0); Alkaline Phosphatase 128 U/L (46-116); Anion Gap 12.5; Aspartate Amino Transferase 23 U/L (15-37); BUN Creatinine Ratio 19.6; Bilirubin Total 0.5 mg/dL (0.2-1.0); Calcium 8.9 mg/dL (8.5-10.1); Carbon Dioxide 28.4 mmol/L (21.0-32.0); Chloride 107 mmol/L (98-107); Chol HDL Ratio 2.5; Cholesterol 98 mg/dL (<=200); Estimated GFR (African America 60 (>=60); Estimated GFR (Non-African Ame 49 (>=60); Globulin 3.4 g/dL; Glucose 96 mg/dL (74-106); HDL Cholesterol 40 mg/dL (40-60); LDL Cholesterol Calculated 42.4 mg/dL; Potassium 3.9 mmol/L (3.5-5.1); Sodium 144 mmol/L (136-145); Triglycerides 78 mg/dL (<=150); VLDL CHOLESTEROL 15.6 mg/dL
== END 2023-08-16 07:12 | disposition home or self-care (01) ==
LOC: LAB 07:13
PROVIDERS: PCP Internal Medicine; Visit Provider Internal Medicine
DX: I50.20 Unspecified systolic (congestive) heart failure (principal); E78.5 Hyperlipidemia, unspecified
CPT/HCPCS: 36415; 80053; 80061

== ENCOUNTER 2023-09-26 08:52 | Outpatient (RCR) | payer OTHER, SELFPAY ==
--- NOTE | 2023-04-17 14:56 | CR1_ITS ---
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
--- NOTE | 2023-05-16 11:02 | CR1_ITS ---
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
--- NOTE | 2023-06-12 12:20 | CR1_ITS ---
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
--- NOTE | 2023-07-12 08:43 | CR1_ITS ---
[facility] Test Date: 2023-07-12 Pat Name: FLAKO COLIN Department: Room: - Gender: Male Grappler: : [id number] Requested By: JUNIOR HERNANDEZ Order Number: [id number] Reading MD: JUNIOR HERNANDEZ Interpretive Statements Session Date: Electronically Signed On 07-14-2023 8:25:39 EDT by JUNIOR HERNANDEZ
--- NOTE | 2023-08-13 13:19 | CR1_ITS ---
[facility] Test Date: 2023-08-13 Pat Name: FLAKO COLIN Department: Room: - Gender: Male Cruise Guide: : 1965 Requested By: JUNIOR HERNANDEZ Order Number: [id number] Violeta MD: JUNIOR HERNANDEZ Interpretive Statements Session Date: Electronically Signed On 08-13-2023 22:54:39 EDT by JUNIOR HERNANDEZ
--- NOTE | 2023-09-12 15:08 | CR1_ITS ---
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
--- NOTE | 2023-10-11 15:49 | CR1_ITS ---
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
--- NOTE | 2023-11-13 07:29 | CR1_ITS ---
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
--- NOTE | 2023-12-14 09:51 | CR1_ITS ---
[facility] Test Date: 2023-12-14 Pat Name: FLAKO COLIN Department: Room: - Gender: Male Paper Sales Representative: : 1965 Requested By: JUNIOR HERNANDEZ Order Number: [id number] Reading MD: JUNIOR HERNANDEZ Interpretive Statements Session Date: Electronically Signed On 12-14-2023 18:35:04 EDT by JUNIOR HERNANDEZ
== END 2023-12-14 09:55 | disposition home or self-care (01) ==
LOC: CR 08:52
PROVIDERS: PCP Internal Medicine; Visit Provider Internal Medicine
DX: I11.0 Hypertensive heart disease with heart failure (principal); I50.22 Chronic systolic (congestive) heart failure; E78.5 Hyperlipidemia, unspecified
CPT/HCPCS: 36415; 80048; 80053; 80061; 93798

== ENCOUNTER 2023-10-10 15:06 | Outpatient (OUT) | payer OTHER, SELFPAY ==
--- NOTE | 2023-10-10 15:11 | CA_ITS ---
Patient Name: FLAKO COLIN MR#: [id number] : 1965 Exam Date: 10/10/2023 Ordering Doctor: DR DORA REDDY M.D. ECHOCARDIOGRAM REPORT PROCEDURE: CA ECHO DOPPLER COMPLETE INDICATIONS: Heart failure with reduced EF COMPARISON: None. DESCRIPTION: COMPLETE ECHOCARDIOGRAM Real-time transthoracic echocardiography with 2D, M-mode, spectral and color flow Doppler performed. QUALITY: Technical quality was good. LEFT VENTRICLE: Mild dilatation. Mild eccentric left ventricular hypertrophy. Global left ventricular systolic function is mildly decreased. Visual estimation of left ventricular ejection fraction is 40-45% LV EF: DIASTOLIC: Grade I diastolic dysfunction. ATRIAL SEPTUM: LEFT ATRIUM: Moderate dilatation. RIGHT ATRIUM: Mild dilatation. RIGHT VENTRICLE: Normal chamber size. Normal right ventricular systolic function. TRICUSPID VALVE: Normal mobility and thickness. No stenosis with trivial regurgitation. Mild pulmonary hypertension. RVSP 37 mmHg MITRAL VALVE: Normal mobility and thickness. No evidence of mitral valve stenosis. There is no mitral annular calcification. Mild mitral regurgitation. AORTIC VALVE: Normal trileaflet appearance. No visible sclerosis. Normal leaflet mobility. No evidence of aortic valve stenosis. Trivial aortic regurgitation. AORTIC ROOT: Normal diameter and appearance. PULMONIC VALVE: Normal thickness and mobility. No stenosis. Trivial regurgitation. PERICARDIUM: No evidence of pericardial effusion. IVC: Collapses with inspirations. Normal size. PLEURA: CONCLUSION: 1. Mild eccentric left ventricular hypertrophy with mildly reduced systolic function. LVEF is estimated at 40 to 45%. 2. Normal right ventricular size and systolic function. 3. Mild to moderate biatrial dilatation. 4. Mild diastolic dysfunction. 5. Mild mitral regurgitation. 6. Mildly elevated right-sided pressures. Adult Echocardiography Procedure Report Left Ventricle LVEDD (3.7 - 5.6 cm): 6.32 cm LVESD (2.2 - 4.0 cm): 4.90 cm LVIVS thickness (0.6 - 1.2 cm): 1.18 cm LVPW thickness (0.5 - 1.0 cm): 1.03 cm e': 0.07 m/s E - e': 10.01 LVOT Max Gradient: 2.76 mm[Hg] LVOT Area (cm2): 0.83 m/s Peak Velocity (LVOT): 0.83 m/s Mean Velocity (LVOT): 0.63 m/s LVOT Diameter 2.36 cm Left Ventricular Ejection Fraction: 40-45 % Left Atrium LA Volume Index (2D A2C): 53.12 ml/m2 Left Atrium Systolic Dimension: 4.59 cm Mitral Valve MV E to A Ratio: 0.71 Mitral Valve A-Wave Peak Velocity: 1.01 m/s Mitral Valve E-Wave Peak Velocity: 0.72 m/s Right Ventricle RV Internal Diastolic Dimension: 3.66 cm Aorta AO Root Diam: 3.06 cm Ascending Ao Diam: 3.42 cm Aortic Valve AoV Area (Peak Krish): 2.49 cm2, 2.49 cm2 AoV Area (VTI): 2.79 cm2, 2.79 cm2 Peak Velocity(Antegrade Flow): 1.46 m/s Peak Gradient(Antegrade Flow): 8.50 mm[Hg] Mean Velocity(Antegrade Flow): 1.02 m/s Mean Gradient(Antegrade Flow): 4.72 mm[Hg] Velocity Time Integral: 34.23 cm Tricuspid Valve Peak Velocity (Regurgitant Flow): 2.39 m/s, 2.90 m/s, 2.86 m/s Pulmonic Valve Mean Gradient: 2.11 mm[Hg], 3.28 mm[Hg] Mean Velocity: 0.67 m/s, 0.89 m/s Peak Velocity: 1.05 m/s Peak Gradient: 4.10 mm[Hg], 4.71 mm[Hg] Right Atrium Right Atrium Systolic Pressure: 70.82 ml, 70.82 ml Dictated by: Dora Reddy M.D. on 10/10/2023 at 16:24 Approved by: Dora Reddy M.D. on 10/10/2023 at 16:32
== END 2023-10-10 15:07 | disposition home or self-care (01) ==
LOC: CARD 15:07
PROVIDERS: PCP Internal Medicine; Visit Provider Internal Medicine Interventional Cardiology
DX: I50.22 Chronic systolic (congestive) heart failure (principal)
CPT/HCPCS: 93306; 93356

== ENCOUNTER 2023-10-26 16:09 | Outpatient (OUT) | payer OTHER, SELFPAY ==
--- OUTSIDE RECORDS SUMMARY | 2023-10-26 16:20 | XMS_ITS | CCD ---
Author Organization [facility] Care Team Providers Care Financial Advisor Trainee Name Role Phone Shaikh Kelley MD Primary Care Provider [phone] SHAIKH KELLEY Attending Unavailable SHAIKH KELLEY Attending Unavailable MERZA, NOORALDIN Referring Unavailable HINA GONZALEZ Referring Unavailable KATRINA HELMS Referring Unavailable MERZA, NOORALDIN Referring Unavailable YA GARCIA Attending Unavailable YA GARCIA Attending Unavailable DORA FLOOD Attending Unavailable EVETTE LEE Referring Unavailable BARBARAHINA WALLIS Attending Unavailable MERZA, NOORALDIN Admitting Unavailable DORA FLOOD Attending Unavailable Allergies Allergy Classification Reported Allergen(s) Allergy Type Date of Onset Reaction(s) Facility (1 source) empagliflozin; Translations: [EMPAGLIFLOZIN] Drug Allergy 06-29-2023 [facility] Repository (1 source) sacubitril / valsartan; Translations: [SACUBITRIL-VALS BUSTER] Drug Allergy 06-29-2023 [facility] Repository Medications Current Medications Medication Drug Class(es) Dates Sig (Normalized) Sig (Original) aspirin 81 mg delayed release oral tablet (3 sources) Platelet Aggregation Inhibitor, Nonsteroidal Anti-inflammatory Drug Start: 10-13-2023 take 81 mg by mouth once daily Aspirin Active 81 MG PO Daily October 13, 2023 12:00am Start: 04-04-2023 End: 05-04-2023 take 1 tablet by mouth in the morning aspirin 81 MG EC tablet Take 81 mg by mouth in the morning. 0 04/04/2023 05/04/2023 Active atorvastatin 80 mg oral tablet (3 sources) HMG-CoA Reductase Inhibitor Start: 10-13-2023 take 80 mg by mouth once daily Atorvastatin Active 80 MG PO Daily October 13, 2023 12:00am Start: 04-03-2023 End: 05-03-2023 take 1 tablet [...] in the morning. 0 04/04/2023 05/04/2023 Active lisinopril 10 mg oral tablet (1 source) Angiotensin Converting Enzyme Inhibitor Start: 10-13-2023 take 10 mg by mouth once daily Lisinopril Active 10 MG PO Daily October 13, 2023 12:00am methylPREDNISolone 4 mg oral tablet (1 source) Corticosteroid Start: 10-13-2023 take 1 tablet by mouth once Methylprednisolone (Medrol (Vern)) 4 mg tablets,dose pack Active 0 PO per package directions 21 October 13, 2023 12:00am PO PER PKG DIR for 6 days 24 hr metoprolol succinate 50 mg extended release oral tablet (3 sources) beta-Adrenergic Adarsh Start: 10-13-2023 Metoprolol Succinate Active MG PO October 13, 2023 12:00am Start: 04-03-2023 take 1 tablet by monroe th every twenty-four hours in the morning metoprolol succinate XL (Toprol-XL) 50 MG 24 hr tablet Take 50 mg by mouth in the morning. 0 04/03/2023 Active sacubitril 24 mg / valsartan 26 mg oral tablet (2 sources) Angiotensin 2 Receptor Adarsh Start: 04-03-2023 End: 05-03-2023 take 1 tablet by mouth in the morning sacubitril-valsartan (Entresto) 24-26 MG tablet Take 1 tablet [...] 04-05-2023 04-05-2023 Episodic Congestive heart failure; nonhypertensive (7 sources) Heart failure with reduced ejection fraction; Translations: [Unspecified systolic (congestive) heart failure] Onset: 04-01-2023 04-05-2023 Chronic Disorders of lipid metabolism (1 source) Hypercholesterolemia; Translations: [Pure hypercholesterolemia, unspecified] 10-13-2023 Chronic Essential hypertension (5 sources) Hypertensive disorder; Translations: [Essential (primary) hypertension] Onset: 04-01-2023 04-05-2023 Chronic Other nutritional; endocrine; and metabolic disorders (2 sources) Obesity; Translations: [Obesity, unspecified] Onset: 04-01-2023 04-05-2023 Chronic Alesha-; endo-; and myocarditis; cardiomyopathy (except that caused by tuberculosis or sexually transmitted disease) (5 sources) Cardiomyopathy; Translations: [Other cardiomyopathies] Onset: 04-05-2023 04-05-2023 Chronic Unclassified (1 source) Supraventricular tachycardia, unspecified; Translations: [Supraventricular tachycardia, unspecified] Onset: 06-29-2023 Past or Other Problems Problem Classification Problem Date Documented Date Episodic/Chronic Unclassified (1 source) Supraventricular tachycardia, unspecified; Translations: [Supraventricular tachycardia, unspecified] Onset: 06-29-2023 Results Test Name Value Interpretation Reference Range Facility Office Visiton 08-01-2023 Follow-up visit [id number] Cory Colin 1965 M Date Provider Department Center 08/01/[address] [facility] Family History Adopted: Yes Level of Service:65034 [place] OFFICE/OUTPATIENT ESTABLISHED MOD MDM 30 MIN [facility] 3607-23-2023 36 Regarding lab result s from 07/20/2023: MD Giselle Ward MA please have him stop spironolactone and have him get a follow up BMP prior to next visit. LM on patient's VM asking him to return my call. BMP order faxed to [facility]. [facility] 3607-16-2023 36 Regarding lab result s on 07/13/2023: MD Giselle Ward MA He has JAZZ. I called him and I asked him to stop spironolactone. He is not taking furosemide. He will continue the rest of the medications. I want him to get a BMP in 1 week. BMP order faxed to [facility]. [facility] Office Visiton 06-29-2023 Follow-up visit [id number] Cory Colin 1965 M Date Provider Department Center 06/29/2023 DORA ANTHONY L[facility] Family History Adopted: Yes Level of Service:92338 ND OFFICE/OUTPATIENT ESTABLISHED HIGH MDM 40 MIN Reason for Visit and Comments: Follow-up [356952] - 6 week [facility] Office Visiton 05-10-2023 Follow-up visit [id number] Cory Colin 1965 M Date Provider Department Center 05/10/2023 YA OLIVER LAKSHMI [facility] Family History Adopted: Yes Level of Service:99743 ND OFFICE/OUTPATIENT ESTABLISHED HIGH MDM 40 MIN Reason for Visit and Comments: Congestive Heart Failure [127] Hypertension [610295] [facility] 04-30-2023 36 Pt informed [facility] 04-18-2023 36 Please let him know his [...] sent refills and ordered the BMP. Thanks! [facility] Telephoneon 04-18-2023 Telephone [phone] Cory Colin 1965 M Date Provider Department Center 04/18/2023 166-YA GARCIA MC CARD [place]. Family History Adopted: Yes [facility] ALL BASIC METABOLIC PANELon 04-17-2023 Anion gap [Moles/Vol] 13.3 mmol/L [facility] Calcium [Mass/Vol] 9.8 mg/dL 8.5 - 10. 1 mg/dL [facility] Chloride [Moles/Vol] 103 mmol/L 98 - 10 7 mmol/L [facility] CO2 [Moles/Vol] 28.0 mmol/L 21.0 - 32.0 mmol/L [facility] Creatinine [Mass/Vol] 1.15 mg/dL 0.70 - 1.30 mg/dL [facility] GFR/1.73 sq M.predicted CKD-EPI (S/P/Bld) [Vol rate/Area] >60 60 - PINF [facility] Glucose [Mass/Vol] 98 mg/dL 74 - 106 mg/dL [facility] Interpretation and review of laboratory results Abnormal [facility] Potassium [Moles/Vol] 4.3 mmol/L 3.5 - 5.1 mmol/L [facility] Sodium [Moles/Vol] 140 mmol/L 136 - 145 mmol/L [facility] TBH EGFR-NON AF [facility] >60 60 - PINF [facility] Urea nitrogen [Mass/Vol] 31.0 mg/dL High 7.0 - 18.0 mg/dL [facility] Urea nitrogen/Creatinine [Mass ratio] 27.0 mg/mg [facility] 37on 04-11-2023 37 *Your kidney functio n is elevated. Please hold these medications until instructed to resume: -dapagliflozin (Farxiga) -sacubitril-valsartan (Entresto) -Spironolactone -Lasix *Have lab work done in 1 week, around 04/17/2023. [facility] Office Visiton 02-07-2024 Follow-up visit [id number] Cory Colin 1965 M Date Provider Department Center 04/11/2023 YA OLIVER [facility] Family History Adopted: Yes Level of Service:37036 ND OFFICE/OUTPATIENT ESTABLISHED MOD MDM 30 MIN Reason for Visit and Comments: Hospital Follow-up [832] Congestive Heart Failure [127] Hypertension [049761] [facility] 36on 04-04-2023 36 Discharge date: 04/03/23 Call [...] and the staff who cared for them. [facility] Documentationon 04-04-2023 Documentation [id number] Cory Colin 1965 M Date Provider Department Center 04/04/2023 CEE SEQUEIRA [facility] DC [facility] No family history on file Reason for Visit and Comments: HF inpatient satisfaction survey sent. [Other] [facility] Telephoneon 04-04-2023 Telephone [phone] Cory Colin 1965 M Date Provider Department Center 04/04/2023 CEE SEQUEIRA [facility] LAB DC [facility] No family history on file Reason for Visit and Comments: HF post discharge call [Other] [facility] BASIC METABOLIC PANELon 03-07 Anion gap [Moles/Vol] 13 mmol/L Normal 7-20 [facility] Comment on above: Performed By: #### L [id number] ####[facility] (BEAKER)[address] [place] [address] Calcium [Mass/Vol] 9.3 mg/dL Normal 8.6-10.3 [facility] Comment on above: Performed By: #### L [id number] ####[facility] (BEAKER)[address] [place] [address] Chloride [Moles/Vol] 102 mmol/L Normal 98-107 [facility] Comment on above: Performed By: #### L [id number] ####[facility] (BEAKER)[address] [place] [address] CO2 [Moles/Vol] 30 mmol/L Normal 21-31 [facility] Comment on above: Performed By: #### L [id number] ####[facility] (BE[facility])[address] [place] [address] Creatinine [Mass/Vol] 1.37 mg/dL High 0.70-1.30 [facility] Comment on above: Performed By: #### L [id number] ####[facility] ([facility])[address] [place] [address] GLOMERULAR FILTRATION RATE ML/MIN/1.73 SQ M.PREDICTED 60.9 mL/min/1.73m*2 Normal >60.0 [facility] Comment on above: Result Comment: [facility]???s estimated glomerular filtration rate (eGFR) will [...] of individuals. Performed By: #### L [id number] ####[facility] ([facility])[address] [place] [address] Glucose [Mass/Vol] 104 mg/dL High 70-100 [facility] Comment on above: Performed By: #### L [id number] ####[facility] (BEAKER)[address] [place] [address] Potassium [Moles/Vol] 4.5 mmol/L Normal 3.5-5.1 [facility] Comment on above: Performed By: #### L [id number] ####[facility] (BEAKER)[address] [place] [address] Sodium [Moles/Vol] 140 mmol/L Normal 136-145 [facility] Comment on above: Performed By: #### L [id number] ####[facility] (BE[facility]ER)[address] [place] [address] Urea nitrogen [Mass/Vol] 28 mg/dL High 7-25 [facility] Comment on above: Performed By: #### L [id number] ####[facility] (BEAKER)[address] [place] [address] UREA NITROGEN/CREATININE (MASS RATIO) IN SER/PLAS 20.4 Normal [facility] Comment on above: Performed By: #### L [id number] ####[facility] ([facility]ER)[address] [place] [address] DSon 04-03-2023 DS -- Attestation signed by [...] an 57 y.o. male who came from [facility] with minimal to no medical history x 10 years as he states he has not seen a provider nor had any medical treatment in over 10 years and denies taking any prescription medications, yqmf-bgb-cztgoch medications or herbals at this time. Patient states he does not even take even-wqu-pwbyzgg Tylenol or ibuprofen and stopped taking both of those years ago. Patient reports he has been experiencing shortness of breath and swelling for weeks to months with significant amount of edema progressing up bilateral lower extremities into groin and lower abdomen. Patient states upon arrival to [place] [facility] he was over 340 pounds. While at [facility] he received treatment with IV Lasix, carvedilol, and Aldactone. Patient is now down to 305 pounds and still significantly edematous. Echo completed at [facility] shows EF of 30-35%. Patient diagnosed the hospital with decompensated CHF and has been transferred to [facility] for need of heart cath. Patient with [...] Time Provider Department Center 04/06/2023 10:15 AM MD DEXTER Ward 04/11/2023 11:00 AM Ya Garcia NP LAKSHMI [...] Medications These medications were sent to [facility] [address] [place] [address] [address] [facility] [place] [address], [facility] [address] aspirin 81 mg EC tablet atorvastatin 80 [...] 0058 W (more content not included)... Normal [facility] MAGNESIUMon 04-03-2023 Magnesium [Mass/Vol] 2.3 mg/dL Normal 1.9-2.7 [facility] Comment on above: Performed By: #### L [id number] ####[facility] ([facility])[address] [place] [address] BASIC METABOLIC PANELon - Anion gap [Moles/Vol] 11 mmol/L Normal 7-20 [facility] Comment on above: Performed By: #### L [id number] ####[facility] ([facility])[address] [place] [address] Calcium [Mass/Vol] 9.3 mg/dL Normal 8.6-10.3 [facility] Comment on above: Performed By: #### L [id number] ####[facility] ([facility])[address] [place] [address] Chloride [Moles/Vol] 103 mmol/L Normal 98-107 [facility] Comment on above: Performed By: #### L [id number] ####[facility] ([facility])[address] [place] [address] CO2 [Moles/Vol] 31 mmol/L Normal 21-31 [facility] Comment on above: Performed By: #### L [id number] ####[facility] ([facility])[address] [place] [address] Creatinine [Mass/Vol] 0.95 mg/dL Normal 0.70-1.30 [facility] Comment on above: Performed By: #### L [id number] ####[facility] ([facility])[address] [place] [address] GLOMERULAR FILTRATION RATE ML/MIN/1.73 SQ M.PREDICTED 94.5 mL/min/1.73m*2 Normal >60.0 [facility] Comment on above: Result Comment: [facility]???s estimated glomerular filtration rate (eGFR) will [...] of individuals. Performed By: #### L [id number] ####[facility] ([facility])[address] [place] [address] Glucose [Mass/Vol] 100 mg/dL Normal 70-100 [facility] Comment on above: Performed By: #### L [id number] ####[facility] ([facility])[address] [place] [address] Potassium [Moles/Vol] 4.2 mmol/L Normal 3.5-5.1 [facility] Comment on above: Performed By: #### L [id number] ####[facility])[address] [place] [address] Sodium [Moles/Vol] 141 mmol/L Normal 136-145 [facility] Comment on above: Performed By: #### L [id number] ####[facility])[address] [place] [address] Urea nitrogen [Mass/Vol] 18 mg/dL Normal 7-25 [facility] Comment on above: Performed By: #### L [id number] ####[facility] ([facility])[address] [place] [address] UREA NITROGEN/CREATININE (MASS RATIO) IN SER/PLAS 18.9 Normal [facility] Comment on above: Performed By: #### L [id number] ####[facility] ([facility])[address] [place] [address] CBCon 04-02-2023 Erythrocyte distribution width (RBC) [Ratio] 15.1 % High 11.5-15.0 [facility] Comment on above: Performed By: #### L [id number] ####[facility] ([facility])[address] [place] [address] ERYTHROCYTE MEAN CORPUSCULAR HEMOGLOBIN CONCENTRATION (G/DL) BY AUTOMATED 32.5 g/dL Normal 32.0-35.0 [facility] Comment on above: Performed By: #### L [id number] ####[facility] ([facility])[address] [place] [address] Hematocrit (Bld) [Volume fraction] 54.7 % Normal 39.0-55.0 [facility] Comment on above: Performed By: #### L [id number] ####[facility] ([facility])[address] [place] [address] Hemoglobin (Bld) [Mass/Vol] 17.8 g/dL High 13.0-17.0 [facility] Comment on above: Performed By: #### L [id number] ####[facility] ([facility])[address] [place] [address] MCH (RBC) [Entitic mass] 29.3 pg Normal 27.0-33.0 [facility] Comment on above: Performed By: #### L [id number] ####[facility] ([facility])[address] [place] [address] MCV (RBC) [Entitic vol] 90.1 fL Normal 82.0-98.0 [facility] Comment on above: Performed By: #### L [id number] ####[facility] ([facility])[address] [place] [address] PLATELETS (10*3/UL) IN BLOOD AUTOMATED COUNT 245 10*3/uL Normal 150-400 [facility] Comment on above: Performed By: #### L [id number] ####[facility] ([facility])[address] [place] [address] RBC (Bld) [#/Vol] 6.07 10*6/uL High 4.20-5.70 [facility] Comment on above: Performed By: #### L [id number] ####[facility] ([facility])[address] [place] [address] WBC (Bld) [#/Vol] 9.12 10*3/uL Normal 4.00-10.60 [facility] Comment on above: Performed By: #### L [id number] ####[facility] (BRY)[address] [place] [address] CONSULTon 04-02-2023 CONSULT Clinical Nutrition Assessment: Name: Cory Colin Room: [address] [place] [address] Date: 1965 Date of Visit: 04/02/23 Admission [...] denies chewing difficulty 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 Limited medical hx available per chart [...] ideal body weight (75.5 kg) Calorie needs: 8547-8520 kcals/day based on Equation: 25-30 kcal/kg Protein needs: 76-91 g/day based on 1.0-1.2 g/kg Nutrition Diagnosis: Food and nutrition knowledge deficit Related to: lack of prior exposure to diet ed/misinformation As evidenced by: pt and pt's family statements Malnutrition Assessment: Hand Grasp/Motor Function/Sensation Assessment: Grasp, Dorsiflexion, Plantar flexion R Hand Grasp: Strong L Hand Grasp: Strong (Illuminating Engineer strength not assessed by RD) Patient at risk for malnutrition according to hospital criteria, but does not meet the clinical characteristics per the Academy of Nutrition and Dietetics, and the [place] Society of Enteral and Parenteral Nutrition to support the diagnosis of malnutrition. Nutrition Education: Diet literature: Heart Healthy Nutrition Therapy (explained CHF-sodium relationship, reading nutrition labels, saturated fat vs unsaturated fat; recommended adequate intake of fruits/vegetables at each meal and for snacks a (more content not included)... Normal [facility] HPon 04-02-2023 HP H&P reviewed. The patient was examined and there are no changes to the H&P. 57-year-old man who is admitted due to newly discovered systolic heart failure will undergo cardiac catheterization to rule out ischemic etiology. I explained the procedure in detail along with risks and benefits. He understands and agrees to proceed. Normal [facility] MAGNESIUMon 04-02-2023 Magnesium [Mass/Vol] 2.3 mg/dL Normal 1.9-2.7 [facility] Comment on above: Performed By: #### L [id number] #### [facility] ([facility]) [address] [place] [address] 30on 04-01-2023 30 The patient is Moderately [...] the next 3 months Outcome: Progressing Normal [facility] 30 Problem: Heart Failu re diagnosis [...] the shift include Stable vital signs Normal [facility] APTTon 04-01-2023 ACTIVATED PARTIAL THROMBOPLASTIN TIME IN PPP BY COAGULATION ASSAY 29.8 Seconds Normal 25.0-35.0 [facility] Comment on above: Result Comment: Clin ical significance of the APTT is questionable in the presence of heparin. Performed By: #### L [id number] ####[facility] ([facility])[address] [place] [address] B-TYPE NATRIURETIC PEPTIDEon 04-01-2023 Natriuretic peptide B (Bld) [Mass/Vol] 273 pg/mL High 0-100 [facility] Comment on above: Performed By: #### L [id number] #### [facility] ([facility]) [address] [place] [address] CBC WITH AUTO DIFFERENTIALon 04-01-2023 Basophils (Bld) [#/Vol] 0.05 10*3/uL Normal 0.00-0.20 [facility] Comment on above: Performed By: #### L [id number] #### [facility] ([facility]) [address] [place] [address] Basophils/100 WBC (Bld) 0.5 % Normal 0.0-1.0 [facility] Comment on above: Performed By: #### L [id number] #### [facility] ([facility]) [address] [place] [address] Eosinophils (Bld) [#/Vol] 0.19 10*3/uL Normal 0.00-0.50 [facility] Comment on above: Performed By: #### L [id number] #### [facility] ([facility]) [address] [place] [address] Eosinophils/100 WBC (Bld) 2.1 % Normal 0.0-6.0 [facility] Comment on above: Performed By: #### L [id number] #### [facility] ([facility]) [address] [address] Erythrocyte distribution width (RBC) [Ratio] 14.5 % Normal 11.5-15.0 [facility] Comment on above: Performed By: #### L [id number] #### [facility] ([facility]) [address] [place] [address] ERYTHROCYTE MEAN CORPUSCULAR HEMOGLOBIN CONCENTRATION (G/DL) BY AUTOMATED 33.1 g/dL Normal 32.0-35.0 [facility] Comment on above: Performed By: #### L [id number] #### [facility] ([facility]) [address] [place] [address] Hematocrit (Bld) [Volume fraction] 47.8 % Normal 39.0-55.0 [facility] Comment on above: Performed By: #### L [id number] #### [facility] ([facility]) [address] [place] [address] Hemoglobin (Bld) [Mass/Vol] 15.8 g/dL Normal 13.0-17.0 [facility] Comment on above: Performed By: #### L [id number] #### [facility] ([facility]) [address] [place] [address] Immature granulocytes (Bld) [#/Vol] 0.03 10*3/uL Normal 0.00-0.20 [facility] Comment on above: Performed By: #### L [id number] #### [facility] ([facility]) [address] [place] [address] Immature granulocytes/100 WBC (Bld) 0.3 % Normal 0.0-1.0 [facility] Comment on above: Performed By: #### L [id number] #### [facility] ([facility]) [address] [place] [address] Lymphocytes (Bld) [#/Vol] 1.69 10*3/uL Normal 1.20-4.00 [facility] Comment on above: Performed By: #### L [id number] #### [facility] ([facility]) [address] [place] [address] Lymphocytes/100 WBC (Bld) 18.3 % Low 20.0-45.0 [facility] Comment on above: Performed By: #### L [id number] #### [facility] ([facility]) [address] [address] MCH (RBC) [Entitic mass] 29.6 pg Normal 27.0-33.0 [facility] Comment on above: Performed By: #### L [id number] #### [facility] ([facility]) [address] [address] MCV (RBC) [Entitic vol] 89.5 fL Normal 82.0-98.0 [facility] Comment on above: Performed By: #### L [id number] #### [facility] SERVICES LAB (BEAKER) [address] [place] [address] Monocytes (Bld) [#/Vol] 1.05 10*3/uL High 0.10-1.00 [facility] Comment on above: Performed By: #### L [id number] #### [facility] ([facility]) [address] [place] [address] Monocytes/100 WBC (Bld) 11.4 % Normal 5.0-12.0 [facility] Comment on above: Performed By: #### L [id number] #### [facility] ([facility]) [address] [place] [address] Neutrophils (Bld) [#/Vol] 6.20 10*3/uL Normal 1.60-7.60 [facility] Comment on above: Performed By: #### L [id number] #### [facility] ([facility]) [address] [place] [address] Neutrophils/100 WBC (Bld) 67.4 % Normal 40.0-72.0 [facility] Comment on above: Performed By: #### L [id number] #### [facility] ([facility]) [address] [place] [address] NRBC (PER 100 WBCS) BY AUTOMATED COUNT 0.0 % Normal 0 [facility] Comment on above: Performed By: #### L [id number] #### [facility] ([facility]) [address] [place] [address] PLATELETS (10*3/UL) IN BLOOD AUTOMATED COUNT 231 10*3/uL Normal 150-400 [facility] Comment on above: Performed By: #### L [id number] #### [facility] ([facility]) [address] [place] [address] RBC (Bld) [#/Vol] 5.34 10*6/uL Normal 4.20-5.70 [facility] Comment on above: Performed By: #### L [id number] #### [facility] ([facility]) [address] [place] [address] WBC (Bld) [#/Vol] 9.21 10*3/uL Normal 4.00-10.60 [facility] Comment on above: Performed By: #### L [id number] #### [facility] ([facility]) [address] [place] [address] Basophils (Bld) [#/Vol] 0.05 10*3/uL Normal 0.00-0.20 [facility] Comment on above: Performed By: #### L [id number] #### [facility] ([facility]) [address] [place] [address] Basophils/100 WBC (Bld) 0.5 % Normal 0.0-1.0 [facility] Comment on above: Performed By: #### L [id number] #### [facility] ([facility]) [address] [place] [address] Eosinophils (Bld) [#/Vol] 0.17 10*3/uL Normal 0.00-0.50 [facility] Comment on above: Performed By: #### L [id number] #### [facility] ([facility]) [address] [place] [address] Eosinophils/100 WBC (Bld) 1.6 % Normal 0.0-6.0 [facility] Comment on above: Performed By: #### L [id number] #### [facility] ([facility]) [address] [place] [address] Erythrocyte distribution width (RBC) [Ratio] 14.5 % Normal 11.5-15.0 [facility] Comment on above: Performed By: #### L [id number] #### [facility] ([facility]) [address] [address] ERYTHROCYTE MEAN CORPUSCULAR HEMOGLOBIN CONCENTRATION (G/DL) BY AUTOMATED 32.7 g/dL Normal 32.0-35.0 [facility] Comment on above: Performed By: #### L [id number] #### [facility] ([facility]) [address] [place] [address] Hematocrit (Bld) [Volume fraction] 51.3 % Normal 39.0-55.0 [facility] Comment on above: Performed By: #### L [id number] #### [facility] ([facility]) [address] [place] [address] Hemoglobin (Bld) [Mass/Vol] 16.8 g/dL Normal 13.0-17.0 [facility] Comment on above: Performed By: #### L [id number] #### [facility] ([facility]) [address] [place] [address] Immature granulocytes (Bld) [#/Vol] 0.04 10*3/uL Normal 0.00-0.20 [facility] Comment on above: Performed By: #### L [id number] #### [facility] ([facility]) [address] [place] [address] Immature granulocytes/100 WBC (Bld) 0.4 % Normal 0.0-1.0 [facility] Comment on above: Performed By: #### L [id number] #### [facility] ([facility]) [address] [place] [address] Lymphocytes (Bld) [#/Vol] 1.86 10*3/uL Normal 1.20-4.00 [facility] Comment on above: Performed By: #### L [id number] #### [facility] ([facility]) [address] [place] [address] Lymphocytes/100 WBC (Bld) 17.6 % Low 20.0-45.0 [facility] Comment on above: Performed By: #### L [id number] #### [facility] ([facility]) [address] [place] [address] MCH (RBC) [Entitic mass] 29.1 pg Normal 27.0-33.0 [facility] Comment on above: Performed By: #### L [id number] #### [facility] ([facility]) [address] [place] [address] MCV (RBC) [Entitic vol] 88.9 fL Normal 82.0-98.0 [facility] Comment on above: Performed By: #### L [id number] #### [facility] ([facility]) [address] [place] [address] Monocytes (Bld) [#/Vol] 1.18 10*3/uL High 0.10-1.00 [facility] Comment on above: Performed By: #### L [id number] #### [facility] ([facility]) [address] [place] [address] Monocytes/100 WBC (Bld) 11.2 % Normal 5.0-12.0 [facility] Comment on above: Performed By: #### L [id number] #### [facility] ([facility]) [address] [place] [address] Neutrophils (Bld) [#/Vol] 7.27 10*3/uL Normal 1.60-7.60 [facility] Comment on above: Performed By: #### L [id number] #### [facility] ([facility]) [address] [place] [address] Neutrophils/100 WBC (Bld) 68.7 % Normal 40.0-72.0 [facility] Comment on above: Performed By: #### L [id number] #### [facility] ([facility]) [address] [place] [address] NRBC (PER 100 WBCS) BY AUTOMATED COUNT 0.0 % Normal 0 [facility] Comment on above: Performed By: #### L [id number] #### [facility] ([facility]) [address] [place] [address] PLATELETS (10*3/UL) IN BLOOD AUTOMATED COUNT 266 10*3/uL Normal 150-400 [facility] Comment on above: Performed By: #### L [id number] #### [facility] ([facility]) [address] [place] [address] RBC (Bld) [#/Vol] 5.77 10*6/uL High 4.20-5.70 [facility] Comment on above: Performed By: #### L [id number] #### [facility] ([facility]) [address] [place] [address] WBC (Bld) [#/Vol] 10.57 10*3/uL Normal 4.00-10.60 [facility] Comment on above: Performed By: #### L [id number] #### [facility] ([facility]) [address] [place] [address] COMPREHENSIVE METABOLIC PANE Edilberto 04-01-2023 Albumin [Mass/Vol] 3.7 g/dL Normal 3.5-5.7 [facility] Comment on above: Performed By: #### L [id number] ####[facility] ([facility])[address] [place] [address] ALP [Catalytic activity/Vol] 79 U/L Normal 34-104 [facility] Comment on above: Performed By: #### L [id number] ####[facility] ([facility])[address] [place] [address] ALT [Catalytic activity/Vol] 26 U/L Normal 7-52 [facility] Comment on above: Performed By: #### L [id number] ####[facility] ([facility])[address] [place] [address] Anion gap [Moles/Vol] 10 mmol/L Normal 7-20 [facility] Comment on above: Performed By: #### L [id number] ####[facility] ([facility])[address] [place] [address] AST [Catalytic activity/Vol] 23 U/L Normal 13-39 [facility] Comment on above: Performed By: #### L [id number] ####[facility] ([facility])[address] [place] [address] Bilirubin [Mass/Vol] 1.5 mg/dL High 0.3-1.0 [facility] Comment on above: Performed By: #### L [id number] ####[facility] ([facility])[address] [place] [address] Calcium [Mass/Vol] 8.9 mg/dL Normal 8.6-10.3 [facility] Comment on above: Performed By: #### L [id number] ####[facility] ([facility])[address] [place] [address] Chloride [Moles/Vol] 104 mmol/L Normal 98-107 [facility] Comment on above: Performed By: #### L [id number] ####[facility] ([facility])[address] [place] [address] CO2 [Moles/Vol] 30 mmol/L Normal 21-31 [facility] Comment on above: Performed By: #### L [id number] ####[facility] ([facility])[address] [place] [address] Creatinine [Mass/Vol] 0.89 mg/dL Normal 0.70-1.30 [facility] Comment on above: Performed By: #### L [id number] ####[facility] ([facility])[address] [place] [address] GLOMERULAR FILTRATION RATE ML/MIN/1.73 SQ M.PREDICTED 101.2 mL/min/1.73m*2 Normal >60.0 [facility] Comment on above: Result Comment: [facility]???s estimated glomerular filtration rate (eGFR) will [...] of individuals. Performed By: #### L [id number] ####[facility] ([facility])[address] [place] [address] Glucose [Mass/Vol] 92 mg/dL Normal 70-100 [facility] Comment on above: Performed By: #### L [id number] ####[facility] ([facility])[address] [place] [address] Potassium [Moles/Vol] 3.5 mmol/L Normal 3.5-5.1 [facility] Comment on above: Performed By: #### L [id number] ####[facility] ([facility])[address] [place] [address] Protein [Mass/Vol] 6.0 g/dL Normal 6.0-8.3 [facility] Comment on above: Performed By: #### L [id number] ####[facility] ([facility])[address] [place] [address] Sodium [Moles/Vol] 140 mmol/L Normal 136-145 [facility] Comment on above: Performed By: #### L [id number] ####[facility] ([facility])[address] [place] [address] Urea nitrogen [Mass/Vol] 20 mg/dL Normal 7-25 [facility] Comment on above: Performed By: #### L [id number] ####[facility] ([facility])[address] [place] [address] UREA NITROGEN/CREATININE (MASS RATIO) IN SER/PLAS 22.5 Normal [facility] Comment on above: Performed By: #### L [id number] ####[facility] ([facility])[address] [place] [address] Albumin [Mass/Vol] 4.3 g/dL Normal 3.5-5.7 [facility] Comment on above: Performed By: #### L [id number] #### [facility] ([facility]) [address] [place] [address] ALP [Catalytic activity/Vol] 84 U/L Normal 34-104 [facility] Comment on above: Performed By: #### L [id number] #### [facility] ([facility]) [address] [place] [address] ALT [Catalytic activity/Vol] 28 U/L Normal 7-52 [facility] Comment on above: Performed By: #### L [id number] #### [facility] ([facility]) [address] [place] [address] Anion gap [Moles/Vol] 10 mmol/L Normal 7-20 [facility] Comment on above: Performed By: #### L [id number] #### [facility] ([facility]) [address] [place] [address] AST [Catalytic activity/Vol] 24 U/L Normal 13-39 [facility] Comment on above: Performed By: #### L [id number] #### [facility] ([facility]) [address] [place] [address] Bilirubin [Mass/Vol] 1.6 mg/dL High 0.3-1.0 [facility] Comment on above: Performed By: #### L [id number] #### [facility] ([facility]) [address] [place] [address] Calcium [Mass/Vol] 9.4 mg/dL Normal 8.6-10.3 [facility] Comment on above: Performed By: #### L [id number] #### [facility] ([facility]) [address] [place] [address] Chloride [Moles/Vol] 104 mmol/L Normal 98-107 [facility] Comment on above: Performed By: #### L [id number] #### [facility] ([facility]) [address] [place] [address] CO2 [Moles/Vol] 28 mmol/L Normal 21-31 [facility] Comment on above: Performed By: #### L [id number] #### [facility] ([facility]) [address] [place] [address] Creatinine [Mass/Vol] 1.01 mg/dL Normal 0.70-1.30 [facility] Comment on above: Performed By: #### L [id number] #### [facility] ([facility]) [address] [place] [address] GLOMERULAR FILTRATION RATE ML/MIN/1.73 SQ M.PREDICTED 87.8 mL/min/1.73m*2 Normal >60.0 [facility] Comment on above: Result Comment: [facility]???s estimated glomerular filtration rate (eGFR) will [...] individuals. Performed By: #### L [id number] #### [facility] ([facility]) [address] [place] [address] Glucose [Mass/Vol] 108 mg/dL High 70-100 [facility] Comment on above: Performed By: #### L [id number] #### [facility] ([facility]) [address] [place] [address] Potassium [Moles/Vol] 3.8 mmol/L Normal 3.5-5.1 [facility] Comment on above: Performed By: #### L [id number] #### [facility] ([facility]) [address] [place] [address] Protein [Mass/Vol] 6.6 g/dL Normal 6.0-8.3 [facility] Comment on above: Performed By: #### L [id number] #### [facility] ([facility]) [address] [place] [address] Sodium [Moles/Vol] 138 mmol/L Normal 136-145 [facility] Comment on above: Performed By: #### L [id number] #### [facility] ([facility]) [address] [place] [address] Urea nitrogen [Mass/Vol] 20 mg/dL Normal 7-25 [facility] Comment on above: Performed By: #### L [id number] #### [facility] ([facility]) [address] [place] [address] UREA NITROGEN/CREATININE (MASS RATIO) IN SER/PLAS 19.8 Normal [facility] Comment on above: Performed By: #### L [id number] #### [facility] ([facility]) [address] [place] [address] CONSULTon 04-01-2023 CONSULT -- Attestation signed by [...] is presenting as a direct admission from [facility] where he presented for SOB and swelling for weeks to months. Patient reports that he has been experiencing worsening shortness of breath episodes associated with bilateral leg swelling for weeks to months with significant amount of edema progressing up bilateral lower extremities into groin and lower abdomen. Patient states upon arrival to [facility] he was over 340 pounds. While at [facility] he received treatment with IV Lasix, carvedilol, and Aldactone. Patient is now down to 305 pounds and still significantly edematous. Echo completed at [facility] shows EF of 30-35%. Patient was admitted for the management of acute decompensated heart failure and has been transferred to [facility] for heart cath. To note, patient does [...] Value Ventricular Rate 97 Atrial Rate 97 ND Interval 166 QRS DURATION 144 QT Interval 400 QTC CALCULATION(BAZETT) 508 P [place] 42 R-[place] -76 T Wave [place] 60 Impression Sinus rhythm with frequent and [...] Results Electr (more content not included)... Normal [facility] HEMOGLOBIN A1Con 04-01-2023 Glucose [Mass/Vol] 131 mg/dL Normal [facility] Comment on above: Performed By: #### L [id number] #### [facility] ([facility]) [address] [place] [address] HbA1c (Bld) [Mass fraction] 6.2 % High 4.0-6.0 [facility] Comment on above: Performed By: #### L [id number] #### [facility] ([facility]) [address] [place] [address] HPon 04-01-2023 HP -- Attestation signed by [...] is presenting as a direct admission from [facility] where he presented for SOB and swelling for weeks to months. Patient reports that he has been experiencing worsening shortness of breath episodes associated with bilateral leg swelling for weeks to months with significant amount of edema progressing up bilateral lower extremities into groin and lower abdomen. Patient states upon arrival to [place] [facility] he was over 340 pounds. While at [facility] he received treatment with IV Lasix, carvedilol, and Aldactone. Patient is now down to 305 pounds and still significantly edematous. Echo completed at [facility] shows EF of 30-35%. Patient was admitted for the management of acute decompensated heart failure and has been transferred to [facility] for heart cath. To note, patient does [...] Value Ventricular Rate 97 Atrial Rate 97 ND Interval 166 QRS DURATION 144 QT Interval 400 QTC CALCULATION(BAZETT) 508 P [place] 42 R-[place] -76 T Wave [place] 60 Impression Sinus rhythm with frequent and [...] Results Electr (more content not included)... Normal [facility] LACTIC ACID WITH 4 HOUR REFL EXon 04-01-2023 LACTATE (MMOL/L) IN SER/PLAS 0.8 mmol/L Normal 0.5-2.2 [facility] Comment on above: Performed By: #### L [id number] ####[facility] ([employer])[address] [place] [address] LIPID PANELon 04-01-2023 CHOL/HDL 4.9 mg/dL Normal [facility] Comment on above: Performed By: #### L [id number] ####[facility] ([employer])[address] [place] [address] Cholesterol [Mass/Vol] 148 mg/dL Normal 120-200 [facility] Comment on above: Performed By: #### L [id number] ####[facility] ([employer])[address] [place] [address] Magnesium [Mass/Vol] 102 mg/dL Normal 40-149 [facility] Comment on above: Result Comment: TRIG LYCERIDE REFERENCE RANGE: 20 YEARS AND OLDER CARDIOVASCULAR RISK LESS THAN 150 mg/dL LOW RISK 150 TO 199 mg/dL BORDERLINE RISK 200 mg/dL AND GREATER HIGH RISK Performed By: #### L [id number] ####[facility] ([facility])[address] [place] [address] Magnesium [Mass/Vol] 98 mg/dL Normal 0-160 [facility] Comment on above: Performed By: #### L [id number] ####[facility] ([facility])[address] [place] [address] Magnesium [Mass/Vol] 30 mg/dL Normal 23-92 [facility] Comment on above: Performed By: #### L [id number] ####[facility] ([facility])[address] [place] [address] NON HDL CHOL. (LDL+VLDL) 118 Normal [facility] Comment on above: Performed By: #### L [id number] ####[facility] ([facility])[address] [place] [address] TOTAL VLDL-C 20 mg/dL Normal 0-40 [facility] Comment on above: Performed By: #### L [id number] ####[facility] ([facility])[address] [place] [address] MAGNESIUMon 04-01-2023 Magnesium [Mass/Vol] 2.0 mg/dL Normal 1.9-2.7 [facility] Comment on above: Performed By: #### L [id number] #### [facility] ([facility]) [address] [place] [address] Magnesium [Mass/Vol] 2.1 mg/dL Normal 1.9-2.7 [facility] Comment on above: Performed By: #### L [id number] #### [facility] ([facility]) [address] [place] [address] PHOSPHORUSon 04-01-2023 Magnesium [Mass/Vol] 4.2 mg/dL Normal 2.5-5.0 [facility] Comment on above: Performed By: #### L [id number] ####[facility] ([employer])[address] [place] [address] Magnesium [Mass/Vol] 4.4 mg/dL Normal 2.5-5.0 [facility] Comment on above: Performed By: #### L [id number] #### [facility] ([employer]) [address] [place] [address] PROTIME-INRon 04-01-2023 INR IN PPP BY COAGULATION ASSAY 1.04 Normal 0.90-1.10 [facility] Comment on above: Result Comment: ACCC [...] 1995;[id number]. Performed By: #### L [id number] #### [facility] ([employer]) [address] [place] [address] PROTHROMBIN TIME (PT) IN PPP BY COAGULATION ASSAY 13.6 Seconds Normal 12.3-14.8 [facility] Comment on above: Performed By: #### L [id number] #### [facility] ([employer]) [address] [place] [address] T4, FREEon 04-01-2023 THYROXINE (T4) FREE (NG/DL) IN SER/PLAS 1.03 ng/dL Normal 0.71-1.85 [facility] Comment on above: Performed By: #### L [id number] #### [facility] ([facility]) [address] [place] [address] TROPONIN Ion 04-01-2023 Troponin I.cardiac [Mass/Vol] 0.03 ng/mL Normal 0.00-0.04 [facility] Comment on above: Performed By: #### L [id number] #### [facility] ([facility]) [address] [place] [address] Troponin I.cardiac [Mass/Vol] 0.04 ng/mL Normal 0.00-0.04 [facility] Comment on above: Performed By: #### L [id number] #### [facility] ([facility]) [address] [place] [address] TSHon 04-01-2023 THYROTROPIN (MIU/L) IN SER/PLAS BY DETECTION LIMIT <= 0.05 MIU/L 4.86 mIU/L Normal 0.34-5.60 [facility] Comment on above: Performed By: #### L [id number] #### [facility] ([facility]) [address] [place] [address] TSH3 REFLEX TO FT4on 024 THYROTROPIN (MIU/L) IN SER/PLAS BY DETECTION LIMIT <= 0.05 MIU/L 4.16 mIU/L Normal 0.34-5.60 [facility] Comment on above: Performed By: #### L [id number] ####[facility] ([facility])[address] [place] [address] URINALYSISon 04-01-2023 BILIRUBIN, TOTAL PRESENCE IN URINE Negative Normal Negative [facility] Comment on above: Performed By: #### L [id number] #### [facility] ([facility]) [address] [place] [address] Clarity (U) Clear Normal Clear [facility] Comment on above: Performed By: #### L [id number] #### [facility] ([facility]) [address] [place] [address] Color (U) Yellow Normal Yellow [facility] Comment on above: Performed By: #### L [id number] #### [facility]) [address] [place] [address] Glucose (U) [Mass/Vol] Negative Normal Negative [facility] Comment on above: Performed By: #### L [id number] #### [facility]) [address] [place] [address] HEMOGLOBIN PRESENCE IN URINE Negative Normal Negative [facility] Comment on above: Performed By: #### L [id number] #### [facility] ([facility]) [address] [place] [address] Ketones Ql (U) Negative Normal Negative [facility] Comment on above: Performed By: #### L [id number] #### [facility]) [address] [place] [address] LEUKOCYTE ESTERASE PRESENCE IN URINE BY TEST STRIP Trace Abnormal Negative [facility] Comment on above: Performed By: #### L [id number] #### [facility]) [address] [place] [address] NITRITE PRESENCE IN URINE Negative Normal Negative [facility] Comment on above: Performed By: #### L [id number] #### [facility] ([facility]) [address] [place] [address] pH (U) 6.0 [pH] Normal 5.0-8.0 [facility] Comment on above: Performed By: #### L [id number] #### [facility] ([facility]) [address] [place] [address] Protein (U) [Mass/Vol] Negative Normal Negative [facility] Comment on above: Performed By: #### L [id number] #### [facility] ([facility]) [address] [place] [address] Specific gravity (U) [Rel density] 1.018 Normal 1.015-1.020 [facility] Comment on above: Performed By: #### L [id number] #### [facility] ([facility]) [address] [place] [address] UROBILINOGEN (EU/DL) IN URINE 4.0 EU/dL Abnormal Negative [facility] Comment on above: Performed By: #### L [id number] #### [facility] ([facility]) [address] [place] [address] URINALYSIS MICROSCOPICon CASTS IN URINE Normal [facility] Comment on above: Performed By: #### L [id number] #### [facility] ([facility]) [address] [place] [address] CRYSTALS IN URINE Normal [facility] Comment on above: Performed By: #### L [id number] #### [facility] ([facility] [address] [place] [address] MUCUS (#/HPF) IN URINE SEDIMENT Occasional Normal None Seen, Occasional, Few [facility] Comment on above: Performed By: #### L [id number] #### [facility] ([facility]) [address] [place] [address] RBC (#/HPF) IN URINE SEDIMENT 0-2 Abnormal None Seen [facility] Comment on above: Performed By: #### L [id number] #### [facility] ([facility]) [address] [place] [address] SQUAMOUS EPITHELIAL CELLS (#/HPF) IN URINE SEDIMENT Occasional Normal None Seen, Occasional [facility] Comment on above: Performed By: #### L [id number] #### [facility] [address] [place] [address] WBC (LEUKOCYTE) (#/HPF) IN URINE SEDIMENT 3-5 Abnormal None Seen [facility] Comment on above: Performed By: #### L [id number] #### [facility] ([facility] [address] [place] [address] Vital Signs Date Time Vital Sign Value Performing Clinician Faci lity 10-13-2023 13:59-0400 Body height 177.8 cm [facility] 10-13-2023 13:59-0400 Body mass index (BMI) [Ratio] 34.4 kg/m2 [facility] 10-13-2023 13:59-0400 Body temperature 98 [degF] [facility] 10-13-2023 13:59-0400 Body weight 108.86 kg [facility] 10-13-2023 13:59-0400 Diastolic blood pressure 82 mm[Hg] [facility] 10-13-2023 13:59-0400 Heart rate 72 /min [facility] 10-13-2023 13:59-0400 Respiratory rate 18 /min [facility] 10-13-2023 13:59-0400 SaO2% (BldA) [Mass fraction] 98 % [facility] 10-13-2023 13:59-0400 Systolic blood pressure 134 mm[Hg] [facility] Encounters Encounter Date Encounter Type Care Provider Facility Start: 10-13-2023 End: 10-13-2023 ambulatory [facility] Work Phone: Start: 10-13-2023 End: 10-13-2023 Patient encounter procedure [facility] Work Phone: Start: 08-01-2023 End: 08-01-2023 ambulatory [facility] Start: 06-29-2023 End: 06-29-2023 ambulatory [facility] Start: 05-10-2023 End: 05-10-2023 ambulatory YA [facility] Start: 05-07-2023 End: 05-07-2023 ambulatory SHAIKH ALLIE Not Available Start: 04-17-2023 Clinisync Result Encounter Generic External Data Provider [facility] Unsolicited Start: 04-17-2023 Clinisync Result Encounter Generic External Data Provider [facility] Unsolicited Start: 04-11-2023 End: 04-11-2023 Orders Only Shaikh Allie VASQUEZ Work Phone: [facility] Comment on above: JAZZ (acute kidney in jury) ([facility]) (Primary Dx) Start: 04-05-2023 End: 04-05-2023 ambulatory SHAIKH ALLIE Not Available Start: 04-02-2023 Evaluation and management of inpatient HINA GONZALEZ [facility] Start: 04-01-2023 Evaluation and management of inpatient CORINNA WALKER [facility] Start: 04-01-2023 Evaluation and management of inpatient KATRINA HELMS [facility] Start: 03-31-2023 End: 04-03-2023 Evaluation and management of inpatient EVETTE LEE [facility] Procedures Date Procedure Procedure Detail Performing Clinician Start: 04-17-2023 ALL BASIC METABOLIC PANEL Generic External Data Provider Plan of Treatment Date Care Activity Detail Author Start: 05-07-2023 End: 05-07-2023 Patient encounter procedure 05/07/2023 6:00 PM EST Office Visit [facility] [address] [place] [id number] Shaikh Kelley MD [address] [place] [id number] [facility] Start: 04-11-2023 End: 04-11-2024 Basic metabolic 1998 panel - Serum or Plasma Basic metabolic panel Lab Routine JAZZ (acute kidney injury) ([facility]) Expected: 04/11/2023 (Approximate), Expires: 04/11/2024 [facility] Work Phone: Comment on above: Expected: 04/11/2023 (Approximate), Expires: 04/11/2024 Start: 11-03-2022 Influenza vaccination Influenz a Vaccine (#1) [facility] Start: 1965 Screening for malign ant neoplasm of colon [facility] Payers Date Payer Category Payer Unknown [employer] [id number] 2023-Present [phone] [address] [address] [place] [address] [id number] 2022 Unknown [id number] 1965 Unknown [id number] 1965 Unknown [id number] Social History Date Type Detail Facility Start: 04-05-2023 End: 10-13-2023 Tobacco smoking status NHIS Never smoked tobacco [facility] History of tobacco use Passive smoker [facility] Start: 04-05-2023 Tobacco use and exposure Smokeless tobacco non-user [facility] Start: 04-05-2023 Alcohol intake Lifetime non-d cheryl (finding) [facility] Start: 04-05-2023 History of Social function [facility] Start: 04-05-2023 Tobacco use panel [facility] Start: 1965 Sex Assigned At Not on file [facility] Start: 1965 Sex Assigned At Male F [facility] Clinical Notes 04-01-2023 to 08-01-2023 Shaikh Allie MD - 04/11/2023 9:13 AM Monica Kelley MD - 04/11/2023 9:11 AM EST Note Date & Type Note Facility 08-01-2023 Note [facility] Subjective Cory Colin is a [...] care with new doctor NICM (nonischemic cardiomyopathy) ([facility]) Hyperlipidemia Family History Adopted: Yes Social History Tobacco Use Smoking status: Never Smokeless tobacco: Never Vaping Use Vaping Use: Never used Substance Use Topics Alcohol use: Yes Alcohol/week: 2.0 standard drinks of alcohol Types: 2 Shots of liquor per week Comment: 1-2 per week but some weeks none Drug use: Never CARLOS Ray seen in follow-up. He is a 58-year-old [...] in the mornin (more content not included)... [facility] 06-29-2023 Note [facility] Subjective Cory Colin is a 58 y.o. year old male patient being seen for Follow-up (6 week) Patient Active Problem List Diagnosis Decompensated heart failure ([facility]) Hypertension Bilateral lower extremity edema Dyspnea on exertion Obesity Knowledge deficit about therapeutic diet Anxiety about knowledge deficit Encounter to establish care with new doctor BART (nonischemic cardiomyopathy) ([facility]) Hyperlipidemia Family History Adopted: Yes Social History [...] 3 spironolactone (Aldactone) (more content not included)... [facility] 05-10-2023 Note Cardiovascular Medic [facility] SUBJECTIVE Chief Complaint Patient presents [...] care with new doctor NICM (nonischemic cardiomyopathy) ([facility]) Hyperlipidemia Past Medical History: Diagnosis Date CHF [...] (H) 70 - (more content not included)... [facility] 05-10-2023 Note Patient here for 1 m o follow up chronic systolic heart failure and hypertension. His event monitor was finished last week, but no final report yet. Entresto was stopped since last visit. Hasn't had to take lasix recently. Review of Systems Neurological: Tingling in LLE All other systems reviewed and are negative. [facility] 04-18-2023 Note [id number] Bibiana Colin robert Brittany 1965 M Date Provider Department Center 04/18/2023 YA [facility] Family History Adopted: Yes [facility] 04-11-2023 Note Cardiovascular Medic [facility] SUBJECTIVE Chief Complaint Patient presents [...] an 57 y.o. male who came from [facility] with minimal to no medical history x 10 years as he states he has not seen a provider nor had any medical treatment in over 10 years and denies taking any prescription medications, axeb-guq-bijuive medications or herbals at this time. Patient states he does not even take mghm-jzh-axiixsm Tylenol or ibuprofen and stopped taking both of those years ago. Patient reports he has been experiencing shortness of breath and swelling for weeks to months with significant amount of edema progressing up bilateral lower extremities into groin and lower abdomen. Patient states upon arrival to [place] ER he was over 340 pounds. While at [facility] he received treatment with IV Lasix, carvedilol, and Aldactone. Patient is now down to 305 pounds and still significantly edematous. Echo completed at [facility] shows EF of 30-35%. Patient diagnosed the hospital with decompensated CHF and has been transferred to [facility] for need of heart cath. Patient with [...] Active Problem List Diagnosis Decompensated heart failure ([facility]) Hypertension Bilateral lower extremity edema Dyspnea on exertion Obesity Knowledge deficit about therapeutic diet Anxiety about knowledge deficit Encounter to establish care with new doctor NICM (nonischemic cardiomyopathy) ([facility]) Past Medical History: Diagnosis Date CHF (congestive heart failure) ([facility]) Family History Adopted: Yes Social History Tobacco [...] daily as directed (more content not included)... [facility] 04-11-2023 Note Patient here for [facility] for CHF. He had orientation at [...] All other systems reviewed and are negative. [facility] 04-11-2023 History of Present illness Narrative [...] up after BMP. 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 Yes ( I was filling up with fluid ) Who is your current PCP? Hasn't seen MD in 37 years other than few ER visits & required yearly physicals for health insurance; Has New PCP Appointment scheduled on Apr 05 @ 9:15am with Dr. Kelley in [place] Can I schedule a follow up appointment for you at the time of discharge? Yes (go to [facility]) Do you understand why you [...] Discharge? Yes Does the patient have a bottle caser assigned to them through their insurance? No [...] discharge today: Home, no needs. Follow-up with [facility] in [place]. will pick-up; Agreeable to iMeds. [facility] 04-03-2023 Note Attempted to meet wi th the patient. He is in with Malini BUSTAMANTE RN at this time. [facility] 04-03-2023 Note Spiritual Care Note Patient name: Cory Colin Age: 57 y.o. Room: 5148/5148-01 04/03/23 7222 Clinical Encounter Type Visited With Patient;Spouse (Spouse by phone) Type of Visit Advance Directives Last Visit Date 04/03/23 Patient Spiritual Care Encounters Spiritual Care Assessment Hopeful (Pt completed HCPOA naming as agent & son as alternate. Pt shared a bit of his personal hx.) Pastoral Intervention Advance directives;Emotional support;Spiritual support (Roll Builder assisted pt with completing HPCOA. Copies made, original & copies returned to pt, copy placed in pt chart.) Response Appreciative [facility] 04-03-2023 Note UTP Cardiovascular M edicine [...] assess for improvement 3) outpatient follow-up with [facility] cardiology ECHO 04/02/2023 Left Ventricle: The left [...] - NICM -GDMT: (more content not included)... [facility] 04-03-2023 Note Attempted to meet wi th the patient. He is currently in with pastoral care. Will attempt to try again later. [facility] 04-02-2023 Note Patient: Cory Herrera rt Procedure Information Date/Time: 04/02/23 1330 Procedures: Coronary angiography Right heart cath Location: [facility] PRIVACY OFFICER [address] / [facility] (Cath) Providers: Stephon [...] Plan discussed with attending. Additional Equipment Requests [facility] 04-02-2023 Note Attestation signed by Araceli [...] Teaching Physician's Revisions: none Araceli Schneider MD [facility] Cardiology Progress Note Subjective Subjective: No [...] Value Ventricular Rate 97 Atrial Rate 97 ND Interval 166 QRS DURATION 144 QT Interval 400 QTC CALCULATION(BAZETT) 508 P [place] 42 R-[place] -76 T Wave [place] 60 Impression Sinus rhythm with frequent and consecutive Premature ventricular complexes and Fusion complexes Left axis deviation Right bundle branch block Abnormal ECG When compared with ECG of 01-APR-2023 00:38, Fusion complexes are now Present Confirmed by Dora Flood ([id number]) on 04/01/2023 9:43:42 PM Lab Results Component Value Date TROPONINI 0.03 04/01/2023 Transthoracic echo (TTE) complete Result Date: 04/02/2023 1 1 [facility] [address] [place] [address] [phone] (fax) Echocardiogram-[facility] Name: CORY COLIN Study Date: 04/02/2023 11:46 AM B/P: 112 mmHg/57 mmHg HR: 100 bpm Date of : 1965 Location: [facility] Height: 70 in. Age: 57 year(s) Patient Room: [facility] Weight: 297 lb. Gender: Male Patient Status: [...] 2.3cm) Valvular Assessmen (more content not included)... [facility] 04-02-2023 Note Hospital Medicine Daily Progress Note - 04/02/2023 5:47 PM; Room: [address] [place] [address] Admission: 03/31/2023 9:13 PM; Length of stay: 2 days THE HOSPITALIST TEAM PREFERS TO USE angelcam CHAT FOR COMMUNICATION 7AM-7PM. IF I DO NOT RESPOND WITHIN 15 MINUTES, PLEASE PAGE ME/CALL THROUGH THE BACCARAT DEALER. FROM 7PM-7AM, PLEASE PAGE [phone](COVR) Code Status: Full Code Barriers to Discharge: [...] LDL 118 04/01/2023 No results found for: [id number] , IRON , TIBC , C3 , [...] months to assess (more content not included)... [facility] 04-02-2023 Note Pt admitted to [facility] for decompensated HF. Pt has echo scheduled; no previous echo on file. I will wait for current echo results to determine pt's eligibility to participate in cardiac rehab (CR) therapy with HF diagnosis and follow up with pt, if appropriate. KELLY Walton puppet developer Outpatient Coordinator Cardiopulmonary Rehab [facility] 04-02-2023 Note Patient was transfer red to 5th floor, room 5148. Telemetry box was removed and magazine writer called [facility] to inform them that the patient had been transferred to said unit and taken off the monitor, #105. [facility] 04-01-2023 Note Patients HR was sust aining in the 140's. Hospitalist called. Orders to give Lopressor IV once. Patient's Heart rate improved to the 130 s. Hospitalist called again. Patient has new orders to go to stepdown unit. Patient and notified. Roll Builder will give report to [facility] cr and transport patient to [facility]. Point of care will continue until then. [facility] 04-01-2023 Note Hospital Medicine Daily Progress Note - 04/01/2023 2:49 PM; Room: [address] [place] [address] Admission: 03/31/2023 9:13 PM; Length of stay: 1 days THE HOSPITALIST TEAM PREFERS TO USE angelcam CHAT FOR COMMUNICATION 7AM-7PM. IF I DO NOT RESPOND WITHIN 15 MINUTES, PLEASE PAGE ME/CALL THROUGH THE BACCARAT DEALER. FROM 7PM-7AM, PLEASE PAGE [phone](COVR) Code Status: Full Code Barriers to Discharge: [...] edema Shortness of breath -Echocardiogram completed at [facility], ejection fraction 30-35% Continue 40mg IV [...] LDL 118 04/01/2023 No results found for: [id number] , IRON , TIBC , C3 , [...] ECG When co (more content not included)... [facility] 04-01-2023 Note Roll Builder received a ca ll from [facility] that patient had a 4 beat of VTACH. Pt. Was assessed, was asymptomatic, Dr. Walker was paged. Also results of 2nd EKG was discussed along with patient's Magnesium and phosphorous. Patient also began to desat to 89%-90%. Roll Builder put patient on 2 liters nasal cannula. Patient is satting at 96% now. Will continue point of care. [facility] 04-01-2023 Note Roll Builder was taking monae mccarthy's vitals when patient started having 33 pvc's per 10 minutes sustaining per [facility]; Hospitalist was called, stat labs, EKG, chest xray were ordered. Patient is asymptomatic at this time. Will continue point of care. [facility] 04-01-2023 Note Hospital Medicine History and Physical 04/01/2023 12:08 AM THE HOSPITALIST TEAM PREFERS TO USE angelcam CHAT FOR COMMUNICATION 7AM-7PM. IF I DO NOT RESPOND WITHIN 15 MINUTES, PLEASE PAGE ME/CALL THROUGH THE BACCARAT DEALER. FROM 7PM-7AM, PLEASE PAGE [phone](COVR) Chief Complaint Direct admission from [facility]/ER where he presented for SOB and swelling for weeks to months. History of Present Illness Cory Colin is an 57 y.o. male who came from [facility] with minimal to no medical history x 10 years as he states he has not seen a provider nor had any medical treatment in over 10 years and denies taking any prescription medications, limw-jgw-ijidthw medications or herbals at this time. Patient states he does not even take cntm-ktz-lxhbnuc Tylenol or ibuprofen and stopped taking both of those years ago. Patient reports he has been experiencing shortness of breath and swelling for weeks to months with significant amount of edema progressing up bilateral lower extremities into groin and lower abdomen. Patient states upon arrival to [place] ER he was over 340 pounds. While at [facility] he received treatment with IV Lasix, carvedilol, and Aldactone. Patient is now down to 305 pounds and still significantly edematous. Echo completed at [facility] shows EF of 30-35%. Patient diagnosed the hospital with decompensated CHF and has been transferred to [facility] for need of heart cath. 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 Patient exhibits mild shortness of breath with [...] Date Noted Decompen (more content not included)... [facility] Evaluation note Diagnosis JAZZ (acute kidney injury) ([facility])- Primary documented in this encounter [facility] Work Phone: Summary Purpose Family History No Family History Records FoundNo Family History Records Found Advance Directives Advance Directive Response Recorded Date/ Time Advance Directives Yes October 13, 2023 1:55pm Chief Complaint and Reason for Visit Chief Complaint Allergic reaction to bug sting Additional Source Comments Care Teams (unrecognized sec tion and content) Financial Advisor Trainee Relationship Specialty Start Date End Date Shaikh Kelley MD [address] [place] [phone] PCP - General Internal Medicine 04/05/23 Financial Advisor Trainee Relationship Specialty Start Date End Date Shaikh Kelley MD [address] [place] [phone] PCP - General Internal Medicine 04/05/23 Team Status: Active Member Role Status Dates Shaikh Allie MD Primary Care Provider Active Team Status: Inactive Member Role Status Dates Shaikh Allie MD Primary Care Provider Active Start: October 13, 2023 End: October 13, 2023 Rowan Kat APRN Attending Provider Active Start: October 13, 2023 End: October 13, 2023 (unrecognized sect ion and content) No Status Records FoundNo Status Records Found INFORMATION SOURCE (unrecogn ized section and content) DATE CREATED AUTHOR 05/08/2023 [facility] DATE CREATED AUTHOR AUTHOR'S [place] [place] 08/02/2023 [facility] Goals (unrecognized section and content) Goals may be documented in a n alternate section FOR RECORDS PERTAINING TO PATIENTS WHO ARE [...] BE BASED ON THE PRIMARY CLINICAL RECORDS. [employer] provides no warranty or guarantee of the accuracy or completeness of information in this document.
[2023-10-26 17:00] LABS: Anion Gap 7.1; BUN Creatinine Ratio 16.8; Calcium 8.9 mg/dL (8.5-10.1); Carbon Dioxide 29.7 mmol/L (21.0-32.0); Chloride 104 mmol/L (98-107); Estimated GFR (African America >60 (>=60); Estimated GFR (Non-African Ame >60 (>=60); Glucose 103 mg/dL (74-106); Potassium 3.8 mmol/L (3.5-5.1); Sodium 137 mmol/L (136-145)
== END 2023-10-26 16:10 | disposition home or self-care (01) ==
PROVIDERS: PCP Internal Medicine; Visit Provider Internal Medicine Interventional Cardiology
DX: I10 Essential (primary) hypertension (principal)
CPT/HCPCS: 36415; 80048

== ENCOUNTER 2024-01-28 07:36 | Outpatient (OUT) | payer OTHER, SELFPAY ==
[2024-01-28 08:39] LABS: Anion Gap 14.2; BUN Creatinine Ratio 16.2; Carbon Dioxide 26.8 mmol/L (21.0-32.0); Chloride 107 mmol/L (98-107); Estimated GFR (African America >60 (>=60 mL/min/1.73m^2); Estimated GFR (Non-African Ame 54 (>=60 mL/min/1.73m^2); Glucose 109 mg/dL (74-106); Sodium 144 mmol/L (136-145)
== END 2024-01-28 07:37 | disposition home or self-care (01) ==
LOC: LAB 07:39
DX: I50.22 Chronic systolic (congestive) heart failure (principal)
CPT/HCPCS: 36415; 80048

== ENCOUNTER 2024-02-22 15:09 | Outpatient (OUT) | payer OTHER, SELFPAY ==
--- OUTSIDE RECORDS SUMMARY | 2024-02-22 15:14 | XMS_ITS | CCD ---
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 Name Role Phone Allie VASQUEZ, Primary Care Provider SHAIKH KELLEY Attending Unavailable SHAIKH KELLEY Attending Unavailable MERZA, NOORALDIN Referring Unavailable MERZA, NOORALDIN Referring Unavailable NADERECHASE Campbell Referring Unavailable BARBARAHINA Attending Unavailable MERZA, NOORALDIN Admitting Unavailable YA GARCIA Attending Unavailable MOUKADORA KOHLI Attending Unavailable MOUKADORA KOHLI Attending Unavailable MOUKARBELDORA Attending Unavailable REMAYA HUERTA Attending Unavailable BARBARALOUISMED Referring Unavailable ZENZLALAKATRINA Referring Unavailable Unavailable Primary Care Provider Unavailjeramie Reddy MD, Dora Saini Primary [facility] Provide r Shaikh Kelley MD Unavailable Shaikh Kelley MD Primary Care Provider [phone] Chase Connors MD Primary Care Provider Hattie GLOVE BRUSHER, Vilma Unavailable DORA REDDY Primary Care Unavail able MARTINEZESPERANZA SAEED Referring Unavailabl e MOUKARBELDORA Primary Care Unavail able MARTINEZ ESPERANZA MUÑOZ Referring Unavailabl e MOUKADORA KOHLI Primary Care Unavail able MARTINEZ ESPERANZA MUÑOZ Referring Unavailabl e MARTINEZESPERANZA SEVILLA Attending Unavailjeramie e DORA REDDY Primary Care Unavail able MARTINEZ MUÑOZESPERANZA LARSON Referring Unavailabl e Allergies Allergy Classification Reported Allergen(s) Allergy Type Date of Onset Reaction(s) Facility (12 sources) empagliflozin; Translations: [EMPAGLIFLOZIN] Drug Allergy 4 Diarrhea, Other: See Comments, Dizziness, Headache [facility] Repository (12 sources) sacubitril / valsartan; Translations: [SACUBITRIL-VALS BUSTER] Drug Allergy 4 Diarrhea [facility] Repository Medications Current Medications Medication Drug Class(es) Dates Sig (Normalized) Sig (Original) aspirin 81 mg delayed release oral tablet (13 sources) Platelet Aggregation Inhibitor, Nonsteroidal Anti-inflammatory Drug Start: 07-03-2023 take 1 tablet by mouth once daily Aspirin Low Dose 81 MG EC tablet Take 81 mg by mouth Daily 07/03/2023 Active Start: 04-04-2023 End: 05-04-2023 take 1 tablet by mouth in the morning aspirin 81 MG EC tablet Take 81 mg by mouth in the morning. 0 04/04/2023 05/04/2023 Active dapagliflozin 10 mg oral tablet (7 sources) Sodium-Glucose Cotransporter 2 Inhibitor Start: 01-14-2024 End: 01-13-2025 take 1 tablet by mouth once daily at breakfast dapagliflozin propanediol (FARXIGA) 10 mg tablet Indications: Cardiomyopathy, nonischemic (HCC) , Chronic HFrEF (heart failure with reduced ejection fraction) (HCC) Take 1 tablet by mouth daily with breakfast. 90 tablet 3 01/14/2024 01/13/2025 Active Start: 04-04-2023 End: 05-04-2023 take 10 mg by mouth in the morning dapagliflozin (Farxiga) 10 MG Take 10 mg by mouth in the morning. 0 04/04/2023 05/04/2023 Active furosemide 40 mg oral tablet (7 sources) Loop Diuretic Start: 04-04-2023 End: 05-04-2023 take 1 tablet by mouth in the morning furosemide (Lasix) 40 MG tablet Take 40 mg by mouth in the morning. 0 04/04/2023 05/04/2023 Active methylPREDNISolone 4 mg oral tablet (1 source) Corticosteroid Start: 10-13-2023 take 1 tablet by mouth once Methylprednisolone (Medrol (Vern)) 4 mg tablets,dose pack Active 0 PO per package directions October 13, 2023 12:00am PO PER PKG DIR for 6 days 24 hr metoprolol succinate 50 mg extended release oral tablet (13 sources) beta-Adrenergic Adarsh Start: 10-13-2023 Metoprolol Succinate Active MG PO October 13, 2023 12:00am Start: 04-03-2023 End: 02-07-2024 take 1 tablet by mouth every twenty-four hours in the morning metoprolol succinate XL (Toprol-XL) 50 MG 24 hr tablet Take 25 mg by mouth in the morning. 04/03/2023 02/07/2024 Discontinued (Med list cleanup) Start: 04-03-2023 take 1 tablet by monroe th every twenty-four hours in the morning metoprolol succinate XL (Toprol-XL) 50 MG 24 hr tablet Take 50 mg by mouth in the morning. 0 04/03/2023 Active take 1 tablet by mouth once vidal y metoprolol succinate ER (TOPROL XL) 50 mg 24 hr tablet Take 50 mg by mouth once daily. Active sacubitril 24 mg / valsartan 26 mg oral tablet (9 sources) Angiotensin 2 Receptor Adarsh Start: 01-14-2024 End: 01-13-2025 take 0.5 tablet by mouth twice daily sacubitril-valsartan (ENTRESTO) 24-26 mg tablet Indications: Cardiomyopathy, nonischemic (HCC) , Chronic HFrEF (heart failure with reduced ejection fraction) (HCC) Take 0.5 tablets by mouth two times a day. 90 tablet 3 01/14/2024 01/13/2025 Active Start: 04-03-2023 End: 02-07-2024 take 1 tablet by mouth in the [...] in the morning. 0 04/04/2023 05/04/2023 Active Completed/Discontinued Medications Medication Drug Class(es) Dates Sig (Normalized) Sig (Original) atorvastatin 80 mg oral tablet (15 sources) HMG-CoA Reductase Inhibitor Start: 06-25-2023 End: 02-07-2024 take 1 tablet by mouth at bedtime atorvastatin (Lipitor) 80 MG tablet Take 80 mg by mouth at bedtime 06/25/2023 02/07/2024 Discontinued (Dose adjustment) Start: 04-03-2023 End: 05-03-2023 take 1 tablet by mouth at bedtime atorvastatin (Lipitor) 80 MG tablet Take 80 mg by mouth at bedtime 0 04/03/2023 05/03/2023 Active take 1 tablet by monroe th once daily atorvastatin (Lipitor) 20 MG tablet Take 20 mg by mouth Daily Active iv contrast (will be provide d with radiology test) (3 sources) Start: 01-14-2024 End: 01-15-2024 iv contrast (will be provide d with radiology test) Indications: Cardiomyopathy, nonischemic (HCC) , Chronic HFrEF (heart failure with reduced ejection fraction) (HCC) MRI Cardiac w/Qflow Inject, intravenously, once for 1 dose. No IV access, insert saline lock prior to the beginning of sedation, infusion, injection of imaging exam. Discontinue saline lock post exam. If Pt has a central line or IVAD, may access for administration according to line specific nursing protocol. Once exam is complete flush line and de-access according to line specific nursing protocol in the MR contrast administration guidelines link 1 Each 01/14/2024 01/15/2024 Start: 01-14-2024 End: 01-15-2024 iv contrast (will be provide d with radiology test) Indications: Cardiomyopathy, nonischemic (HCC) , Chronic HFrEF (heart failure with reduced ejection fraction) (HCC) MRI Cardiac w/Qflow Inject, intravenously, once for 1 dose. No IV access, insert saline lock prior to the beginning of sedation, infusion, injection of imaging exam. Discontinue saline lock post exam. If Pt has a central line or IVAD, may access for administration according to line specific nursing protocol. Once exam is complete flush line and de-access according to line specific nursing protocol in the MR contrast administration guidelines link 1 Each 01/14/2024 01/15/2024 Active lisinopril 10 mg oral tablet (7 sources) Angiotensin Converting Enzyme Inhibitor Start: 06-29-2023 End: 06-28-2024 take 1 tablet by mouth in the morning lisinopril 10 MG tablet Take 10 mg by mouth in the morning. 06/29/2023 02/07/2024 Discontinued (Med list cleanup) Problems Active Problems Problem Classification Problem Date Documented Date Episodic/Chronic Congestive heart failure; nonhypertensive (20 sources) Heart failure with reduced ejection fraction; Translations: [Unspecified systolic (congestive) heart failure] Onset: 03-31-2023 04-05-2023 Chronic Disorders of lipid metabolism (10 sources) Hypercholesterolemia; Translations: [Pure hypercholesterolemia, unspecified] Onset: 05-07-2023 10-13-2023 Chronic Essential hypertension (16 sources) Hypertensive disorder; Translations: [Essential (primary) hypertension] Onset: 03-31-2023 04-05-2023 Chronic Other nutritional; endocrine; and metabolic disorders (7 sources) Obesity; Translations: [Obesity, unspecified] Onset: 04-01-2023 04-05-2023 Chronic Alesha-; endo-; and myocarditis; cardiomyopathy (except that caused by tuberculosis or sexually transmitted disease) (17 sources) Cardiomyopathy; Translations: [Other cardiomyopathies] Onset: 04-05-2023 04-05-2023 Chronic Unclassified (1 source) Supraventricular tachycardia, unspecified; Translations: [Supraventricular tachycardia, unspecified] Onset: 06-29-2023 Past or Other Problems Problem Classification Problem Date Documented Date Episodic/Chronic Acute and unspecified renal failure (8 sources) Acute injury of kidney; Translations: [Acute kidney failure, unspecified] Onset: 04-11-2023 Resolved: 05-07-2023 04-11-2023 Episodic Administrative/socia l admission (12 sources) Patient encounter status; Translations: [Persons encountering health services in other specified circumstances] Onset: 04-05-2023 04-05-2023 Episodic Unclassified (1 source) Supraventricular tachycardia, unspecified; Translations: [Supraventricular tachycardia, unspecified] Onset: 06-29-2023 Results Test Name Value Interpretation Reference Range Facility [facility] 02-04-2024 [facility] ([id number]) 1965 M Date Time Provider Department 02/04/24 [facility] During your visit today, we recorded the following information about you: Marylin Purvis, JAILYN 02/04/2024 11:43 AM Signed Esperanza Campos MD Alfonsi, Dominique; P i J3-4 Opd Nurses Would you be able to let Mr. Jewell know that his Zio patch showed 8.5% PVC burden. Would recommend continuing his medical optimization and we can repeat that in the future, hopefully PVC burden decreases with our interventions. Thanks! Esperanza Allergies As of Date: 02/04/2024 Noted Allergy Reaction EMPAGLIFLOZIN 06/29/2023 6 - Diarrhea 14 - Other: See Comments Comments: Caused JAZZ SACUBITRIL-VALSARTAN 06/29/2023 6 - Diarrhea Comments: Caused on JAZZ Date Reviewed: 01/14/2024 Reviewed by: Marylin Purvis, RN - Fully Assessed Reason for Visit: Results [95] Prescriptions as of 02/04/2024 - aspirin, enteric coated (ASPIRIN, ENTERIC COATED) 81 mg EC tablet Take 81 mg by mouth once daily. - atorvastatin (LIPITOR) 20 mg tablet Take 20 mg by mouth every morning. - metoprolol succinate ER (TOPROL XL) 50 mg 24 hr tablet Take 50 mg by mouth once daily. - furosemide (LASIX) 40 mg tablet Take 40 mg by mouth as needed. - sacubitril-valsartan (ENTRESTO) 24-26 mg tablet Take 0.5 tablets by mouth two times a day. - dapagliflozin propanediol (FARXIGA) 10 mg tablet Take 1 tablet by mouth daily with breakfast. Problem List As Of Date 02/04/2024 Noted Resolved NICM (nonischemic cardiomyopathy) (HCC) [I42.8] 01/16/2024 Chronic HFrEF (heart failure with reduced eject*01/16/2024 Essential hypertension [I10] 01/16/2024 Dyslipidemia [E78.5] 01/16/2024 Encounter Status:Closed by MARYLIN PURVIS on 02/04/24 [facility] ALL BASIC METABOLIC PANELon 01-28-2024 Anion gap [Moles/Vol] 14.2 mmol/L [facility] Calcium [Mass/Vol] 9 mg/dL 8.5 - 10. 1 mg/dL [facility] Chloride [Moles/Vol] 107 mmol/L 98 - 10 7 mmol/L [facility] CO2 [Moles/Vol] 26.8 mmol/L 21.0 - 32.0 mmol/L [facility] Creatinine [Mass/Vol] 1.36 mg/dL High 0.70 - 1.30 mg/dL [facility] GFR/1.73 sq M.predicted CKD-EPI (S/P/Bld) [Vol rate/Area] >60 >=60 mL/min/1.73m 2 [facility] Glucose [Mass/Vol] 109 mg/dL High 74 - 106 mg/dL [facility] Interpretation and review of laboratory results Abnormal [facility] Potassium [Moles/Vol] 4 mmol/L 3.5 - 5.1 mmol/L [facility] Sodium [Moles/Vol] 144 mmol/L 136 - 145 mmol/L [facility] TBH EGFR-NON AF JAPANESE 54 Low >=60 mL/min/1.73m 2 [facility] Urea nitrogen [Mass/Vol] 22 mg/dL High 7.0 - 18.0 mg/dL [facility] Urea nitrogen/Creatinine [Mass ratio] 16.2 mg/mg [facility] CNPNon 01-16-2024 [facility] CORY JEWELL ([id number]) 1965 M Date Time Provider Department 01/16/24 ESPERANZA CAMPOS [facility] During your visit today, we recorded the following information about you: Mariah Martin 01/16/2024 1:23 PM Signed Tina Castillo RN 01/16/2024 1:51 PM Signed VeronicaChristineMariah 01/16/2024 3:43 PM Signed Allergies As of Date: 01/16/2024 Noted Allergy Reaction EMPAGLIFLOZIN 06/29/2023 6 - Diarrhea 14 - Other: See Comments Comments: Caused JAZZ SACUBITRIL-VALSARTAN 06/29/2023 6 - Diarrhea Comments: Caused on JAZZ Date Reviewed: 01/14/2024 Reviewed by: Mayrlin Purvis RN - Fully Assessed Reason for Visit: PRIOR AUTH - FARXIGA [Other] Prescriptions as of 01/16/2024 - aspirin, enteric coated (ASPIRIN, ENTERIC COATED) 81 mg EC tablet Take 81 mg by mouth once daily. - atorvastatin (LIPITOR) 20 mg tablet Take 20 mg by mouth every morning. - metoprolol succinate ER (TOPROL XL) 50 mg 24 hr tablet Take 50 mg by mouth once daily. - furosemide (LASIX) 40 mg tablet Take 40 mg by mouth as needed. - sacubitril-valsartan (ENTRESTO) 24-26 mg tablet Take 0.5 tablets by mouth two times a day. - dapagliflozin propanediol (FARXIGA) 10 mg tablet Take 1 tablet by mouth daily with breakfast. Problem List As Of Date 01/16/2024 Noted Resolved NICM (nonischemic cardiomyopathy) (HCC) [I42.8] 01/16/2024 Chronic HFrEF (heart failure with reduced eject*01/16/2024 Essential hypertension [I10] 01/16/2024 Dyslipidemia [E78.5] 01/16/2024 Encounter Status:Closed by TINA CASTILLO on 01/16/24 [facility] Tray 01-15-2024 CNPN Telephone (PHARMN) CORY JEWELL ([id number]) 1965 M Date Time Provider Department 01/15/24 PHARMACIST PHARMN During your visit today, we recorded the following information about you: Jonas Conn 01/15/2024 9:27 AM Signed Called the patient to schedule a new appointment with the HF pharmacists. No answer, LVM for patient to call [phone] to schedule. Jonas Conn 01/16/2024 9:31 AM Signed Called the patient to schedule a new appointment with the HF pharmacists. No answer, LVM for patient to call [phone] to schedule. Second attempt. Sending [employer] message. Jonas Conn 01/16/2024 3:25 PM Signed Patient returned a call. An appointment was made for 02/20/24. Marianne Garcia RPh 02/19/2024 10:31 AM Signed Noted patient canceled pharmacy HF visit on 02/19. Called patient to reschedule missed appointment and patient did not answer. Left VM to please call pharmacy HF clinic back at [phone] to reschedule pharmacy HF visit. Also sent patient [employer] message. Will follow up in 1 week if no call back received. Next pharmacy appointment to be scheduled. Reason for telephone encounter: Appointment Schedule Time spent: 0-5 minutes Marianne Garcia, RolaD, [facility] Trans[facility] Clinical [place] [phone] February 19, 2024 10:30 AM Allergies As of Date: 01/15/2024 Noted Allergy Reaction EMPAGLIFLOZIN 06/29/2023 6 - Diarrhea 14 - Other: See Comments Comments: Caused JAZZ SACUBITRIL-VALSARTAN 06/29/2023 6 - Diarrhea Comments: Caused on JAZZ Date Reviewed: 01/14/2024 Reviewed by: Marylin Purvis, RN - Fully Assessed Reason for Visit: Heart Failure Pharmacist Appt [Other] Prescriptions as of 02/19/2024 - aspirin, enteric coated (ASPIRIN, ENTERIC COATED) 81 mg EC tablet Take 81 mg by mouth once daily. - atorvastatin (LIPITOR) 20 mg tablet Take 20 mg by mouth every morning. - metoprolol succinate ER (TOPROL XL) 50 mg 24 hr tablet Take 50 mg by mouth once daily. - furosemide (LASIX) 40 mg tablet Take 40 mg by mouth as needed. - sacubitril-valsartan (ENTRESTO) 24-26 mg tablet Take 0.5 tablets by mouth two times a day. - dapagliflozin propanediol (FARXIGA) 10 mg tablet Take 1 tablet by mouth daily with breakfast. Problem List As Of Date: 01/15/2024 (None) Encounter Status:Closed by JONAS CONN on 01/15/24 Normal [facility] FERRITINon 01-15-2024 Ferritin [Mass/Vol] 352.0 ng/mL 30.3 - 5 65.7 ng/mL [facility] Ferritin [Mass/Vol]on 2023 Interpretation and review of laboratory results Normal [facility] CBC panel Auto (Bld)on 01-13 Erythrocyte distribution width (RBC) [Ratio] 13.2 % 11.5 - 15.0 % [facility] Hematocrit (Bld) [Volume fraction] 46.2 % 39.0 - 51.0 % [facility] Hemoglobin (Bld) [Mass/Vol] 14.7 g/dL 13.0 - 17.0 g/dL [facility] Interpretation and review of laboratory results Normal [facility] MCH (RBC) [Entitic mass] 30.3 pg 26.0 - 34.0 pg [facility] MCHC (RBC) [Mass/Vol] 31.8 g/dL 30.5 - 36.0 g/dL [facility] MCV (RBC) [Entitic vol] 95.3 fL 80.0 - 100.0 fL [facility] Nucleated RBC (Bld) [#/Vol] NINF [facility] Platelet mean volume (Bld) [Entitic vol] 9.5 fL 9.0 - 12.7 fL [facility] Platelets (Bld) [#/Vol] 218 10*3/uL [facility] RBC (Bld) [#/Vol] 4.85 10*6/uL 4.20 - 6.0 0 m/uL [facility] WBC (Bld) [#/Vol] 9.26 10*3/uL [facility] Erythrocyte distribution width (RBC) [Ratio] 13.2 % Normal 11.5-15.0 [facility] Comment on above: Order Comment: Speci men Type: BLOOD SPECIMEN Ordering Facility: [facility] Address: [address] [place] [address] Performed By: #### 5 8410-2 #### [facility] CLIA [id number] [address] [place] [address] [place] Hematocrit (Bld) [Volume fraction] 46.2 % Normal 39.0-51.0 [facility] Comment on above: Order Comment: Speci men Type: BLOOD SPECIMEN Ordering Facility: [facility] Address: [address] [place] [address] Performed By: #### 5 8410-2 #### [facility] CLIA [id number] [address] [place] [address] [place] Hemoglobin (Bld) [Mass/Vol] 14.7 g/dL Normal 13.0-17.0 [facility] Comment on above: Order Comment: Speci men Type: BLOOD SPECIMEN Ordering Facility: [facility] Address: [address] [place] [address] Performed By: #### 5 8410-2 #### [facility] CLIA [id number] [address] [place] [address] [place] MCH (RBC) [Entitic mass] 30.3 pg Normal 26.0-34.0 [facility] Comment on above: Order Comment: Speci men Type: BLOOD SPECIMEN Ordering Facility: [facility] Address: [address] [place] [address] Performed By: #### 5 8410-2 #### [facility] CLIA [id number] [address] [place] [address] [place] MCHC (RBC) [Mass/Vol] 31.8 g/dL Normal 30.5-36.0 [facility] Comment on above: Order Comment: Speci men Type: BLOOD SPECIMEN Ordering Facility: [facility] Address: [address] [place] [address] Performed By: #### 5 8410-2 #### [facility] CLIA [id number] [address] [place] [address] [place] MCV (RBC) [Entitic vol] 95.3 fL Normal 80.0-100.0 [facility] Comment on above: Order Comment: Speci men Type: BLOOD SPECIMEN Ordering Facility: [facility] Address: [address] [place] [address] Performed By: #### 5 8410-2 #### [facility] CLIA [id number] [address] [place] [address] [place] Nucleated RBC (Bld) [#/Vol] 10*3/uL Normal <0.01 [facility] Comment on above: Order Comment: Speci men Type: BLOOD SPECIMEN Ordering Facility: [facility] Address: [address] [place] [address] Performed By: #### 5 8410-2 #### [facility] CLIA [id number] [address] [place] [address] [place] Platelet mean volume (Bld) [Entitic vol] 9.5 fL Normal 9.0-12.7 [facility] Comment on above: Order Comment: Speci men Type: BLOOD SPECIMEN Ordering Facility: [facility] Address: [address] [place] [address] Performed By: #### 5 8410-2 #### [facility] CLIA [id number] [address] [place] [address] [place] Platelets (Bld) [#/Vol] 218 10*3/uL Normal 150-400 [facility] Comment on above: Order Comment: Speci men Type: BLOOD SPECIMEN Ordering Facility: [facility] Address: [address] [place] [address] Performed By: #### 5 8410-2 #### [facility] CLIA [id number] [address] [place] [address] [place] RBC (Bld) [#/Vol] 4.85 10*6/uL Normal 4.20-6.00 [facility] Comment on above: Order Comment: Speci men Type: BLOOD SPECIMEN Ordering Facility: [facility] Address: [address] [place] [address] Performed By: #### 5 8410-2 #### [facility] IA [id number] [address] [place] [address] [place] WBC (Bld) [#/Vol] 9.26 10*3/uL Normal 3.70-11.00 [facility] Comment on above: Order Comment: Speci men Type: BLOOD SPECIMEN Ordering Facility: [facility] Address: [address] [place] [address] Performed By: #### 5 8410-2 #### [facility] IA [id number] [address] [place] [address] [place] CNOVon 01-14-2024 CNOV Office Visit (LAKSHMI [facility] HF CELE) CORY JEWELL ([id number]) 1965 M Date Time Provider Department 01/14/24 10:15 AM [facility] During your visit today, we recorded the following information about you: Pulse Blood pressure Weight Height 78/minute 138/75 103.9 kg 1.778 m Esperanza Campos MD 01/16/2024 7:55 AM Signed [facility] SECTION OF HEART FAILURE and CARDIAC TRANSPLANT MEDICINE OUTPATIENT VISIT DATE January 14, 2024 OUTPATIENT VISIT TYPE New Patient PRIMARY CARE PHYSICIAN: To use this Smartlink, specify the provider ID whose address you want to display, e.g., .PROVADDR[1 (where 1 is the provider ID). CHIEF COMPLAINT: Heart failure second opinion HISTORY OF PRESENT ILLNESS: 58 year old male with PMHx of chronic HFrEF, NICM, HTN, HLD who is here for a heart failure second opinion. He reports the onset of symptoms around of last year, with significant worsening by March. He initially noticed swelling in his feet and legs, which progressed to his groin. He also experienced a substantial weight gain, increasing from his usual weight of 290-305 lbs to a point where he could not button his pants. He denies experiencing dyspnea, dizziness, palpitations, chest pain, or syncope during this period. He was hospitalized and lost 60-65 lbs of fluid over five days, with his weight now stabilized between 226-230 lbs. He underwent a LHC at the [facility], which showed no significant coronary artery disease. RHC: near normal, PCWP 18 mmhg. Cardiac output preserved . He has had multiple echocardiograms, with the most recent showing an improvement in LVEF from 10% to 40%. The etiology is still unclear but it seems it is secondary to viral illness (April 2019 w/ ?COVID; no testing done; and November 2022 before he was Dx w/ heart failure). Today, patient reports feeling overall really well. Has occasional lightheadedness when standing up quickly, which he attributes to his medications. He also experiences an intermittent cough, which he associates with lisinopril use. He is physically active, walking approximately 10 miles per week, and denies any significant dyspnea during exercise. He monitors his weight daily and checks his feet for edema. He denies any orthopnea and sleeps comfortably with one pillow, sometimes on his right side as advised. Has been on various medications, including lisinopril, metoprolol, spironolactone, atorvastatin, and furosemide. He was previously on Entresto and Farxiga/Jardiance but discontinued them due to concerns about kidney function and insurance coverage, respectively. He also reports experiencing diarrhea with medication changes (?secondary to spironolactone). He monitors his fluid intake, aiming for 5009-0943 mL per day. Family: He is adopted and therefore has no known family history of heart disease. Social: He denies any history of smoking and reports occasional alcohol consumption, approximately 2-3 drinks per month, but has abstained since April. 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 NURSING INTAKE (Patient?s concerns and/or recent hospitalizations/ER visits): Cory Jewell is a 58 year old male from [place], [place] here for newly diagnosed heart failure. PMHx includes NICM; HFrEF; SVT; HTN; sleep apnea Pt was trailed on GDMT Entresto was not covered by insurance Spironolactone was stopped due to dehydration- was started and stopped a few times. Has not been taking since July 2023- Due to JAZZ Jardiance caused JAZZ multiple times March 2023: presented to ED at [facility] after experiencing shortness of breath and swelling for weeks/months with significant amount of edema progressing up bilateral lower extremities and into lower abdomen. Weight at ED was 340 lbs. Echo showed EF 30-35%. Transferred to [facility] for admission. TTE showed EF 15 % -20 %. LHC showed normal coronaries, RHC: Wedge pressure is 18 mmhg, Cardiac output is preserved. Received IV diuretics, lost 35 lbs, and started on GDMT. Prior to admission in March, had not seen provider in over 10 years, no previous known medical history. He is adopted, family history is not known. Repeat Echo done in October EF improved to 40-45%. HF Nursing Assessment: Interim Hospitalizations and/or ER visits: Chest Pain: no Skipping or irregular heartbeats: no Shortness of breath at rest: no Shortness of breath with activity: not anymore Cough: yes, dry- not that often Waking up in the middle of the night gasping for air: no Lightheadedness or dizziness: not since medication changes Feeling like you are going to pass out: no Actually passing out: no Poor energy level: comes and goes, (more content not included)... Normal [facility] Comprehensive metabolic 2000 panelon 01-14-2024 Albumin [Mass/Vol] 4.2 g/dL 3.9 - 4.9 g/dL [facility] ALP [Catalytic activity/Vol] 109 U/L 38 - 113 U/L [facility] ALT [Catalytic activity/Vol] 21 U/L 10 - 54 U/L [facility] Anion gap [Moles/Vol] 10 mmol/L 8 - 15 mmol/L [facility] AST [Catalytic activity/Vol] 22 U/L 14 - 40 U/L [facility] Bilirubin [Mass/Vol] 0.2 mg/dL 0.2 - 1 .3 mg/dL [facility] Calcium [Mass/Vol] 9.6 mg/dL 8.5 - 10. 2 mg/dL [facility] Chloride [Moles/Vol] 107 mmol/L 98 - 10 7 mmol/L [facility] CO2 [Moles/Vol] 28 mmol/L 22 - 30 mmol/L [facility] Creatinine [Mass/Vol] 1.14 mg/dL 0.73 - 1.22 mg/dL [facility] GFR/1.73 sq M.predicted among non-blacks MDRD (S/P/Bld) [Vol rate/Area] 75 mL/min/{1.73_m2} - PINF [facility] Comment on above: Estimated Glomerular Filtration Rate (eGFR) is calculated using the 2020 CKD-EPI creatinine equation. This equation utilizes serum creatinine, sex, and age as parameters. The creatinine assay has traceable calibration to isotope dilution-mass spectrometry. Refer to KDIGO guidelines for clinical interpretation. In patients with unstable renal function, e.g. those with acute kidney injury, the eGFR may not accurately reflect actual GFR. Glucose [Mass/Vol] 89 mg/dL 74 - 99 mg/dL [facility] Comment on above: The [place] Diabete s Association (ADA) provides guidance for cutoff values for fasting glucose and random glucose. The ADA defines fasting as no caloric intake for at least 8 hours. Fasting plasma glucose results between 100 to 125 mg/dL indicate increased risk for diabetes (prediabetes). Fasting plasma glucose results greater than or equal to 126 mg/dL meet the criteria for diagnosis of diabetes. In the absence of unequivocal hyperglycemia, results should be confirmed by repeat testing. In a patient with classic symptoms of hyperglycemia or hyperglycemic crisis, random plasma glucose results greater than or equal to 200 mg/dL meet the criteria for diagnosis of diabetes. Reference: Standards of Medical Care in Diabetes 2016, [place] Diabetes Association. Diabetes Care. 2016.39(Suppl 1). Potassium [Moles/Vol] 4.6 mmol/L 3.7 - 5.1 mmol/L [facility] Protein [Mass/Vol] 7.0 g/dL 6.3 - 8.0 g/dL Cl [facility] Sodium [Moles/Vol] 145 mmol/L High 136 - 144 mmol/L [facility] Urea nitrogen [Mass/Vol] 20 mg/dL 9 - 24 mg/dL [facility] Albumin [Mass/Vol] 4.2 g/dL Normal 3.9-4.9 [facility] Comment on above: Order Comment: Speci men Type: BLOOD SPECIMEN Ordering Facility: [facility] Address: [address] [place] [address] Performed By: #### 2 4323-8, 78085-6, 49760-7, 2276-4 #### [facility] CLIA [id number] [address] [place] [address] [place] ALP [Catalytic activity/Vol] 109 U/L Normal 38-113 [facility] Comment on above: Order Comment: Speci men Type: BLOOD SPECIMEN Ordering Facility: [facility] Address: [address] [place] [address] Performed By: #### 2 4323-8, 88185-2, 18431-7, 2276-4 #### [facility] CLIA [id number] [address] [place] [address] [place] ALT [Catalytic activity/Vol] 21 U/L Normal 10-54 [facility] Comment on above: Order Comment: Speci men Type: BLOOD SPECIMEN Ordering Facility: [facility] Address: [address] [place] [address] Performed By: #### 2 4323-8, 16603-7, 70653-0, 2276-4 #### [facility] CLIA [id number] [address] [place] [address] [place] Anion gap [Moles/Vol] 10 mmol/L Normal 8-15 [facility] Comment on above: Order Comment: Speci men Type: BLOOD SPECIMEN Ordering Facility: [facility] Address: [address] [place] [address] Performed By: #### 2 4323-8, 32834-4, 81319-1, 2276-4 #### [facility] CLIA [id number] [address] [place] [address] [place] AST [Catalytic activity/Vol] 22 U/L Normal 14-40 [facility] Comment on above: Order Comment: Speci men Type: BLOOD SPECIMEN Ordering Facility: [facility] Address: [address] [place] [address] Performed By: #### 2 4323-8, 23443-6, 09345-0, 2276-4 #### [facility] CLIA [id number] [address] [place] [address] [place] Bilirubin [Mass/Vol] 0.2 mg/dL Normal 0.2-1.3 [facility] Comment on above: Order Comment: Speci men Type: BLOOD SPECIMEN Ordering Facility: [facility] Address: [address] [place] [address] Performed By: #### 2 4323-8, 88390-7, 30986-5, 6-4 #### [facility] CLIA [id number] [address] [place] [address] [place] Calcium [Mass/Vol] 9.6 mg/dL Normal 8.5-10.2 [facility] Comment on above: Order Comment: Speci men Type: BLOOD SPECIMEN Ordering Facility: [facility] Address: [address] [place] [address] Performed By: #### 2 4323-8, 42625-5, 45354-7, 6-4 #### [facility] CLIA [id number] [address] [place] [address] [place] Chloride [Moles/Vol] 107 mmol/L Normal 98-107 [facility] Comment on above: Order Comment: Speci men Type: BLOOD SPECIMEN Ordering Facility: [facility] Address: [address] [place] [address] Performed By: #### 2 4323-8, 62806-1, 74738-4, 2276-4 #### [facility] CLIA [id number] [address] [place] [address] [place] CO2 [Moles/Vol] 28 mmol/L Normal 22-30 [facility] Comment on above: Order Comment: Speci men Type: BLOOD SPECIMEN Ordering Facility: [facility] Address: [address] [place] [address] Performed By: #### 2 4323-8, 05378-1, 45688-9, 2276-4 #### [facility] CLIA [id number] [address] [place] [address] [place] Creatinine [Mass/Vol] 1.14 mg/dL Normal 0.73-1.22 [facility] Comment on above: Order Comment: Speci men Type: BLOOD SPECIMEN Ordering Facility: [facility] Address: [address] [place] [address] Performed By: #### 2 4323-8, 11683-8, 90092-3, 6-4 #### [facility] CLIA [id number] [address] [place] [address] [place] Creatinine and Glomerular filtration rate.predicted panel (S/P/Bld) 75 mL/min/1.73m??? Normal >=60 [facility] Comment on above: Order Comment: Speci men Type: BLOOD SPECIMEN Ordering Facility: [facility] Address: [address] [place] [address] Result Comment: Lia mated Glomerular Filtration Rate (eGFR) is calculated using the 2020 CKD-EPI creatinine equation. This equation utilizes serum creatinine, sex, and age as parameters. The creatinine assay has traceable calibration to isotope dilution-mass spectrometry. Refer to KDIGO guidelines for clinical interpretation. In patients with unstable renal function, e.g. those with acute kidney injury, the eGFR may not accurately reflect actual GFR. Performed By: #### 2 4323-8, 15153-0, 98004-7, 2276-4 #### [facility] CLIA [id number] [address] [place] [address] [place] Glucose [Mass/Vol] 89 mg/dL Normal 74-99 [facility] Comment on above: Order Comment: Speci men Type: BLOOD SPECIMEN Ordering Facility: [facility] Address: [address] [place] [address] Result Comment: The [place] Diabetes Association (ADA) provides guidance for cutoff values for fasting glucose and random glucose. The ADA defines fasting as no caloric intake for at least 8 hours. Fasting plasma glucose results between 100 to 125 mg/dL indicate increased risk for diabetes (prediabetes). Fasting plasma glucose results greater than or equal to 126 mg/dL meet the criteria for diagnosis of diabetes. In the absence of unequivocal hyperglycemia, results should be confirmed by repeat testing. In a patient with classic symptoms of hyperglycemia or hyperglycemic crisis, random plasma glucose results greater than or equal to 200 mg/dL meet the criteria for diagnosis of diabetes. Reference: Standards of Medical Care in Diabetes 2016, [place] Diabetes Association. Diabetes Care. 2016.39(Suppl 1). Performed By: #### 2 4323-8, 89340-5, 25644-4, 2276-4 #### [facility] CLIA [id number] [address] [place] [address] [place] Potassium [Moles/Vol] 4.6 mmol/L Normal 3.7-5.1 [facility] Comment on above: Order Comment: Speci men Type: BLOOD SPECIMEN Ordering Facility: [facility] Address: [address] [place] [address] Performed By: #### 2 4323-8, 66298-8, 57167-7, 6-4 #### [facility] CLIA [id number] [address] [place] [address] [place] Protein [Mass/Vol] 7.0 g/dL Normal 6.3-8.0 [facility] Comment on above: Order Comment: Speci men Type: BLOOD SPECIMEN Ordering Facility: [facility] Address: [address] [place] [address] Performed By: #### 2 4323-8, 12165-3, 15715-2, 2276-4 #### [facility] CLIA [id number] [address] [place] [address] [place] Sodium [Moles/Vol] 145 mmol/L High 136-144 [facility] Comment on above: Order Comment: Speci men Type: BLOOD SPECIMEN Ordering Facility: [facility] Address: [address] [place] [address] Performed By: #### 2 4323-8, 19087-3, 78225-7, 2276-4 #### [facility] CLIA [id number] [address] [place] [address] [place] Urea nitrogen [Mass/Vol] 20 mg/dL Normal 9-24 [facility] Comment on above: Order Comment: Speci men Type: BLOOD SPECIMEN Ordering Facility: [facility] Address: [address] [place] [address] Performed By: #### 2 4323-8, 63669-4, 91034-5, 2276-4 #### [facility] CLIA [id number] [address] [place] [address] [place] ECG COMPLETEon 01-14-2024 ECG COMPLETE Ventricular Rate : 7 5 BPM Atrial Rate : 75 BPM P-R Interval : 154 ms QRS Duration : 142 ms Q-T Interval : 430 ms QTC Calculation(Bazett) : 480 ms Calculated P [place] : 37 degrees Calculated R [place] : -57 degrees Calculated T [place] : 2 degrees SINUS RHYTHM WITH FREQUENT PREMATURE VENTRICULAR COMPLEXES LEFT AXIS DEVIATION COMPLETE RIGHT BUNDLE BRANCH BLOCK ABNORMAL ECG Confirmed by MD WAYNE TAMANNA ([id number]) on 02/15/2024 4:11:28 PM NAME : CORY JEWELL PID : [id number] : 1965 Gender : Male Race : ORD : [id number] Procedure Date : Jan 14 2024 09:12:59 Edit Date : Feb 15 2024 16:11:31 Diagnosis: SINUS RHYTHM WITH FREQUENT PREMATURE VENTRICULAR COMPLEXES LEFT AXIS DEVIATION COMPLETE RIGHT BUNDLE BRANCH BLOCK ABNORMAL ECG Confirmed by MD WAYNE TAMANNA ([id number]) on 02/15/2024 4:11:28 PM Test Reason : Location : [facility] : [place] [address] Overread By : MD WAYNE TAMANNA Edited By : MD WAYNE TAMANNA Referred By : ESPERANZA CAMPOS Acquired by : USHA DO Normal [facility] Ferritin [Mass/Vol] 352.0 ng/mL Normal 30.3-565.7 [facility] Comment on above: Order Comment: Speci men Type: BLOOD SPECIMEN Ordering Facility: [facility] Address: [address] [place] [address] Performed By: #### 2 4323-8, 64268-7, 31027-0, 2276-4 #### [facility] CLIA [id number] [address] [place] [address] [place] Iron and Iron binding capaci [facility] 01-14-2024 Interpretation and review of laboratory results Normal [facility] Iron [Mass/Vol] 45 ug/dL 41 - 186 ug/dL [facility] Iron binding capacity [Mass/Vol] 260 ug/dL 232 - 386 ug/dL [facility] Iron/TIBC [Molar ratio] 17.3 % 15.0 - 57.0 % [facility] Iron [Mass/Vol] 45 ug/dL Normal 41-186 [facility] Comment on above: Order Comment: Speci men Type: BLOOD SPECIMEN Ordering Facility: [facility] Address: [address] [place] [address] Performed By: #### 2 4323-8, 14397-0, 22058-3, 2276-4 #### [facility] CLIA [id number] [address] [place] [address] [place] Iron binding capacity [Mass/Vol] 260 ug/dL Normal 232-386 [facility] Comment on above: Order Comment: Speci men Type: BLOOD SPECIMEN Ordering Facility: [facility] Address: [address] [place] [address] Performed By: #### 2 4323-8, 90127-4, 84683-5, 2276-4 #### [facility] CLIA [id number] [address] [place] [address] [place] Iron/TIBC [Molar ratio] 17.3 % Normal 15.0-57.0 [facility] Comment on above: Order Comment: Speci men Type: BLOOD SPECIMEN Ordering Facility: [facility] Address: [facility] [place] [address] Performed By: #### 2 4323-8, 41335-6, 12934-2, 2276-4 #### [facility] CLIA [id number] [address] [place] [address] [place] NT PRO BNPon 01-14-2024 Natriuretic peptide.B prohormone N-Terminal [Mass/Vol] 452 pg/mL High NINF - 125 pg/mL [facility] NT-proBNP SerPl-mCncon 01-13 Natriuretic peptide.B prohormone N-Terminal [Mass/Vol] 452 pg/mL High <125 [facility] Comment on above: Order Comment: Speci men Type: BLOOD SPECIMEN Ordering Facility: [facility] Address: [address] [place], [place] [address] [address] Performed By: #### 2 4323-8, 05646-5, 99313-3, 2276-4 #### [facility] CLIA [id number] [address] [place] [address] [place] No Panel Informationon 01-13 Interpretation and review of laboratory results Abnormal [facility] 36on 11-06-2023 36 Regarding lab result s from 10/26/2023: MD Giselle Ward MA Blood test was normal, no change in management. follow up as planned. informed. Normal [facility] ALL BASIC METABOLIC PANELon 10-26-2023 Anion gap [Moles/Vol] 7.1 mmol/L [facility] Calcium [Mass/Vol] 8.9 mg/dL 8.5 - 10. 1 mg/dL [facility] Chloride [Moles/Vol] 104 mmol/L 98 - 10 7 mmol/L [facility] CO2 [Moles/Vol] 29.7 mmol/L 21.0 - 32.0 mmol/L [facility] Creatinine [Mass/Vol] 1.07 mg/dL 0.70 - 1.30 mg/dL [facility] GFR/1.73 sq M.predicted CKD-EPI (S/P/Bld) [Vol rate/Area] >60 60 - PINF [facility] Glucose [Mass/Vol] 103 mg/dL 74 - 106 mg/dL [facility] Potassium [Moles/Vol] 3.8 mmol/L 3.5 - 5.1 mmol/L [facility] Sodium [Moles/Vol] 137 mmol/L 136 - 145 mmol/L [facility] EGFR-NON AF JAPANESE >60 60 - PINF [facility] Urea nitrogen [Mass/Vol] 18.0 mg/dL 7.0 - 18.0 mg/dL [facility] Urea nitrogen/Creatinine [Mass ratio] 16.8 mg/mg [facility] Office [facility] 10-26-2023 Follow-up visit [id number] Cory Jewell 1965 [facility] Provider Department [place] 10/26/2023 DORA ANTHONY Family History Adopted: Yes Level of Service:01200 ID OFFICE/OUTPATIENT ESTABLISHED MOD MDM 30 MIN [facility] 08-01-2023 Follow-up visit [id number] Cory Jewell 1965 [facility] Provider Department [place] 08/01/2023 DORA ANTHONY Family History Adopted: Yes Level of Service:94510 ID OFFICE/OUTPATIENT ESTABLISHED MOD MDM 30 MIN [facility] 36on 07-23-2023 36 Regarding lab result s from 07/20/2023: MD Giselle Ward MA please have him stop spironolactone and have him get a follow up BMP prior to next visit. LM on patient's VM asking him to return my call. BMP order faxed to [facility]. [facility] 36on 07-16-2023 36 Regarding lab result s on 07/13/2023: MD Giselle Ward MA He has JAZZ. I called him and I asked him to stop spironolactone. He is not taking furosemide. He will continue the rest of the medications. I want him to get a BMP in 1 week. BMP order faxed to [facility]. [facility] 06-29-2023 Follow-up visit [id number] Cory Jewell 1965 Provider Department Center 06/29/2023 DORA ANTHONY LAKSHMI More Family History Adopted: Yes Level of Service:61331 ID OFFICE/OUTPATIENT ESTABLISHED HIGH MDM 40 MIN Reason for Visit and Comments: Follow-up [467421] - 6 week [facility] [place] 05-10-2023 Follow-up visit [id number] Cory Jewell 1965 [facility] Provider Department Center 05/10/2023 YA OLIVER LAKSHMI More Family History Adopted: Yes Level of Service:89710 ID OFFICE/OUTPATIENT ESTABLISHED HIGH MDM 40 MIN Reason for Visit and Comments: Congestive Heart Failure [127] Hypertension [562286] [facility] 36on 04-30-2023 36 Pt informed [facility] 36on 04-18-2023 36 Please let him [...] sent refills and ordered the BMP. Thanks! [facility] Telephoneon 04-18-2023 Telephone [id number] Cory Jewell 1965 [facility] Provider Department Center 04/18/2023 YA OLIVER LAKSHMI Welch. Family History Adopted: Yes [facility] ALL BASIC METABOLIC PANELon 04-17-2023 Anion gap [Moles/Vol] 13.3 mmol/L [facility] Calcium [Mass/Vol] 9.8 mg/dL 8.5 - 10. 1 mg/dL [facility] Chloride [Moles/Vol] 103 mmol/L 98 - 10 7 mmol/L [facility] CO2 [Moles/Vol] 28.0 mmol/L 21.0 - 32.0 mmol/L [facility] Creatinine [Mass/Vol] 1.15 mg/dL 0.70 - 1.30 mg/dL [facility] GFR/1.73 sq M.predicted CKD-EPI (S/P/Bld) [Vol rate/Area] >60 60 - PINF [facility] Glucose [Mass/Vol] 98 mg/dL 74 - 106 mg/dL NO [facility] Interpretation and review of laboratory results Abnormal [facility] Potassium [Moles/Vol] 4.3 mmol/L 3.5 - 5.1 mmol/L [facility] Sodium [Moles/Vol] 140 mmol/L 136 - 145 mmol/L [facility] EGFR-NON AF JAPANESE >60 60 - PINF [facility] Urea nitrogen [Mass/Vol] 31.0 mg/dL High 7.0 - 18.0 mg/dL [facility] Urea nitrogen/Creatinine [Mass ratio] 27.0 mg/mg [facility] 37on 04-11-2023 37 *Your kidney functio n is elevated. Please hold these medications until instructed to resume: -dapagliflozin (Farxiga) -sacubitril-valsartan (Entresto) -Spironolactone -Lasix *Have lab work done in 1 week, around 04/17/2023. [facility] 04-11-2023 Follow-up visit [id number] Cory Jewell 1965 M Date Provider Department Center 04/11/2023 166-YA GARCIA [facility] Family History Adopted: Yes Level of Service:78456 ID OFFICE/OUTPATIENT ESTABLISHED MOD MDM 30 MIN Reason for Visit and Comments: Hospital Follow-up [832] Congestive Heart Failure [127] Hypertension [527169] [facility] 36on 04-04-2023 36 Discharge date: 04/03/23 [...] and the staff who cared for them. [facility] Documentationon 04-04-2023 Documentation [id number] Cory Jewell 1965 M Date Provider Department Center 04/04/2023 CEE SEQUEIRA C [facility] No family history on file Reason for Visit and Comments: HF inpatient satisfaction survey sent. [Other] [facility] Telephoneon 04-04-2023 Telephone [id number] Cory Jewell 1965 M Date Provider Department Center 04/04/2023 [id number] MORALES [facility] No family history on file Reason for Visit and Comments: HF post discharge call [Other] [facility] BASIC METABOLIC PANELon 03-07 Anion gap [Moles/Vol] 13 mmol/L Normal 7-20 [facility] Comment on above: Performed By: #### L AB15 ####[facility] ([facility]ER)[address] [place] [address] Calcium [Mass/Vol] 9.3 mg/dL Normal 8.6-10.[address] [facility] Comment on above: Performed By: #### L AB15 ####[facility] ([facility]ER)[address] [place] [address] Chloride [Moles/Vol] 102 mmol/L Normal 98-107 [facility] Comment on above: Performed By: #### L AB15 ####[facility] ([facility]AKER)[address] [place] [place] [address] CO2 [Moles/Vol] 30 mmol/L Normal 21-31 [facility] Comment on above: Performed By: #### L AB15 ####[facility] ([facility]AKER)[address] [place] [place] [address] Creatinine [Mass/Vol] 1.37 mg/dL High 0.70-1.30 [facility] Comment on above: Performed By: #### L AB15 ####[facility] ([facility])[address] [place] [address] GLOMERULAR FILTRATION RATE ML/MIN/1.73 SQ M.PREDICTED 60.9 mL/min/1.73m*2 Normal >60.0 [facility] Comment on above: Result Comment: [facility]???s estimated glomerular filtration rate (eGFR) [...] of individuals. Performed By: #### L AB15 ####[facility] ([facility])[address] [place] [place] [address] Glucose [Mass/Vol] 104 mg/dL High 70-[address] [facility] Comment on above: Performed By: #### L AB15 ####[facility] ([facility])[address] [place] [place] [address] Potassium [Moles/Vol] 4.5 mmol/L Normal 3.5-5.1 [facility] Comment on above: Performed By: #### L AB15 ####[facility] ([facility])[address] [place] [address] Sodium [Moles/Vol] 140 mmol/L Normal 136-[address] [facility] Comment on above: Performed By: #### L AB15 ####[facility] ([facility])[address] [place] [address] Urea nitrogen [Mass/Vol] 28 mg/dL High 7-25 [facility] Comment on above: Performed By: #### L [id number] ####[facility] ([facility])[address] [place] [address] UREA NITROGEN/CREATININE (MASS RATIO) IN SER/PLAS 20.4 Normal [facility] Comment on above: Performed By: #### L [id number] ####[facility] (BRY)[place] [address] DSon 04-03-2023 DS -- Attestation signed by [...] an 57 y.o. male who came from [facility] with minimal to no medical history x 10 years as he states he has not seen a provider nor had any medical treatment in over 10 years and denies taking any prescription medications, xone-qry-vyjggob medications or herbals at this time. Patient states he does not even take jqsv-vjs-wxolfna Tylenol or ibuprofen and stopped taking both of those years ago. Patient reports he has been experiencing shortness of breath and swelling for weeks to months with significant amount of edema progressing up bilateral lower extremities into groin and lower abdomen. Patient states upon arrival to [place] [facility] he was over 340 pounds. While at [facility] he received treatment with IV Lasix, carvedilol, and Aldactone. Patient is now down to 305 pounds and still significantly edematous. Echo completed at [facility] shows EF of 30-35%. Patient diagnosed the hospital with decompensated CHF and has been transferred to [facility] for need of heart cath. [...] Provider Department Center 04/06/2023 10:15 AM Dora Reddy MD [facility] 04/11/2023 11:00 AM Ya Garcia NP [facility] Your medication list START taking these medications [...] Due APPLE CIDER VINEGAR ORAL GARLIC ORAL MISSAEL ROOT EXTRACT ORAL GINSENG ORAL Green Tea capsule Generic drug: green tea leaf extract Where to Get Your Medications These medications were sent to [facility] - [address] [place] [address] [address] [facility] [place] [address], [facility] [address] aspirin 81 mg EC tablet atorvastatin 80 [...] 0058 W (more content not included)... Normal [facility] MAGNESIUMon 04-03-2023 Magnesium [Mass/Vol] 2.3 mg/dL Normal 1.9-2.7 [facility] Comment on above: Performed By: #### L [id number] ####[facility] ([facility])[address] [place] [address] BASIC METABOLIC PANELon 03-06 Anion gap [Moles/Vol] 11 mmol/L Normal 7-20 [facility] Comment on above: Performed By: #### L [id number] ####[facility] ([facility])[address] [place] [address] Calcium [Mass/Vol] 9.3 mg/dL Normal 8.6-10.[address] [facility] Comment on above: Performed By: #### L [id number] ####[facility] ([facility])[address] [place], [place] [address], [place] [address] Chloride [Moles/Vol] 103 mmol/L Normal 98-107 [facility] Comment on above: Performed By: #### L [id number] ####[facility] ([facility])[address] [place] [address] CO2 [Moles/Vol] 31 mmol/L Normal 21-31 [facility] Comment on above: Performed By: #### L [id number] ####[facility] ([facility])[address] [place] [address] Creatinine [Mass/Vol] 0.95 mg/dL Normal 0.70-1.30 [facility] Comment on above: Performed By: #### L [id number] ####[facility] ([facility])[address] [place] [address] GLOMERULAR FILTRATION RATE ML/MIN/1.73 SQ M.PREDICTED 94.5 mL/min/1.73m*2 Normal >60.0 [facility] Comment on above: Result Comment: [facility]???s estimated glomerular filtration rate (eGFR) [...] of individuals. Performed By: #### L [id number] ####[facility] ([facility])[address] [place] [address] Glucose [Mass/Vol] 100 mg/dL Normal 70-[address] [facility] Comment on above: Performed By: #### L [id number] ####[facility] ([facility])[address] [place] [address] Potassium [Moles/Vol] 4.2 mmol/L Normal 3.5-5.1 [facility] Comment on above: Performed By: #### L [id number] ####[facility] ([facility])[address] [place] [address] Sodium [Moles/Vol] 141 mmol/L Normal 136-[address] [facility] Comment on above: Performed By: #### L [id number] ####[facility] ([facility])[address] [place] [address] Urea nitrogen [Mass/Vol] 18 mg/dL Normal 7-25 [facility] Comment on above: Performed By: #### L [id number] ####[facility] ([facility])[address] [place] [address] UREA NITROGEN/CREATININE (MASS RATIO) IN SER/PLAS 18.9 Normal [facility] Comment on above: Performed By: #### L [id number] ####[facility] ([facility])[address] [place] [address] CBCon 04-02-2023 Erythrocyte distribution width (RBC) [Ratio] 15.1 % High 11.5-15.0 [facility] Comment on above: Performed By: #### L [id number] ####[facility] ([facility])[address] [place] [address] ERYTHROCYTE MEAN CORPUSCULAR HEMOGLOBIN CONCENTRATION (G/DL) BY AUTOMATED 32.5 g/dL Normal 32.0-35.0 [facility] Comment on above: Performed By: #### L [id number] ####[facility] ([facility])[address] [place] [address] Hematocrit (Bld) [Volume fraction] 54.7 % Normal 39.0-55.0 [facility] Comment on above: Performed By: #### L [id number] ####[facility] ([facility])[address] [place], [place] [address] Hemoglobin (Bld) [Mass/Vol] 17.8 g/dL High 13.0-17.0 [facility] Comment on above: Performed By: #### L [id number] ####[facility] ([facility])[address] [place] [address] MCH (RBC) [Entitic mass] 29.3 pg Normal 27.0-33.0 [facility] Comment on above: Performed By: #### L [id number] ####[facility] ([facility])[address] [place] [address] MCV (RBC) [Entitic vol] 90.1 fL Normal 82.0-98.0 [facility] Comment on above: Performed By: #### L [id number] ####[facility] ([facility])[address] [place] [address] PLATELETS (10*3/UL) IN BLOOD AUTOMATED COUNT 245 10*3/uL Normal 150-400 [facility] Comment on above: Performed By: #### L [id number] ####[facility] ([facility])[address] [address] RBC (Bld) [#/Vol] 6.07 10*6/uL High 4.20-5.70 [facility] Comment on above: Performed By: #### L [id number] ####[facility] ([facility])[address] [facility] [place] [address] WBC (Bld) [#/Vol] 9.12 10*3/uL Normal 4.00-10.60 [facility] Comment on above: Performed By: #### L [id number] ####[facility] ([facility])[address] [place] [place] [address] CONSULTon 04-02-2023 CONSULT Clinical Nutrition Assessment: Name: Cory Jewell Room: [address] [place] [address] Date: 1965 Date of Visit: 04/02/23 Admission [...] 04/01/2023452 CHOL 148 04/01/202357 HDL 30 04/01/2023 005 I/O: Intake/Output Summary (Last 24 hours) at 04/02/2023 1046 Last data filed at 04/02/2023 0644 Gross per 24 hour Intake 2.5 ml Output 4025 ml Net -4022.5 ml Allergies: No Known Allergies Nutrition Problems: Swallowing Assessment: Pt denies swallowing difficulty Mouth: Pt denies chewing difficulty Abdominal Assessment: 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 Limited medical hx available per chart review as pt has not visited physician in 10+years d/t feeling that he didn't have a reason to but reported that he has visited a chiropractor with whom he has a good relationship with in that same time period. That same chiropractor is who pt obtains herbal supplements from as well (missael root, ginseng, garlic, and green tea pills [...] ideal body weight (75.5 kg) Calorie needs: 9049-5688 kcals/day based on Equation: 25-30 kcal/kg Protein needs: 76-91 g/day based on 1.0-1.2 g/kg Nutrition Diagnosis: Food and nutrition knowledge deficit Related to: lack of prior exposure to HH diet ed/misinformation As evidenced by: pt and pt's family statements Malnutrition Assessment: Hand Grasp/Motor Function/Sensation Assessment: Grasp, Dorsiflexion, Plantar flexion R Hand Grasp: Strong L Hand Grasp: Strong (Care Advocate strength not assessed by RD) Patient at risk for malnutrition according to hospital criteria, but does not meet the clinical characteristics per the Academy of Nutrition and Dietetics, and the [place] Society of Enteral and Parenteral Nutrition to support the diagnosis of malnutrition. Nutrition Education: Diet literature: Heart Healthy Nutrition Therapy (explained CHF-sodium relationship, reading nutrition labels, saturated fat vs unsaturated fat; recommended adequate intake of fruits/vegetables at each meal and for snacks a (more content not included)... Normal [facility] HPon 04-02-2023 HP H&P reviewed. The patient was examined and there are no changes to the H&P. 57-year-old man who is admitted due to newly discovered systolic heart failure will undergo cardiac catheterization to rule out ischemic etiology. I explained the procedure in detail along with risks and benefits. He understands and agrees to proceed. [facility] MAGNESIUMon 04-02-2023 Magnesium [Mass/Vol] 2.3 mg/dL Normal 1.9-2.7 [facility] Comment on above: Performed By: #### L [id number] #### [facility] ([facility]AKER) [address] [place] [address] 30on 04-01-2023 30 The patient is Moderately [...] the next 3 months Outcome: Progressing Normal [facility] 30 Problem: Heart Failu re [...] the shift include Stable vital signs Normal [facility] APTTon 04-01-2023 ACTIVATED PARTIAL THROMBOPLASTIN TIME IN PPP BY COAGULATION ASSAY 29.8 Seconds Normal 25.0-35.0 [facility] Comment on above: Result Comment: Clin ical significance of the APTT is questionable in the presence of heparin. Performed By: #### L [id number] ####[facility] ([facility])[address] [place] [address] B-TYPE NATRIURETIC PEPTIDEon 04-01-2023 Natriuretic peptide B (Bld) [Mass/Vol] 273 pg/mL High 0-100 [facility] Comment on above: Performed By: #### L [id number] #### [facility] ([facility]) [address] [place] [address] CBC WITH AUTO DIFFERENTIALon 04-01-2023 Basophils (Bld) [#/Vol] 0.05 10*3/uL Normal 0.00-0.20 [facility] Comment on above: Performed By: #### L [id number] #### [facility] ([facility]) [address] [place] [address] Basophils/100 WBC (Bld) 0.5 % Normal 0.0-1.0 [facility] Comment on above: Performed By: #### L [id number] #### [facility] ([facility]) [address] [place] [address] Eosinophils (Bld) [#/Vol] 0.19 10*3/uL Normal 0.00-0.50 [facility] Comment on above: Performed By: #### L [id number] #### [facility] ([facility]) [address] [place] [address] Eosinophils/100 WBC (Bld) 2.1 % Normal 0.0-6.0 [facility] Comment on above: Performed By: #### L [id number] #### [facility] ([facility]) [address] [place] [address] Erythrocyte distribution width (RBC) [Ratio] 14.5 % Normal 11.5-15.0 [facility] Comment on above: Performed By: #### L [id number] #### [facility] ([facility]) [address] [place] [address] ERYTHROCYTE MEAN CORPUSCULAR HEMOGLOBIN CONCENTRATION (G/DL) BY AUTOMATED 33.1 g/dL Normal 32.0-35.0 [facility] Comment on above: Performed By: #### L [id number] #### [facility] ([facility]) [address] [place] [address] Hematocrit (Bld) [Volume fraction] 47.8 % Normal 39.0-55.0 [facility] Comment on above: Performed By: #### L [id number] #### [facility] ([facility]) [address] [place] [address] Hemoglobin (Bld) [Mass/Vol] 15.8 g/dL Normal 13.0-17.0 [facility] Comment on above: Performed By: #### L [id number] #### [facility] ([facility]) [address] [place] [address] Immature granulocytes (Bld) [#/Vol] 0.03 10*3/uL Normal 0.00-0.20 [facility] Comment on above: Performed By: #### L [id number] #### [facility] ([facility]) [address] [place] [address] Immature granulocytes/100 WBC (Bld) 0.3 % Normal 0.0-1.0 [facility] Comment on above: Performed By: #### L [id number] #### [facility] ([facility]) [address] [place] [address] Lymphocytes (Bld) [#/Vol] 1.69 10*3/uL Normal 1.20-4.00 [facility] Comment on above: Performed By: #### L [id number] #### [facility] (BEAKER) [address] [place] [address] Lymphocytes/100 WBC (Bld) 18.3 % Low 20.0-45.0 [facility] Comment on above: Performed By: #### L [id number] #### [facility] ([facility]) [address] [place] [address] MCH (RBC) [Entitic mass] 29.6 pg Normal 27.0-33.0 [facility] Comment on above: Performed By: #### L [id number] #### [facility] ([facility]) [address] [place] [address] MCV (RBC) [Entitic vol] 89.5 fL Normal 82.0-98.0 [facility] Comment on above: Performed By: #### L [id number] #### [facility] ([facility]) [address] [place] [address] Monocytes (Bld) [#/Vol] 1.05 10*3/uL High 0.10-1.00 [facility] Comment on above: Performed By: #### L [id number] #### [facility] ([facility]) [address] [place] [address] Monocytes/100 WBC (Bld) 11.4 % Normal 5.0-12.0 [facility] Comment on above: Performed By: #### L [id number] #### [facility] ([facility]) [address] [place] [address] Neutrophils (Bld) [#/Vol] 6.20 10*3/uL Normal 1.60-7.60 [facility] Comment on above: Performed By: #### L [id number] #### [facility] ([facility]) [address] [place] [address] Neutrophils/100 WBC (Bld) 67.4 % Normal 40.0-72.0 [facility] Comment on above: Performed By: #### L [id number] #### [facility] ([facility]) [address] [place] [address] NRBC (PER 100 WBCS) BY AUTOMATED COUNT 0.0 % Normal 0 [facility] Comment on above: Performed By: #### L [id number] #### [facility] ([facility]) [address] [place] [address] PLATELETS (10*3/UL) IN BLOOD AUTOMATED COUNT 231 10*3/uL Normal 150-400 [facility] Comment on above: Performed By: #### L [id number] #### [facility] ([facility]) [address] [place] [address] RBC (Bld) [#/Vol] 5.34 10*6/uL Normal 4.20-5.70 [facility] Comment on above: Performed By: #### L [id number] #### [facility] ([facility]) [address] [place] [address] WBC (Bld) [#/Vol] 9.21 10*3/uL Normal 4.00-10.60 [facility] Comment on above: Performed By: #### L [id number] #### [facility] ([facility]) [address] [place] [address] Basophils (Bld) [#/Vol] 0.05 10*3/uL Normal 0.00-0.20 [facility] Comment on above: Performed By: #### L [id number] #### [facility] ([facility]) [address] [place] [address] Basophils/100 WBC (Bld) 0.5 % Normal 0.0-1.0 [facility] Comment on above: Performed By: #### L [id number] #### [facility] ([facility]) [address] [place] [address] Eosinophils (Bld) [#/Vol] 0.17 10*3/uL Normal 0.00-0.50 [facility] Comment on above: Performed By: #### L [id number] #### [facility] ([facility]) [address] [place] [place] [address] Eosinophils/100 WBC (Bld) 1.6 % Normal 0.0-6.0 [facility] Comment on above: Performed By: #### L [id number] #### [facility] ([facility]) [address] [place] [address] Erythrocyte distribution width (RBC) [Ratio] 14.5 % Normal 11.5-15.0 [facility] Comment on above: Performed By: #### L [id number] #### [facility] ([facility]) [address] [place] [address] ERYTHROCYTE MEAN CORPUSCULAR HEMOGLOBIN CONCENTRATION (G/DL) BY AUTOMATED 32.7 g/dL Normal 32.0-35.0 [facility] Comment on above: Performed By: #### L [id number] #### [facility] ([facility]) [address] [place] [address] Hematocrit (Bld) [Volume fraction] 51.3 % Normal 39.0-55.0 [facility] Comment on above: Performed By: #### L [id number] #### [facility] (AKER) [address] [place] [address] Hemoglobin (Bld) [Mass/Vol] 16.8 g/dL Normal 13.0-17.0 [facility] Comment on above: Performed By: #### L [id number] #### [facility] ([facility]) [address] [place] [address] Immature granulocytes (Bld) [#/Vol] 0.04 10*3/uL Normal 0.00-0.20 [facility] Comment on above: Performed By: #### L [id number] #### [facility] ([facility]) [address] [address] Immature granulocytes/100 WBC (Bld) 0.4 % Normal 0.0-1.0 [facility] Comment on above: Performed By: #### L [id number] #### [facility] ([facility]) [address] [place] [address] Lymphocytes (Bld) [#/Vol] 1.86 10*3/uL Normal 1.20-4.00 [facility] Comment on above: Performed By: #### L [id number] #### [facility] ([facility]ER) [address] [place] [address] Lymphocytes/100 WBC (Bld) 17.6 % Low 20.0-45.0 [facility] Comment on above: Performed By: #### L [id number] #### [facility] ([facility]) [address] [place] [address] MCH (RBC) [Entitic mass] 29.1 pg Normal 27.0-33.0 [facility] Comment on above: Performed By: #### L [id number] #### [facility] ([facility]) [address] [place] [address] MCV (RBC) [Entitic vol] 88.9 fL Normal 82.0-98.0 [facility] Comment on above: Performed By: #### L [id number] #### [facility] ([facility]) [address] [place] [address] Monocytes (Bld) [#/Vol] 1.18 10*3/uL High 0.10-1.00 [facility] Comment on above: Performed By: #### L [id number] #### [facility] ([facility]) [address] [place] [address] Monocytes/100 WBC (Bld) 11.2 % Normal 5.0-12.0 [facility] Comment on above: Performed By: #### L [id number] #### [facility] ([facility]) [address] [place] [address] Neutrophils (Bld) [#/Vol] 7.27 10*3/uL Normal 1.60-7.60 [facility] Comment on above: Performed By: #### L [id number] #### [facility] ([facility]) [address] [place] [address] Neutrophils/100 WBC (Bld) 68.7 % Normal 40.0-72.0 [facility] Comment on above: Performed By: #### L [id number] #### [facility] ([facility]) [address] [place] [address] NRBC (PER 100 WBCS) BY AUTOMATED COUNT 0.0 % Normal 0 [facility] Comment on above: Performed By: #### L [id number] #### [facility] ([facility]) [address] [place] [address] PLATELETS (10*3/UL) IN BLOOD AUTOMATED COUNT 266 10*3/uL Normal 150-400 [facility] Comment on above: Performed By: #### L [id number] #### [facility] ([facility]) [address] [place] [address] RBC (Bld) [#/Vol] 5.77 10*6/uL High 4.20-5.70 [facility] Comment on above: Performed By: #### L [id number] #### [facility] ([facility]) [address] [place] [address] WBC (Bld) [#/Vol] 10.57 10*3/uL Normal 4.00-10.60 [facility] Comment on above: Performed By: #### L [id number] #### [facility] ([facility]) [address] [place] [address] COMPREHENSIVE METABOLIC PANE Edilberto 04-01-2023 Albumin [Mass/Vol] 3.7 g/dL Normal 3.5-5.[address] [facility] Comment on above: Performed By: #### L [id number] ####[facility] ([facility])[address] [place] [address] ALP [Catalytic activity/Vol] 79 U/L Normal 34-104 [facility] Comment on above: Performed By: #### L [id number] ####[facility] ([facility])[address] [place] [address] ALT [Catalytic activity/Vol] 26 U/L Normal 7-52 [facility] Comment on above: Performed By: #### L [id number] ####[facility] ([facility])[address] [place] [place] [address] Anion gap [Moles/Vol] 10 mmol/L Normal 7-20 [facility] Comment on above: Performed By: #### L [id number] ####[facility] ([facility]ER)[address] [place] [place] [address] AST [Catalytic activity/Vol] 23 U/L Normal 13-39 [facility] Comment on above: Performed By: #### L [id number] ####[facility] ([facility]ER)[address] [place] [place] [address] Bilirubin [Mass/Vol] 1.5 mg/dL High 0.3-1.0 [facility] Comment on above: Performed By: #### L [id number] ####[facility] ([facility])[address] [place] [place] [address] Calcium [Mass/Vol] 8.9 mg/dL Normal 8.6-10.[address] [facility] Comment on above: Performed By: #### L [id number] ####[facility] (BEAKER)[address] [place] [place] [address] Chloride [Moles/Vol] 104 mmol/L Normal 98-107 [facility] Comment on above: Performed By: #### L [id number] ####[facility] (BEAKER)[address] [place] [place] [address] CO2 [Moles/Vol] 30 mmol/L Normal 21-31 [facility] Comment on above: Performed By: #### L [id number] ####[facility] (BEAKER)[address] [place] [place] [address] Creatinine [Mass/Vol] 0.89 mg/dL Normal 0.70-1.30 [facility] Comment on above: Performed By: #### L [id number] ####[facility] (BEAKER)[address] [place] [place] [address] GLOMERULAR FILTRATION RATE ML/MIN/1.73 SQ M.PREDICTED 101.2 mL/min/1.73m*2 Normal >60.0 [facility] Comment on above: Result Comment: [facility]???s estimated glomerular filtration rate (eGFR) [...] of individuals. Performed By: #### L [id number] ####[facility] ([facility])[address] [place] [address] Glucose [Mass/Vol] 92 mg/dL Normal 70-[address] [facility] Comment on above: Performed By: #### L [id number] ####[facility] ([facility])[address] [facility] [place] [address] Potassium [Moles/Vol] 3.5 mmol/L Normal 3.5-5.1 [facility] Comment on above: Performed By: #### L [id number] ####[facility] ([facility])[address] [facility] [place] [address] Protein [Mass/Vol] 6.0 g/dL Normal 6.0-8.[address] [facility] Comment on above: Performed By: #### L [id number] ####[facility] ([facility])[address] [facility] [place] [address] Sodium [Moles/Vol] 140 mmol/L Normal 136-[address] [facility] Comment on above: Performed By: #### L [id number] ####[facility] ([facility])[address] [place] [address] Urea nitrogen [Mass/Vol] 20 mg/dL Normal 7-25 [facility] Comment on above: Performed By: #### L [id number] ####[facility] ([facility])[address] [place] [address] UREA NITROGEN/CREATININE (MASS RATIO) IN SER/PLAS 22.5 Normal [facility] Comment on above: Performed By: #### L [id number] ####[facility] ([facility])[address] [place] [address] Albumin [Mass/Vol] 4.3 g/dL Normal 3.5-5.[address] [facility] Comment on above: Performed By: #### L [id number] #### [facility] ([facility]) [address] [place] [address] ALP [Catalytic activity/Vol] 84 U/L Normal 34-104 [facility] Comment on above: Performed By: #### L [id number] #### [facility] ([facility]) [address] [place] [address] ALT [Catalytic activity/Vol] 28 U/L Normal 7-52 [facility] Comment on above: Performed By: #### L [id number] #### [facility] ([facility]) [address] [place] [address] Anion gap [Moles/Vol] 10 mmol/L Normal 7-20 [facility] Comment on above: Performed By: #### L [id number] #### [facility] ([facility]) [address] [place] [address] AST [Catalytic activity/Vol] 24 U/L Normal 13-39 [facility] Comment on above: Performed By: #### L [id number] #### [facility] ([facility]) [address] [place] [place] [address] Bilirubin [Mass/Vol] 1.6 mg/dL High 0.3-1.0 [facility] Comment on above: Performed By: #### L [id number] #### [facility] ([facility]) [address] [place] [place] [address] Calcium [Mass/Vol] 9.4 mg/dL Normal 8.6-10.[address] [facility] Comment on above: Performed By: #### L [id number] #### [facility] ([facility]) [address] [place] [address] Chloride [Moles/Vol] 104 mmol/L Normal 98-107 [facility] Comment on above: Performed By: #### L [id number] #### [facility] ([facility]) [address] [place] [address] CO2 [Moles/Vol] 28 mmol/L Normal 21-31 [facility] Comment on above: Performed By: #### L [id number] #### [facility] ([facility]) [address] [place] [place] [address] Creatinine [Mass/Vol] 1.01 mg/dL Normal 0.70-1.30 [facility] Comment on above: Performed By: #### L [id number] #### [facility] ([facility]) [address] [place] [address] GLOMERULAR FILTRATION RATE ML/MIN/1.73 SQ M.PREDICTED 87.8 mL/min/1.73m*2 Normal >60.0 [facility] Comment on above: Result Comment: [facility]???s estimated glomerular filtration rate (eGFR) [...] individuals. Performed By: #### L [id number] #### [facility] ([facility]) [address] [place] [place] [address] Glucose [Mass/Vol] 108 mg/dL High 70-[address] [facility] Comment on above: Performed By: #### L [id number] #### [facility] ([facility]) [address] [place] [address] Potassium [Moles/Vol] 3.8 mmol/L Normal 3.5-5.1 [facility] Comment on above: Performed By: #### L [id number] #### [facility] ([facility]) [address] [place] [address] Protein [Mass/Vol] 6.6 g/dL Normal 6.0-8.[address] [facility] Comment on above: Performed By: #### L [id number] #### [facility] ([facility]) [address] [place] [address] Sodium [Moles/Vol] 138 mmol/L Normal 136-[address] [facility] Comment on above: Performed By: #### L [id number] #### [facility] ([facility]) [address] [place] [address] Urea nitrogen [Mass/Vol] 20 mg/dL Normal 7-25 [facility] Comment on above: Performed By: #### L [id number] #### [facility] ([facility]) [address] [facility] [place] [address] UREA NITROGEN/CREATININE (MASS RATIO) IN SER/PLAS 19.8 Normal [facility] Comment on above: Performed By: #### L [id number] #### [facility] ([facility]) [address] [place] [address] CONSULTon 04-01-2023 CONSULT -- Attestation signed by Dora Reddy MD at 04/01/2023 3:45 PM I [...] is presenting as a direct admission from [facility]/ER where he presented for SOB and swelling for weeks to months. Patient reports that he has been experiencing worsening shortness of breath episodes associated with bilateral leg swelling for weeks to months with significant amount of edema progressing up bilateral lower extremities into groin and lower abdomen. Patient states upon arrival to [place] ER he was over 340 pounds. While at [facility] he received treatment with IV Lasix, carvedilol, and Aldactone. Patient is now down to 305 pounds and still significantly edematous. Echo completed at [facility] shows EF of 30-35%. Patient was admitted for the management of acute decompensated heart failure and has been transferred to [facility] for heart cath. To note, [...] 2 tablets by mouth in the morning. MISSAEL ROOT EXTRACT ORAL Take 1 tablet by [...] QT Interval 400 QTC CALCULATION(BAZETT) 508 P [place] 42 R-[place] -76 T Wave [place] 60 Impression Sinus rhythm with frequent and [...] Results Electr (more content not included)... Normal [facility] HEMOGLOBIN A1Con 04-01-2023 Glucose [Mass/Vol] 131 mg/dL [facility] Comment on above: Performed By: #### L [id number] #### [facility] (BEAKER) [address] [place] [address] HbA1c (Bld) [Mass fraction] 6.2 % High 4.0-6.0 [facility] Comment on above: Performed By: #### L [id number] #### [facility] (BEAKER) [address] [place] [address] HPon 04-01-2023 HP -- Attestation signed by Dora Reddy MD at 04/01/2023 3:45 PM I [...] is presenting as a direct admission from [facility] where he presented for SOB and swelling for weeks to months. Patient reports that he has been experiencing worsening shortness of breath episodes associated with bilateral leg swelling for weeks to months with significant amount of edema progressing up bilateral lower extremities into groin and lower abdomen. Patient states upon arrival to [place] ER he was over 340 pounds. While at [facility] he received treatment with IV Lasix, carvedilol, and Aldactone. Patient is now down to 305 pounds and still significantly edematous. Echo completed at [facility] shows EF of 30-35%. Patient was admitted for the management of acute decompensated heart failure and has been transferred to [facility] for heart cath. To note, [...] 2 tablets by mouth in the morning. MISSAEL ROOT EXTRACT ORAL Take 1 tablet by [...] QT Interval 400 QTC CALCULATION(BAZETT) 508 P [place] 42 R-[place] -76 T Wave [place] 60 Impression Sinus rhythm with frequent and [...] Results Electr (more content not included)... Normal [facility] LACTIC ACID WITH 4 HOUR REFL EXon 04-01-2023 LACTATE (MMOL/L) IN SER/PLAS 0.8 mmol/L Normal 0.5-2.2 [facility] Comment on above: Performed By: #### L [id number] ####[facility] (Nitro)[address] [address] LIPID PANELon 04-01-2023 CHOL/HDL 4.9 mg/dL Normal [facility] Comment on above: Performed By: #### L [id number] ####[facility] (Nitro)[address] [facility] [address] Cholesterol [Mass/Vol] 148 mg/dL Normal 120-200 [facility] Comment on above: Performed By: #### L [id number] ####[facility] (BENitro)[address] [address] Magnesium [Mass/Vol] 102 mg/dL Normal 40-149 [facility] Comment on above: Result Comment: TRIG LYCERIDE REFERENCE RANGE: 20 YEARS AND OLDER CARDIOVASCULAR RISK LESS THAN 150 mg/dL LOW RISK 150 TO 199 mg/dL BORDERLINE RISK 200 mg/dL AND GREATER HIGH RISK Performed By: #### L [id number] ####[facility] (BENitro)[address] [place] [address] Magnesium [Mass/Vol] 98 mg/dL Normal 0-160 [facility] Comment on above: Performed By: #### L [id number] ####[facility] ([facility]EN[facility])[address] [place] [address] Magnesium [Mass/Vol] 30 mg/dL Normal 23-92 [facility] Comment on above: Performed By: #### L [id number] ####[facility] ([facility])[address] [place] [address] NON HDL CHOL. (LDL+VLDL) 118 Normal [facility] Comment on above: Performed By: #### L [id number] ####[facility] ([facility])[address] [place] [address] TOTAL VLDL-C 20 mg/dL Normal 0-40 [facility] Comment on above: Performed By: #### L [id number] ####[facility] ([facility])[address] [place] [address] MAGNESIUMon 04-01-2023 Magnesium [Mass/Vol] 2.0 mg/dL Normal 1.9-2.7 [facility] Comment on above: Performed By: #### L [id number] #### [facility] ([facility]) [address] [place] [address] Magnesium [Mass/Vol] 2.1 mg/dL Normal 1.9-2.7 [facility] Comment on above: Performed By: #### L [id number] #### [facility] ([facility]) [address] [place] [address] PHOSPHORUSon 04-01-2023 Magnesium [Mass/Vol] 4.2 mg/dL Normal 2.5-5.0 [facility] Comment on above: Performed By: #### L [id number] ####[facility] ([facility])[address] [place] [address] Magnesium [Mass/Vol] 4.4 mg/dL Normal 2.5-5.0 [facility] Comment on above: Performed By: #### L [id number] #### [facility] ([facility]) [address] [place] [address] PROTIME-INRon 04-01-2023 INR IN PPP BY COAGULATION ASSAY 1.04 Normal 0.90-1.10 [facility] Comment on above: Result Comment: [...] 1995;[id number]. Performed By: #### L [id number] #### [facility] ([facility]) [address] [place] [address] PROTHROMBIN TIME (PT) IN PPP BY COAGULATION ASSAY 13.6 Seconds Normal 12.3-14.8 [facility] Comment on above: Performed By: #### L [id number] #### [facility] ([facility]) [address] [place] [address] T4, FREEon 04-01-2023 THYROXINE (T4) FREE (NG/DL) IN SER/PLAS 1.03 ng/dL Normal 0.71-1.85 [facility] Comment on above: Performed By: #### L [id number] #### [facility] ([facility]) [address] [place] [address] TROPONIN Ion 04-01-2023 Troponin I.cardiac [Mass/Vol] 0.03 ng/mL Normal 0.00-0.04 [facility] Comment on above: Performed By: #### L [id number] #### [facility] ([facility]) [address] [place] [address] Troponin I.cardiac [Mass/Vol] 0.04 ng/mL Normal 0.00-0.04 [facility] Comment on above: Performed By: #### L [id number] #### [facility] ([facility]) [address] [place] [address] TSHon 04-01-2023 THYROTROPIN (MIU/L) IN SER/PLAS BY DETECTION LIMIT <= 0.05 MIU/L 4.86 mIU/L Normal 0.34-5.60 [facility] Comment on above: Performed By: #### L [id number] #### [facility] ([facility]) [address] [place] [address] TSH3 REFLEX TO FT4on 024 THYROTROPIN (MIU/L) IN SER/PLAS BY DETECTION LIMIT <= 0.05 MIU/L 4.16 mIU/L Normal 0.34-5.60 [facility] Comment on above: Performed By: #### L [id number] ####[facility] ([facility])[address] [place] [address] URINALYSISon 04-01-2023 BILIRUBIN, TOTAL PRESENCE IN URINE Negative Normal Negative [facility] Comment on above: Performed By: #### L [id number] #### [facility] ([facility]) [address] [place] [address] Clarity (U) Clear Normal Clear [facility] Comment on above: Performed By: #### L [id number] #### [facility] ([facility]) [address] [place] [address] Color (U) Yellow Normal Yellow [facility] Comment on above: Performed By: #### L [id number] #### [facility] ([facility]) [address] [place] [place] [address] Glucose (U) [Mass/Vol] Negative Normal Negative [facility] Comment on above: Performed By: #### L [id number] #### [facility] ([facility]) [address] [place] [place] [address] HEMOGLOBIN PRESENCE IN URINE Negative Normal Negative [facility] Comment on above: Performed By: #### L [id number] #### [facility] ([facility]) [address] [place] [address] Ketones Ql (U) Negative Normal Negative [facility] Comment on above: Performed By: #### L [id number] #### [facility] ([facility]) [address] [place] [address] LEUKOCYTE ESTERASE PRESENCE IN URINE BY TEST STRIP Trace Abnormal Negative [facility] Comment on above: Performed By: #### L [id number] #### [facility] ([facility]) [address] [place] [address] NITRITE PRESENCE IN URINE Negative Normal Negative [facility] Comment on above: Performed By: #### L [id number] #### [facility] ([facility]) [address] [place] [address] pH (U) 6.0 [pH] Normal 5.0-8.0 [facility] Comment on above: Performed By: #### L [id number] #### [facility] ([facility]) [address] [place] [address] Protein (U) [Mass/Vol] Negative Normal Negative [facility] Comment on above: Performed By: #### L [id number] #### [facility] ([facility]) [address] [place] [address] Specific gravity (U) [Rel density] 1.018 Normal 1.015-1.020 [facility] Comment on above: Performed By: #### L [id number] #### [facility] ([facility]) [address] [place] [address] UROBILINOGEN (EU/DL) IN URINE 4.0 EU/dL Abnormal Negative [facility] Comment on above: Performed By: #### L [id number] #### [facility] ([facility]) [address] [place] [place] [address] URINALYSIS MICROSCOPICon CASTS IN URINE Normal [facility] Comment on above: Performed By: #### L [id number] #### [facility] ([facility]) [address] [place] [place] [address] CRYSTALS IN URINE Normal [facility] Comment on above: Performed By: #### L [id number] #### [facility] (BEAKER) [address] [place] [address] MUCUS (#/HPF) IN URINE SEDIMENT Occasional Normal None Seen, Occasional, Few [facility] Comment on above: Performed By: #### L [id number] #### [facility] (BEAKER) [address] [place] [address] RBC (#/HPF) IN URINE SEDIMENT 0-2 Abnormal None Seen [facility] Comment on above: Performed By: #### L [id number] #### [facility] (BEAKER) [address] [place] [address] SQUAMOUS EPITHELIAL CELLS (#/HPF) IN URINE SEDIMENT Occasional Normal None Seen, Occasional [facility] Comment on above: Performed By: #### L [id number] #### [facility] (BEAKER) [address] [place] [address] WBC (LEUKOCYTE) (#/HPF) IN URINE SEDIMENT 3-5 Abnormal None Seen [facility] Comment on above: Performed By: #### L [id number] #### [facility] (BEAKER) [address] [place] [place] [address] Vital Signs Date Time Vital Sign Value Performing Clinician Fern arciniega 02-07-2024 16:10-0500 Body mass index (BMI) [Ratio] 32.97 kg/m2 Vilma Cotopatrick [employer] Work Phone: [facility] 02-07-2024 16:10-0500 Body temperature 97 [degF] Vilma Cotopatrick [employer] Work Phone: [facility] 02-07-2024 16:10-0500 Body weight 104.24 kg Vilma Kuhn [employer] Work Phone: [facility] 02-07-2024 16:10-0500 Diastolic blood pressure 86 mm[Hg] Vilma Emmanuelzpatrick [employer] Work Phone: [facility] 02-07-2024 16:10-0500 Heart rate 86 /min Vilma Cotopatrick [employer] Work Phone: [facility] 02-07-2024 16:10-0500 SaO2% (BldA) [Mass fraction] 96 % Vilma Cotopatrick [employer]HER Work Phone: [facility] 02-07-2024 16:10-0500 Systolic blood pressure 142 mm[Hg] Vilma Cotopatrick [employer] Work Phone: [facility] 01-14-2024 11:16-0500 Body height 177.8 cm Esperanza Muñoz MD Work Phone: [facility] 01-14-2024 11:16-0500 Body mass index (BMI) [Ratio] 32.86 kg/m2 Esperanza Muñoz MD Work Phone: [facility] 01-14-2024 11:16-0500 Body weight 103.87 kg Esperanza Muñoz MD Work Phone: [facility] 01-14-2024 11:16-0500 Diastolic blood pressure 75 mm[Hg] Esperanza Muñoz MD Work Phone: [facility] 01-14-2024 11:16-0500 Heart rate 78 /min Esperanza Muñoz MD Work Phone: [facility] 01-14-2024 11:16-0500 SaO2% (BldA) [Mass fraction] 98 % Esperanza Muñoz MD Work Phone: [facility] 01-14-2024 11:16-0500 Systolic blood pressure 138 mm[Hg] Esperanza Muñoz MD Work Phone: [facility] 10-13-2023 13:59-0400 Body height 177.8 cm [facility] 10-13-2023 13:59-0400 Body mass index (BMI) [Ratio] 34.4 kg/m2 [facility] 10-13-2023 13:59-0400 Body temperature 98 [degF] [facility] 10-13-2023 13:59-0400 Body weight 108.86 kg [facility] 10-13-2023 13:59-0400 Diastolic blood pressure 82 mm[Hg] [facility] 10-13-2023 13:59-0400 Heart rate 72 /min [facility] 10-13-2023 13:59-0400 Respiratory rate 18 /min [facility] 10-13-2023 13:59-0400 SaO2% (BldA) [Mass fraction] 98 % [facility] 10-13-2023 13:59-0400 Systolic blood pressure 134 mm[Hg] [facility] Encounters Encounter Date Encounter Type Care Provider Facility Start: 02-07-2024 End: 02-07-2024 Office outpatient visit 15 minutes Vilma Kuhn [employer] Work Phone: [facility] Comment on above: Primary hypertension (CMS/HCC) (Primary Dx) Start: 02-07-2024 End: 02-07-2024 Bamboo flowsheet Vilma Kuhn [employer]HER Work Phone: [facility] Start: 02-07-2024 End: 02-07-2024 Bamboo flowsheet Vilma Kuhn [employer] Work Phone: [facility] Start: 02-04-2024 End: 02-04-2024 Telephone encounter Esperanza Muñoz MD Work Phone: Cardiology Comment on above: Results Start: 01-28-2024 End: 01-28-2024 Clinisync Result Encounter Generic External Data Provider [facility] External Department Unsolicited Start: 01-28-2024 End: 01-28-2024 Clinisync Result Encounter Generic External Data Provider [facility] External Department Unsolicited Start: 01-16-2024 End: 01-16-2024 Telephone encounter Esperanza Muñoz MD Work Phone: Cardiology Comment on above: PRIOR AUTH - FARXIGA Start: 01-15-2024 End: 01-15-2024 Telephone encounter [facility] Comment on above: Heart Failure Pharma cist Appt Start: 01-14-2024 End: 01-14-2024 Patient encounter procedure Esperanza Muñoz MD Work Phone: Cardiology Comment on above: Cardiomyopathy, karson schemic (HCC) (Primary Dx); Chronic HFrEF (heart failure with reduced ejection fraction) (HCC); NICM (nonischemic cardiomyopathy) (HCC); Essential hypertension; Dyslipidemia Start: 01-14-2024 End: 01-14-2024 ambulatory [facility] Work Phone: Cardiology Comment on above: Event (Zio patch) Start: 01-09-2024 End: 01-09-2024 Orders Only Esperanza Muñoz MD Work Phone: Cardiology Comment on above: Congestive heart yuan lure, unspecified HF chronicity, unspecified heart failure type (HCC) (Primary Dx) Start: 10-26-2023 End: 10-26-2023 ambulatory [facility] Start: 10-26-2023 End: 10-29-2023 Clinisync Result Encounter Generic External Data Provider [facility] External Department Unsolicited Start: 10-26-2023 End: 10-29-2023 Clinisync Result Encounter Generic External Data Provider [facility] External Department Unsolicited Start: 10-13-2023 End: 10-13-2023 ambulatory [facility] Work Phone: Start: 10-13-2023 End: 10-13-2023 Patient encounter procedure [facility] Physician [facility] Work Phone: Start: 08-01-2023 End: 08-01-2023 ambulatory [facility] Start: 06-29-2023 End: 06-29-2023 ambulatory [facility] Start: 05-10-2023 End: 05-10-2023 ambulatory [facility] Start: 05-07-2023 End: 05-07-2023 ambulatory SHAIKH ALLIE Not Available Start: 04-17-2023 Clinisync Result Encounter Generic External Data Provider [facility] External Department Unsolicited Start: 04-17-2023 Clinisync Result Encounter Generic External Data Provider [facility] External Department Unsolicited Start: 04-11-2023 End: 04-11-2023 Orders Only Shaikh Allie VASQUEZ Work Phone: [facility] Comment on above: JAZZ (acute kidney in jury) ([facility]/HCC) (Primary Dx) Start: 04-05-2023 End: 04-05-2023 ambulatory SHAIKH ALLIE Not Available Start: 04-02-2023 Evaluation and management of inpatient HINA GONZALEZ [facility] Start: 04-01-2023 Evaluation and management of inpatient CORINNA WALKER [facility] Start: 04-01-2023 Evaluation and management of inpatient KATRINA HELMS [facility] Start: 03-31-2023 End: 04-03-2023 Evaluation and management of inpatient CHASE KAIDENTIERNEY [facility] Procedures Date Procedure Procedure Detail Performing Clinician Start: 01-28-2024 ALL BASIC METABOLIC PANEL Generic External Data Provider Start: 10-26-2023 ALL BASIC METABOLIC PANEL Generic External Data Provider Start: 04-17-2023 ALL BASIC METABOLIC PANEL Generic External Data Provider Start: 04-01-2023 Lipid 1996 panel - S elliot or Plasma [facility] Work Phone: Plan of Treatment Date Care Activity Detail Author Start: 04-01-2028 Lipid panel Lipid Screening [facility] Start: 01-13-2027 Diabetes Screening Diabetes Screenin g [facility] Start: 04-18-2024 End: 04-18-2024 Patient encounter procedure MRI J Comment on above: Cardiomyopathy, karson schemic (HCC) [I42.8] Start: 04-17-2024 End: 07-17-2024 Comprehensive metabolic 2000 panel - Serum or Plasma COMPREHENSIVE METABOLIC PANEL Lab Routine Cardiomyopathy, nonischemic (HCC) Chronic HFrEF (heart failure with reduced ejection fraction) (HCC) Expected: 04/17/2024, Expires: 07/17/2024 [facility] Comment on above: Expected: 04/17/2024 , Expires: 07/17/2024 Start: 04-17-2024 End: 07-17-2024 Natriuretic peptide.B prohormone N-Terminal [Mass/volume] in Serum or Plasma NT PRO BNP Lab Routine Cardiomyopathy, nonischemic (HCC) Chronic HFrEF (heart failure with reduced ejection fraction) (HCC) Expected: 04/17/2024, Expires: 07/17/2024 [facility] Comment on above: Expected: 04/17/2024 , Expires: 07/17/2024 Start: 04-03-2024 End: 04-03-2024 Patient encounter procedure 04/03/2024 4:00 PM EST Office Visit [facility] [address] [place] [phone] Vilma Kuhn NP [address] [place] [phone] [facility] Start: 02-20-2024 End: 02-20-2024 ambulatory 02/20/2024 2:30 PM EST [facility] [address] [place] [address] [facility] Optimization - NEW Cardiology Comment on above: Medication Optimizat ion - NEW Start: 02-07-2024 End: 02-07-2024 Patient encounter procedure 02/07/2024 4:00 PM EST Office Visit [facility] [address] [place] [phone] Vilma Kuhn NP [address] [facility] [place] [phone] [facility] Start: 01-14-2024 End: 01-14-2024 Patient encounter procedure 01/14/2024 10:15 AM EST Office Visit Cardiology [address] [place] [address] Esperanza Campos MD [address] [place] [address] [facility] Cardiology Comment on above: CHF Start: 01-14-2024 End: 01-14-2024 ambulatory 01/14/2024 9:15 AM EST Results Only Cardiology [address] [id number] [facility] Comment on above: CHF Start: 01-14-2024 End: 01-14-2024 Patient encounter procedure 01/14/2024 8:45 AM EST Office Visit Cardiology [address] [place] [address] [facility] Comment on above: CHF Start: 11-04-2023 Covid-19 Vaccine ( season) Covid-19 Vaccine () [facility] Start: 11-04-2023 Influenza vaccination Influenza Vacc ine (#1) [facility] Start: 05-07-2023 End: 05-07-2023 Patient encounter procedure 05/07/2023 6:00 PM EST Office Visit [facility] [address] [place] [address] Shaikh Kelley MD [address] [place] [phone] [facility] IM Start: 04-11-2023 End: 04-11-2024 Basic metabolic 1998 panel - Serum or Plasma Basic metabolic panel Lab Routine JAZZ (acute kidney injury) ([facility]) Expected: 04/11/2023 (Approximate), Expires: 04/11/2024 [facility] Work Phone: Comment on above: Expected: 04/11/2023 (Approximate), Expires: 04/11/2024 Start: 11-03-2022 Influenza vaccination Influenza Vacc ine (#1) [facility] Start: 06-05-2022 Prostate specific antigen measurement Prostate Cancer Screening Discussion [facility] Start: 06-05-2017 Shingrix Vaccine (1 of 2) Shingrix Vaccine (1 of 2) [facility] Start: 06-05-2012 Diabetes Screening Diabetes Screenin g [facility] Start: 06-05-2012 Screening for malign ant neoplasm of colon [facility] Start: 06-05-2002 Lipid panel Lipid Screening [facility] Start: 06-05-1986 Hepatitis B Vaccine (1 of 3 - 19+ 3-dose series) Hepatitis B Vaccine (1 of 3 - 19+ 3-dose series) [facility] Start: 06-05-1986 Urine microalbumin profile DTaP,Tdap,Td Vaccine (1 - Tdap) [facility] Start: 06-05-1985 Annual PCP Team Mold Technician ashanti Disease Visit Annual PCP Team Chronic Disease Visit [facility] Start: 06-05-1985 Anxiety Screening Anxiety Screening [facility] Start: 06-05-1985 BP Controlled (<130/80) BP Controlle d (<130/80) [facility] Start: 06-05-1985 Depression Screening Depression Scre ening [facility] Start: 06-05-1985 Hepatitis C screening Hepatitis C Sc federico [facility] Start: 06-05-1985 HIV screening HIV Screening [facility] Start: 06-05-1973 Pneumococcal vaccination Pneum ococcal Vaccine (1 of 2 - PCV) [facility] Start: 1965 Screening for malign ant neoplasm of colon [facility] End: 01-08-2025 ECG COMPLETE ECG COMPLETE ECG Routine Congestive heart failure, unspecified HF chronicity, unspecified heart failure type (HCC) 1 Occurrences starting 01/09/2024 until 01/08/2025 [facility] Work Phone: Comment on above: 1 Occurrences starti ng 01/09/2024 until 01/08/2025 End: 02-12-2025 MR Heart cine for blood flow velocity mapping MRI CARDIAC VELOCITY FLOW MAP Radiology Routine Cardiomyopathy, nonischemic (HCC) Chronic HFrEF (heart failure with reduced ejection fraction) (HCC) 1 Occurrences starting 01/14/2024 until 02/12/2025 [facility] Comment on above: 1 Occurrences starti ng 01/14/2024 until 02/12/2025 End: 02-12-2025 MRI CARDIAC MORPH FUNC WO/W IVCON MRI CARDIAC MORPH FUNC WO/W IVCON Radiology Routine Cardiomyopathy, nonischemic (HCC) Chronic HFrEF (heart failure with reduced ejection fraction) (HCC) 1 Occurrences starting 01/14/2024 until 02/12/2025 [facility] Comment on above: 1 Occurrences starti ng 01/14/2024 until 02/12/2025 OUTSIDE VENDOR CARDI AC OUTPATIENT EXTENDED RHYTHM RECORDING (WITHOUT TELEMETRY) OUTSIDE VENDOR CARDIAC OUTPATIENT EXTENDED RHYTHM RECORDING (WITHOUT TELEMETRY) Holter Routine Cardiomyopathy, nonischemic (HCC) Chronic HFrEF (heart failure with reduced ejection fraction) (HCC) Ordered: 01/14/2024 [facility] Work Phone: Comment on above: Ordered: 01/14/2024 Payers Date Payer Category Payer Unknown [employer] [id number] 2023-Present [phone] [address] [address] [place] [address] [id number] 2022 Private Health Insurance [id number] 2022 Unknown [id number] 1965 Unknown [id number] 1965 Unknown [id number] Social History Date Type Detail Facility Start: 04-05-2023 End: 05-07-2023 Tobacco smoking status [facility] Never smoked tobacco [facility] History of tobacco use Passive smoker [facility] Start: 04-05-2023 End: 05-07-2023 Tobacco use and exposure Smokeless tobacco non-user [facility] Start: 04-05-2023 End: 05-07-2023 Alcohol intake Lifetime non-drinker (finding) [facility] Start: 04-05-2023 End: 05-07-2023 History of Social function [facility] Start: 04-05-2023 End: 05-07-2023 Tobacco use panel [facility] Start: 1965 Sex Assigned At Not on file [facility] Start: 1965 Sex Assigned At Male [facility] Tobacco smoking status NYIS Tobacco smoking consumption unknown [facility] Start: 01-14-2024 Alcoholic beverage intake Ex-drinker (finding) [facility] National Score (1-100), lower number is lower risk 63 [facility] NEGATED: Highlighted rowStart: GOPALF History of tobacco use Passive smoker [facility] Goals Date Patient Goal Desired Activity /State Personal health goal Clinical Notes 04-01-2023 to 02-12-2024 Vilma Kuhn NP - 02/12/2024 2:29 PM Sekou Kuhn NP - 02/07/2024 4:00 PM ESTPatient InstructionsTelephone Encounter - Marylin Purvis RN - 02/04/2024 11:41 AM EST Note Date & Type Note Facility 02-12-2024 History of Present illness Narrative Associated Problem(s): Hypertension (CMS/HCC) Follows with Cardiology- Dr. Antonio but went to [facility] for second opinion. Next appointment in April. (Will also have an additional Echo done at that time.) [facility] did several medication changes. Pt reports when medication changed his BP increased , HR increased. Pt reports he is dizzy with the Entresto as well. Pt is unahppy with medications changes made by [facility] and would like to return to previous regimen prescribed by Dr. Antonio Pt has not seen Dr. Antonio since he was seen at [facility], or advised him of these changes. Pt came into office today with hopes of determining which medications he should stay on vs stop. Initially I was going to return medications to previous regimen ordered by Dr. Antonio at last OV, however it appears renal; function has changed over the past two weeks. No swelling in extremities, shortness of breath, chest pain reported by patient or observed upon assessment. I advised pt to continue current regimen at this time, and to contact Dr. Antonio's office to notify him of medication changes and await his speciality instruction. Follow instructions given by Dr. Antonio. I personally LM with Dr. Reddy's office to advise of this patient's clinical status as well. Images from the original note were not included. Subjective Patient ID: Cory Jewell is a 58 y.o. male who presents for Establish Care. HPI Specialists: Cardiology- [facility] for second opinion. Cardiology- Dr. Antonio Next appointment in April. Will also have an additional Echo done at that time. [facility] did several medication changes. Pt reports when medication changed his BP increased , HR increased. Pt reports he is dizzy with the Entresto as well. Pt stopped [facility] regimen and returned to Dr. Antonio's previously prescribed regimen. Pt has not seen Dr. Antonio since he was seen at [facility], or advised him of these changes. Review of Systems Constitutional: Negative for activity change, appetite change, chills, diaphoresis, fatigue, fever and unexpected weight change. HENT: Negative for congestion, ear pain, rhinorrhea, sinus pressure, sinus pain, sneezing, sore throat, trouble swallowing and voice change. Eyes: Negative for visual disturbance. Respiratory: Negative for cough, chest tightness, shortness of breath and wheezing. Cardiovascular: Negative for chest pain, palpitations and leg swelling. Gastrointestinal: Negative for abdominal distention, abdominal pain, blood in stool, constipation, diarrhea and vomiting. Genitourinary: Negative for decreased urine volume, dysuria, flank pain, frequency, hematuria and urgency. Musculoskeletal: Negative for arthralgias, gait problem, joint swelling and myalgias. Skin: Negative for rash. Neurological: Positive for dizziness. Negative for tremors, syncope, weakness, light-headedness and headaches. Psychiatric/Behavioral: Negative for decreased concentration and suicidal ideas. The patient is not nervous/anxious. Hematological: Does not bruise/bleed easily. Endocrine: Negative for cold intolerance, heat intolerance, polydipsia, polyphagia and polyuria. Objective Physical Exam Vitals reviewed. Constitutional: Appearance: Normal appearance. HENT: Head: Normocephalic and atraumatic. Right Ear: Tympanic membrane normal. Left Ear: Tympanic membrane normal. Nose: Nose normal. Mouth/Throat: Mouth: Mucous membranes are moist. Pharynx: Oropharynx is clear. Eyes: Pupils: Pupils are equal, round, and reactive to light. Cardiovascular: Rate and Rhythm: Normal rate and regular rhythm. Pulses: Normal pulses. Heart sounds: Normal heart sounds. Pulmonary: Effort: Pulmonary effort is normal. Breath sounds: Normal breath sounds. Abdominal: General: Abdomen is flat. Bowel sounds are normal. Palpations: Abdomen is soft. Musculoskeletal: General: Normal range of motion. Cervical back: Normal range of motion. Skin: General: Skin is warm and dry. Capillary Refill: Capillary refill takes less than 2 seconds. Neurological: General: No focal deficit present. Mental Status: He is alert and oriented to person, place, and time. Psychiatric: Mood and Affect: Mood normal. Behavior: Behavior normal. Assessment/Plan Problem List Items Addressed This Visit Hypertension (CMS/HCC) - Primary Follows with Cardiology- Dr. Antonio but went to [facility] for second opinion. Next appointment in April. (Will also have an additional Echo done at that time.) [facility] did several medication changes. Pt reports when medication changed his BP increased , HR increased. Pt reports he is dizzy with the Entresto as well. Pt is unahppy with medications changes made by [facility] and would like to return to previous regimen prescribed by Dr. Antonio Pt has not seen Dr. Antonio since he was seen at [facility], or advised him of these changes. Pt came into office today with hopes of determining which medications he should stay on vs stop. Initially I was going to return medications to previous regimen ordered by Dr. Antonio at last OV, however it appears renal; function has changed over the past two weeks. No swelling in extremities, shortness of breath, chest pain reported by patient or observed upon assessment. I advised pt to continue current regimen at this time, and to contact Dr. Antonio's office to notify him of medication changes and await his speciality instruction. Follow instructions given by Dr. Antonio. I personally LM with Dr. Reddy's office to advise of this patient's clinical status as well. documented in this encounter [facility] 02-07-2024 Instructions Vilma Kuhn NP - 02/07/2024 4:00 PM EST Continue current regimen. I will call Dr. Richardson office for them to reach out to you with next steps! documented in this encounter [facility] 02-04-2024 Telephone encounter Note Images from the original note were not included. Esperanza Campos MD Alfonsi, Dominique; P Hvi J3-4 Opd Nurses Would you be able to let Mr. Jewell know that his Zio patch showed 8.5% PVC burden. Would recommend continuing his medical optimization and we can repeat that in the future, hopefully PVC burden decreases with our interventions. Thanks! Esperanza [facility] 02-04-2024 Miscellaneous Notes Images from the original note were not included. Esperanza Campos MD Alfonsi, Dominique; P Hvi J3-4 Opd Nurses Would you be able to let Mr. Jewell know that his Zio patch showed 8.5% PVC burden. Would recommend continuing his medical optimization and we can repeat that in the future, hopefully PVC burden decreases with our interventions. Thanks! Esperanza documented in this encounter [facility] 01-16-2024 Telephone encounter Note Images from the original note were not included. [facility] 01-16-2024 Miscellaneous Notes Images from the original note were not included. Images from the original note were not included. Images from the original note were not included. documented in this encounter [facility] 01-16-2024 Telephone encounter Note Images from the original note were not included. [facility] 01-16-2024 Telephone encounter Note Images from the original note were not included. [facility] 01-15-2024 Telephone encounter Note Called the patient to schedule a new appointment with the HF pharmacists. No answer, LVM for patient to call [phone] to schedule. [facility] 01-15-2024 Miscellaneous Notes Called the patient to schedule a new appointment with the HF pharmacists. No answer, LVM for patient to call [phone] to schedule. documented in this encounter [facility] 01-14-2024 Note HNO ID: [id number] Author: LEONA HANCOCK Tech Service: ? Author Type: Technologist Type: Progress Notes Filed: 01/14/2024 13:03 Note Text: EVENT MONITOR DISPOSABLE PATCH INSTRUCTIONS [facility] [id number] Skin prepped and cleansed with alcohol Patch secured to prepped area Monitor Activated Serial #: [id number] Patient Instructed: Prescribed order timeframe Bathing guidelines Usage of event button and diary documentation Return of monitor at the end of prescribed order Call with problems [phone] or [phone] ext. [phone] Patient expresses a good understanding of instructions Lexx Shrestha [facility] 01-14-2024 History of Present illness Narrative EVENT MONITOR DISPOSABLE PATCH INSTRUCTIONS Patient Name: Cory Jewell Clinic Number: [id number] Skin prepped and cleansed with alcohol Patch secured to prepped area Monitor Activated Serial #: [id number] Patient Instructed: Prescribed order timeframe Bathing guidelines Usage of event button and diary documentation Return of monitor at the end of prescribed order Call with problems [phone] or [phone] ext. [phone] Patient expresses a good understanding of instructions Lexx Shrestha documented in this encounter [facility] 01-14-2024 Note Education (CARDMN) BESTCORY OWEN ([id number]) 1965 M Date Time Provider Department 01/14/24 1:00 PM ARRHYTHMIA MONITORING LAB CARDMN Reason for Visit: Event [921] Cmt: Zio patch Primary Visit Diagnosis:Cardiomyopathy, nonischemic (HCC) [I42.8] Other Visit Diagnosis:Chronic HFrEF (heart failure with reduced ejection fraction) (HCC) [I50.22] During your visit today, we recorded the following information about you: Allergies As of Date: 01/14/2024 Noted Allergy Reaction EMPAGLIFLOZIN 06/29/2023 6 - Diarrhea 14 - Other: See Comments Comments: Caused JAZZ SACUBITRIL-VALSARTAN 06/29/2023 6 - Diarrhea Comments: Caused on JAZZ Date Reviewed: 01/14/2024 Reviewed by: Panola, Marylin, RN - Fully Assessed Prescriptions as of 01/14/2024 - aspirin, enteric coated (ASPIRIN, ENTERIC COATED) 81 mg EC tablet Take 81 mg by mouth once daily. - atorvastatin (LIPITOR) 20 mg tablet Take 20 mg by mouth every morning. - metoprolol succinate ER (TOPROL XL) 50 mg 24 hr tablet Take 50 mg by mouth once daily. - furosemide (LASIX) 40 mg tablet Take 40 mg by mouth as needed. - iv contrast (will be provided with radiology test) MRI Cardiac w/Qflow Inject, intravenously, once for 1 dose. No IV access, insert saline lock prior to the beginning of sedation, infusion, injection of imaging exam. Discontinue saline lock post exam. If Pt has a central line or IVAD, may access for administration according to line specific nursing protocol. Once exam is complete flush line and de-access according to line specific nursing protocol in the MR contrast administration guidelines link - sacubitril-valsartan (ENTRESTO) 24-26 mg tablet Take 0.5 tablets by mouth two times a day. - dapagliflozin propanediol (FARXIGA) 10 mg tablet Take 1 tablet by mouth daily with breakfast. Encounter Status:Closed by LEONA HANCOCK on 01/14/24 [facility] 01-14-2024 Instructions Esperanza Campos MD - 01/14/2024 12:00 PM EST - Discontinue Lisinopril for 2 days (Sunday and Sunday) and start taking Entresto half a tablet of the 24/26 mg tablet twice a day on . After one week on Entresto, get blood work done to check kidney function and potassium levels. - If blood work is normal, start taking Farxiga 10 mg once daily 2 weeks. You will need repeat blood work about 1 week after you start this medication. - Continue daily weight monitoring; report any sudden weight gain of more than 2-3 pounds. - Maintain fluid intake at approximately 2,000 milliliters per day. - Consulting with a heart failure pharmacist to help with medication adjustments and monitoring. - Wear the Zio patch monitor for 2 weeks as ordered. Pick it up on the second floor (J2-2) - Please get blood work on the first floor today (J1-4) - Schedule a follow up in 3-4 months and heart MRI. You can do this at the front end ui developer documented in this encounter [facility] 01-14-2024 Note HNO ID: [id number] Author: CHERYL MCINTOSH MD Service: ? Author Type: Physician Type: Procedures Filed: 02/12/2024 16:24 Note Text: Patient Name: Cory Jewell : 1965 Ordering Provider: Esperanza Muñoz Indication: I42.8 Other cardiomyopathies Type of Monitor: Extended Monitoring-Zio Patch Enrollment Dates: 01/14/2024-01/21/2024 IRHYTHM FINDINGS: Patient had a min HR of 46 bpm, max HR of 174 bpm, and avg HR of 81 bpm. Predominant underlying rhythm was Sinus Rhythm. Bundle Branch Block/IVCD was present. 11 Ventricular Tachycardia runs occurred, the run with the fastest interval lasting 4 beats with a max rate of 156 bpm, the longest lasting 4 beats with an avg rate of 114 bpm. 3 Supraventricular Tachycardia runs occurred, the run with the fastest interval lasting 9 beats with a max rate of 174 bpm, the longest lasting 11.0 secs with an avg rate of 155 bpm. Isolated SVEs were rare (<1.0%), and no SVE Couplets or SVE Triplets were present. Isolated VEs were frequent (8.5%, 61690), VE Couplets were occasional (1.9%, 7248), and VE Triplets were rare (<1.0%, 974). Ventricular Bigeminy and Trigeminy were present. Cheryl Mcintosh MD [facility] 01-11-2024 Note HNO ID: [id number] Author: ESPERANZA CAMPOS MD Service: ? Author Type: Physician Type: Progress Notes Filed: 01/16/2024 07:55 Note Text: Heart and Vascular [facility] SECTION OF HEART FAILURE and CARDIAC TRANSPLANT MEDICINE OUTPATIENT VISIT DATE January 14, 2024 OUTPATIENT VISIT TYPE New Patient PRIMARY CARE PHYSICIAN: To use this Smartlink, specify the provider ID whose address you want to display, e.g., .PROVADDR[1 (where 1 is the provider ID). CHIEF COMPLAINT: Heart failure second opinion HISTORY OF PRESENT ILLNESS: 58 year old male with PMHx of chronic HFrEF, NICM, HTN, HLD who is here for a heart failure second opinion. He reports the onset of symptoms around of last year, with significant worsening by March. He initially noticed swelling in his feet and legs, which progressed to his groin. He also experienced a substantial weight gain, increasing from his usual weight of 290-305 lbs to a point where he could not button his pants. He denies experiencing dyspnea, dizziness, palpitations, chest pain, or syncope during this period. He was hospitalized and lost 60-65 lbs of fluid over five days, with his weight now stabilized between 226-230 lbs. He underwent a LHC at the [facility], which showed no significant coronary artery disease. RHC: near normal, PCWP 18 mmhg. Cardiac output preserved . He has had multiple echocardiograms, with the most recent showing an improvement in LVEF from 10% to 40%. The etiology is still unclear but it seems it is secondary to viral illness (April 2019 w/ ?COVID; no testing done; and November 2022 before he was Dx w/ heart failure). Today, patient reports feeling overall really well. Has occasional lightheadedness when standing up quickly, which he attributes to his medications. He also experiences an intermittent cough, which he associates with lisinopril use. He is physically active, walking approximately 10 miles per week, and denies any significant dyspnea during exercise. He monitors his weight daily and checks his feet for edema. He denies any orthopnea and sleeps comfortably with one pillow, sometimes on his right side as advised. Has been on various medications, including lisinopril, metoprolol, spironolactone, atorvastatin, and furosemide. He was previously on Entresto and Farxiga/Jardiance but discontinued them due to concerns about kidney function and insurance coverage, respectively. He also reports experiencing diarrhea with medication changes (?secondary to spironolactone). He monitors his fluid intake, aiming for 3671-1095 mL per day. Family: He is adopted and therefore has no known family history of heart disease. Social: He denies any history of smoking and reports occasional alcohol consumption, approximately 2-3 drinks per month, but has abstained since April. 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 NURSING INTAKE (Patient?s concerns and/or recent hospitalizations/ER visits): Cory Jewell is a 58 year old male from [place], [place] here for newly diagnosed heart failure. PMHx includes NICM; HFrEF; SVT; HTN; sleep apnea Pt was trailed on GDMT Entresto was not covered by insurance Spironolactone was stopped due to dehydration- was started and stopped a few times. Has not been taking since July 2023- Due to JAZZ Jardiance caused JAZZ multiple times March 2023: presented to ED at [facility] after experiencing shortness of breath and swelling for weeks/months with significant amount of edema progressing up bilateral lower extremities and into lower abdomen. Weight at ED was 340 lbs. Echo showed EF 30-35%. Transferred to [facility] for admission. TTE showed EF 15 % -20 %. LHC showed normal coronaries, RHC: Wedge pressure is 18 mmhg, Cardiac output is preserved. Received IV diuretics, lost 35 lbs, and started on GDMT. Prior to admission in March, had not seen provider in over 10 years, no previous known medical history. He is adopted, family history is not known. Repeat Echo done in October EF improved to 40-45%. HF Nursing Assessment: Interim Hospitalizations and/or ER visits: Chest Pain: no Skipping or irregular heartbeats: no Shortness of breath at rest: no Shortness of breath with activity: not anymore Cough: yes, dry- not that often Waking up in the middle of the night gasping for air: no Lightheadedness or dizziness: not since medication changes Feeling like you are going to pass out: no Actually passing out: no Poor energy level: comes and goes, depends on the day Unintentional weight gain: no Unintentional weight loss: no Swelling in your legs,feet, abdomen: not since losing water weight Filling up quickly when you eat: no PAST MEDICAL HISTORY Diagnosis Date HFrEF (heart failure with reduced ejection fraction) (H (more content not included)... [facility] 01-11-2024 History of Present illness Narrative Images from the original note were not included. [facility] [place] [facility] SECTION OF HEART FAILURE and CARDIAC TRANSPLANT MEDICINE OUTPATIENT VISIT DATE January 14, 2024 OUTPATIENT VISIT TYPE New Patient PRIMARY CARE PHYSICIAN: To use this Smartlink, specify the provider ID whose address you want to display, e.g., .[email or web address][1 (where 1 is the provider ID). CHIEF COMPLAINT: Heart failure second opinion HISTORY OF PRESENT ILLNESS: 58 year old male with PMHx of chronic HFrEF, NICM, HTN, HLD who is here for a heart failure second opinion. He reports the onset of symptoms around of last year, with significant worsening by March. He initially noticed swelling in his feet and legs, which progressed to his groin. He also experienced a substantial weight gain, increasing from his usual weight of 290-305 lbs to a point where he could not button his pants. He denies experiencing dyspnea, dizziness, palpitations, chest pain, or syncope during this period. He was hospitalized and lost 60-65 lbs of fluid over five days, with his weight now stabilized between 226-230 lbs. He underwent a LHC at the [facility], which showed no significant coronary artery disease. RHC: near normal, PCWP 18 mmhg. Cardiac output preserved . He has had multiple echocardiograms, with the most recent showing an improvement in LVEF from 10% to 40%. The etiology is still unclear but it seems it is secondary to viral illness (April 2019 w/ ?COVID; no testing done; and November 2022 before he was Dx w/ heart failure). Today, patient reports feeling overall really well. Has occasional lightheadedness when standing up quickly, which he attributes to his medications. He also experiences an intermittent cough, which he associates with lisinopril use. He is physically active, walking approximately 10 miles per week, and denies any significant dyspnea during exercise. He monitors his weight daily and checks his feet for edema. He denies any orthopnea and sleeps comfortably with one pillow, sometimes on his right side as advised. Has been on various medications, including lisinopril, metoprolol, spironolactone, atorvastatin, and furosemide. He was previously on Entresto and Farxiga/Jardiance but discontinued them due to concerns about kidney function and insurance coverage, respectively. He also reports experiencing diarrhea with medication changes (?secondary to spironolactone). He monitors his fluid intake, aiming for 3119-9271 mL per day. Family: He is adopted and therefore has no known family history of heart disease. Social: He denies any history of smoking and reports occasional alcohol consumption, approximately 2-3 drinks per month, but has abstained since April. 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 NURSING INTAKE (Patient s concerns and/or recent hospitalizations/ER visits): Cory Jewell is a 58 year old male from [place], [place] here for newly diagnosed heart failure. PMHx includes NICM; HFrEF; SVT; HTN; sleep apnea Pt was trailed on GDMT Entresto was not covered by insurance Spironolactone was stopped due to dehydration- was started and stopped a few times. Has not been taking since July 2023- Due to JAZZ Jardiance caused JAZZ multiple times March 2023: presented to ED at [facility] after experiencing shortness of breath and swelling for weeks/months with significant amount of edema progressing up bilateral lower extremities and into lower abdomen. Weight at ED was 340 lbs. Echo showed EF 30-35%. Transferred to [facility] for admission. TTE showed EF 15 % -20 %. LHC showed normal coronaries, RHC: Wedge pressure is 18 mmhg, Cardiac output is preserved. Received IV diuretics, lost 35 lbs, and started on GDMT. Prior to admission in March, had not seen provider in over 10 years, no previous known medical history. He is adopted, family history is not known. Repeat Echo done in October EF improved to 40-45%. HF Nursing Assessment: Interim Hospitalizations and/or ER visits: Chest Pain: no Skipping or irregular heartbeats: no Shortness of breath at rest: no Shortness of breath with activity: not anymore Cough: yes, dry- not that often Waking up in the middle of the night gasping for air: no Lightheadedness or dizziness: not since medication changes Feeling like you are going to pass out: no Actually passing out: no Poor energy level: comes and goes, depends on the day Unintentional weight gain: no Unintentional weight loss: no Swelling in your legs,feet, abdomen: not since losing water weight Filling up quickly when you eat: no PAST MEDICAL HISTORY Diagnosis Date HFrEF (heart failure with reduced ejection fraction) ([facility]) Hypertension NICM (nonischemic cardiomyopathy) ([facility]) Sleep apnea SVT (supraventricular tachycardia) ([facility]) No past surgical history on file. SOCIAL HISTORY Social History Tobacco Use Smoking status: Never Smokeless tobacco: Never Substance Use Topics Alcohol use: Not Currently Drug use: Not Currently FAMILY HISTORY Problem Relation Age of Onset No Family History Other Pt adopted ALLERGIES: ALLERGIES Allergen Reactions Empagliflozin Diarrhea, Other: See Comments Caused JAZZ Sacubitril-Valsartan Diarrhea Caused on JAZZ CURRENT MEDICATIONS: aspirin, enteric coated (ASPIRIN, ENTERIC COATED) 81 mg EC tablet Take 81 mg by mouth once daily. atorvastatin (LIPITOR) 20 mg tablet Take 20 mg by mouth every morning. metoprolol succinate ER (TOPROL XL) 50 mg 24 hr tablet Take 50 mg by mouth once daily. lisinopril (ZESTRIL) 10 mg tablet Take 10 mg by mouth every morning. furosemide (LASIX) 40 mg tablet Take 40 mg by mouth as needed. REVIEW OF SYSTEMS: CONSTITUTION: Negative for: Weight loss or gain, Fever. Chills, Night sweats HEENT: Negative for: Hearing loss, Nosebleeds, Mouth sores, Trouble swallowing, Dry mouth RESPIRATORY: Positive for: Cough Negative for: Difficulty breathing GASTROINTESTINAL: Negative for: Melena, Diarrhea, Nausea, Abdominal distension, Early satiety MUSCULOSKELETAL: Positive for: Arthralgias and Myalgias NEUROLOGICAL: Negative for: Headaches, Dizziness SKIN: Negative for: Rash EYES: Negative for: Vision disturbance CARDIOVASCULAR: Negative for: Chest pain, Leg swelling, Arrhythmia, Presyncope GENITOURINARY: Negative for: Difficulty urinatiing PATIENT ENTERED DATA: No data to display No data to display No data to display PHYSICAL EXAMINATION: BP 138/75 Pulse 78 Ht 177.8 cm (5' 10 ) Wt 103.9 kg (229 lb) SpO2 98% BMI 32.86 kg/m General: Well appearing, in no acute distress. Skin: No clubbing, no cyanosis. Eyes: Extra ocular movements intact Oropharynx: Teeth in good repair. Neck: No jugular venous distention, no carotid bruits, carotids have a normal upstroke, no palpable thyromegaly. Lungs: Clear to auscultation bilaterally, no wheezing or rhonchi. Heart: Regular rhythm, PMI not displaced, S1, S2 normal, no S3, no S4, no heaves, no rub and no murmur. Abdomen: Soft, nontender, bowel sounds normal, no palpable organomegaly, no bruits. Extremities: No peripheral edema . Grade 2/4 distal pulses bilaterally. Neuro: Oriented to person, place and time, alert, cooperative, gait coordinated. CARDIOVASCULAR MEDICINE TESTING: I have personally reviewed the Electrocardiogram and Laboratory Testing. Echo 10/10/2023 CONCLUSION: 1. Mild eccentric left ventricular hypertrophy with mildly reduced systolic function. LVEF is estimated at 40 to 45%. 2. Normal right ventricular size and systolic function. 3. Mild to moderate biatrial dilatation. 4. Mild diastolic dysfunction. 5. Mild mitral regurgitation. 6. Mildly elevated right-sided pressures. Event monitor 04/04/2023-04/04/2023 - 05/04/2023: Sinus rhythm with sinus arrhythmia, sinus tachycardia, sinus bradycardia, SVT. Total PVCs less than 1%, total PACs less than 1%. Cardiac Cath 04/02/2023 Final Impression: 1) RHC is near normal. Wedge pressure is 18 mmhg. Cardiac output is preserved. 2) Coronary angiogram shows normal coronary arteries. Plan: 1) optimal med therapy for HFrEF. He has been started on 4 drug GDMT for HFrEF. 2) repeat echo in 1-3 months to assess for improvement 3) outpatient follow-up with [place] [facility] TTE 04/02/2023 Findings Left Ventricle: The left ventricle is severely [...] Left Atrium: The left atrium appears enlarged. Right Atrium: The right atrium is normal in size. Mitral Valve: There is nonspecific thickening of the mitral valve leaflet. Mild to moderate mitral regurgitation. There is minimal mitral annular calcification. Aortic Valve: The aortic valve is normal. No aortic valve regurgitation. No aortic valve stenosis. Tricuspid Valve: Normal tricuspid valve. Trivial tricuspid regurgitation. Pulmonic Valve: Normal pulmonary valve. No pulmonary regurgitation. Aorta: The aortic root exhibits normal size. Great Vessels: IVC: Normal size and course of the IVC. Pericardium: No pericardial effusion. ECHO 03/29/2023 Global LV systolic function is moderately decreased, estimated EF 30-35% LV is dilated RV is moderately dilated with reduced systolic function Biatrial enlargement Mild tricuspid regurg Moderately elevated RVSP at 52mmHg Moderate mitral regurg Trivial pericardial effusion IMPRESSION: NYHA Functional Class: II Stage: C heart failure Target weight: 225-230lbs -Chronic HFrEF secondary NICM, likely from viral illness vs PVC vs ?genetic LHC with non-obstructive CAD/ RHC RA 6, PA 44/14 m31, PCWP 18, AF CI 2.2 (PA sat 68%). NT pro BNP 273 (03/2023). EKG 01/14/24 showed NSR, PVC's (x3) and RBBB. Echocardiogram showed LVEF at the time of diagnosis of 10% and since GDMT was started it improved to 40-45%. Will get basic labs, Zio patch to quantify PVC burden and r/o any tachyarrhythmias and ordering cardiac MRi to r/o any other underlying etiologies with next visit. Additionally consulting HF pharmacy to assist with medication optimization. See below for details on current HF GDMT. No need for ICD at this time. Heart Failure specific medications (list current, note updates or changes, note prior intolerance): BB: Metoprolol succinate 50mg every day ACEI/ARB/ARNI: Stopping lisinopril for 2 days and on third day will start Entresto 1/2 24/26mg BD MRA: NA (Patient had diarrhea and AI; could attempt to rechallenge in the future) SGLT2: Start farxiga 10mg every day in 2 weeks if BMP stable (Previosuly tolerated while inpatient, it was switched to empaglifozin and he did not tolerate due to diarrhea and JAZZ; unclear sprionolactone was the culprit) Diuretic: Furosemdie 40mg as needed Digoxin: NA Vasodilators: NA Anti-arrhythmics: NA Ivabradine: NA Other anti-HTN: NA PLAN AND RECOMMENDATIONS: -Labs today -Zio patch -A Cardiac MRI will be obtained to further assess left/right ventricular size, function, and to evaluation tissue characterization for further elucidation of the etiology of cardiomyopathy. Flow velocity quantification will be obtained to assess for potential concomitant functional valvular heart disease that could be contributing or be the result of the underlying cardiomyopathy. Furthermore, flow quantification will be obtained for gold standard assessment of ventricular forward stroke volume, which will be important for determining the impact of myocardial dysfunction. -Referral to HF pharmacy -Transition from lisinopril to entresto as above. BMP 1 week after initiation -If BMP stable, will start dapaglifozin as above. BMP 1 week after initiation -RTC in 3-4 months I personally interviewed, confirmed and edited the above information as obtained by others I personally spent 70 minutes in total time involved in the management and care of this patient. We discussed natural history of disease, current treatment options, and future potential treatment options. We discussed diet, exercise, other non-medical management as above. Esperanza Muñoz MD [facility] Section Of Heart Failure and Cardiac Transplant Medicine Heart [facility] V[facility] [place] [facility] Desk [id number] [place] [address] documented in this encounter [facility] 10-26-2023 Note [place] [facility] Subjective Cory Jewell is a 58 y.o. year old male patient being seen for three month follow up. Pt has, svt, chf, nicm. Pt got stung multiple times, and went to the ER, and was given a steroid injection. 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 Pt has dizziness when he gets up from a sitting position. Patient Active Problem List Diagnosis Decompensated heart [...] Positive for malaise/fatigue (intermittent). Neurological: Positive for dizziness and light-headedness. All other systems reviewed and are negative. Objective Visit Vitals BP 126/72 (BP Location: Right arm, Patient Position: Sitting) Pulse 68 Ht 1.778 m (5' 10 ) Wt 108 kg (237 lb) SpO2 96% BMI 34.01 kg/m??? Smoking Status Never BSA 2.31 m??? Physical Exam Constitutional: Appearance: He is [...] 360 doses., Disp: 90 tablet, Rfl: 3 lisinopril 10 mg tablet, Take 1 tablet (10 mg) by mouth in the morning., Disp: 90 tablet, Rfl: 3 metoprolol succinate XL (Toprol-XL) 50 mg 24 hr tablet, Take 1 tablet (50 mg) by mouth once daily as directed. Do not crush or chew., Disp: 90 tablet, Rfl: 3 atorvastatin (Lipitor) 20 mg tablet, Take 1 tablet (20 mg) by mouth in the morning., Disp: 90 tablet, Rfl: 3 furosemide (Lasix) 40 mg tablet, Take 1 tablet (40 mg) by monroe (more content not included)... [facility] 08-01-2023 Note [facility] Subjective Cory Jewell is a 58 y.o. year old male [...] care with new doctor BART (nonischemic cardiomyopathy) (CMS/HCC) Hyperlipidemia Family History Adopted: [...] in the mornin (more content not included)... [facility] 06-29-2023 Note [facility] Subjective Cory Jewell is a 58 y.o. year old male [...] 3 spironolactone (Aldactone) (more content not included)... [facility] 05-10-2023 Note Cardiovascular Medic [facility] SUBJECTIVE Chief Complaint Patient presents with Congestive Heart Failure Hypertension Cory Jewell is a 57 y.o. male here for [...] Active Problem List Diagnosis Decompensated heart failure ([facility]) Hypertension Bilateral lower extremity edema Dyspnea on exertion Obesity Knowledge deficit about therapeutic diet Anxiety about knowledge deficit Encounter to establish care with new doctor NICM (nonischemic cardiomyopathy) ([facility]) Hyperlipidemia Past Medical History: Diagnosis Date CHF (congestive heart failure) ([facility]) Family History Adopted: Yes Social History Tobacco [...] (H) 72 - (more content not included)... [facility] 05-10-2023 Note Patient here for 1 m o follow up chronic systolic heart failure and hypertension. His event monitor was finished last week, but no final report yet. Entresto was stopped since last visit. Hasn't had to take lasix recently. Review of Systems Neurological: Tingling in LLE All other systems reviewed and are negative. [facility] 04-18-2023 Note [id number] Bibiana Jewell 1965 M Date Provider Department Center 04/18/2023 YA OLIVER [facility] Family History Adopted: Yes [facility] 04-11-2023 Note Cardiovascular Medic in[facility] [place] [facility] SUBJECTIVE Chief Complaint Patient presents with Hospital Follow-up Congestive Heart Failure Hypertension Cory Jewell is a 57 y.o. male here for [...] Summary Final Discharge Diagnosis: Decompensated heart failure ([facility]) Decompensated CHF /fluid overload Hypertension JAZZ Bilateral lower extremity edema Shortness of breath Admission Diagnosis: Decompensated heart failure (CMS/HCC) [I50.9] Hospital course: Cory Jewell is an 57 y.o. male who came from [facility] with minimal to no medical history x 10 years as he states he has not seen a provider nor had any medical treatment in over 10 years and denies taking any prescription medications, [id number] medications or herbals at this time. Patient states he does not even take [id number] Tylenol or ibuprofen and stopped taking both of those years ago. Patient reports he has been experiencing shortness of breath and swelling for weeks to months with significant amount of edema progressing up bilateral lower extremities into groin and lower abdomen. Patient states upon arrival to [place] ER he was over 340 pounds. While at [facility] he received treatment with IV Lasix, carvedilol, and Aldactone. Patient is now down to 305 pounds and still significantly edematous. Echo completed at [facility] shows EF of 30-35%. Patient diagnosed the hospital with decompensated CHF and has been transferred to [facility] for need of heart cath. [...] Active Problem List Diagnosis Decompensated heart failure ([facility]) Hypertension Bilateral lower extremity edema Dyspnea on exertion Obesity Knowledge deficit about therapeutic diet Anxiety about knowledge deficit Encounter to establish care with new doctor NICM (nonischemic cardiomyopathy) ([facility]) Past Medical History: Diagnosis Date CHF (congestive heart failure) ([facility]) Family History Adopted: Yes Social History Tobacco [...] daily as directed (more content not included)... [facility] 04-11-2023 Note Patient here for [facility] for CHF. He had orientation at cardiac [...] All other systems reviewed and are negative. [facility] 04-11-2023 History of Present illness [...] up after BMP. 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 Yes ( I was filling up with fluid ) Who is your current PCP? Hasn't seen MD in 37 years other than few ER visits & required yearly physicals for health insurance; Has New PCP Appointment scheduled on Apr 05 @ 9:15am with Dr. Kelley in [place], [place] Can I schedule a follow up appointment for you at the time of discharge? Yes (go to [facility]) Do you understand why you [...] Discharge? Yes Does the patient have a therapeutic case manager assigned to them through their [...] discharge today: Home, no needs. Follow-up with [facility] in [place]. will pick-up; Agreeable to iMeds. [facility] 04-03-2023 Note Attempted to meet wi th the patient. He is in with Malini BUSTAMANTE RN at this time. [facility] 04-03-2023 Note Spiritual Care Note Patient name: Cory Jewell Age: 57 y.o. Room: 5148/5148-01 04/03/23 1209 Clinical Encounter Type Visited With Patient;Spouse (Spouse by phone) Type of Visit Advance Directives Last Visit Date 04/03/23 Patient Spiritual Care Encounters Spiritual Care Assessment Hopeful (Pt completed HCPOA naming as agent & son as alternate. Pt shared a bit of his personal hx.) Pastoral Intervention Advance directives;Emotional support;Spiritual support (Meat Molder assisted pt with completing HPCOA. Copies made, original & copies returned to pt, copy placed in pt chart.) Response Appreciative [facility] 04-03-2023 Note UTP Cardiovascular M [...] assess for improvement 3) outpatient follow-up with [facility] cardiology ECHO 04/02/2023 Left Ventricle: The left [...] - NICM -GDMT: (more content not included)... [facility] 04-03-2023 Note Attempted to meet wi th the patient. He is currently in with pastoral care. Will attempt to try again later. [facility] 04-02-2023 Note Patient: Cory Herrera rt Procedure Information Date/Time: 04/02/23 1330 Procedures: Coronary angiography Right heart cath Location: [facility] AUTOMATIC CAR WASH ATTENDANT 2 BIPLANE / [facility] (Cath) Providers: Stephon Morrell MD [...] Plan discussed with attending. Additional Equipment Requests [facility] 04-02-2023 Note Attestation signed by Araceli Schneider [...] Teaching Physician's Revisions: none Araceli Schneider MD [facility] Cardiology Progress Note Subjective Subjective: No [...] QT Interval 400 QTC CALCULATION(BAZETT) 508 P [place] 42 R-[place] -76 T Wave [place] 60 Impression Sinus rhythm with frequent and consecutive Premature ventricular complexes and Fusion complexes Left axis deviation Right bundle branch block Abnormal ECG When compared with ECG of 01-APR-2023 00:38, Fusion complexes are now Present Confirmed by Dora Reddy ([id number]) on 04/01/2023 9:43:42 PM Lab Results Component Value Date TROPONINI 0.03 04/01/2023 Transthoracic echo (TTE) complete Result Date: 04/02/2023 1 1 [facility] Heart Station [address] [place] [address] [phone] (fax) Echocardiogram-[facility] Name: CORY JEWELL Study Date: 04/02/2023 11:46 AM B/P: 112 mmHg/57 mmHg HR: 100 bpm Date of : 1965 Location: [facility] Height: 70 in. Age: 57 year(s) Patient Room: [facility] Weight: 297 lb. Gender: Male Patient [...] 2.3cm) Valvular Assessmen (more content not included)... [facility] 04-02-2023 Note Hospital Medicine Daily Progress Note - 04/02/2023 5:47 PM; Room: 5148/5148-01 Admission: 03/31/2023 9:13 PM; Length of stay: 2 days THE HOSPITALIST TEAM PREFERS TO USE [employer] CHAT FOR COMMUNICATION 7AM-7PM. IF I DO NOT RESPOND WITHIN 15 MINUTES, PLEASE PAGE ME/CALL THROUGH THE UTILITIES OPERATOR. FROM 7PM-7AM, PLEASE PAGE [phone](COVR) Code Status: Full Code Barriers to Discharge: [...] LDL 118 04/01/2023 No results found for: HAFCHPFV20 , IRON , TIBC , C3 , [...] months to assess (more content not included)... [facility] 04-02-2023 Note Pt admitted to [facility] for decompensated HF. Pt has echo scheduled; no previous echo on file. I will wait for current echo results to determine pt's eligibility to participate in cardiac rehab (CR) therapy with HF diagnosis and follow up with pt, if appropriate. KELLY Walton custom decorating consultant Outpatient Coordinator Cardiopulmonary Rehab [facility] 04-02-2023 Note Patient was transfer red to 5th floor, room 5148. Telemetry box was removed and global technical writer called [facility] to inform them that the patient had been transferred to said unit and taken off the monitor, #105. [facility] 04-01-2023 Note Patients HR was sust aining in the 140's. Hospitalist called. Orders to give Lopressor IV once. Patient's Heart rate improved to the 130 s. Hospitalist called again. Patient has new orders to go to stepdown unit. Patient and notified. Meat Molder will give report to [place] cr and transport patient to [facility]. Point of care will continue until then. [facility] 04-01-2023 Note Hospital Medicine Daily Progress Note - 04/01/2023 2:49 PM; Room: [address] [place] [address] Admission: 03/31/2023 9:13 PM; Length of stay: 1 days THE HOSPITALIST TEAM PREFERS TO USE [employer] CHAT FOR COMMUNICATION 7AM-7PM. IF I DO NOT RESPOND WITHIN 15 MINUTES, PLEASE PAGE ME/CALL THROUGH THE UTILITIES OPERATOR. FROM 7PM-7AM, PLEASE PAGE [phone](COVR) Code Status: Full Code Barriers to Discharge: [...] edema Shortness of breath -Echocardiogram completed at [facility], ejection fraction 30-35% Continue 40mg IV [...] from last 7 days Lab Units 04/01/23 04504/01/23 0058 AST U/L 23 24 ALT U/L 26 28 ALK PHOS U/L 79 84 BILIRUBIN TOTAL mg/dL 1.5* 1.6* Historical Values: (Includes values prior to this admission) Lab Results Component Value Date TSH 4.16 04/01/2023 FREET4 1.03 04/01/2023 HDL 30 04/01/2023 LDL 118 04/01/2023 No results found for: [id number] , IRON , TIBC , C3 , [...] ECG When co (more content not included)... [facility] 04-01-2023 Note Meat Molder received a ca ll from [facility] that patient had a 4 beat of VTACH. Pt. Was assessed, was asymptomatic, Dr. Walker was paged. Also results of 2nd EKG was discussed along with patient's Magnesium and phosphorous. Patient also began to desat to 89%-90%. Meat Molder put patient on 2 liters nasal cannula. Patient is satting at 96% now. Will continue point of care. [facility] 04-01-2023 Note Meat Molder was taking monae mccarthy's vitals when patient started having 33 pvc's per 10 minutes sustaining per [facility]; Hospitalist was called, stat labs, EKG, chest xray were ordered. Patient is asymptomatic at this time. Will continue point of care. [facility] 04-01-2023 Note Hospital Medicine History and Physical 04/01/2023 12:08 AM THE HOSPITALIST TEAM PREFERS TO USE [employer] CHAT FOR COMMUNICATION 7AM-7PM. IF I DO NOT RESPOND WITHIN 15 MINUTES, PLEASE PAGE ME/CALL THROUGH THE UTILITIES OPERATOR. FROM 7PM-7AM, PLEASE PAGE [phone](COVR) Chief Complaint Direct admission from [facility]/ER where he presented for SOB and swelling for weeks to months. History of Present Illness Cory Jewell is an 57 y.o. male who came from [facility] with minimal to no medical history x 10 years as he states he has not seen a provider nor had any medical treatment in over 10 years and denies taking any prescription medications, jjmt-uru-cdnngzp medications or herbals at this time. Patient states he does not even take fybd-msu-dpyncxn Tylenol or ibuprofen and stopped taking both of those years ago. Patient reports he has been experiencing shortness of breath and swelling for weeks to months with significant amount of edema progressing up bilateral lower extremities into groin and lower abdomen. Patient states upon arrival to [facility] he was over 340 pounds. While at [facility] he received treatment with IV Lasix, carvedilol, and Aldactone. Patient is now down to 305 pounds and still significantly edematous. Echo completed at [facility] shows EF of 30-35%. Patient diagnosed the hospital with decompensated CHF and has been transferred to [facility] for need of heart cath. [...] P, BN P, T4, free, TSH, UA WATCH HAIRSPRING ASSEMBLER. Patient exhibits mild shortness of breath with [...] Date Noted Decompen (more content not included)... [facility] Evaluation note Diagnosis JAZZ (acute kidney injury) ([facility])- Primary [facility] noteNo assessment information availableKettering Health [facility] Work Phone: Evaluation note* Diagnosis Congestive heart failure, unspecified HF chronicity, unspecified heart failure type ([facility])- Primary [facility]* Diagnosis Cardiomyopathy, nonischemic (HCC)- Primary Other primary cardiomyopathies Chronic HFrEF (heart failure with reduced ejection fraction) ([facility]) documented in this encounter [facility]* Diagnosis Cardiomyopathy, nonischemic (HCC)- Primary Other primary cardiomyopathies Chronic HFrEF (heart failure with reduced ejection fraction) ([facility]) NICM (nonischemic cardiomyopathy) ([facility]) Other primary cardiomyopathies Essential hypertension Unspecified essential hypertension Dyslipidemia Other and unspecified hyperlipidemia documented in this encounter [facility]* Diagnosis NICM (nonischemic cardiomyopathy) ([facility]/HCC)- Primary HFrEF (heart failure with reduced ejection fraction) ([facility]) Class 3 severe obesity due to excess calories without serious comorbidity with body mass index (BMI) of 40.0 to 44.9 in adult ([facility]) Encounter to establish care with new doctor Hyperlipidemia, unspecified hyperlipidemia type ([facility])- Primary Encounter for screening for malignant neoplasm of colon NICM (nonischemic cardiomyopathy) ([facility]) HFrEF (heart failure with reduced ejection fraction) ([facility]) HFrEF (heart failure with reduced ejection fraction) ([facility]) Hyperlipidemia, unspecified hyperlipidemia type ([facility]) Primary hypertension ([facility])- Primary Unspecified essential hypertension documented in this encounter [facility] (narrative)* Outpatient Procedure (Routine) - Authorized Specialty Diagnoses / Procedures Referred By Susie cloud Referred To Contact [facility] VASCULAR CHANCELLOR Diagnoses Congestive heart failure, unspecified HF chronicity, unspecified heart failure type (HCC) Procedures ECG COMPLETE ECG ROUTINE ECG W/LEAST 12 LDS W/I&R Esperanza Campos MD [address] [employer] [address] [place] [address] [facility] [place] [address] Referral ID Status Reason Start Date Expiration Date Visits Requested Visits Authorized [id number] Authorized Auto-Generat ed Referral 01/09/2024 01/08/2025 1 1 [facility] Summary Purpose Family History No Family History Records FoundNo Family History Records FoundNo Family History Records Found Advance Directives No Advanced Directives Records Found Advance Directive Response Recorded Date/ Time Advance Directives Yes October 13, 2023 1:55pm Chief Complaint and Reason for Visit Chief Complaint Allergic reaction to bug sting Reason for Referral Specialty Diagnoses / Procedures Referred By Susie cloud Referred To Contact [facility] Diagnoses Cardiomyopathy, nonischemic (HCC) Chronic HFrEF (heart failure with reduced ejection fraction) ([facility]) Procedures CARDIOVASCULAR MEDICINE OP FOLLOW UP APPT ORDER Esperanza Campos MD [address] [address] [place] [address] [facility] [address] [address] Referral ID Status Reason Start Date Expiration Date Visits Requested Visits Authorized [id number] Ref Not Required PCP Requested Referral 04/17/2024 01/15/2025 1 1 Specialty Diagnoses / Procedures Referred By Susie cloud Referred To Contact [facility] Diagnoses Cardiomyopathy, nonischemic (HCC) Chronic HFrEF (heart failure with reduced ejection fraction) (HCC) Procedures MRI CARDIAC VELOCITY FLOW MAP CARDIAC MRI FOR VELOCITY FLOW MAPPING Esperanza Campos MD [address] [employer] [address] [place] [address] [place] [address] Referral ID Status Reason Start Date Expiration Date Visits Requested Visits Authorized [id number] Authorized Auto-Generat ed Referral 4 02/12/2025 1 1 Specialty Diagnoses / Procedures Referred By Contac t Referred To Contact [facility] Diagnoses Cardiomyopathy, nonischemic (HCC) Chronic HFrEF (heart failure with reduced ejection fraction) (HCC) Procedures MRI CARDIAC MORPH FUNC WO/W IVCON CARDIAC MRI W/WO CONTRAST & FURTHER SEQ Esperanza Campos MD [address] [place] [address] [id number] Referral ID Status Reason Start Date Expiration Date Visits Requested Visits Authorized [id number] Authorized Auto-Generat ed Referral 4 02/12/2025 1 1 Additional Source Comments Care Teams (unrecognized sec tion and content) Marble Installer Supervisor Relationship Specialty Start Date End Date Shaikh Kelley MD [address] [place] [phone] PCP - General Internal Medicine 04/05/23 Marble Installer Supervisor Relationship Specialty Start Date End Date Shaikh Kelley MD [address] [place] [phone] PCP - General Internal Medicine 04/05/23 Team Status: Active Member Role Status Dates Shaikh Allie MD Primary Care Provider Active Team Status: Inactive Member Role Status Dates Shaikh Allie MD Primary Care Provider Active Start: October 13, 2023 End: October 13, 2023 Rowan Kat APRN Attending Provider Active Start: October 13, 2023 End: October 13, 2023 Marble Installer Supervisor Relationship Specialty [place] [address] [phone] PCP - General Cardiology 01/14/24 Shaikh Kelley MD [address] [place] [address] Referring Primary Care 01/14/24 Marble Installer Supervisor Relationship Specialty [place] [address] [phone] PCP - General Cardiology 01/14/24 Shaikh Kelley MD [address] [place] [address] Referring Primary Care 01/14/24 Marble Installer Supervisor Relationship Specialty [place] [address] [phone] PCP - General Cardiology 01/14/24 Shaikh Kelley MD [address] [place] [address] Referring Primary Care 01/14/24 Marble Installer Supervisor Relationship Specialty [place] [address] [phone] PCP - General Cardiology 01/14/24 Shaikh Kelley MD [address] [place] [address] Referring Primary Care 01/14/24 Marble Installer Supervisor Relationship Specialty Start Date End Date Shaikh Kelley MD [address] [place] [phone] PCP - General Internal Medicine 04/05/23 Marble Installer Supervisor Relationship Specialty [place] [address] [phone] PCP - General Cardiology 01/14/24 Shaikh Kelley MD [address] [place] [address] Referring Primary Care 01/14/24 Marble Installer Supervisor Relationship Specialty Start Date End Date Shaikh Kelley MD [address] [place] [phone] PCP - General Internal Medicine 04/05/23 Marble Installer Supervisor Relationship Specialty Start Date End Date Chase Connors MD [address] [place] [phone] PCP - General Family Medicine 02/07/24 Vilma Kuhn NP [address] [place] [address] Nurse Practitioner Family Medicine 02/07/24 Marble Installer Supervisor Relationship Specialty Start Date End Date Shaikh Kelley MD [address] [place] [phone] PCP - General Internal Medicine 04/05/23 (unrecognized sect ion and content) No Status Records FoundNo Status Records FoundNo Status Records Found INFORMATION SOURCE (unrecogn ized section and content) DATE CREATED AUTHOR 05/08/[address] [facility] dical Specialists [facility] DATE CREATED AUTHOR AUTHOR'S ORGANIZ ATION 11/07/2023 [facility] DATE CREATED AUTHOR AUTHOR'S ORGANIZ ATION 02/22/2024 [facility] Goals (unrecognized section and content) Goals may be documented in a n alternate section Source Comments (unrecognize d section and content) In the event this informatio n is protected by the Federal Confidentiality of Alcohol and Drug Abuse Patient Records regulations: The Federal rules restrict any use of the information to criminally investigate or prosecute any alcohol or drug abuse patient.[facility] Center[facility] the event this information is protected by the Federal Confidentiality of Alcohol and Drug Abuse Patient Records regulations: The Federal rules restrict any use of the information to criminally investigate or prosecute any alcohol or drug abuse patient.[facility] CenterIn the event this information is protected by the Federal Confidentiality of Alcohol and Drug Abuse Patient Records regulations: The Federal rules restrict any use of the information to criminally investigate or prosecute any alcohol or drug abuse patient.[facility] CenterIn the event this information is protected by the Federal Confidentiality of Alcohol and Drug Abuse Patient Records regulations: The Federal rules restrict any use of the information to criminally investigate or prosecute any alcohol or drug abuse patient.[facility] CenterIn the event this information is protected by the Federal Confidentiality of Alcohol and Drug Abuse Patient Records regulations: The Federal rules restrict any use of the information to criminally investigate or prosecute any alcohol or drug abuse patient.[facility] CenterIn the event this information is protected by the Federal Confidentiality of Alcohol and Drug Abuse Patient Records regulations: The Federal rules restrict any use of the information to criminally investigate or prosecute any alcohol or drug abuse patient.[facility] Reason for Visit (unrecogniz ed section and content) Reason Comments Event Zio patch Reason Comments Heart Failure Pharmacist Appt Reason Comments New Patient Reason Comments PRIOR AUTH - FARXIGA Reason Comments Results Reason Comments Establish Care FOR RECORDS PERTAINING TO PATIENTS WHO ARE [...] BE BASED ON THE PRIMARY CLINICAL RECORDS. [employer] [facility]. provides no warranty or guarantee of the accuracy or completeness of information in this document.
[2024-02-22 15:48] LABS: Anion Gap 7.7; BUN Creatinine Ratio 14.1; Calcium 8.7 mg/dL (8.5-10.1); Carbon Dioxide 30.4 mmol/L (21.0-32.0); Chloride 108 mmol/L (98-107); Estimated GFR (African America >60 (>=60 mL/min/1.73m^2); Estimated GFR (Non-African Ame 58 (>=60 mL/min/1.73m^2); Glucose 106 mg/dL (74-106); Potassium 4.1 mmol/L (3.5-5.1); Sodium 142 mmol/L (136-145)
== END 2024-02-22 15:10 | disposition home or self-care (01) ==
LOC: LAB 15:10
DX: I50.22 Chronic systolic (congestive) heart failure (principal)
CPT/HCPCS: 36415; 80048